=== PATIENT | female | born 1975 | race Caucasian/White ===

== ENCOUNTER 2024-07-20 15:04 | Inpatient (IN) | payer OTHER, SELFPAY ==
--- NOTE | ~2024-07-20 | XR_ITS ---
XR abdomen/kub 1V Ordering provider: ARI Jennings History: . Abdominal distention, nausea . Comparison: None. FINDINGS: BOWEL: Nonobstructive bowel gas pattern. ORGANOMEGALY: None. Status post cholecystectomy. SIGNIFICANT PATHOLOGIC CALCIFICATIONS: None. OTHER: No free air is seen under the diaphragm. Left sacroiliitis. Dextroscoliosis with mild degenerative changes. IMPRESSION: NO ACUTE ABDOMINAL FINDINGS. Reviewed, dictated and finalized at location A. SALESPERSON
--- NOTE | ~2024-07-20 | CT_ITS ---
EXAMINATION: CT abdomen pelvis w con DATE: 07/20/2024 20:15 INDICATION: LLQ pain, rectal bleeding TECHNIQUE: Computed tomography (CT) of the abdomen and pelvis was performed with 100 mL Omnipaque-350 intravenous contrast. Automated exposure control and iterative reconstruction technique were employe d. The dose-length product was 733.79 mGy-cm. COMPARISON: None. FINDINGS: Lower thorax: Mild dependent atelectasis. Liver: Simple left lobe cyst. Adjacent subcentimeter hypodensity that is too small to characterize bu t likely represents a small cyst or hemangioma. Biliary/Gallbladder: Gallbladder is absent. No bile duct dilation. Pancreas: No mass or duct dilation. Spleen: Normal. Adrenals:No mass. Kidneys: Nonobstructing left inferior pole calcifications. Simple left midpole cyst. Subcentimeter hy podensities bilaterally, too small to characterize but most likely represent cysts. No hydronephrosis . GI tract: Small hiatal hernia. Antral wall edema. No small or large bowel dilation. Short segment wal l thickening and pronounced pericolonic inflammatory change in the distal sigmoid. In this region is a 3.6 x 2.4 cm low-density collection in the colonic wall. Fluid-filled colon. Normal appendix. Mesentery/Peritoneum: No ascites, mass, or free air. Retroperitoneum: No mass. Pelvis: Pelvic organs are within normal limits. Surgical or ligation clips over the left adnexa. Soft Tissues: Soft tissues and body wall unremarkable. Bones: No acute osseous finding. IMPRESSION: Mild antral gastritis. Distal sigmoid diverticulitis complicated by a 3.6 cm intramural abscess. Fluid-filled colon as can be seen with diarrheal illness. Reviewed, dictated and finalized at location [facility]. OWS SERVER ADMINISTRATOR
--- NOTE | ~2024-07-20 | CT_ITS ---
CT of the Abdomen and Pelvis: Indication: Abdominal pain Technique: 2.5 mm axial scans were obtained through the abdomen and pelvis following intravenous adm inistration of 100 cc of Omnipaque 350. Dose reduction technique was used on this scan by utilizing a utomated exposure control and iterative reconstruction technique. The dose-length product (DLP) was 4 82.36 mGy-cm. COMPARISON: 07/20/2024 Findings: Scans through the lung bases are unremarkable. Mild intrahepatic and extra hepatic biliary dilatation is probably related to prior cholecystectomy. Stable left hepatic lobe cyst. The spleen, pancreas, adrenals and right kidney are within normal limi ts. 4 mm nonobstructing left renal stone present. No evidence of aortic aneurysm. No lymphadenopathy . There is wall thickening with pericolonic inflammatory change of the distal sigmoid colon, compatible with acute diverticulitis. No abscess or free air present. No bowel obstruction. Images through the pelvis were performed. Urinary bladder unremarkable. No adnexal mass seen. No asci joey. Impression: Acute sigmoid diverticulitis of the distal sigmoid colon. Previously noted intramural/pericolic absce ss is essentially completely resolved. No abscess or free air seen in the current exam. Reviewed, dictated and finalized at [facility]. ONAL COUNSELOR Impression: Acute sigmoid diverticulitis of the distal sigmoid colon. Previously noted intr amural/pericolic abscess is essentially completely resolved. No abscess or free air seen in the current exam.
[2024-07-20 15:11] VITALS: BP 114/74; PULSE 110; RESP 20; TEMP 37.1; O2SAT 98
--- NOTE | 2024-07-20 17:24 | ED_ITS ---
HPI - Abdominal Pain General Chief Complaint: Abdominal Pain <Yassine Church PA-C - Last Filed: 07/20/24 17:31> Stated Complaint: lower abdomen pain <Yassine Church PA-C - Last Filed: 07/20/24 17:31> Time Seen by Provider: 07/20/24 18:57 <Yassine Church PA-C - Last Filed: 07/20/24 17:31> Focused HPI: This is a 49-year-old female who presents to the ED for chief complaint of lower abdominal pain ongoing x2 days. Patient reports that she has had pain across the lower abdomen, worse on the left side. Reports history of diverticulitis but this does not feel quite the same. Endorses history of bladder and uterine prolapse which are to be managed by Dr. Jerry cam and Dr. Mckinney. States that she is starting to have loose stools with dark red blood. Denies melena. Endorses nausea but no vomiting. Endorses fever 100.8 at home today. GENERAL: Well-appearing, well-nourished, and in no acute distress. HEAD: Normocephalic, atraumatic. CHEST: Clear to auscultation. No respiratory distress. HEART: Regular rate and rhythm. NEURO: Alert and oriented x3. Patient screened in triage and initial orders placed. Additional care and disposition to be based upon diagnostic testing and treatment. <Yassine Church PA-C - Last Filed: 07/20/24 17:31> Source: patient <Yassine Church PA-C - Last Filed: 07/20/24 17:31> Mode of arrival: ambulatory <Yassine Church PA-C - Last Filed: 07/20/24 17:31> Limitations: no limitations <Yassine Church PA-C - Last Filed: 07/20/24 17:31> History of Present Illness HPI narrative: I agree with the above HPI <Mike Springer MD - Last Filed: 07/21/24 00:00> Related Data Home Medications: Home Medications ?Medication ?Instructions ?Recorded ?Confirmed ?Last Taken ?Type docusate sodium 100 mg capsule 200 mg PO HS 07/20/24 07/20/24 07/19/24 History <Yassine Church PA-C - Last Filed: 07/20/24 17:31> Allergies/Adverse Reactions: Allergies Allergy/AdvReac Type Severity Reaction Status Date / Time sulfamethoxazole (From Allergy Intermediate Swelling Verified 07/20/24 15:06 Bactrim) of Lip/Tongue/Throat thimerosal Allergy Intermediate Rash Verified 07/20/24 15:06 trimethoprim (From Bactrim) Allergy Intermediate Swelling Verified 07/20/24 15:06 of Lip/Tongue/Throat <Yassine Church PA-C - Last Filed: 07/20/24 17:31> Review of Systems 2 Review of Systems: All systems reviewed & are unremarkable except as noted in HPI and below <Mike Springer MD - Last Filed: 07/21/24 00:00> [facility] Family History Family History: Family History Grandparent Colon cancer Breast cancer Grandparent Esophageal cancer Grandparent Non Hodgkin's lymphoma Grandparent Cerebrovascular accident Father Malignant neoplasm of prostate <Yassine Church PA-C - Last Filed: 07/20/24 17:31> Social History Social History: Social History (System 10/25/21 @ 15:47 by Mandy Murray) Smoking packs per day: 1 Smoking cigarettes per day: 20.0 Years smoked: 29 Smoking pack-years: 29.00 Smoking status: Current every day smoker Tobacco type: cigarettes Additional smoking assessment comments: on and off smoking throughout years Alcohol intake: never Substance use: never Do You Feel Safe in your Home?: Yes Lack of Transportation: No Lack of Food: Never True Current Housing: I Have Housing Concerned About Future Housing: No Difficulty Paying Gas/Electric Bills: No Difficulty Paying for Meds: No Currently Unemployed: No Education: Associate Degree Difficulty w/ Childcare or Family Care: No Spiritual care concerns: No <Yassine Church PA-C - Last Filed: 07/20/24 17:31> Exam 2 Narrative: APPEARANCE: Uncomfortable appearing HEAD: normocephalic, atraumatic. EYES: PERRLA/EOMI, conjunctivae clear. NOSE: Normal no drainage EARS:TMS clear with good light reflex. THROAT: Pharynx clear, no exudate. NECK: Supple. No adenopathy, no masses. RESPIRATORY: Airway patent, respirations nonlabored. Clear to auscultation bilaterally, no rales, rhonchi, wheezing. CARDIOVASCULAR: Regular rate and rhythm without murmurs rubs or gallops. ABDOMINAL: Left lower quadrant tenderness to palpation MUSCULOSKELETAL: Moves all extremities. Strength/ROM intact, No edema, No calf tenderness. NEURO: Alert. Cranial nerves II through XII intact. Good gait. Good coordination SKIN: Warm, dry. Normal Color <Mike Springer MD - Last Filed: 07/21/24 00:00> Course Vital Signs Vital signs: Vital Signs Temperature 98.8 F 07/20/24 15:11 Pulse Rate 110 H 07/20/24 15:11 Respiratory Rate 20 07/20/24 15:11 Blood Pressure 114/74 07/20/24 15:11 Pulse Oximetry 98 07/20/24 15:11 Oxygen Delivery Room Air 07/20/24 15:11 Temperature 98.8 F 07/20/24 19:12 Pulse Rate 81 07/20/24 22:31 Respiratory Rate 17 07/20/24 22:31 Blood Pressure 113/71 07/20/24 22:31 Pulse Oximetry 99 07/20/24 22:31 Oxygen Delivery Room Air 07/20/24 15:11 <Yassine Church PA-C - Last Filed: 07/20/24 17:31> Vital Signs Temperature 98.8 F 07/20/24 15:11 Pulse Rate 110 H 07/20/24 15:11 Respiratory Rate 20 07/20/24 15:11 Blood Pressure 114/74 07/20/24 15:11 Pulse Oximetry 98 07/20/24 15:11 Oxygen Delivery Room Air 07/20/24 15:11 Temperature 98.8 F 07/20/24 19:12 Pulse Rate 81 07/20/24 22:31 Respiratory Rate 17 07/20/24 22:31 Blood Pressure 113/71 07/20/24 22:31 Pulse Oximetry 99 07/20/24 22:31 Oxygen Delivery Room Air 07/20/24 15:11 <Mike Springer MD - Last Filed: 07/21/24 00:00> MDM - Abdominal Pain MDM Narrative Medical decision making narrative: 49-year-old female presented emergency department for evaluation for left lower quadrant pain. Patient is currently afebrile but does have a leukocytosis of 13.2 and hemoglobin of 12.4. Patient has no significant abnormalities on her CMP. UA was negative for infection presents test was negative. On patient's CT scan there was Distal sigmoid diverticulitis complicated by a 3.6 cm intramural abscess. Patient has no cardiac history and patient denies any hypertension high cholesterol or diabetes. Patient does report history of irritable bowel syndrome and patient does have prior history of diverticulitis. I discussed the case with surgery and patient was accepted for admission to their service. Patient was started on Zosyn and made NPO. Patient was updated on the results of the workup and plan for admission. All questions concerns were addressed patient was well-appearing at time of admission. <Mike Springer MD - Last Filed: 07/21/24 00:00> Differential Diagnosis Differential diagnosis: Likely abdominal pain, acute appendicitis, calculus of kidney, diverticulitis, gastroenteritis, pancreatitis and small bowel obstruction <Mike Springer MD - Last Filed: 07/21/24 00:00> Lab Data Attestation: I reviewed the patient's lab results. <Mike Springer MD - Last Filed: 07/21/24 00:00> Result diagrams: 07/20/24 18:57 07/20/24 18:57 <Yassine Church PA-C - Last Filed: 07/20/24 17:31> Labs: Lab Results 07/20/24 07/20/24 07/20/24 Range/Units 18:57 19:40 19:42 WBC 13.2 H (4.5-10.0) K/mm3 RBC 4.12 L (4.2-5.4) M/mm3 Hgb 12.4 (12.0-15.0) g/dL Hct 36.3 L (37.0-47.0) % MCV 88.1 (80-100) fl MCH 30.1 (26-34) pg MCHC 34.2 (32-36) g/dl RDW 12.7 (11.5-14.5) % Plt Count 335 (150-375) k/mm3 MPV 9.9 (7.4-10.4) fl Immature Gran % (Auto) 0.3 (0-0.5) % Neut % (Auto) 78.2 H (45.5-73.1) % Lymph % (Auto) 16.6 L (18.3-44.2) % [place] % (Auto) 4.5 (2.6-8.5) % Eos % (Auto) 0.2 (0-4.4) % Baso % (Auto) 0.2 (0.2-1.2) % Lymph # (Auto) 2.19 (0.9-3.2) K/mm3 [place] # (Auto) 0.6 (0.1-0.6) K/mm3 Eos # (Auto) 0.0 (0-0.3) K/mm3 Baso # (Auto) 0.0 (0.0-0.1) K/mm3 Abs Immat Gran (auto) 0.04 H (0.00-0.031) K/mm3 Absolute Neuts (auto) 10.3 H (1.3-6.7) K/mm3 Absolute Nucleated RBC 0.000 (0.0-0.012) K/mm3 Nucleated RBC % 0.0 (0.0-0.2) % Sodium 138 (137-145) mmol/L Potassium 3.6 (3.4-5.0) mmol/L Chloride 100 (98-107) mmol/L Carbon Dioxide 26 (22-30) mmol/L Anion Gap 12 (4-12) mmol/L BUN 9 (7-17) mg/dL Creatinine 0.64 L (0.7-1.0) mg/dL Estim Creat Clear Calc 94 ml/min Estimated GFR > 60 (59 - ) Glucose 105 (65-110) mg/dL Calcium 9.4 (8.4-10.2) mg/dL Total Bilirubin 0.5 (0.2-1.3) mg/dL AST 31 (14-36) U/L ALT 21 (6-35) U/L Alkaline Phosphatase 110 (38-126) U/L Total Protein 8.0 (6.3-8.2) g/dL Albumin 4.1 (3.5-5.1) g/dL Lipase 75 (23-300) U/L Urine Color Dark yellow (Yellow) Urine Appearance Clear (Clear) Urine pH 6.0 (5.0-9.0) Ur Specific [place] 1.017 (1.001-1.035) Urine Protein Negative (Negative) mg/dL Urine Glucose (UA) Negative (Negative) mg/dL Urine Ketones 1+ H (Negative) mg/dL Ur Blood (Man) Negative (Negative) Urine Nitrate Negative (Negative) Urine Bilirubin Negative (Negative) Urine Urobilinogen 1.0 (<2.0) mg/dL Leukocyte Esterase Rfl Negative (Negative) MEJIA/UL POC Urine HCG, Qual Negative (Negative) <Yassine Church PA-C - Last Filed: 07/20/24 17:31> Lab Results 07/20/24 07/20/24 07/20/24 Range/Units 18:57 19:40 19:42 WBC 13.2 H (4.5-10.0) K/mm3 RBC 4.12 L (4.2-5.4) M/mm3 Hgb 12.4 (12.0-15.0) g/dL Hct 36.3 L (37.0-47.0) % MCV 88.1 (80-100) fl MCH 30.1 (26-34) pg MCHC 34.2 (32-36) g/dl RDW 12.7 (11.5-14.5) % Plt Count 335 (150-375) k/mm3 MPV 9.9 (7.4-10.4) fl Immature Gran % (Auto) 0.3 (0-0.5) % Neut % (Auto) 78.2 H (45.5-73.1) % Lymph % (Auto) 16.6 L (18.3-44.2) % [place] % (Auto) 4.5 (2.6-8.5) % Eos % (Auto) 0.2 (0-4.4) % Baso % (Auto) 0.2 (0.2-1.2) % Lymph # (Auto) 2.19 (0.9-3.2) K/mm3 [place] # (Auto) 0.6 (0.1-0.6) K/mm3 Eos # (Auto) 0.0 (0-0.3) K/mm3 Baso # (Auto) 0.0 (0.0-0.1) K/mm3 Abs Immat Gran (auto) 0.04 H (0.00-0.031) K/mm3 Absolute Neuts (auto) 10.3 H (1.3-6.7) K/mm3 Absolute Nucleated RBC 0.000 (0.0-0.012) K/mm3 Nucleated RBC % 0.0 (0.0-0.2) % Sodium 138 (137-145) mmol/L Potassium 3.6 (3.4-5.0) mmol/L Chloride 100 (98-107) mmol/L Carbon Dioxide 26 (22-30) mmol/L Anion Gap 12 (4-12) mmol/L BUN 9 (7-17) mg/dL Creatinine 0.64 L (0.7-1.0) mg/dL Estim Creat Clear Calc 94 ml/min Estimated GFR > 60 (59 - ) Glucose 105 (65-110) mg/dL Calcium 9.4 (8.4-10.2) mg/dL Total Bilirubin 0.5 (0.2-1.3) mg/dL AST 31 (14-36) U/L ALT 21 (6-35) U/L Alkaline Phosphatase 110 (38-126) U/L Total Protein 8.0 (6.3-8.2) g/dL Albumin 4.1 (3.5-5.1) g/dL Lipase 75 (23-300) U/L Urine Color Dark yellow (Yellow) Urine Appearance Clear (Clear) Urine pH 6.0 (5.0-9.0) Ur Specific [place] 1.017 (1.001-1.035) Urine Protein Negative (Negative) mg/dL Urine Glucose (UA) Negative (Negative) mg/dL Urine Ketones 1+ H (Negative) mg/dL Ur Blood (Man) Negative (Negative) Urine Nitrate Negative (Negative) Urine Bilirubin Negative (Negative) Urine Urobilinogen 1.0 (<2.0) mg/dL Leukocyte Esterase Rfl Negative (Negative) MEJIA/UL POC Urine HCG, Qual Negative (Negative) <Mike Springer MD - Last Filed: 07/21/24 00:00> Imaging Data Radiologist's impression: ITS Impressions Abdomen/Pelvis CT 07/20/24 20:38 IMPRESSION: Mild antral gastritis. Distal sigmoid diverticulitis complicated by a 3.6 cm intramural abscess. Fluid-filled colon as can be seen with diarrheal illness. <Yassine Church PA-C - Last Filed: 07/20/24 17:31> ITS Impressions Abdomen/Pelvis CT 07/20/24 20:38 IMPRESSION: Mild antral gastritis. Distal sigmoid diverticulitis complicated by a 3.6 cm intramural abscess. Fluid-filled colon as can be seen with diarrheal illness. <Mike Springer MD - Last Filed: 07/21/24 00:00> Discharge Plan Discharge Clinical Impression: Abscess of sigmoid colon due to diverticulitis <Yassine Church PA-C - Last Filed: 07/20/24 17:31> Patient Disposition: Still a Patient <Yassine Church PA-C - Last Filed: 07/20/24 17:31> Condition: Serious <Yassine Church PA-C - Last Filed: 07/20/24 17:31>
--- OUTSIDE RECORDS SUMMARY | 2024-07-20 17:37 | XMS_ITS | Encounter Summary ---
Author Organization [facility] Address [address] [place] [address] Phone Care Team Providers Care Costume Draper Name Role Phone Vinicio Greco MD Primary Care Provider [phone] Encounter Details Date Type Department Care Team (Late st Contact Info) Description 07/10/2017 Orders Only [facility] ProviderCrista MD [address] [place] [id number] Social History Tobacco Use Types Packs/Day Years Used Date Smoking Tobacco: Former Smokeless Tobacco: Never Comments:Smoking History Pac ks/day: 1 Packs Alcohol Use Standard Drinks/Week Comments Yes 0 (1 standard drink = 0.6 oz pur e alcohol) Comments Unknown Sex and Gender Information Value Date Recorded Sex Assigned at Not on file Legal Sex Female 12:18 PM PATENT ENGINEER Gender Identity Not on file Sexual Orientation Not on file documented as of this encounter Plan of Treatment Not on file documented as of this encounter Procedures Procedure Name Priority Date/Time Associated Diagnosis Comments DISCHARGE LABORATORY CUMULATIVE REPORT 07/10/2017 12:00 AM PATENT ENGINEER documented in this encounter Results * DISCHARGE LABORATORY CUMULATIVE REPORT (07/10/2017 12:00 AM PATENT ENGINEER) Narrative 07/10/2017 12:00 AM PATENT ENGINEER Ordered by an unspecified provider. Historical Provider LAB BLOOD ORDERABLES [place] [facility] Result documented in this encounter Visit Diagnoses Not on filedocumented in this encounter Additional Health Concerns Infection Onset Date Last Indicated Resolved Time COVID: Suspected 07/19/2024 07/19/202407/1907/19/2024 4:19 PM PATENT ENGINEER documented as of this encounter Care Teams Costume Draper Relationship Specialty Start Date End Date Vinicio Greco MD [address] [place] [address] PCP - General 09/16/11 documented as of this encounter
--- OUTSIDE RECORDS SUMMARY | 2024-07-20 17:37 | XMS_ITS | Clinical Summary ---
Author Organization [facility] Address [address] [place] [address] Phone Care Team Providers Care Supervisor Sign Shop Name Role Phone GERARDO SHEETS MD Primary Care Provider [phone] KETTY RIZO MD Unavailable [phone] Reason for Visit and Chief Complaint previous history of abnormal Pap smear - The Chief Complaint is: Return in 2 weeks to review results on [place] and EMB Problems Includes: Problems addressed during this encounter and other active Problems Current Visit Onset Date Resolved Date Provider Dillon n Status Previous Colposcopy 09/27/2022 LARA MILLER MANUAL WINDER-BC Active Last Documented On 10:22AM ; [facility] Alcohol Use 07/21/2014 Unknown SHASTA SHORT MD Resolve d Last Documented On 04/03/2015 10:52AM ; [facility] Note: was Closed. History of Abnormal Pap Smear 07/21/2014 Unknown SHASTA SHORT MD Resolved Last Documented On 04/03/2015 10:52AM ; [facility] Note: was Closed. History of Congenital Abnormality of Uterus 07/21/2014 Unknown SHASTA SHORT MD Resolved Last Documented On 04/03/2015 10:52AM ; [facility] Note: was Closed. History of Hematologic Disorders 07/21/2014 Unknown SHASTA SHORT MD Resolved Last Documented On 04/03/2015 10:52AM ; [facility] Note: was Closed. History of Recurrent Loss (Gravid) 07/21/2014 Unknown SHASTA SHORT MD Resolve d Last Documented On 04/03/2015 10:52AM ; [facility] Note: was Closed. History of Reported Physical Trauma 07/21/2014 Unknown SHASTA SHORT MD Resolved Last Documented On 04/03/2015 10:52AM ; [facility] Note: was Closed. Tobacco Use 07/21/2014 Unknown SHASTA SHORT MD Resolve d Last Documented On 04/03/2015 10:52AM ; [facility] Note: was Closed. History of Abnormal Pap Smear 07/16/2011 Unknown SHASTA SHORT MD Resolved Last Documented On 02/28/2012 10:55AM ; [facility] Note: was Closed. 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 Resolved Last Documented On 02/28/2012 10:55AM ; [facility] Note: was Closed. Tobacco Use 07/16/2011 Unknown SHASTA SHORT MD Resolve d Last Documented On 02/28/2012 10:55AM ; [facility] Note: was Closed. Past Visits Onset Date Resolved Date Provider Condition Status Risk: Tobacco Use 09/27/2022 LARA REYNA NP -BC Active Last Documented On 10:22AM ; [facility] Plan of Treatment No Plan of Treatment Recorded Assessments Includes: Assessments from this encounter Findings - Contraceptive management - Last Documented On 12/10/2022 4:44PM ; [facility] - Abnormal Pap smear: atypical glandular cells - Last Documented On 12/10/2022 4:44PM ; [facility] Medical Equipment - Implanted Devices Includes: Current Devices No Medical Equipment Recorded Medications Includes: Medications discussed during this encounter and other current Medications Current Medications (continue as prescribed) Advil 200 MG Oral Capsule 09/27/2022 Provider: Diagnosis: Last Documented On 12/10/2022 4:41PM By KETTY RIZO MD ; [facility] Stool Softener 100 MG Oral Capsule 07/16/2019 Pr ovider: Diagnosis: Last Documented On 12/10/2022 4:41PM By KETTY RIZO MD ; [facility] Dicyclomine HCl 10 MG Oral Capsule 07/16/2019 Provid er: Diagnosis: Last Documented On 12/10/2022 4:41PM By KETTY RIZO MD ; [facility] Past Medications on file Breast Pump Miscellaneous 01/26/2015 - 01/26/2016 Prov ider: SHASTA SHORT MD Diagnosis: as directed Last Documented On 01/26/2015 3:22PM By SHASTA SHORT MD ; [facility] Plus/Iron 27-1 MG OR TABS 03/09/2014 - 03/04/2015 Provider: SUREKHA MELENDEZ RN [facility] Diagnosis: OTHER FAMILY DAVID NNING ADVICE NEC Last Documented On 4 4:03PM By SUREKHA MELENDEZ [facility]- ; [facility] Bactrim DS 800-160 MG OR TABS 09/06/2013 - 09/09/2013 Provider: Diagnosis: Called into [facility] Last Documented On 09/06/2013 8:54AM By FLAVIO COLLAZO ; [facility] miSOPROStol 200 MCG OR TABS 08/02/2013 - 08/04/2013 Pr ovider: SHASTA SHORT MD Diagnosis: MISSED 4 tabs (800 mcg) po X 1, may repeat 24 hours later if needed Last Documented On 08/02/2013 4:41PM By SHASTA SHORT MD ; [facility] [employer]ETING [employer] 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 Last Documented On 4 2:53PM By LUCIO LIND LPN ; [facility] Peotone 5-325 MG OR TABS 01/26/2013 - 02/02/2013 Provide r: Diagnosis: [facility] [place]/ Last Documented On 01/26/2013 1:39PM By FLAVIO COLLAZO ; [facility] Estradiol 1 MG OR TABS 06/25/2012 - 07/16/2012 Provide r: SHASTA SHORT MD Diagnosis: Last Documented On 06/25/2012 4:19PM By SHASTA SHORT MD ; [facility] Ferrous Sulfate 325 (65 Fe) MG OR TABS 10/22/2011 - 02/19/2012 Provider: MARIA D ROSE ON Liliam Diagnosis: ANEMIA IN PREG-U NSPEC Last Documented On 2 4:46PM By DR. MARIA D DE AL ROSA ; [facility] Ferrous Sulfate 325 (65 Fe) MG OR TABS 08/19/2011 - 12/17/2011 Provider: SOLDREObi OQUENDO M.D. Diagnosis: ANEMIA IN PREG-U NSPEC Last Documented On 2 11:13PM By DR. MARIA D DE LA ROSA ; [facility] Zofran 4 MG OR TABS 06/20/2011 - 08/19/2011 Provider: LARA GARNETT Diagnosis: 1 sublingual (reditabs) q 8 hours prn - nausea and vomiting Last Documented On 2 11:41AM By LARA REYNA TEO ; [facility] Metoclopramide HCl 10 MG OR TABS 05/23/2011 - 06/12/2011 Provider: LARA MILLER NP- Diagnosis: prn - nausea Last Documented On 1 4:12PM By LARA REYNA TEO ; [facility] Triveen-Duo DHA 29-1-200 & 400 MG OR MISC 01/18/2011 - 05/18/2011 Provider: LARA MILLER NP-BC Diagnosis: Last Documented On 1 3:26PM By LARA SIMPSON ; [facility] Depo-Provera 150 MG/ML IM SUSP 04/03/2010 - 09/30/2010 Provider: VICKY JURADO Diagnosis: Inject IM Last Documented On 04/03/2010 9:07AM By VICKY JURADO ; [facility] MetroGel-Vaginal 0.75% VA GEL 11/08/2009 - 11/15/2009 Provider: VICKY JURADO Diagnosis: apply per vagina x 7 days Last Documented On 11/08/2009 3:55PM By DESTINY HOOVER ; [facility] Lexapro 10 MG OR TABS 10/17/2009 - 10/12/2010 Provider : VICKY JURADO Diagnosis: ANXIETY STATE NO S Last Documented On 10/17/2009 3:44PM By VICKY JURADO ; [facility] Medications Administered Includes: Administered Medications from this encounter No Administered Medications Recorded Vital Signs Includes: Vital Signs from this encounter Vital Name 12/10/2022 02:08P Blood Pressure Sitting R 120/84 BP Cuff Size Regular Temp-Temporal 98.3 Height (in) 64 Weight (lb) 173 Body Mass Index 29.7 Body Surface Area 1.8 Last Documented: On 12/10/2022 2:09PM ; [facility] Results Includes: Results discussed during this encounter No Results Recorded For Specified Dates History of Present Illness Includes: History of Present Illness from this encounter HPI MARI BARAHONA is a 47 year old female. - Allergy list reviewed - Medication list reviewed - Patient denies any problems from the procedure Pt had a CT scan looking at her ventral hernia and it happened to notice the right tubal ligation clip was displaced compared to where it was expected to be. Since discovery she has not been depending on her prior tubal ligation for control. She has been using condoms 100% of the time. Cautioned pt about unintended . Options for management are discussed - Previous colposcopy on 11/04/2022 for AGC pap with positive HR HPV testing on 09/27/2022 with Lara - Pathology report Reviewed and showed squamous ectocervix and reactive changes in the biopsy and benign endocervical mucosa in the ECC. She also had an endometrial biopsy done on 11/29/2022 that shows proliferative endometrium without hyperplasia or malignancy. Reassurrance is given: no cancer or pre cancer changes - Patient tolerated procedure well Social History Description Last Updated Alcohol use occ 10/03/2023 Last Documented On 3 1:55PM ; [facility] control is being practiced Condoms 12/10/2022 Last Documented On 3 4:44PM ; [facility] Marital history to Chaitanya Barahona 12/10/2022 Last Documented On 3 4:44PM ; [facility] Not exercising regularly 12/10/2022 Last Documented On 3 4:44PM ; [facility] Not using drugs 12/10/2022 Last Documented On 3 4:44PM ; [facility] Sexually active with 1 partners in the l ast year 12/10/2022 Last Documented On 3 4:44PM ; [facility] Amount of alcohol per day: 0-1 3 Last Documented On 3 1:55PM ; [facility] Current smoker 09/27/2022 Last Documented On 3 1:55PM ; [facility] Current smoker for 10 09/27/2022 Last Documented On 3 1:55PM ; [facility] Has sex with males only 09/27/2022 Last Documented On 3 1:55PM ; [facility] Sexual partner has had other partners wh ile in relationship with patient 09/27/2022 Last Documented On 3 1:55PM ; [facility] Smoking packs of cigarettes per day 1 Last Documented On 3 1:55PM ; [facility] Smoking status : Current everyday smoker 07/16/2019 Last Documented On 3 1:55PM ; [facility] Requested item <0> not found 12/23/2014 Last Documented On 3 1:55PM ; [facility] Procedures and Surgical History Includes: Procedures from this encounter Procedures Code Diagnosis Performing Provider Service L ocation Service Date use of tobacco assessment performed 1000F Last Documented On 3 1:57PM ; [facility] Clinical summary provided to patient Last Documented On 3 2:25PM ; [facility] Surgical History Last Updated Surgical / procedural histor y Surgery on R thigh ~pt has diverticulitis ~Cervical replacement of disks in neck 2021 ~EMB 11/29/22 Lara 12/10/2022 Last Documented On 3 4:44PM ; [facility] Previous colposcopy 04/17/2011 with Lizz foy; 11/04/22 TCK 12/10/2022 Last Documented On 3 4:44PM ; [facility] History of tubal ligation Dr Short (right clip in pelvis somewhere per pt) 11/04/2022 Last Documented On 3 1:55PM ; [facility] History of cholecystectomy 07/16/2019 Last Documented On 3 1:55PM ; [facility] Medical History Includes: Medical History addressed during this encounter Description Last Updated LMP: 11/21/2022 10/03/2023 Last Documented On 3 1:55PM ; [facility] Contraception: BTL 12/10/2022 Last Documented On 3 4:44PM ; [facility] Other method: Tubal ligation/ Condoms Last Documented On 3 4:44PM ; [facility] Result: normal Bilateral 11/05/22 Left br east lump [facility] 12/10/2022 Last Documented On 3 4:44PM ; [facility] History of screening mammogr am was performed 04/04/2021 Bilateral 11/05/22 Left breast lump [facility] 12/10/2022 Last Documented On 3 4:44PM ; [facility] Last pap smear date 09/27/2022 11/04/2022 Last Documented On 3 1:55PM ; [facility] Result: abnormal KIM HPV+ 11/04/2022 Last Documented On 3 1:55PM ; [facility] Last mammogram date: 04/04/2021 09/28/19 Last Documented On 3 1:55PM ; [facility] History of colonoscopy fiberoptic was pe rformed 201809/27/2022 Last Documented On 3 1:55PM ; [facility] # 1 Delivery date: 12/07/92 09/27/2022 Last Documented On 3 1:55PM ; [facility] # 2 Delivery date: 01/15/12 09/27/2022 Last Documented On 3 1:55PM ; [facility] # 3 Delivery date: 02/06/15 09/27/2022 Last Documented On 3 1:55PM ; [facility] Bowel problems 09/27/2022 Last Documented On 3 1:55PM ; [facility] Elective (s) 0 09/27/2022 Last Documented On 3 1:55PM ; [facility] Gallbladder disease 09/27/2022 Last Documented On 3 1:55PM ; [facility] No Exercise 09/27/2022 Last Documented On 3 1:55PM ; [facility] No. of miscarriages: 2 09/27/2022 Last Documented On 3 1:55PM ; [facility] No. of Pregnancies: 5 09/27/2022 Last Documented On 3 1:55PM ; [facility] Please list all surgeries: T ubal ligation, cholecystectomy, cervical disc's replaced, diverticulitis 09/27/2022 Last Documented On 3 1:55PM ; [facility] Previous live (s) 3 09/27/2022 Last Documented On 3 1:55PM ; [facility] Previous premature delivery(s) 0 023 Last Documented On 3 1:55PM ; [facility] Received all 3 doses of Hepatitis B vacc ine 09/27/2022 Last Documented On 3 1:55PM ; [facility] Sex of Child # 1: Female 09/27/2022 Last Documented On 3 1:55PM ; [facility] Sex of Child # 2: Male 09/27/2022 Last Documented On 3 1:55PM ; [facility] Sex of Child # 3: Male 09/27/2022 Last Documented On 3 1:55PM ; [facility] Sexually active 07/16/2019 Last Documented On 3 1:55PM ; [facility] History of complete colonoscopy 2019 Last Documented On 3 1:55PM ; [facility] Aborta 2 05/30/2015 Last Documented On 3 1:55PM ; [facility] 5 05/30/2015 Last Documented On 3 1:55PM ; [facility] Para 3 05/30/2015 Last Documented On 3 1:55PM ; [facility] Baby thriving Tae 03/21/2015 Last Documented On 3 1:55PM ; [facility] HX OF FE DEFICIENT ANEMIA 12/23/2014 Last Documented On 3 1:55PM ; [facility] History of Abnormal Pap Smear hx of abn pap smear, last few normal 12/23/2014 Last Documented On 3 1:55PM ; [facility] History of cervical dysplasia colpo 11-2 3-11 12/23/2014 Last Documented On 3 1:55PM ; [facility] History of congenital abnormality of shauna onofre retroverted ? 12/23/2014 Last Documented On 3 1:55PM ; [facility] History of dysfunctional shauna rine bleeding heavy and long periods but ocp helped 12/23/2014 Last Documented On 3 1:55PM ; [facility] History of hematologic disorder Hx of an emia, sharmaine with preg 12/23/2014 Last Documented On 3 1:55PM ; [facility] History of human papilloma virus infecti on 12/23/2014 Last Documented On 3 1:55PM ; [facility] History of recurrent loss (gra vid) sab X 2 12/23/2014 Last Documented On 3 1:55PM ; [facility] Physical trauma fx right leg at age 5 Last Documented On 3 1:55PM ; [facility] Requested item <0> not found 12/23/2014 Last Documented On 3 1:55PM ; [facility] Vaginal delivery 12/23/2014 Last Documented On 3 1:55PM ; [facility] Family History Includes: Family History addressed during this encounter Description Last Updated Daughter's history of stroke syndrome Last Documented On 3 1:55PM ; [facility] Maternal history of breast cancer Grandm a 09/27/2022 Last Documented On 3 1:55PM ; [facility] Maternal history of cancer Gradnfather- esophogeal 09/27/2022 Last Documented On 3 1:55PM ; [facility] Paternal history of cancer Grandma- non hodgkins lymphoma 09/27/2022 Last Documented On 3 1:55PM ; [facility] Paternal history of stroke syndrome 09/2022 Last Documented On 3 1:55PM ; [facility] Family history of bowel problems 023 Last Documented On 3 1:55PM ; [facility] Family history of Breast problems 2022 Last Documented On 3 1:55PM ; [facility] Family history of kidney disease 023 Last Documented On 3 1:55PM ; [facility] Maternal history of Anemia 09/27/2022 Last Documented On 3 1:55PM ; [facility] Maternal history of bowel problems 09/27 Last Documented On 3 1:55PM ; [facility] Maternal history of Breast problems 09/2022 Last Documented On 3 1:55PM ; [facility] Maternal grandmother's history of malign ant female breast neoplasm MG 07/16/2019 Last Documented On 3 1:55PM ; [facility] Family history of diabetes mellitus [facility] 03/09/2014 Last Documented On 3 1:55PM ; [facility] Family history of malignant female breas t neoplasm [facility] 03/09/2014 Last Documented On 3 1:55PM ; [facility] Review of Systems Includes: Review of Systems from this encounter No Review of Systems Recorded Mental Status Includes: Mental Status from this encounter No Mental Status Recorded Functional Status Includes: Functional Status from this encounter No Functional Status Recorded Physical Exam Includes: Physical Exam from this encounter Allergies Includes: Active Allergies Substance Type Reaction Onset Date Resolved Date Statu s Thimerosal Allergy 02/28/2012 Active Last Documented On 4 10:05AM ; [facility] Bactrim DS Allergy 07/16/2019 Active Last Documented On 4 10:05AM ; [facility] Encounters Encounter Provider Location Date Check-In Time Check- Out Time Diagnosis FOLLOW UP KETTY RIZO MD [facility] 3 1:54PM 2:54PM Cervical Pap Smear Positive Atypical Glandular Cells,Contrace ptive Management Insurance Includes: Active Insurance Policies Plan Name Member ID Group # Subscriber Relationship Effect cole Dates - [id number] MARI BARAHONA Self Clinical Notes Includes: Clinical Notes from this encounter * Progress note Date Encounter Last Documented by 12/10/2022 FOLLOW UP Last documented on 12/10/2022; 4:44 PM, KETTY RIZO MD; [facility] Active Problems & Conditions - Previous Colposcopy - Risk: Tobacco Use Chief Complaint The Chief Complaint is: Return in 2 weeks to review results on [place] and EMB. Reason For Visit Previous history of abnormal Pap smear. History of Present Illness MARI BARAHONA is a 47 year old female. - Allergy list reviewed - Medication list reviewed - Patient denies any problems from the procedure Pt had a CT scan looking at her ventral hernia and it happened to notice the right tubal ligation clip was displaced compared to where it was expected to be. Since discovery she has not been depending on her prior tubal ligation for control. She has been using condoms 100% of the time. Cautioned pt about unintended . Options for management are discussed - Previous colposcopy on 11/04/2022 for AGC pap with positive HR HPV testing on 09/27/2022 with Lara - Pathology report Reviewed and showed squamous ectocervix and reactive changes in the biopsy and benign endocervical mucosa in the ECC. She also had an endometrial biopsy done on 11/29/2022 that shows proliferative endometrium without hyperplasia or malignancy. Reassurrance is given: no cancer or pre cancer changes - Patient tolerated procedure well Current Medication - Advil 200 MG Oral Capsule 0 days, 0 refills - [facility] Stool Softener 100 MG Oral Capsule 0 days, 0 refills - Cyclobenzaprine HCl 10 MG Oral Tablet 30 days, 0 refills - Dicyclomine HCl 10 MG Oral Capsule 0 days, 0 refills - HYDROcodone-Acetaminophen 5-325 MG Oral Tablet 5 days, 0 refills - Pantoprazole Sodium 40 MG Oral Tablet Delayed Release 90 days, 0 refills Past Medical/Surgical History Reported: No Exercise. LMP: 11/21/2022, Last pap smear date 09/27/2022 result: abnormal KIM HPV+, Last mammogram date: 04/04/2021 result: normal Bilateral 11/05/22 Left breast lump [facility], Contraception: BTL, Other method: Tubal ligation/ Condoms, and Please list all surgeries: Tubal ligation, cholecystectomy, cervical disc's replaced, diverticulitis. Medical: Bowel problems and gallbladder disease. Surgical / Procedural: Surgical / procedural history Surgery on R thigh pt has diverticulitis Cervical replacement of disks in neck 2021 EMB 11/29/22 Lara. Previous colposcopy 04/17/2011 with Lara; 11/04/22 RADHA. Immunization History: Received all 3 doses of Hepatitis B vaccine. Physical Trauma: Physical trauma fx right leg at age 5. : Baby thriving Tae, 5, para 3 including premature delivery(s) 0, having live (s) 3, aborta 2 including elective (s) 0, history of the : vaginal delivery, No. of Pregnancies: 5, # 1 Delivery date: 12/07/92, # 2 Delivery date: 01/15/12, # 3 Delivery date: 02/06/15, No. of miscarriages: 2, Sex of Child # 1: Female, Sex of Child # 2: Male, and Sex of Child # 3: Male. Sexual: Sexually active. Other: Colonoscopy fiberoptic was performed 2018. Screening mammogram was performed 04/04/2021 Bilateral 11/05/22 Left breast lump [facility] Diagnoses: Congenital abnormality of uterus retroverted ? Cervical dysplasia colpo 04-17-11 Abnormal Pap Smear hx of abn pap smear, last few normal. Rh isoimmunization affecting care of mother MOB TYPE O NEG Recurrent loss (gravid) sab X 2. Dysfunctional uterine bleeding heavy and long periods but ocp helped. Human papilloma virus infection. Hematologic disorder Hx of anemia, sharmaine with preg HX OF FE DEFICIENT ANEMIA. Procedural: - Complete colonoscopy 2019 Surgical: - Cholecystectomy - Tubal ligation Dr Short (right clip in pelvis somewhere per pt) Social History Behavioral: Amount of alcohol per day: 0-1. Tobacco use: Tobacco use is using E-cig trying to quit, for 10, cigarette smoking smoking packs of cigarettes per day 1, and smoking status: Current everyday smoker. Alcohol: Alcohol use occ. Drug Use: Not using drugs. Habits: Not exercising regularly. Marital: Marital history to Chaitanya Barahona. Sexual: Sexually active with 1 partners in the last year, has sex with males only, partner's sexual history sexual partner has had other partners while in relationship with patient, and control is being practiced Condoms. Allergies - Bactrim DS - Thimerosal Family History Bowel problems Kidney disease Breast problems Diabetes mellitus MGM Malignant female breast neoplasm MGM Paternal: Stroke syndrome Cancer Grandma- non hodgkins lymphoma Maternal: Anemia Bowel problems Breast problems Cancer Gradnfather- esophogeal Breast cancer Grandma Maternal grandmother's: Malignant female breast neoplasm MGM Daughter's: Stroke syndrome Physical Findings - Vitals taken 12/10/2022 02:08 pm BP-Sitting R 120/84 mmHg BP Cuff Size Regular Temp-Temporal 98.3 F Height 64 in Weight 173 lbs Body Mass Index 29.7 kg/m2 Body Surface Area 1.8 m2 No further physical exam is performed Assessment - Contraceptive management - Abnormal Pap smear: atypical glandular cells Therapy - Clinical summary provided to patient. Discussed Options for management were discussed including doing nothing--- not recommended. Serial pap smears are discussed - doing pap smear every year till we have 3 negatives. LEEP conization is discussed. A 4th option of hysterectomy had been discussed. Questions were answered. Patient expresses understanding and elects to do serial paps yearly till 3 negatives. Pt also has a history of having a CT scan done to follow up on a know ventral hernia. In doing so it sees what may be a displaced right fallopian tube clip. She was notified when we got the study and now that hysterectomy is not needed for her pap abnormality the question is what to do about the clip. She has option to not do anything. She can continue to use condoms 100% of the time. She states that they are only having sex about once a week. The worry about will stop with menopause. She could start OCP's but not with her BP where it is at. DepoProvera shots could provide control. Mirena IUD could provide 7 years of control as well as some cycle control as well. Paragard IUD could provide 10 years of control without any hormonal worries. Surgery could be done to fish out the clip and cauterize tube or remove tubes, but that is surgery. Pt is not sure what to do. She states she also has a problem with her menses being very heavy. Reviewed that this is still another topic and it deserves its own time for discussion of the problem and options for its management. She will need to re schedule to discuss. She expresses understanding. She is allowed to ventilate feelings that the abnormal paps smear was going to promote her cause to just have a hysterectomy because she just wants to be done with it all. Mom had one. GM had one. She wants one. Wasn't the abnormal pap findings due to endometriosis or something that is causing all of theses other problems. She is allowed to ventilate feelings. To summarize: we are going to do yearly paps to follow. She will use condoms 100% of the time till the misplaced tubal clip issue is resolved. She will return to discuss her claim of menorrhagia. Plan StartCited - Other Follow-up Pt to schedule evaluation for heavy flows in the next month (30 min); return for WWE and pap with Lara after 09/28/2023. EndCited Practice Management Use of tobacco assessment performed; [02900] Established outpatient, medically appropriate H&P, moderate level decision making, 30-39 minutes.
--- OUTSIDE RECORDS SUMMARY | 2024-07-20 17:37 | XMS_ITS ---
Author Organization [facility] Address [address] [place] [address] Phone Care Team Providers Care Fire Alarm Installer Name Role Phone GERARDO GRECO MD Primary Care Provider [phone] KETTY ARTHUR MD Unavailable [phone] Problems Includes: Active, inactive, and resolved Problems All Visits Onset Date Resolved Date Provider Condition S tatus Previous Colposcopy 09/27/2022 LARA REYNA FURNITURE ASSOCIATE-BC Active Last Documented On 3 10:22AM ; [facility] Risk: Tobacco Use 09/27/2022 LARA REYNA NP -BC Active Last Documented On 3 10:22AM ; [facility] Age 35+ During 07/21/2014 Unknown SHASTA OQUENDO MD Resolved Last Documented On 04/03/2015 10:52AM ; [facility] Note: was Closed. Alcohol Use 07/21/2014 Unknown SHASTA SHORT MD Resolve d Last Documented On 04/03/2015 10:52AM ; [facility] Note: was Closed. Exposure To Contagious Viral Disease 07/21/2014 Unknown SHASTA SHORT MD Resolved Last Documented On 04/03/2015 10:52AM ; [facility] Note: was Closed. History of Abnormal Pap Smear 07/21/2014 Unknown SHASTA SHORT MD Resolved Last Documented On 04/03/2015 10:52AM ; [facility] Note: was Closed. History of Congenital Abnormality of Uterus 07/21/2014 Unknown SHASTA SHORT MD Resolved Last Documented On 04/03/2015 10:52AM ; [facility] Note: was Closed. History of Hematologic Disorders 07/21/2014 Unknown SHASTA SHORT MD Resolved Last Documented On 04/03/2015 10:52AM ; [facility] Note: was Closed. History of Recurrent Loss (Gravid) 07/21/2014 Unknown SHASTA SHORT MD Resolve d Last Documented On 04/03/2015 10:52AM ; [facility] Note: was Closed. History of Reported Physical Trauma 07/21/2014 Unknown SHASTA SHORT MD Resolved Last Documented On 04/03/2015 10:52AM ; [facility] Note: was Closed. Tobacco Use 07/21/2014 Unknown SHASTA SHORT MD Resolve d Last Documented On 04/03/2015 10:52AM ; [facility] Note: was Closed. Reported Previous Std 07/21/2014 Unknown SHASTA SHORT MD Resolved Last Documented On 04/03/2015 10:52AM ; [facility] Note: was Closed. Maternal Blood Type Rh- 05/11/2014 Unknown SHASTA Arreola MD Resolved Last Documented On 04/03/2015 10:52AM ; [facility] Note: was Closed. Preeclampsia - Antepartum Condition Or Prior Complicated Del 11/15/2011 Unknown MARIA D DE LA ROSA M.D. Resolved Last Documented On 02/28/2012 10:55AM ; [facility] Note: was Closed. ANEMIA IN PREG-UNSPEC 10/22/2011 Unknown NERY DE LA ROSA M.D. Resolved Last Documented On 02/28/2012 10:55AM ; [facility] Note: was Closed. ESOPHAGEAL REFLUX 09/20/2011 Morena DE LA ROSA M.D. Resolved Last Documented On 02/28/2012 10:55AM ; [facility] Note: was Closed. History of Abnormal Pap Smear 07/16/2011 Unknown SHASTA SHORT MD Resolved Last Documented On 02/28/2012 10:55AM ; [facility] Note: was Closed. History of Essential Hypertension 07/16/2011 Morena DE LA ROSA M.D. Resolved Last Documented On 02/28/2012 10:55AM ; [facility] Note: was Closed. 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 Resolved Last Documented On 02/28/2012 10:55AM ; [facility] Note: was Closed. Tobacco Use 07/16/2011 Unknown SHASTA SHORT MD Resolve d Last Documented On 02/28/2012 10:55AM ; [facility] Note: was Closed. Respiratory Disorders 07/16/2011 Unknown NERY DE LA ROSA M.D. Resolved Last Documented On 02/28/2012 10:55AM ; [facility] Note: was Closed. Smoking During 07/16/2011 Unknown YULI DE LA ROSA M.D. Resolved Last Documented On 02/28/2012 10:55AM ; [facility] Note: was Closed. TOBACCO USE DISORDER 07/16/2011 Unknown MARIA D DE LA ROSA M.D. Resolved Last Documented On 02/28/2012 10:55AM ; [facility] Note: was Closed. VACCIN FOR INFLUENZA 07/16/2011 Unknown MARIA D DE LA ROSA M.D. Resolved Last Documented On 02/28/2012 10:55AM ; [facility] Note: was Closed. Visit For: Exam For Nuchal Translucency Testing 07/16/2011 Unknown MARIA D DE LA ROSA M.D. Resolved Last Documented On 02/28/2012 10:55AM ; [facility] Note: was Closed. Maternal Blood Type Rh- 04/12/2011 Unknown SHASTA Arreola MD Resolved Last Documented On 02/28/2012 10:55AM ; [facility] Note: was Closed. Plan of Treatment Findings Encounter Date Ordered Clinical summary pro vided to patient WELL WOMAN - ESTABLISHED PT with LARA REYNA [facility] 10/03/2023 Last Documented On 4 10:18AM ; [facility] Ordered follow-up visit 1 ye ar or as needed WELL WOMAN - ESTABLISHED PT with LARA REYNA [facility] 10/03/2023 Last Documented On 4 10:18AM ; [facility] Reminded pt. that because Fi lshie clip not seen on recent CT scan done by PCP- she should use barrier method for contraception like condoms. Will f/u with Dr. Arthur in 2 weeks for EMB and colpo results. Post procedural instructions reviewed - see handout in chart PROCEDURE OFFICE with LARA REYNA [facility] 11/29/2022 Last Documented On 3 1:28PM ; [facility] Ordered Clinical summary pro vided to patient WELL WOMAN - NEW PATIENT with LARA REYNA WHNP-BC 09/27/2022 Last Documented On 3 10:53AM ; [facility] Ordered follow-up visit 1 ye ar or as needed WELL WOMAN - NEW PATIENT with LARA REYNA WHNP-BC 09/27/2022 Last Documented On 3 10:53AM ; [facility] Ordered Clinical summary pro vided to patient NEW DIRECTOR ATHLETIC EXAM with LARA REYNA WHNP-BC 07/16/2019 Last Documented On 0 10:42AM ; [facility] Ordered follow-up visit 1 ye ar or as needed NEW DIRECTOR ATHLETIC EXAM with LARA REYNA WHNP-BC 07/16/2019 Last Documented On 0 10:42AM ; [facility] Ordered Clinical summary pro vided to patient RETURN OB EXAM with LARA RENYA NP-BC 12/23/2014 Last Documented On 5 1:50PM ; [facility] Ordered Clinical summary pro vided to patient RETURN OB EXAM with LARA REYNA NP-BC 12/09/2014 Last Documented On 5 10:05AM ; [facility] Ordered Clinical summary pro vided to patient RETURN OB EXAM with LARA REYNA WHNP-BC 11/24/2014 Last Documented On 5 3:19PM ; [facility] Ordered Clinical summary pro vided to patient RETURN OB EXAM with LARA REYNA NP-BC 11/11/2014 Last Documented On 5 1:47PM ; [facility] Ordered blood typing Rh nega tive s/p Rhogam today INJECTION with SHASTA SHORT MD 02/21/2014 Last Documented On 4 3:16PM ; [facility] Ordered quantitative HCG level ordered INJECTION with SHASTA SHORT MD 02/21/2014 Last Documented On 4 3:16PM ; [facility] Ordered blood typing Rh nega tive already s/p Rhogam PROBLEM VISIT with SHASTA SHORT MD 08/19/2013 Last Documented On 4 2:35PM ; [facility] Ordered quantitative HCG lev el being ordered today since urine HCG still + PROBLEM VISIT with SHASTA SHORT MD 08/19/2013 Last Documented On 4 2:35PM ; [facility] Ordered blood typing Rh nega tive so Rhogam given today INJECTION with SHASTA SHORT MD 08/02/2013 Last Documented On 4 4:43PM ; [facility] Ordered quantitative HCG lev el >15,000 on 07/30 INJECTION with SHASTA SHORT MD 08/02/2013 Last Documented On 4 4:43PM ; [facility] Zofran rx given for ongoing nausea - not really vomiting much, but she is not getting any relief from reglan MISSED MENSES with LARA REYNA WHNP-BC 06/20/2011 Last Documented On 2 11:35AM ; [facility] Ordered follow-up visit 1 ye ar or as needed PAP SMEAR ONLY with LARA REYNA WHNP-BC 01/18/2011 Last Documented On 1 3:26PM ; [facility] Ordered follow-up visit 1 ye ar or as needed NEW DIRECTOR ATHLETIC EXAM with VICKY JURADO 10/17/2009 Last Documented On 0 3:57PM ; [facility] Pending Tests Order Diagnosis Results Due Ordering P rovider Lab TISSUE, SPECIMEN A 08/26/13 SHASTA SHORT MD Last Documented On 4 2:39PM ; [facility] In office procedures - *Clia Waived Labs Urine Test Irregular menstruation, unspecified 10/17/23 LARA REYNA WHNP-BC Last Documented On 4 10:07AM ; [facility] Radiology @ other - *MAMMOGRAPHY SCREENING MAMMOGRAM Encntr screen mammogram for malignant neoplasm of breast 10/17/23 LARA REYNA WHNP-BC Last Documented On 4 10:23AM ; [facility] In office procedures - *Clia Waived Labs *FOBT* Fecal Occult Blood Test Encounter for screening for malignant neoplasm of rectum 10/17/23 LARA REYNA WHNP-BC Last Documented On 4 10:07AM ; [facility] Instructions to patient Instructions for patient : B reast Self Exam discussed Last Documented On 4 9:54AM ; [facility] Intervention and counseling on cessation of tobacco use Last Documented On 4 10:04AM ; [facility] Lose weight Last Documented On 4 9:56AM ; [facility] Colonoscopy Handout given to patient Last Documented On 4 9:56AM ; [facility] Instructions for patient : B reast Self Exam discussed Last Documented On 3 10:21AM ; [facility] Safe sex counseling Last Documented On 3 10:51AM ; [facility] Instructions for patient : B reast Self Exam discussed Last Documented On 0 10:29AM ; [facility] Safe sex counseling Last Documented On 0 10:41AM ; [facility] Instructions for patient : B reast Self Exam discussed Last Documented On 4 1:45PM ; [facility] Instructions for patient : B reast Self Exam discussed Last Documented On 3 4:14PM ; [facility] May resume normal activities as tolerated Last Documented On 1 10:11AM ; [facility] Instructions for patient : B reast Self Exam discussed Last Documented On 1 3:03PM ; [facility] Instructions for patient : B reast Self Exam discussed and technique reviewed Last Documented On 0 3:28PM ; [facility] Recommend diet and exercise at least 30 min three times per week Last Documented On 0 3:28PM ; [facility] Recommend CBC, TSH, fasting glucose, fasting lipid panel if patient aged 25 or older Last Documented On 0 3:28PM ; [facility] Recommend preventative vacci nation including but not limited to influenza/flu vaccine, DTP, Rubella, Hepatitis B vaccination series ~ ~Gave handouts on Mirena ~Smoking Cessation Last Documented On 0 3:56PM ; [facility] Education and Decision Aids were provided during visit for: Patient Education: Daily daniel cium and vitamin D Last Documented On 4 9:54AM ; [facility] Patient Education: weight be aring exercise Last Documented On 4 9:54AM ; [facility] Smoking cessation advised Last Documented On 4 9:56AM ; [facility] INFORMED CONSENT DISCUSSION: Endometrial biopsy was discussed in detail including discomfort, insufficient specimen with need to repeat test, and rare incidence of uterine perforation. Patient expressed understanding of the above and consented to the procedure Last Documented On 3 1:08PM ; [facility] Smoking cessation advised Last Documented On 3 1:10PM ; [facility] INFORMED CONSENT DISCUSSION: Colposcopy was discussed in detail including risk of post procedure bleeding and infection. Patient is not to have anything in the vagina till all of the discharge quits following the procedure. Patient expressed understanding of the above and consented to the procedure Last Documented On 3 2:42PM ; [facility] Patient Education: Daily daniel cium and vitamin D Last Documented On 3 10:21AM ; [facility] Patient Education: weight be aring exercise Last Documented On 3 10:21AM ; [facility] Smoking cessation advised Last Documented On 3 10:23AM ; [facility] Patient Education: Daily daniel cium and vitamin D Last Documented On 0 10:29AM ; [facility] Patient Education: weight be aring exercise Last Documented On 0 10:29AM ; [facility] Smoking cessation advised Last Documented On 0 10:29AM ; [facility] STD screening desired and or dered (cultures only since trying to conceive) Last Documented On 4 1:57PM ; [facility] Smoking cessation advised Last Documented On 3 3:01PM ; [facility] STD screening offered and de clined Last Documented On 3 4:14PM ; [facility] New OB form given to patient SAB precautions reviewed and pnv samples given. Advised H1N1 and seasonal flu vaccine Last Documented On 2 11:25AM ; [facility] Patient counseling : discuss ed with patient importance of f/u re: increased risks of cervical cancer Last Documented On 1 10:11AM ; [facility] INFORMED CONSENT DISCUSSION: Colposcopy was discussed in detail including risk of post procedure bleeding. Patient is not to have intercourse for 2 weeks following the procedure. Patient expressed understanding of the above and consented to the procedure Last Documented On 1 4:04PM ; [facility] Patient Education: Daily daniel cium and vitamin D Last Documented On 1 3:04PM ; [facility] Patient Education: weight be aring exercise Last Documented On 1 3:04PM ; [facility] Smoking cessation advised Last Documented On 1 3:05PM ; [facility] New OB form given to patient seeking - also advised pnv - rx sent. We also briefly discussed the increased risk of > 35 yo and with her h/o pre-elcampsia with last (18 years ago) Last Documented On 1 3:25PM ; [facility] Assessments Includes: Assessments for all patient encounters Findings Encounter Date NORMAL FEMALE EXAM WELL WOMAN - ESTABLISHED PT w ith LARA REYNA [facility] 10/03/2023 Last Documented On 4 10:18AM ; [facility] Screening Malig. Neoplasm Rectum WELL WO MAN - ESTABLISHED PT with LARA REYNA [facility] 10/03/2023 Last Documented On 4 10:18AM ; [facility] [Unspecified abnormal cytolo gical findings in specimens from cervix uteri] abnormal Pap smear: atypical glandular cells FOLLOW UP with KETTY ARTHUR MD 12/10/2022 Last Documented On 3 4:44PM ; [facility] Contraceptive management FOLLOW UP with KETTY SALVADOR MD 12/10/2022 Last Documented On 3 4:44PM ; [facility] Assessment of abnormal Pap s mear of cervix [facility] 11/29/2022 Last Documented On 3 1:28PM ; [facility] Assessment of abnormal Pap s mear: atypical glandular cells [facility] 11/29/2022 Last Documented On 3 1:28PM ; [facility] [Unspecified abnormal cytolo gical findings in specimens from cervix uteri] abnormal Pap smear: atypical glandular cells COLPOSCOPY with KETTY ARTHUR MD 11/04/2022 Last Documented On 3 2:44PM ; [facility] NORMAL FEMALE EXAM WELL WOMAN - NEW PATIENT with LARA REYNA [facility]- 09/27/2022 Last Documented On 3 10:53AM ; [facility] Screening Malig. Neoplasm Rectum WELL WO MAN - NEW PATIENT with LARA REYNA [facility]- 09/27/2022 Last Documented On 3 10:53AM ; [facility] NORMAL FEMALE EXAM NEW DIRECTOR ATHLETIC EXAM with [facility] 07/16/2019 Last Documented On 0 10:42AM ; [facility] Screening Malig. Neoplasm Rectum NEW DIRECTOR ATHLETIC EXAM wi th LARA REYNA [facility] 07/16/2019 Last Documented On 0 10:42AM ; [facility] POST OP VISIT POST OP VISIT with SHASTA SHORT MD 05/30/2015 Last Documented On 6 11:38AM ; [facility] Normal checkup (6 - 42 wk) * PHONE CALL with SHASTA SHORT MD 02/03/2015 Last Documented On 5 3:31PM ; [facility] Normal checkup (6 - 42 wk) RETURN OB EX AM with SHASTA SHORT MD 02/02/2015 Last Documented On 5 2:34PM ; [facility] Normal checkup (6 - 42 wk) * PHONE CALL with SHASTA SHORT MD 01/31/2015 Last Documented On 5 11:02AM ; [facility] Normal checkup (6 - 42 wk) RETURN OB EX AM with SHASTA SHORT MD 01/26/2015 Last Documented On 5 3:23PM ; [facility] Normal checkup (6 - 42 wk) RETURN OB EX AM with SHASTA SHORT MD 01/20/2015 Last Documented On 5 2:37PM ; [facility] Normal checkup (6 - 42 wk) [Pat ient Encounter] with SHASTA SHORT MD 01/10/2015 Last Documented On 5 12:43PM ; [facility] Normal checkup (6 - 42 wk) RETURN OB EX AM with SHASTA SHORT MD 01/05/2015 Last Documented On 5 3:57PM ; [facility] Normal checkup (6 - 42 wk) RETU RN OB EXAM with LARA REYNA [facility] 12/23/2014 Last Documented On 5 1:50PM ; [facility] Normal checkup (6 - 42 wk) RETU RN OB EXAM with LARA REYNA [facility] 12/09/2014 Last Documented On 5 10:05AM ; [facility] Normal checkup (6 - 42 wk) RETU RN OB EXAM with LARA REYNA [facility] 11/24/2014 Last Documented On 5 3:19PM ; [facility] Normal checkup (6 - 42 wk) RETU RN OB EXAM [facility] 11/11/2014 Last Documented On 5 1:47PM ; [facility] Normal checkup (6 - 42 wk) RETURN OB EX AM with SHASTA SHORT MD 10/21/2014 Last Documented On 5 2:15PM ; [facility] Normal checkup (6 - 42 wk) * PHONE CALL with SHASTA SHORT MD 10/19/2014 Last Documented On 5 9:28AM ; [facility] Normal checkup (6 - 42 wk) RETURN OB EX AM with SHASTA SHORT MD 09/16/2014 Last Documented On 5 2:06PM ; [facility] Normal checkup (6 - 42 wk) RETU RN OB EXAM [facility] 08/18/2014 Last Documented On 5 11:09AM ; [facility] Normal checkup (6 - 42 wk) NEW OB EXAM with SHASTA SHORT MD 07/21/2014 Last Documented On 5 1:41PM ; [facility] Amenorrhea MISSED MENSES with SHASTA SHORT MD 06/16/2014 Last Documented On 5 11:16AM ; [facility] Complete spontaneous abortio n without complications PROBLEM VISIT with SUREKHA MELENDEZ RN AZAR 03/09/2014 Last Documented On 4 4:11PM ; [facility] Fatigue PROBLEM VISIT with SUREKHA MELENDEZ RN WHNP BC 03/09/2014 Last Documented On 4 4:11PM ; [facility] Routine pelvic exam DIRECTOR ATHLETIC EXAM with SHASTA SHORT MD 09/23/2013 Last Documented On 4 3:52PM ; [facility] Missed INJECTION with SHASTA SHORT MD 08/02/2013 Last Documented On 4 4:43PM ; [facility] Cystocele PROBLEM VISIT with SHASTA SHORT MD 04/02/2013 Last Documented On 3 10:13AM ; [facility] Dyspareunia PROBLEM VISIT with SHASTA SHORT MD 04/02/2013 Last Documented On 3 10:13AM ; [facility] Female pelvic pain PROBLEM VISIT with SHASTA PEOPLES MD 04/02/2013 Last Documented On 3 10:13AM ; [facility] Contraceptive surveillance PROCEDURE OFFICE with SHASTA SHORT MD 03/04/2013 Last Documented On 3 3:07PM ; [facility] Ovarian cyst PROCEDURE OFFICE with SHASTA PEOPLES MD 03/04/2013 Last Documented On 3 3:07PM ; [facility] Removal of IUD PROCEDURE OFFICE with SHASTA PEOPLES MD 03/04/2013 Last Documented On 3 3:07PM ; [facility] Contraceptive management PELVIC EXAM with SHASTA SHORT MD 01/29/2013 Last Documented On 3 11:11AM ; [facility] Female pelvic pain PELVIC EXAM with SHASTA Arreola MD 01/29/2013 Last Documented On 3 11:11AM ; [facility] Ovarian cyst PELVIC EXAM with SHASTA Menezes 01/29/2013 Last Documented On 3 11:11AM ; [facility] Contraceptive management 1 MONTH CHECK with SHASTA SHORT MD 10/15/2012 Last Documented On 3 11:46AM ; [facility] Contraceptive management: In sertion of IUD IUD INSERTION with SHASTA SHORT MD 08/21/2012 Last Documented On 3 2:55PM ; [facility] Routine pelvic exam NEW DIRECTOR ATHLETIC EXAM with SHASTA PEOPLES MD 06/25/2012 Last Documented On 3 4:21PM ; [facility] Normal routine history and p hysical - POST VISIT with MARIA D DE LA ROSA M.D. 02/28/2012 Last Documented On 2 10:55AM ; [facility] Normal checkup (6 - 42 wk) RETU RN OB EXAM with MARIA D DE LA ROSA M.D. 01/14/2012 Last Documented On 2 1:45PM ; [facility] Normal checkup (6 - 42 wk) RETU RN OB EXAM with MARIA D DE LA ROSA M.D. 01/10/2012 Last Documented On 2 10:23AM ; [facility] Normal checkup (6 - 42 wk) RETU RN OB EXAM with MARIA D DE LA ROSA M.D. 01/01/2012 Last Documented On 2 2:38PM ; [facility] Normal checkup (6 - 42 wk) RETU RN OB EXAM with MARIA D DE LA ROSA M.D. 12/27/2011 Last Documented On 2 3:54PM ; [facility] Normal checkup (6 - 42 wk) RETU RN OB EXAM with MARIA D DE LA ROSA M.D. 12/23/2011 Last Documented On 2 2:43PM ; [facility] Normal checkup (6 - 42 wk) RETU RN OB EXAM with LARA GARNETT 12/13/2011 Last Documented On 2 3:39PM ; [facility] Normal checkup (6 - 42 wk) * PH ONE CALL with LARA GARNETT 12/09/2011 Last Documented On 2 11:00AM ; [facility] Normal checkup (6 - 42 wk) * PH ONE CALL with MARIA D DE LA ROSA M.D. 11/29/2011 Last Documented On 2 9:38AM ; [facility] Normal checkup (6 - 42 wk) RETU RN OB EXAM with MARIA D DE LA ROSA M.D. 11/28/2011 Last Documented On 2 3:35PM ; [facility] Normal checkup (6 - 42 wk) RETU RN OB EXAM with LARAABIDA REYNA [facility] 11/15/2011 Last Documented On 2 2:59PM ; [facility] Normal checkup (6 - 42 wk) RETU RN OB EXAM with MARIA D DE LA ROSA M.D. 11/01/2011 Last Documented On 2 2:36PM ; [facility] Normal checkup (6 - 42 wk) RETU RN OB EXAM with MARIA D DE LA ROSA M.D. 10/18/2011 Last Documented On 2 3:50PM ; [facility] Normal checkup (6 - 42 wk) RETU RN OB EXAM with MARIA D DE LA ROSA M.D. 09/20/2011 Last Documented On 2 3:00PM ; [facility] Normal checkup (6 - 42 wk) * PH ONE CALL with MARIA D DE LA ROSA M.D. 08/27/2011 Last Documented On 2 5:07PM ; [facility] Normal checkup (6 - 42 wk) RETU RN OB EXAM with LARA Obi [facility] DANG-[facility] 08/16/2011 Last Documented On 2 3:29PM ; [facility] Normal checkup (6 - 42 wk) NEW OB EXAM with MARIA D DE LA ROSA M.D. 07/16/2011 Last Documented On 2 3:46PM ; [facility] Amenorrhea MISSED MENSES with LARA Obi AXEL [facility]- 06/20/2011 Last Documented On 2 11:35AM ; [facility] Assessment of abnormal Pap s mear of cervix COLPOSCOPY with LARA Obi AXEL [facility]- 04/17/2011 Last Documented On 1 4:23PM ; [facility] Assessment of cervical Pap s mear: low grade squamous intraepithelial lesion COLPOSCOPY with LARA Obi AXEL [facility] 04/17/2011 Last Documented On 1 4:23PM ; [facility] Normal routine history and physical PAP SMEAR ONLY with LARA A REYNA [facility]- 01/18/2011 Last Documented On 1 3:26PM ; [facility] Routine pelvic exam PAP SMEAR ONLY with LARA Obi REYNA [facility] 01/18/2011 Last Documented On 1 3:26PM ; [facility] Contraceptive management NEW DIRECTOR ATHLETIC EXAM with HARDYSABRINA LAMBERT M URAM 10/17/2009 Last Documented On 0 3:57PM ; [facility] NORMAL FEMALE EXAM NEW DIRECTOR ATHLETIC EXAM with VICKY M URAM 10/17/2009 Last Documented On 0 3:57PM ; [facility] SCREENING FOR STD NEW DIRECTOR ATHLETIC EXAM with VICKY M URAM 10/17/2009 Last Documented On 0 3:57PM ; [facility] Instructions Includes: Instructions for all patient encounters Instructions to patient Instructions for patient : B reast Self Exam discussed Last Documented On 4 9:54AM ; [facility] Intervention and counseling on cessation of tobacco use Last Documented On 4 10:04AM ; [facility] Lose weight Last Documented On 4 9:56AM ; [facility] Colonoscopy Handout given to patient Last Documented On 4 9:56AM ; [facility] Instructions for patient : B reast Self Exam discussed Last Documented On 3 10:21AM ; [facility] Safe sex counseling Last Documented On 3 10:51AM ; [facility] Instructions for patient : B reast Self Exam discussed Last Documented On 0 10:29AM ; [facility] Safe sex counseling Last Documented On 0 10:41AM ; [facility] Instructions for patient : B reast Self Exam discussed Last Documented On 4 1:45PM ; [facility] Instructions for patient : B reast Self Exam discussed Last Documented On 3 4:14PM ; [facility] May resume normal activities as tolerated Last Documented On 1 10:11AM ; [facility] Instructions for patient : B reast Self Exam discussed Last Documented On 1 3:03PM ; [facility] Instructions for patient : B reast Self Exam discussed and technique reviewed Last Documented On 0 3:28PM ; [facility] Recommend diet and exercise at least 30 min three times per week Last Documented On 0 3:28PM ; [facility] Recommend CBC, TSH, fasting glucose, fasting lipid panel if patient aged 25 or older Last Documented On 0 3:28PM ; [facility] Recommend preventative vacci nation including but not limited to influenza/flu vaccine, DTP, Rubella, Hepatitis B vaccination series ~ ~Gave handouts on Mirena ~Smoking Cessation Last Documented On 0 3:56PM ; [facility] Education and Decision Aids were provided during visit for: Patient Education: Daily daniel cium and vitamin D Last Documented On 4 9:54AM ; [facility] Patient Education: weight be aring exercise Last Documented On 4 9:54AM ; [facility] Smoking cessation advised Last Documented On 4 9:56AM ; [facility] INFORMED CONSENT DISCUSSION: Endometrial biopsy was discussed in detail including discomfort, insufficient specimen with need to repeat test, and rare incidence of uterine perforation. Patient expressed understanding of the above and consented to the procedure Last Documented On 3 1:08PM ; [facility] Smoking cessation advised Last Documented On 3 1:10PM ; [facility] INFORMED CONSENT DISCUSSION: Colposcopy was discussed in detail including risk of post procedure bleeding and infection. Patient is not to have anything in the vagina till all of the discharge quits following the procedure. Patient expressed understanding of the above and consented to the procedure Last Documented On 3 2:42PM ; [facility] Patient Education: Daily daniel cium and vitamin D Last Documented On 3 10:21AM ; [facility] Patient Education: weight be aring exercise Last Documented On 3 10:21AM ; [facility] Smoking cessation advised Last Documented On 3 10:23AM ; [facility] Patient Education: Daily daniel cium and vitamin D Last Documented On 0 10:29AM ; [facility] Patient Education: weight be aring exercise Last Documented On 0 10:29AM ; [facility] Smoking cessation advised Last Documented On 0 10:29AM ; [facility] STD screening desired and or dered (cultures only since trying to conceive) Last Documented On 4 1:57PM ; [facility] Smoking cessation advised Last Documented On 3 3:01PM ; [facility] STD screening offered and de clined Last Documented On 3 4:14PM ; [facility] New OB form given to patient SAB precautions reviewed and pnv samples given. Advised H1N1 and seasonal flu vaccine Last Documented On 2 11:25AM ; [facility] Patient counseling : discuss ed with patient importance of f/u re: increased risks of cervical cancer Last Documented On 1 10:11AM ; [facility] INFORMED CONSENT DISCUSSION: Colposcopy was discussed in detail including risk of post procedure bleeding. Patient is not to have intercourse for 2 weeks following the procedure. Patient expressed understanding of the above and consented to the procedure Last Documented On 1 4:04PM ; [facility] Patient Education: Daily daniel cium and vitamin D Last Documented On 1 3:04PM ; [facility] Patient Education: weight be aring exercise Last Documented On 1 3:04PM ; [facility] Smoking cessation advised Last Documented On 1 3:05PM ; [facility] New OB form given to patient seeking - also advised pnv - rx sent. We also briefly discussed the increased risk of > 35 yo and with her h/o pre-elcampsia with last (18 years ago) Last Documented On 1 3:25PM ; [facility] Medical Equipment - Implanted Devices Includes: Current and historical Devices No Medical Equipment Recorded Medications Includes: Current and historical Medications Current Medications (continue as prescribed) Advil 200 MG Oral Capsule 09/27/2022 Provider: Diagnosis: Last Documented On 12/10/2022 4:41PM By KETTY ARTHUR MD ; [facility] Stool Softener 100 MG Oral Capsule 07/16/2019 Pr ovider: Diagnosis: Last Documented On 12/10/2022 4:41PM By KETTY ARTHUR MD ; [facility] Dicyclomine HCl 10 MG Oral Capsule 07/16/2019 Provid er: Diagnosis: Last Documented On 12/10/2022 4:41PM By KETTY ARTHUR MD ; [facility] Past Medications on file Amoxicillin 250 MG Oral Capsule 10/25/2022 - 3 Provider: Diagnosis: Last Documented On 11/29/2022 1:11PM By Jolly WAITE ; [facility] HYDROcodone-Acetaminophen 5- 325 MG Oral Tablet 10/03/2022 - 10/03/2023 Provider: GERARDO GRECO MD Diagnosis: Last Documented On 4 10:05AM By Marlene WAITE ; [facility] Pantoprazole Sodium 40 MG Or al Tablet Delayed Release 10/03/2022 - 10/03/2023 Provider: GERARDO GRECO MD Diagnosis: Last Documented On 4 10:05AM By Marlene WAITE ; [facility] Cyclobenzaprine HCl 10 MG Or al Tablet 01/25/2022 - 10/03/2023 Provider: MARIPOSA POWELL MD Diagnosis: Last Documented On 4 10:05AM By Marlene WAITE ; [facility] Famotidine 20 MG Oral Tablet Chewable 07/16/2019 - 04/2023 Provider: Diagnosis: Last Documented On 3 1:40PM By MARGARITA WAITE ; [facility] Breast Pump Miscellaneous 01/26/2015 - 01/26/2016 Prov ider: SHASTA SHORT MD Diagnosis: as directed Last Documented On 01/26/2015 3:22PM By SHASTA SHORT MD ; [facility] Iron 325 (65 Fe) MG Tablet 11/29/2014 - 07/16/2019 Provider: Diagnosis: Last Documented On 0 10:20AM By KEY WAITE ; [facility] Ondansetron HCl 4 MG OR TABS 06/16/2014 - 07/21/2014 P rovider: SHASTA SHORT MD Diagnosis: Last Documented On 5 1:18PM By LUCIO LIND LPN ; [facility] Plus/Iron 27-1 MG OR TABS 03/09/2014 - 03/04/2015 Provider: SUREKHA MELENDEZ RN WHNP BC Diagnosis: OTHER FAMILY DAVID NNING ADVICE NEC Last Documented On 4 4:03PM By SUREKHA MELENDEZ AZAR-BC ; [facility] Bactrim DS 800-160 MG OR TABS 09/06/2013 - 09/09/2013 Provider: Diagnosis: Called into [facility] Last Documented On 09/06/2013 8:54AM By FLAVIO COLLAZO ; [facility] miSOPROStol 200 MCG OR TABS 08/02/2013 - 08/04/2013 Pr ovider: SHASTA SHORT MD Diagnosis: MISSED 4 tabs (800 mcg) po X 1, may repeat 24 hours later if needed Last Documented On 08/02/2013 4:41PM By SHASTA SHORT MD ; [facility] BELT BRANDER-PNV-DHA 28-1-215.8 MG OR CAPS 06/24/2013 - 05/20/2014 Provider: LARA MILLER FURNITURE ASSOCIATE-BC Diagnosis: phoned to [facility]. Last Documented On 4 2:53PM By LCUIO LIND LPN ; [facility] [place] 5-325 MG OR TABS 04/02/2013 - 08/02/2013 Provide r: Diagnosis: Last Documented On 08/02/2013 4:03PM By FLAVIO COLLAZO ; [facility] Xanax 0.25 MG OR TABS 01/29/2013 - 08/02/2013 Provider : Diagnosis: TID PRN Last Documented On 08/02/2013 4:03PM By FLAVIO COLLAZO ; [facility] [place] 5-325 MG OR TABS 01/26/2013 - 02/02/2013 Provide r: Diagnosis: [facility] [place] Last Documented On 01/26/2013 1:39PM By FLAVIO COLLAZO ; [facility] Mirena (52 MG) 20 MCG/24HR IU IUD 08/21/2012 - 013 Provider: Diagnosis: Inserted 08-21-12 Last Documented On 03/04/2013 3:18PM By FLAVIO COLLAZO ; [facility] Estradiol 1 MG OR TABS 06/25/2012 - 07/16/2012 Provide r: SHASTA SHORT MD Diagnosis: Last Documented On 06/25/2012 4:19PM By SHASTA SHORT MD ; [facility] Depo-Provera 150 MG/ML IM SUSP 05/28/2012 - 08/21/2012 Provider: SHASTA SHORT MD Diagnosis: i prefilled syringe for IM injection Last Documented On 3 2:29PM By LUCIO LIND LPN ; [facility] Depo-Provera 150 MG/ML IM SUSP 02/28/2012 - 08/21/2012 Provider: Diagnosis: LEFT GLUTPT TOLERATED WELL Last Documented On 3 2:30PM By LUCIO LIND LPN ; [facility] Depo-Provera 150 MG/ML IM SUSP 02/27/2012 - 02/28/2012 Provider: MARIA D DE LA ROSA M.D. Diagnosis: Contraceptive Ma ngmt NOS IM INJECTION IN OFFICE Last Documented On 2 10:54AM By DR. MARIA D DE LA ROSA ; [facility] Reclast 5 MG/100ML IV SOLN 01/10/2012 - 01/10/2012 Provider: MARIA D OQUENDO M.D. Diagnosis: OSTEOPOROSIS NOS 5 MG IV INFUSION OVER 15 MIN Last Documented On 2 3:41PM By DR. MARIA D DE LA ROSA ; [facility] Ferrous Sulfate 325 (65 Fe) MG OR TABS 10/22/2011 - 02/19/2012 Provider: MARIA D OQUENDO M.D. Diagnosis: ANEMIA IN PREG-U NSPEC Last Documented On 2 4:46PM By DR. MARIA D DE LA ROSA ; [facility] Pepcid 20 MG OR TABS 09/20/2011 - 02/28/2012 Provider: MARIA D DE LA ROSA M.D. Diagnosis: ESOPHAGEAL REFLU X Last Documented On 2 10:54AM By DR. MARIA D DE LA ROSA ; [facility] Ferrous Sulfate 325 (65 Fe) MG OR TABS 08/19/2011 - 12/17/2011 Provider: MARIA D OQUENDO M.D. Diagnosis: ANEMIA IN PREG-U NSPEC Last Documented On 2 11:13PM By DR. MARIA D DE LA ROSA ; [facility] Zofran 4 MG OR TABS 06/20/2011 - 08/19/2011 Provider: LARA REYNA [facility]- Diagnosis: 1 sublingual (reditabs) q 8 hours prn - nausea and vomiting Last Documented On 2 11:41AM By LARA REYNA TEO ; [facility] Metoclopramide HCl 10 MG OR TABS 05/23/2011 - 06/12/2011 Provider: LARA MILLER FURNITURE ASSOCIATE-BC Diagnosis: prn - nausea Last Documented On 1 4:12PM By LARA DANG- ; [facility] Triveen-Duo DHA 29-1-200 & 400 MG OR MISC 01/18/2011 - 05/18/2011 Provider: LARA REYNA FURNITURE ASSOCIATE-BC Diagnosis: Last Documented On 1 3:26PM By LARA REYNA TEO ; [facility] Depo-Provera 150 MG/ML IM SUSP 09/18/2010 - 05/28/2012 Provider: VICKY JURADO Diagnosis: Last Documented On 05/28/2012 5:01PM By SHASTA SHORT MD ; [facility] Depo-Provera 150 MG/ML IM SUSP 04/03/2010 - 09/30/2010 Provider: VICKY JURADO Diagnosis: Inject IM Last Documented On 04/03/2010 9:07AM By VICKY JURADO ; [facility] MetroGel-Vaginal 0.75% VA GEL 11/08/2009 - 11/15/2009 Provider: VICKY JURADO Diagnosis: apply per vagina x 7 days Last Documented On 11/08/2009 3:55PM By DESTINY HOOVER ; [facility] Lexapro 10 MG OR TABS 10/17/2009 - 10/12/2010 Provider : VICKY JURADO Diagnosis: ANXIETY STATE NO S Last Documented On 10/17/2009 3:44PM By VICKY JURADO ; [facility] Medications Administered Includes: Administered Medications in patient's chart Medications Administered Diagnosis Date Pro vider Depo-Provera 150 MG/ML IM SUSP 02/28/2012 MARIA D DE LA ROSA M.D. LEFT GLUT Last Documented On 2 10:53AM By AWILDA ARNOLD MA ; [facility] RhoGAM Ultra-Filtered Plus 3 00 MCG IM INJ THREATEN ABORT-ANTEPART 02/21/2014 SHASTA SHORT MD given IM left gluteal; tolerated well; n o adverse reaction. Last Documented On 4 3:11PM By LUCIO LIND LPN ; [facility] RhoGAM Ultra-Filtered Plus 300 MCG IM INJ SUPERVIS OTH NORMAL PREG 11/24/2014 [facility] Last Documented On 5 3:10PM By KEY WAITE ; [facility] RhoGAM Ultra-Filtered Plus 300 MCG IM INJ 10/18/2011 MARIA D DE LA ROSA M.D. Last Documented On 2 2:55PM By SUMAN HOPPER MA ; [facility] Depo-Provera 150 MG/ML IM SUSP 09/25/2010 Last Documented On 1 3:44PM By KEY WAITE ; [facility] RhoGAM Ultra-Filtered Plus 3 00 MCG IM INJ RH ISOIMMUNIZAT-ANTEPART 08/02/2013 SHASTA Menezes Inj administered IM to pts L dorsoglutea l region Last Documented On 4 4:03PM By FLAVIO COLLAZO ; [facility] Depo-Provera 150 MG/ML IM SUSP 07/03/2010 Last Documented On 1 2:18PM By VICKY JURADO ; [facility] medroxyPROGESTERone Acetate 150 MG/ML IM SUSP 05/29/2012 SHASTA SHORT MD Administered RUOQ Gluteal wi thout incident. RTO 12 weeks for next inj. Last Documented On 3 2:51PM By JUANI RUSSELL LPN ; [facility] Vital Signs Includes: Vital Signs from 07/20/2023 through 07/20/2024 Vital Name 10/03/2023 10:01A Blood Pressure Sitting (mmHg) 120/80 Temp-Temporal 98.8 Height (in) 64 Weight (lb) 177 Body Mass Index 30.4 Body Surface Area 1.9 Last Documented: On 10/03/2023 10:01A M ; [facility] Results Includes: Results from 07/20/2023 through 07/20/2024 HCG QUANTITATIVE-SERUM [facility] Laboratory Ordered by LARA GARNETT on 09/23 [address] [place], [address] Collected: 10/03/2023 Report ed: 10/03/2023 13:52 tel:[phone] Last Documented On 4 8:38AM ; [facility] Reviewed on 10/23/2023; All test results are final unless otherwise noted. bHCG QUANT <1.2 mIU/mL None Last Documented On 10/21/2023 10:19PM ; [facility] Note: Gestation Week Range mIU/mL 4 4700-911421 5 3660-304213 6 67057-146724 7 17116-768539 8 45777-346618 9 58655-992159 10 87783-853038 11 6480-299439 12 6740-541386 13- [phone] [id number] Observer: (MAGALIS) FSH (ADULT OVER 15 YEARS OF AGE) [facility] Laboratory Ordered by LARA Harvey-BC on 10/03/2023 [address] , [place], [address] Collected: 10/03/2023 Report ed: 10/04/2023 12:38 tel:[phone] Last Documented On 4 8:38AM ; [facility] Reviewed on 10/23/2023; All test results are final unless otherwise noted. FSH 102.3 mIU/mL N (Normal) Last Documented On 10/21/2023 10:19PM ; [facility] Note: Reference Range Follicular Phase 2.5-10.2 Mid-cycle Peak 3.1-17.7 Luteal Phase 1.5- 9.1 Postmenopausal 23.0-116.3THIS TEST WAS PERFORMED AT:[facility] [id number] [facility] [place] [address]UAZB-PCNS VO,LUCRETIAesponsible Observer: (rfl) PAP WITH HPV [facility] La boratory Ordered by LARA PRIDE P-BC on 10/03/2023 [address] , [place], [address] Collected: 10/03/2023 Report ed: 10/07/2023 12:27 tel:[phone] Last Documented On 4 8:38AM ; [facility] Reviewed on 10/23/2023; All test results are final unless otherwise noted. HPV mRNA E6/E7 Not Detected (Not Detected) N (Normal) Last Documented On 4 10:19PM ; [facility] Note: Methodology: Analysis Analyst-Mediate d AmplificationThis assay detects E6/E7 viral messenger RNA (mRNA) from 14high-risk HPV types (16,18,31,33,35,39,45,51,52,56,58,59,66,68).Cervical sources are required for HPV testing.If a vaginal source from a patient who has had atotal hysterectomy with removal of cervix wassubmitted, please contact the testing laboratoryfor alternative testing options.For additional information, please refer tohttp://education.[employer]/faq/ZYF675r1(This link if provided for information/educational purposes only.)THIS TEST WAS PERFORMED AT:[facility] [id number] [place] [id number] VO,MDEXPLANATORY NOTE:The Pap is a screening test for cervical cancer. It isnot a diagnostic test and is subject to false negativeand false positive results. It is most reliable when asatisfactory sample, regularly obtained, is submittedwith relevant clinical findings and history, and whenthe Pap result is evaluated along with historic andcurrent clinical information.THIS TEST WAS PERFORMED AT:[facility] [address] [place] [place] [address]RPGP-YTIL VO,MDResponsible Observer: (rfl) PAP SMEAR ABNORMAL? NO None Last Documented On 4 10:19PM ; [facility] Note: Responsible Observer: (TER) PAP WITH HPV See Note None Last Documented On 4 10:19PM ; [facility] Note: None [id number] isfactory for evaluation.Endocervical/transformation zone componentpresent.Cytology Results: Negative for intraepitheliallesion or malignancy.This Pap test has been evaluated with computerassisted technology.BKA, CT(ASCP)CT screening location: [place] [address] [address] [id number], CT(ASCP)CT screening location: [place] [address] [place], [id number] Observer: (TER) Reported Physicians [facility] Shaylee silver Ordered by LARA REYNA Elba - on 10/03/2023 [address] [facility], [place], [address] Collected: 10/03/2023 Report ed: 10/07/2023 12:27 tel:[phone] Last Documented On 4 8:38AM ; [facility] Reviewed on 10/23/2023; All test results are final unless otherwise noted. Reported Physicians See Note None Last Documented On 10/21/2023 10:19PM ; [facility] Note: Reported Physicians:Ordering: Lara ReynaAttending: LARA REYNAConsulting: GERARDO GRECO [facility] Ordered by [facility]ARA REYNA [facility]- on 09/23 Collected: Reported: 10/03/2023 10:26 Last Documented On 4 10:25AM ; [facility] All test results are final unless otherw ise noted. Urine UCG Negative N (Normal) Last Documented On 4 10:25AM ; [facility] INT. QC ACCEPTABLE? Yes N (Normal) Last Documented On 4 10:25AM ; [facility] LOT # & EXP. DATE [id number] 09/22/24 N (Normal) Last Documented On 4 10:25AM ; [facility] FOBT-FECAL OCCULT BLOOD TEST [facility] Ordered by [facility]NA [facility] on 09/23 Collected: Reported: 10/03/2023 10:26 Last Documented On 4 10:25AM ; [facility] All test results are final unless otherw ise noted. OCCULT BLOOD: Negative (NEG.) N (Normal) Last Documented On 4 10:25AM ; [facility] INT. QC ACCEPTABLE? Yes N (Normal) Last Documented On 4 10:25AM ; [facility] LOT # & EXP. DATE [id number] 01/23/26 N (Normal) Last Documented On 4 10:25AM ; [facility] History of Present Illness History of Present Illness not supported for this document type No History of Present Illness Recorded Social History Description Last Updated Alcohol use Rare 10/03/2023 Last Documented On 4 10:18AM ; [facility] Not using drugs 10/03/2023 Last Documented On 4 10:18AM ; [facility] Sexually active with 1 partners in the l ast year 10/03/2023 Last Documented On 4 10:18AM ; [facility] Current smoker 09/27/2022 Last Documented On 3 10:53AM ; [facility] Has sex with males only 09/27/2022 Last Documented On 3 10:53AM ; [facility] Smoking Status Unknown Procedures and Surgical History Includes: Procedures from 07/20/2023 through 07/20/2024 Procedures Code Diagnosis Performing Provider Service Location Service Date URINE TEST 95717 Irregular menstruation, unspecified [facility] RE[facility] 10/03/2023 Last Documented On 4 6:37PM ; [facility] FIT TEST-SCREENING FOR FECAL OCCULT BLOOD (CLIA WAIVED) 41070 Encounter for screening for malignant neoplasm of colon [facility] REYNA [facility] 10/03/2023 Last Documented On 4 6:37PM ; [facility] OBTAINING A PAP SMEAR (DISTINCT PROCEDURAL SERVICE DIFFERENT SITE) Q0091 Encounter for screening for malignant neoplasm of cervix LARA REYNA [facility] 10/03/2023 Last Documented On 4 6:37PM ; [facility] Surgical History Last Updated Surgical / procedural histor y Surgery on R thigh ~pt has diverticulitis ~Cervical replacement of disks in neck 2021 ~EMB 11/29/22 Lara 12/10/2022 Last Documented On 3 4:44PM ; [facility] Previous colposcopy 04/17/2011 with Lizz foy; 11/04/22 [facility] 12/10/2022 Last Documented On 3 4:44PM ; [facility] History of tubal ligation Dr Short (right clip in pelvis somewhere per pt) 11/04/2022 Last Documented On 3 2:44PM ; [facility] History of cholecystectomy 07/16/2019 Last Documented On 0 10:42AM ; [facility] Medical History Includes: Medical History in patient's chart Description Last Updated Contraception: Condoms 10/03/2023 Last Documented On 4 10:18AM ; [facility] History of screening mammogram was perfo rmed 11/05/2022 10/03/2023 Last Documented On 4 10:18AM ; [facility] LMP: 06/202310/03/2023 Last Documented On 4 10:18AM ; [facility] Other method: Tubal ligation/ Condoms Last Documented On 3 4:44PM ; [facility] Result: abnormal KIM HPV+ 11/04/2022 Last Documented On 3 2:44PM ; [facility] History of colonoscopy fiberoptic was pe rformed 201809/27/2022 Last Documented On 3 10:53AM ; [facility] # 1 Delivery date: 12/07/92 09/27/2022 Last Documented On 3 10:53AM ; [facility] # 2 Delivery date: 01/15/12 09/27/2022 Last Documented On 3 10:53AM ; [facility] # 3 Delivery date: 02/06/15 09/27/2022 Last Documented On 3 10:53AM ; [facility] Bowel problems 09/27/2022 Last Documented On 3 10:53AM ; [facility] Elective (s) 0 09/27/2022 Last Documented On 3 10:53AM ; [facility] Gallbladder disease 09/27/2022 Last Documented On 3 10:53AM ; [facility] No. of miscarriages: 2 09/27/2022 Last Documented On 3 10:53AM ; [facility] No. of Pregnancies: 5 09/27/2022 Last Documented On 3 10:53AM ; [facility] Please list all surgeries: T ubal ligation, cholecystectomy, cervical disc's replaced, diverticulitis 09/27/2022 Last Documented On 3 10:53AM ; [facility] Previous live (s) 3 09/27/2022 Last Documented On 3 10:53AM ; [facility] Previous premature delivery(s) 0 023 Last Documented On 3 10:53AM ; [facility] Received all 3 doses of Hepatitis B vacc ine 09/27/2022 Last Documented On 3 10:53AM ; [facility] Sex of Child # 1: Female 09/27/2022 Last Documented On 3 10:53AM ; [facility] Sex of Child # 2: Male 09/27/2022 Last Documented On 3 10:53AM ; [facility] Sex of Child # 3: Male 09/27/2022 Last Documented On 3 10:53AM ; [facility] Sexually active 07/16/2019 Last Documented On 0 10:42AM ; [facility] History of complete colonoscopy 2019 Last Documented On 0 10:42AM ; [facility] Aborta 2 05/30/2015 Last Documented On 6 11:38AM ; [facility] 5 05/30/2015 Last Documented On 6 11:38AM ; [facility] Para 3 05/30/2015 Last Documented On 6 11:38AM ; [facility] HX OF FE DEFICIENT ANEMIA 12/23/2014 Last Documented On 5 1:50PM ; [facility] History of Abnormal Pap Smear hx of abn pap smear, last few normal 12/23/2014 Last Documented On 5 1:50PM ; [facility] History of cervical dysplasia colpo 11-2 3-11 12/23/2014 Last Documented On 5 1:50PM ; [facility] History of congenital abnormality of [place] retroverted ? 12/23/2014 Last Documented On 5 1:50PM ; [facility] History of hematologic disorder Hx of an emia, sharmaine with preg 12/23/2014 Last Documented On 5 1:50PM ; [facility] History of human papilloma virus infecti on 12/23/2014 Last Documented On 5 1:50PM ; [facility] History of recurrent loss (gra vid) sab X 2 12/23/2014 Last Documented On 5 1:50PM ; [facility] Vaginal delivery 12/23/2014 Last Documented On 5 1:50PM ; [facility] Family History Includes: Family History in patient's chart Description Last Updated Daughter's history of stroke syndrome Last Documented On 3 10:53AM ; [facility] Maternal history of breast cancer Grandm a 09/27/2022 Last Documented On 3 10:53AM ; [facility] Maternal history of cancer Gradnfather- esophogeal 09/27/2022 Last Documented On 3 10:53AM ; [facility] Paternal history of cancer Grandma- non hodgkins lymphoma 09/27/2022 Last Documented On 3 10:53AM ; [facility] Paternal history of stroke syndrome 09/2022 Last Documented On 3 10:53AM ; [facility] Family history of bowel problems 023 Last Documented On 3 10:53AM ; [facility] Family history of Breast problems 2022 Last Documented On 3 10:53AM ; [facility] Family history of kidney disease 023 Last Documented On 3 10:53AM ; [facility] Maternal history of Anemia 09/27/2022 Last Documented On 3 10:53AM ; [facility] Maternal history of bowel problems 09/27 Last Documented On 3 10:53AM ; [facility] Maternal history of Breast problems 09/2022 Last Documented On 3 10:53AM ; [facility] Maternal grandmother's history of malign ant female breast neoplasm MGM 07/16/2019 Last Documented On 0 10:42AM ; [facility] Review of Systems Review of Systems not supported for this document type No Review of Systems Recorded Mental Status No Mental Status Recorded Functional Status No Functional Status Recorded Physical Exam Physical Exam not supported for this document type No Physical Exam Recorded Allergies Includes: Active, inactive, and resolved Allergies Substance Type Reaction Onset Date Resolved Date Statu s Thimerosal Allergy 02/28/2012 Active Last Documented On 4 10:05AM ; [facility] Bactrim DS Allergy 07/16/2019 Active Last Documented On 4 10:05AM ; [facility] Encounters Includes: Encounters from 07/20/2023 through 07/20/2024 Encounter Provider Location Date Check-In Time Check-Out Time Diagnosis [Patient Encounter] LARA SIMPSON 02/24/2010/03/2023 11:23AM 10/03/2023 11:59PM * PHONE CALL LARA GARNETT 10/06/19 24 10/03/2023 3:47PM 10/03/2023 11:59PM [facility] LARA REYNA [facility]AR-[facility] 10/03/19 9:53AM 10:19AM Screening Malig. Neoplasm Rectum,Normal Female Exam Insurance Includes: Active Insurance Policies Plan Name Member ID Group # Subscriber Relationship Effect cole Dates 1 - [id number] MARI BARAHONA Self Clinical Notes Includes: Signed Clinical Notes starting from 06/14/2022 * Progress note Date Encounter Last Documented by 10/06/2023 * PHONE CALL Last documented on 10/07/2023; 7:17 AM, LARA SIMPSON; [facility] Active Problems & Conditions - Previous Colposcopy - Risk: Tobacco Use Chief Complaint Phone Call - Chief Concern: Reason for call: Patient called and is asking if she is safe to stop using condoms since her labs show her in menopause. She wants to make sure because she also has a migrated tubal clip. Please advise. pt phone # for return call: [phone] Date/Initials: 5/13/24 LV. Current Medication - Advil 200 MG Oral Capsule 0 days, 0 refills - [facility] Stool Softener 100 MG Oral Capsule 0 days, 0 refills - Dicyclomine HCl 10 MG Oral Capsule 0 days, 0 refills Past Medical/Surgical History Reported: LMP: 06/2023, result: abnormal KIM HPV+, Contraception: Condoms, Other method: Tubal ligation/ Condoms, and Please [...] all 3 doses of Hepatitis B vaccine. : 5, para 3 including premature delivery(s) 0, [...] # 3: Male. Sexual: Sexually active. Other: Diagnostic fiberoptic colonoscopy 2019. 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 Recurrent loss (gravid) sab X 2. Human papilloma virus infection. Hematologic disorder Hx of anemia, sharmaine with preg HX OF FE DEFICIENT ANEMIA. Procedural: - Complete colonoscopy 2019 Surgical: - Cholecystectomy - Tubal ligation Dr Short (right clip in pelvis somewhere per pt) Social History Tobacco use: Current smoker. Alcohol: Alcohol use Rare. Drug Use: Not using drugs. Sexual: Sexually active with 1 partners in the last year and has sex with males only. Allergies - Bactrim DS - Thimerosal Family History Bowel problems Kidney disease Breast problems Paternal: Stroke syndrome Cancer Grandma- non hodgkins lymphoma Maternal: Anemia Bowel problems Breast problems Cancer Gradnfather- esophogeal Breast cancer Grandma Maternal grandmother's: Malignant female breast neoplasm MGM Daughter's: Stroke syndrome Plan StartCited - Other PHY ORDER/COMMENT Yes, she should no longer be ovulating, so no need for contraception. She does need to report any further menses. EndCited * Progress note Date Encounter Last Documented by 10/03/2023 [facility] Last documented on 10/03/2023; 10:18 AM, LARA REYNA AZAR-; [facility] Active Problems & Conditions - Previous Colposcopy - Risk: Tobacco Use Chief Complaint The Chief Complaint is: WWE. She states she hasn't had a cycle since June and has a knot in the left breast. The knot is not painful and she has not noticed any changes in the skin. Same partner. History of Present Illness MARI BARAHONA is a 48 year old female. - Allergy list reviewed - Medication list reviewed - Primary Care Provider: Dr. Greco Current Medication - Advil 200 MG Oral Capsule 0 days, 0 refills - [facility] Stool Softener 100 MG Oral Capsule 0 days, 0 refills - Dicyclomine HCl 10 MG Oral Capsule 0 days, 0 refills Past Medical/Surgical History Reported: LMP: 06/2023, result: abnormal KIM HPV+, Contraception: BTL, contraception: Condoms, Other method: Tubal ligation/ Condoms, and Please [...] all 3 doses of Hepatitis B vaccine. : 5, para 3 including premature delivery(s) 0, [...] # 3: Male. Sexual: Sexually active. Other: Diaignostic fiberoptic colonoscopy 2019. 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 Recurrent loss (gravid) sab X 2. Human papilloma virus infection. Hematologic disorder Hx of anemia, sharmaine with preg HX OF FE DEFICIENT ANEMIA. Procedural: - Complete colonoscopy 2019 Surgical: - Cholecystectomy - Tubal ligation Dr Short (right clip in pelvis somewhere per pt) Social History Tobacco use: Current smoker. Alcohol: Alcohol use Rare. Drug Use: Not using drugs. Sexual: Sexually active with 1 partners in the last year and has sex with males only. Allergies - Bactrim DS - Thimerosal Family History Bowel problems Kidney disease Breast problems Paternal: Stroke syndrome Cancer Grandma- non hodgkins lymphoma Maternal: Anemia Bowel problems Breast problems Cancer Gradnfather- esophogeal Breast cancer Grandma Maternal grandmother's: Malignant female breast neoplasm MGM Daughter's: Stroke syndrome Review Of Systems Gastrointestinal: No pelvic pain. Genitourinary: No menorrhagia. No dysmenorrhea and no bleeding between periods. No vaginal discharge. Physical Findings - Vitals taken 10/03/2023 10:01 am BP-Sitting 120/80 mmHg Temp-Temporal 98.8 F Height 64 in Weight 177 lbs Body Mass Index 30.4 kg/m2 Body Surface Area 1.9 m2 Standard Measurements: - Patient was not observed to be obese. General Appearance: - Well developed. - Well nourished. - In no acute distress. Neck: Thyroid: - Showed no abnormalities. Lymph Nodes: - Supraclavicular lymph nodes were not enlarged. - Axillary lymph nodes were not enlarged. Breasts: General/bilateral: - Diffuse fibrous tissue in the breast(s). Right Breast: - Nipple was normal. - No abnormal secretion. - No mass was found. - No tenderness. Left Breast: - Nipple was normal. - No abnormal secretion. - No mass was found. - No tenderness. Lungs: - Clear to auscultation. Cardiovascular: Heart Rate And Rhythm: - Normal. Murmurs: - No murmurs were heard. Back: - No right costovertebral angle tenderness. - No left costovertebral angle tenderness. Abdomen: Palpation: - Abdominal non-tender. - No mass was palpated in the abdomen. Liver: - Not enlarged. Spleen: - Not enlarged. Urinary System: Bladder: - Normal. - Not distended. - Not tender. - Did not have a mass. - Incontinence was not demonstrated. Genitalia: External: - Genitalia showed no abnormalities. Pelvic: - No ovarian mass. Vagina: - No vaginal discharge was observed. - No cystocele was observed. - No rectocele was observed. Cervix: - Showed no lesion. - Did not demonstrate pain elicited by motion. Uterus: - Not enlarged. - Not tender. Uterine Adnexae: - Uterine adnexa was not tender. Rectovaginal: - Tissue was normal. Rectal: - Exam: normal. Psychiatric: Appearance: - Grooming was normal. Tests Laboratory-based Chemistry: Fecal Analysis: Fecal occult blood test was negative. Laboratory Studies: Test: test negative. Pathology: Cytology: Cervical Pap Smear performed. Assessment - NORMAL FEMALE EXAM [Z01.419 - Encounter for gynecological examination (general) (routine) without abnormal findings] - Screening Malig. Neoplasm Rectum [Z12.12 - Encounter for screening for malignant neoplasm of rectum] Previous Tests Pathology: Cytology: Cervical Pap smear 09/27/2022. Therapy - Low fat diet. - Intervention and counseling on cessation of tobacco use. Counseling/Education - Instructions for patient: Breast Self Exam discussed - Lose weight - Colonoscopy Handout given to patient - Smoking cessation advised - Patient Education: Daily calcium and vitamin D - Patient Education: weight bearing exercise Strongly recommended using condoms or some type of bum for contraception as pt. is aware that her tubal ligation isn't reliable d/t confirmed displacement of [place] clip- see previous notes. Pt. cancelled appt. to discuss options for management of this with Dr. Arthur 01-14-23. Advised to r/s aura- pending outcome of labs today. 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) (routine) w/o abn findings Lab: Pap with HPV EndCited StartCited - Encntr screen mammogram for malignant neoplasm of breast Radiology @ other/*MAMMOGRAPHY: SCREENING MAMMOGRAM Instructions: Additional images/ultrasounds if indicated Please send to PCP EndCited StartCited - Encounter for screening for malignant neoplasm of rectum In office procedures/*[facility]ia Waived Labs: *FOBT* Fecal Occult Blood Test EndCited StartCited - Irregular menstruation, unspecified Lab: FSH Lab: HCG, Serum, Quant In office procedures/*[facility] Labs: Urine Test EndCited StartCited - Other Follow-up 1 year/prn - lab today! EndCited - Follow-up visit 1 year or as needed - Clinical summary provided to patient Call if no menses > or = 90 days for possible hormonal induction of menses. Call if pelvic pain , especially on one side or the other. Try to exercise for at least 30 minutes at least 4 times per week and follow a low-fat diet. Practice Management Preventive medicine established patient checkup adult 40-64 years; Use of tobacco assessment performed. Health Reminders - Assess BMI satisfied 10/03/2023. - Colorectal Cancer Screening satisfied 10/03/2023. - Mammogram satisfied 10/03/2023. - Smoking & Tobacco Cessation Intervention and Counseling satisfied 10/03/2023.
--- OUTSIDE RECORDS SUMMARY | 2024-07-20 17:37 | XMS_ITS | Clinical Summary ---
Author Organization [id number] [place] Address [address] [place] [id number] Care Team Providers Care Associate Theatre Professor Name Role Phone Vinicio Greco MD Primary Care Provider [phone] Allergies Active Allergy Reactions Criticality Noted Date Comments Sulfamethoxazole-Trimethop rim Swelling Medium 07/15/2018 Itching Linaclotide Diarrhea Low 02/11/2024 Severely problematic diarrhea even after a cleanout. Thimerosal Rash Medium 02/28/2012 Itching and swelling Medications docusate sodium (COLACE) 100 mg capsuleIndicatio ns:constipation Take 1-2 tablets daily for constipation management. 180 capsule 3 3 Active dicyclomine (BENTYL) 10 mg capsuleIndicatio ns:Irritable bowel syndrome with both constipation and diarrhea Take 1 capsule (10 mg total) by mouth 4 (four) times a day as needed (abdominal pain/cramps) 90 capsule 1 4 Active Additional Information Patient not taking.Reported on 07/19/[address] (NexIUM) 40 mg capsule Take 1 capsule (40 mg total) by mouth daily before breakfast 30 capsule 11 4 025 Active Additional Information Patient not taking.Reported on 07/19/2024 metoclopramide (REGLAN) 10 mg tablet Take 1 tablet (10 mg total) by mouth nightly Take with meals and at bedtime 30 tablet 4 Active Active Problems Problem Noted Date Diagnosed Date Epigastric pain 02/11/2024 Encounter for screening mamm ogram for malignant neoplasm of breast 02/05/2024 Assessment & Plan (02/05/2024 4:27 PM CDT): Mammogram order placed. Annual physical exam 02/05/2024 Assessment & Plan (02/05/2024 4:39 PM CDT): Colonoscopy- UTD sees GI Mammogram- will order WWE- UTD Influenza vaccine- not in office yet ASCVD risk: 4.6% Eat a healthy diet: focus on lean meats and proteins, more fruits, vegetables and whole grains and low in sugars and fats. Limit red meat and avoid processed meat. Maintain a healthy weight; avoid being overweight. Aim for a normal body mass index (BMI) of 18.5-24.9. Help learning to eat healthier, we can set up appointment with shared services representative/electrical subcontractor. Have an active lifestyle, strive for 30 minutes of moderate exercise 5 times a week and strength or resistance training at least twice a week. Use broad-spectrum (UVA+UVB) sunscreen with SPF 30 or greater, is water resistant, limit time spent in the sun (10 am-4pm), wear hat, wear UV protective clothing, wear sunglasses. Never use a tanning bed. Skin that was irradiated may be more sensitive over your lifetime. Do not smoke or chew tobacco; participate in a smoking cessation program. Limit alcohol intake, 1 drink per day for a woman and 2 drinks per day for a man. Class 1 obesity due to exces s calories without serious comorbidity with body mass index (BMI) of 31.0 to 31.9 in adult 02/05/2024 Assessment & Plan (02/05/2024 4:26 PM CDT): Encouraged heart healthy diet and lifestyle. Advised 150 min/week of aerobic exercise. Tobacco use disorder 07/31/2023 Epigastric hernia 03/26/2023 History of diverticulitis 03/18/2023 Acute non-recurrent frontal sinusitis 01/17/2023 Assessment & Plan (01/17/2023 11:40 AM CDT): Symptoms present for 1 week, noting significant right-sided facial pressure facial pressure. She denies any visual disturbances or fevers. Prescribed antibiotics sinusitis and prednisone to help with inflammation and pain. -discussed continued symptomatic treatment, rest and pushing fluids. -aware to take medication with food. -patient to follow-up if no improvement within the next 1 week or sooner if she is experiencing any new or worsening symptoms. -COVID testing not indicated today symptoms have been present for> 5 days. Ventral hernia without obstruction or gangrene 0 01/17/2023 Assessment & Plan (01/17/2023 11:35 AM CDT): Patient to follow-up with general surgery for discussion of surgical options. Patient reports she does not need a referral, we discussed contacting Dr. Bowden at [facility]. Atypical glandular cells on cervical Pap smear 0 01/17/2023 Assessment & Plan (01/17/2023 11:38 AM CDT): See discussion above. Reviewed imaging and office visit notes from manager of project management today with patient. Recommended patient have further discussion with manager of project management regarding her treatment options/next course of action. She continues to use condoms for contraception at this time. Encounter for preoperative e xamination for general surgical procedure 07/10/2021 Assessment & Plan (07/12/2021 12:12 PM PASTRY MIXER): Reviewed lab work, and EKG. Normal PE. Patient cleared for surgery. Cervicalgia 07/10/2021 Assessment & Plan (07/10/2021 9:48 AM PASTRY MIXER): Has been taking advil for pain. Will schedule procedure with Dr. Delcid. Lipid screening 07/10/2021 Assessment & Plan (02/05/2024 4:26 PM CDT): Will check lipid panel. Assessment & Plan (07/10/2021 9:55 AM PASTRY MIXER): Will check labs. Discussed diet and exercise recommendations. Routine health maintenance 04/05/2021 Assessment & Plan (04/05/2021 2:03 PM PASTRY MIXER): Discussed need to schedule WWE and pap. Health care maintenance 03/12/2021 Assessment & Plan (03/12/2021 2:55 PM CDT): Patient instructed to schedule wwe. Need for immunization against influenza 03/12/20 Assessment & Plan (03/12/2021 5:06 PM CDT): Vaccine given in office today. Reviewed possible side effects/injection site reactions. Chronic bilateral low back pain 02/05/2021 Assessment & Plan (03/12/2021 5:05 PM CDT): Continue current treatment with medication and chiropractic evaluation. Patient reports Dr. Delcid recommended surgical intervention, will request records today. Next OV with Dr. Delcid 04/02/21. No s/s of cauda equina or loss of bowel bladder function. Continues with PT. Reviewed red flags. Will continue to monitor. Assessment & Plan (02/12/2021 8:11 PM CDT): Has follow up with spinal surgery Dr. Delcid on 03/19. Continue muscle relaxer and tramadol as needed. No s/s of cauda equina or loss of bowel/bladder function. Continues with physical therapy and is still seeing chiropractor. Reviewed red flag s/s. Will continue to monitor. Assessment & Plan (02/05/2021 10:42 AM CDT): Has follow up with spinal surgery Dr. Delcid. Continue muscle relaxer and tramadol as needed. No s/s of cauda equina or loss of bowel/bladder function. Reviewed red flag s/s. Will continue to monitor. Encounter for screening mammogram for breast can cer 02/05/2021 Assessment & Plan (03/12/2021 2:56 PM CDT): Encouraged patient to scheduled annual mammogram. Continue monthly SBE. Assessment & Plan (02/05/2021 10:39 AM CDT): Patient has order for mammogram, aware to call and schedule. Acute cystitis with hematuria 10/08/2019 Assessment & Plan (10/08/2019 8:39 AM CDT): Complete antibiotic as prescribed (macrobid 100mg bid x 7 days) Do not hold your urine. Urinate as soon as you feel the need to go Drink plenty of water and fluids. Limit alcohol, caffeine, and citrus juices- They will irritate the bladder Wipe front to back & wear cotton underwear Try emptying your bladder before and after having sexual intercourse If you have severe back, flank, or groin pain with nausea/vomiting or are unable to get comfortable from the pain, please go to ER for further treatment Tylenol/Motrin for pain Can use over the counter Azo (pyridium) to help numb the bladder and make urination more comfortable until the antibiotic starts to work (this will turn the urine orange) Can add cranberry supplement to acidify the urine I will culture the urine to ensure bacteria is sensitive to antibiotic prescribed- this will take a few days to come back. Refused influenza vaccine 07/15/2019 Assessment & Plan (07/15/2019 11:43 AM PASTRY MIXER): Discussed and the patient refuses immunization today. Educated regarding the need to vaccinate for personal protection and to limit the viruses in the community to protect those most vulnerable. Encounter for screening for lipid disorder 07/15 Assessment & Plan (04/05/2021 2:03 PM PASTRY MIXER): Patient to get fasting labs. Reviewed heart healthy diet and importance of regular exercise. Assessment & Plan (07/15/2019 11:52 AM PASTRY MIXER): 07/17/18 ML=874 TG=62 HDL=44 LDL=72 TC/HDL=3 07/15/19 YI=383 CR=798 HDL=42 LDL=41.4 (CALC) TC/HDL=4.0 GLU=85 BMI 28.0-28.9,adult 07/15/2019 Assessment & Plan (07/10/2021 9:55 AM PASTRY MIXER): Discussed healthy diet and importance of regular physical activity. Assessment & Plan (04/05/2021 2:03 PM PASTRY MIXER): Discussed healthy diet and importance of regular physical activity. Assessment & Plan (03/12/2021 5:05 PM CDT): Discussed healthy diet and importance of regular physical activity. Assessment & Plan (02/12/2021 8:13 PM CDT): BMI is acceptable for this patient. Assessment & Plan (02/05/2021 10:42 AM CDT): Reviewed diet and exercise recommendations. Assessment & Plan (10/08/2019 8:36 AM CDT): Discussed healthy diet and importance of regular physical activity. BMI is acceptable for this patient. Assessment & Plan (07/15/2019 11:43 AM PASTRY MIXER): Discussed healthy diet and importance of regular physical activity. BMI is acceptable for this patient. 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 She usually has a very heavy period that last several days. This one was very small amount and short. She does have her tubes tied. Will get urine test to rule this out before colonoscopy on Friday. Dyspepsia 08/02/2018 Assessment & Plan (08/02/2018 12:39 PM CDT): She has gas and bloating. Will try Gas-X with meals. Follow up in 2 months. Diverticulitis of large inte porfirio with perforation without bleeding 07/16/2018 Assessment & Plan (09/24/2018 2:09 PM CDT): Still having occasional abdominal pain in LLQ that is relieved by BM. Likely this is more IBS-CD related than it is with episode of diverticulitis. Overall, she says she feels much better. From GI perspective, if patient has > 3 episodes of diverticulitis in 1 year, then we would consider surgery. This is patient's first episode of diverticulosis. Will go through with colonoscopy on Friday to examine extend of diverticulosis and for complete resolution of diverticulitis. Assessment & Plan (08/02/2018 12:40 PM CDT): Clinically resolving. Will continue the course of Cipro and Flagyl. Discussed with patient low fiber diet, and advised to eat yogurt for probiotic effect. Follow up 2 months. Will plan colonoscopy in 8-10 weeks. Assessment & Plan (07/29/2018 2:13 PM PASTRY MIXER): Educated patient to start clear liquid diet and resume oral antibiotics. Discussed case with , preferably patient sees GI aura, optimize therapy and patient symptoms, and patient then to see in the office to discuss surgery risks and benefits. Patient agrees to this treatment plan. Assessment & Plan (07/16/2018 6:19 AM PASTRY MIXER): Of the sigmoid colon. Perforation is localized. Patient is currently on Zosyn. Her abdominal pain is controlled with pain medications. General surgery and Infectious Disease have been consulted will await their evaluation. NPO for surgery evaluation. Chronic midline low back pain without sciatica 1 06/28/2017 Assessment & Plan (04/05/2021 2:27 PM PASTRY MIXER): Continue current treatment with medication and therapy. Continue follow up with Dr. Delcid. No s/s of cauda equina or loss of bowel bladder function. Continues with PT. Reviewed red flags. Tobacco dependence due to cigarettes 03/19/2018 Assessment & Plan (02/05/2024 4:27 PM CDT): Precontemplative. Encouraged complete smoking cessation. Discussed different types of medications & stbe-dny-jxydafl aides to help with cessation. Assessment & Plan (07/12/2021 12:13 PM PASTRY MIXER): Encouraged smoking cessation. Discussed decreased healing and negative health consequences associated with smoking. Assessment & Plan (03/12/2021 5:06 PM CDT): Again, encouraged smoking cessation. Assessment & Plan (02/12/2021 7:58 PM CDT): Precontemplative. Encouraged complete smoking cessation. Discussed different types of medications & kmzd-tya-vpkkqwc aides to help with cessation. Assessment & Plan (02/05/2021 10:43 AM CDT): Encouraged complete smoking cessation. Reviewed NRT options with patient. Assessment & Plan (10/08/2019 8:35 AM CDT): Precontemplative. Encouraged complete smoking cessation. Discussed different types of medications & eqwh-lws-ssokbwu aides to help with cessation. Will p/u otc patches to try before chantix or wellbutrin. Assessment & Plan (07/15/2019 11:44 AM PASTRY MIXER): Precontemplative. Encouraged complete smoking cessation. Discussed different types of medications & hkxy-wdh-goyrczu aides to help with cessation. Assessment & Plan (07/16/2018 6:18 AM PASTRY MIXER): Patient smokes about a pack a day on and off for 20 years. She is not interested in a nicotine patch at this time. Irritable bowel syndrome wit h both constipation and diarrhea 03/19/2018 Assessment & Plan (02/05/2024 4:27 PM CDT): Follows with GI will continue Bentyl PRN and Colace Assessment & Plan (09/24/2018 2:10 PM CDT): Current IBS-CD. She uses a number of OTC medications to control her symptoms. Assessment & Plan (07/16/2018 6:18 AM PASTRY MIXER): Continue SSRI and Bentyl Breast neoplasm screening status 05/21/2016 Overview (08/30/2016): Encounter for other screening for malignant neoplasm of breast Intestinal metaplasia of gastric mucosa 05/21/20 16 Overview (08/30/2016): Intestinal metaplasia of gastric mucosa Calculus of gallbladder 03/05/2016 Overview (08/30/2016): Cholelithiasis Normocytic anemia Allergic drug reaction Resolved Problems Problem Noted Date Diagnosed Date Resolved Date Abnormal Pap smear of anus 01/17/2023 0 01/17/2023 Caffeine withdrawal 10/08/2019 06/19/19 Assessment & Plan (10/08/2019 8:38 AM CDT): HOOPER r/t caffeine withdrawal. congratuled on caffeine decrease. Encouraged complete cessation. Discussed water increase & excedrin migraine for HOOPER temporarily. Viral URI with cough 07/15/2019 020 Assessment & Plan (07/15/2019 2:12 PM PASTRY MIXER): Rapid flu swab: NEGATIVE This looks viral in nature and should run its course without antibiotics in 7-10 days. You will need to take over the counter medications: Advise to use Mucinex and nasal saline to help with congestions and mucus. Add flonase & Claritin, Julianna or Zyrtec daily for nasal drip Benzonatate sent for cough. Drink plenty of fluids. May take Tylenol for pain. Contact the office if not better in a few days or if getting worse. If symptoms worsen or you experience shortness of breath, return to clinic or go to Er. Swelling 07/16/2018 10/08/2019 Assessment & Plan (07/16/2018 6:20 AM PASTRY MIXER): Of the upper lip and left eyelid. Appeared to have resolved with Benadryl. Suspected to be related to Bactrim which has been added as an allergy. Patient also developed a rash which has now resolved as well. Will continue to monitor. P.r.n. Benadryl. Epigastric pain 07/16/2018 10/08/2019 Assessment & Plan (07/16/2018 6:21 AM PASTRY MIXER): With left arm numbness. Started on Friday evening after eating and improved with relaxation. Suspect may be related to anxiety. Currently resolved. Will continue to monitor. Low suspicion for cardiac etiology at this time. Difficult or painful urination 07/10/2017 02/12/2021 Encounters Date Type Department Care Team Description 07/19/2024 4:40 PM PASTRY MIXER - 07/19/2024 11:59 PM PASTRY MIX[place] [address] Dysuria Discharge Disposition: Discharge to home or self care 07/19/2024 4:00 PM PASTRY MIXER Office Visit [facility] [address] [facility] [place] [address] Morena Arias, ENAMEL SPRAYER Viral URI with cough (Primary Dx); Dysuria 07/19/2024 Nurse Triage [facility] [address] [address] Vinicio Greco MD from Last 3 Months Immunizations Immunization Administration Dates Next Due Influenza, Quadrivalent, Spl it, Preservative Free, Intramuscular 03/12/2021,03/13/2016 Influenza, Unspecified 02/05/2024(Deferr ed: Patient Refused),01/24/2023(Deferred: Patient Refused),10/03/2022(Deferred: Patient Refused),02/23/2022(Deferred: Patient Refused),01/24/2022(Deferred: Patient Refused),03/10/2020,10/08/2019(Deferre d: Patient Refused),08/06/2019(Deferred: Patient Refused),07/15/2019(Deferred: Patient Refused),05/26/2018(Deferred: Patient Refused),04/06/2018,04/06/2018, 018,06/02/2017(Deferred: Patient Refused),05/27/2016(Deferred: Patient Refused) Pfizer SARS-CoV-2 Monovalent Vaccination (12+ Yrs) PURPLE 02/12/2021,01/21/2021 Rho (D) Immune Globulin 02/06/2015 Tdap 10/18/2017,02/08/2015 Surgical History Surgery Date Site/Laterality Comments OTHER SURGICAL HISTORY 05/26/1989 - 05/25/1990 Scar (right lower extremity): Plastic surgery TUBAL LIGATION tubal ligation CHOLECYSTECTOMY Cholecystectomy CERVICAL SPINE SURGERY 05/26/2021 - 05/25/2022 replaced a couple of disc's Medical History Medical History Date Comments Anemia Anemia Acquired scoliosis 2004 Scoliosis Hx Other Medical Scar (right low er extremity) Hx Other Medical H/o abnormal pa p smears (HPV) Smoking Female bladder prolapse Diverticulitis 2019 Irritable bowel syndrome Family History Medical History Relation Name Comments Other Brother 2 Alive and well; Diverticulitis Father Other Father Alive and well; Esophageal cancer Maternal Grandfather Ca ncer -esophageal; Cause of : Cancer -esophageal Breast cancer Maternal Grandmother Cancer , breast; Cancer Maternal Grandmother Colon cancer Maternal Grandmother Breast cancer Maternal cousin bulmaro Other Mother Alive and well; Cancer Other 1 Family history of Cancer; Osteoarthritis Other 2 Family histor y of Osteoarthritis; Stroke Other 3 Family history of Stroke; Breast cancer Other 4 maternal great aunt Stroke Paternal Grandfather Stroke; Cause of : Stroke Cancer Paternal Grandmother Hodgkin's lymphoma Paternal Grandmother Other Sister 2 Alive and well; Relation Name Status Comments Brother 1 Alive Brother 2 Father Alive Maternal Grandfather (Age 70) Maternal Grandmother Alive Maternal cousin bulmaro Alive Mother Alive Other 1 Other 2 Other 3 Other 4 maternal great aunt Paternal Grandfather (Age 84) Paternal Grandmother Alive Sister 1 Alive Sister 2 Social History Tobacco Use Types Packs/Day Years Used Date Smoking Tobacco: Every Day Cigarettes Smokeless Tobacco: Never Tobacco Cessation:Ready to Q uit: Not Asked; Counseling Given: Not Answered Comments:Vapes Alcohol Use Standard Drinks/Week Comments Yes 0 (1 standard drink = 0.6 oz pur e alcohol) rarely AUDIT-C Answer Date Recorded Q1: How often do you have a drink containing alc ohol? Monthly or less 11/10/2023 Average Number of Drinks Not on file 024 Frequency of Binge Drinking Not on file 10/24 PHQ-2 Answer Date Recorded PHQ-2 Total Score (If total score is 3 or more points, staff should administer the PHQ-9) 0 02/05/2024 Personal Safety Answer Date Recorded Have you ever been in or are you currently in a harmful physical or emotional relationship or is someone making you feel afraid or unsafe? Denies 04/13/2024 Comments No Sex and Gender Information Value Date Recorded Sex Assigned at Not on file Legal Sex Female 12:18 PM PASTRY MIXER Gender Identity Not on file Sexual Orientation Not on file Obstetrics History Para Term AB IAB SAB Ectopic Multiple Livin g Live Births 5 3 3 Date Outcome GA Total Labor Labor/2nd/3rd Weight Sex Type Anes PTL Susana A1 A5 Name Clin Term Term Term Last Filed Vital Signs Vital Sign Reading Time Taken Comments Blood Pressure 116/72 07/19/2024 3:53 PM PASTRY MIXER Pulse 98 07/19/2024 3:53 PM PASTRY MIXER Temperature 36.6 C (97.9 F) 07/19/2024 3:53 PM PASTRY MIXER Respiratory Rate 18 07/19/2024 3:53 PM PASTRY MIXER Oxygen Saturation 98% 07/19/2024 3:53 PM PASTRY MIXER Inhaled Oxygen Concentration - - Weight 80.3 kg (177 lb) 07/19/2024 3:53 PM PASTRY MIXER Height 162.6 cm (5' 4 ) 07/19/2024 3:53 PM PASTRY MIXER Body Mass Index 30.38 07/19/2024 3:53 PM PASTRY MIXER Plan of Treatment Health Maintenance Due Date Last Done Comments Cervical Cancer Screening 1975 Hepatitis C Screening 1975 Hepatitis B Screening 1993 Pneumococcal vaccine <65 (1 of 2 - PCV) 1994 Covid-19 Vaccine (2023-2 5 season) 2024 02/12/2021, 01/21/2021 Influenza Vaccine (#1) 2024 , 03/10/2020, 04/06/2018, Additional history exists Depression Screening 02/04/2025 02/05/2024, 01/17/2023, 10/03/2022, Additional history exists Regular Well Visit/Exam 18-64 02/04/2025 02/05/2024 Breast Cancer Screening-Mammogram 03/05/2025 03/05/2024, 11/05/2022, 04/04/2021, Additional history exists DTaP/Tdap/Td Vaccine (3 - Td or Tdap) 10/19/2027 10/18/2017, 02/08/2015 Colon Cancer Screening-Colonoscopy 09/28/20282018 Medical Devices Implanted Type Area Concrete Sculptor Device Identifier Shelf Expiration Date Model / Serial / Lot [employer] Bard Ventralight St Sepra 4.5in Uncoated Monofilament Lightweight [id number] - [id number] Implanted:Qty: 1 on 04/07/2023 by Kirby Shea MD at [facility] N/A: Abdomen [employer] 10/20/2024 [id number] / / [id number] Procedures Procedure Name Priority Date/Time Associated Diagnosis Comments POCT URINALYSIS DIPSTICK Routine 07/19/2024 4:19 PM PASTRY MIXER Dysuria POC INFLUENZA A/B, COVID-19 ANTIGEN Routine 07/19/2024 4:18 PM PASTRY MIXER Viral URI with cough DIAGNOSTIC MAMMOGRAM BILATERAL W [place] Schedule Routine, Read Routine (OP Routine) 03/05/2024 1:44 PM CDT COLONOSCOPY 09/28/2018 10:54 AM CDT from Last 3 Months or Most Recently Relevant to Health Maintenance Results * (ABNORMAL) POCT urinalysis dipstick (07/19/2024 4:19 PM PASTRY MIXER) Pathologist [facility] Color, Urine, POC Yellow Clarity, ur, POC Clear Clear Glucose, ur, POC Negative Negative MG/DL Bilirubin, ur, POC Negative Negative, Small, Moderate, Large Ketones, ur, POC Negative Negative Specific Jolon, POC 1.010 1.003 - 1.030 Blood, ur, POC Negative Negative pH, ur, POC 6.0 5.0 - 8.0 Protein, ur, POC Negative Negative Urobilinogen, urine, POC 0.2 0.2 - 1.0 mg/dL Nitrite, ur, POC Negative Negative Leukocytes, ur, POC Negative Negative Lot Number [id number] Urine 07/19/2024 4:19 PM PASTRY MIXER Morena Arias NP POINT OF CARE TEST ORDERABLES Final Result * POC Influenza A/B, COVID-19 antigen (07/19/2024 4:18 PM PASTRY MIXER) Pathologist [facility] Influenza A Ag, POC Negative Negative [facility] Influenza B Ag, POC Negative Negative [facility] COVID-19 Ag POC Presumptive Negative Presumptive Negative, Invalid [facility] Nasal 07/19/2024 4:18 PM PASTRY MIXER us Morena Arias ENAMEL SPRAYER POINT OF CARE TEST ORDERABLES Final Result [id number] [address] [place] [address], [facility] * Diagnostic Mammogram Bilateral [place] (03/05/2024 1:44 PM CDT) Anatomical Region Laterality Modality Breast Bilateral Mammography 03/05/2024 1:44 PM CDT Historical Provider MD [facility] MAMMO PROCEDURES [place] [facility] Result * COLONOSCOPY (09/28/2018 10:54 AM CDT) Anatomical Region Laterality Modality Other Narrative Procedure Note Jose E Busch MD - 09/28/2018 10:54 AM CDT [facility] Patient Name: Mari Chavez Procedure Date: 09/28/2018 10:54 AM Date of : 1975 Admit Type: Outpatient Age: 43 Gender: Female Attending MD: Jose E Busch M.D. Room: [facility] ENDOSCOPY ROOM 1 Note Status: Finalized Patient Profile: 43 WF with recent episode of acute diverticulitiswith microperforation. Grandparent had colon cancer. Procedure: Colonoscopy Indications: This is the patient's first colonoscopy, Follow-upof diverticulitis Referring MD: Vinicio Greco M.D., Kirby Shea M.D. Providers: Jose E Busch M.D. Impression: - Diverticulosis in the mid sigmoid colon and in the distal sigmoid colon. - Otherwise normal colonoscopy. - No specimens collected. Recommendation: - Discharge patient to home. - Repeat colonoscopy in 10 years for screeningpurposes. Medicines: Monitored Anesthesia Care Complications: No immediate complications. Estimated Blood Loss: Estimated blood loss: none. Procedure: Pre-Anesthesia Assessment: - Prior to the procedure, a History and Physical was performed, and patient medications and allergieswere reviewed. The patient's tolerance of previous anesthesia was also reviewed. The risks and benefitsof the procedure and the sedation options and riskswere discussed with the patient. All questions were answered, and informed consent was obtained. Prior Anticoagulants: The patient has taken no previous anticoagulant or antiplatelet agents. ASA Grade Assessment: II - A patient with mild systemicdisease. After reviewing the risks and benefits, the patientwas deemed in satisfactory condition to undergo the procedure. The benefits, risks and alternatives of theprocedure and sedation were discussed and informed consent was obtained. All questions were answered. Please referto the signed informed consent document in the medical record. The scope was passed under direct vision.The Pediatric Colonoscope PCF-H190L [id number] was introduced through the anus and advanced to the the cecum, identified by appendiceal orifice andileocecal valve. The colonoscopy was performed without difficulty. The patient tolerated the procedurewell. The quality of the bowel preparation wasexcellent. Findings: The perianal and digital rectal examinations were normal. The cecum appeared normal. Overall the colon (entire examined portion) appeared normal. Nopolyps and no mass lesions. Multiple small-mouthed diverticula were found in the mid sigmoidcolon and distal sigmoid colon. No inflammatory changes noted at thistime. The rectum appeared normal. Electronically signed by Jose E Busch M.D. Jose E Busch M.D. 09/28/2018 12:03:43 PM Number of Addenda: 0 Note Initiated On: 09/28/2018 10:54 AM Procedure Code(s): --- Professional --- 15935, Colonoscopy, flexible; diagnostic, including collection of specimen(s) by brushing or washing, when performed (separateprocedure) Diagnosis Code(s): --- Professional --- K57.32, Diverticulitis of large intestine without perforation orabscess without bleeding K57.30, Diverticulosis of large intestine without perforation orabscess without bleeding CPT copyright 2017 [employer]. All rights reserved. The codes documented in this report are preliminary and upon remote coders reviewmay be revised to meet current compliance requirements. Recognized by the [employer] for promoting quality in endoscopy Jose E Busch MD ENDOSCOPY PROCEDURES Final Result from Last 3 Months or Most Recently Relevant to Health Maintenance Insurance [employer]MyGear [facility] Order[employer] [facility] PPO [employer] Advance Directives For more information, please contact: [phone] * Full Code (Latest Code Status on File) Date Activated Date Inactivated Comments 04/13/2024 9:27 AM 04/13/2024 4:12 PM * Full Code Date Activated Date Inactivated Comments 04/13/2024 9:27 AM 04/13/2024 9:27 AM * Full Code Date Activated Date Inactivated Comments 09/28/2018 10:23 AM 09/28/2018 4:49 PM * Full Code Date Activated Date Inactivated Comments 09/28/2018 10:23 AM 09/28/2018 10:23 AM * Full Code Date Activated Date Inactivated Comments 07/15/2018 9:32 PM 07/21/2018 4:19 PM Care Teams Associate Theatre Professor Relationship Specialty Start Date End Date Vinicio Greco MD [address] [place] [address] PCP - General 09/16/11
--- OUTSIDE RECORDS SUMMARY | 2024-07-20 17:37 | XMS_ITS | Clinical Summary ---
Author Organization [facility] Address [address] [place] [address] Phone Care Team Providers Care Dishcloth Folder Name Role Phone GERARDO GRECO MD Primary Care Provider [phone] KETTY ARTHUR MD Unavailable [phone] Reason for Visit and Chief Complaint The Chief Complaint is: WWE. She states she hasn't had a cycle since June and has a knot in theleft breast. The knot is not painful and she has not noticed any changes in the skin. Same partner Problems Includes: Problems addressed during this encounter and other active Problems Current Visit Onset Date Resolved Date Provider Conditio n Status Previous Colposcopy 09/27/2022 LARA MILELR VIDEOTAPE EDITOR-BC Active Last Documented On 10:22AM ; [facility] Alcohol Use 07/21/2014 Unknown SHASTA SHORT MD Resolve d Last Documented On 04/03/2015 10:52AM ; [facility] Note: was Closed. History of Abnormal Pap Smear 07/21/2014 Unknown SHASTA SHORT MD Resolved Last Documented On 04/03/2015 10:52AM ; [facility] Note: was Closed. History of Congenital Abnormality of Uterus 07/21/2014 Unknown SHASTA SHORT MD Resolved Last Documented On 04/03/2015 10:52AM ; [facility] Note: was Closed. History of Hematologic Disorders 07/21/2014 Unknown SHASTA SHORT MD Resolved Last Documented On 04/03/2015 10:52AM ; [facility] Note: was Closed. History of Recurrent Loss (Gravid) 07/21/2014 Unknown SHASTA SHORT MD Resolve d Last Documented On 04/03/2015 10:52AM ; [facility] Note: was Closed. History of Abnormal Pap Smear 07/16/2011 Unknown SHASTA SHORT MD Resolved Last Documented On 02/28/2012 10:55AM ; [facility] Note: was Closed. Past Visits Onset Date Resolved Date Provider Condition Status Risk: Tobacco Use 09/27/2022 LARA REYNA WHNP -BC Active Last Documented On 3 10:22AM ; [facility] Plan of Treatment - Follow-up visit 1 year or as needed - Last Documented On 10/03/2023 10:18AM ; [facility] - Clinical summary provided to patient - Last Documented On 10/03/2023 10:18AM ; [facility] Call if no menses > or = 90 days for possible hormonal induction of menses. Call if pelvic pain , especially on one side or the other. Try to exercise for at least 30 minutes at least 4 times per week and follow a low-fat diet. - Last Documented On 10/03/2023 10:18AM ; [facility] Pending Tests Order Diagnosis Results Due Ordering Provider In office procedures - *Clia Waived Labs Urine Test Irregular menstruation, unspecified 10/17/23 LARA REYNA WHNP-BC Last Documented On 4 10:07AM ; [facility] Radiology @ other - *MAMMOGRAPHY SCREENING MAMMOGRAM Encntr screen mammogram for malignant neoplasm of breast 10/17/23 LARA REYNA WHNP-BC Last Documented On 4 10:23AM ; [facility] In office procedures - *Clia Waived Labs *FOBT* Fecal Occult Blood Test Encounter for screening for malignant neoplasm of rectum 10/17/23 LARA REYNA WHNP-BC Last Documented On 4 10:07AM ; [facility] Instructions to patient Instructions for patient : B reast Self Exam discussed Last Documented On 4 9:54AM ; [facility] Intervention and counseling on cessation of tobacco use Last Documented On 4 10:04AM ; [facility] Lose weight Last Documented On 4 9:56AM ; [facility] Colonoscopy Handout given to patient Last Documented On 4 9:56AM ; [facility] Education and Decision Aids were provided during visit for: Patient Education: Daily daniel cium and vitamin D Last Documented On 4 9:54AM ; [facility] Patient Education: weight be aring exercise Last Documented On 4 9:54AM ; [facility] Smoking cessation advised Last Documented On 4 9:56AM ; [facility] Assessments Includes: Assessments from this encounter Findings - NORMAL FEMALE EXAM [Z01.419 - Encounter for gynecological examination (general) (routine) without abnormal findings] - Last Documented On 10/03/2023 10:18AM ; [facility] - Screening Malig. Neoplasm Rectum [Z12.12 - Encounter for screening for malignant neoplasm of rectum] - Last Documented On 10/03/2023 10:18AM ; [facility] Instructions Includes: Instructions from this encounter Instructions to patient Instructions for patient : B reast Self Exam discussed Last Documented On 4 9:54AM ; [facility] Intervention and counseling on cessation of tobacco use Last Documented On 4 10:04AM ; [facility] Lose weight Last Documented On 4 9:56AM ; [facility] Colonoscopy Handout given to patient Last Documented On 4 9:56AM ; [facility] Education and Decision Aids were provided during visit for: Patient Education: Daily daniel cium and vitamin D Last Documented On 4 9:54AM ; [facility] Patient Education: weight be aring exercise Last Documented On 4 9:54AM ; [facility] Smoking cessation advised Last Documented On 4 9:56AM ; [facility] Medical Equipment - Implanted Devices Includes: Current Devices No Medical Equipment Recorded Medications Includes: Medications discussed during this encounter and other current Medications Discontinued / Stopped on this date GERARDO GRECO MD on 10/03/2022 HYDROcodone-Acetaminophen 5-325 MG Oral Tablet Provider: GERARDO GRECO MD Diagnosis: Last Documented On 4 10:05AM By Marlene WAITE ; [facility] Pantoprazole Sodium 40 MG Or al Tablet Delayed Release Provider: GERARDO GRECO MD Diagnosis: Last Documented On 4 10:05AM By Marlene WAITE ; [facility] Cyclobenzaprine HCl 10 MG Oral Tablet Pro vider: MARIPOSA POWELL MD Diagnosis: Last Documented On 4 10:05AM By Marlene WAITE ; [facility] Current Medications (continue as prescribed) Advil 200 MG Oral Capsule 09/27/2022 Provider: Diagnosis: Last Documented On 12/10/2022 4:41PM By KETTY ARTHUR MD ; [facility] Stool Softener 100 MG Oral Capsule 07/16/2019 Pr ovider: Diagnosis: Last Documented On 12/10/2022 4:41PM By KETTY ARTHUR MD ; [facility] Dicyclomine HCl 10 MG Oral Capsule 07/16/2019 Provid er: Diagnosis: Last Documented On 12/10/2022 4:41PM By KETTY ARTHUR MD ; [facility] Past Medications on file Breast Pump Miscellaneous 01/26/2015 - 01/26/2016 Prov ider: SHASTA SHORT MD Diagnosis: as directed Last Documented On 01/26/2015 3:22PM By SHASTA SHORT MD ; [facility] Plus/Iron 27-1 MG OR TABS 03/09/2014 - 03/04/2015 Provider: SUREKHA DANG Diagnosis: OTHER FAMILY DAVID NNING ADVICE NEC Last Documented On 4 4:03PM By SUREKHA DANG-BC ; [facility] Bactrim DS 800-160 MG OR TABS 09/06/2013 - 09/09/2013 Provider: Diagnosis: Called into [facility] Last Documented On 09/06/2013 8:54AM By FLAVIO COLLAZO ; [facility] miSOPROStol 200 MCG OR TABS 08/02/2013 - 08/04/2013 Pr ovider: SHASTA SHORT MD Diagnosis: MISSED 4 tabs (800 mcg) po X 1, may repeat 24 hours later if needed Last Documented On 08/02/2013 4:41PM By SHASTA SHORT MD ; [facility] VIRTUAL REALITY SPECIALIST-PNV-DHA 28-1-215.8 MG OR CAPS 06/24/2013 - 05/20/2014 Provider: LARA MILLER NP-BC [facility]: [facility] Last Documented On 4 2:53PM By LUCIO LIND LPN ; [facility] [place] 5-325 MG OR TABS 01/26/2013 - 02/02/2013 Provide r: Diagnosis: [facility] [place] Last Documented On 01/26/2013 1:39PM By FLAVIO COLLAZO ; [facility] Estradiol 1 MG OR TABS 06/25/2012 - 07/16/2012 Provide r: SHASTA SHORT MD Diagnosis: Last Documented On 06/25/2012 4:19PM By SHASTA SHORT MD ; [facility] Ferrous Sulfate 325 (65 Fe) MG OR TABS 10/22/2011 - 02/19/2012 Provider: MARIA D ROSE ON M.Juan Jose Diagnosis: ANEMIA IN PREG-U NSPEC Last Documented On 2 4:46PM By DR. MARIA D DE LA ROSA ; [facility] Ferrous Sulfate 325 (65 Fe) MG OR TABS 08/19/2011 - 12/17/2011 Provider: MARIA D ROSE ON Kevin.Juan Jose Diagnosis: ANEMIA IN PREG-U NSPEC Last Documented On 2 11:13PM By DR. MARIA D DE LA ROSA ; [facility] Zofran 4 MG OR TABS 06/20/2011 - 08/19/2011 Provider: LARA GARNETT Diagnosis: 1 sublingual (reditabs) q 8 hours prn - nausea and vomiting Last Documented On 2 11:41AM By LARA GARNETT ; [facility] Metoclopramide HCl 10 MG OR TABS 05/23/2011 - 06/12/2011 Provider: LARA YBARRA Diagnosis: prn - nausea Last Documented On 1 4:12PM By LARA GARNETT ; [facility] Triveen-Duo DHA 29-1-200 & 400 MG OR MISC 01/18/2011 - 05/18/2011 Provider: LARA YBARRA Diagnosis: Last Documented On 1 3:26PM By LARA GARNETT ; [facility] Depo-Provera 150 MG/ML IM SUSP 04/03/2010 - 09/30/2010 Provider: VICKY JURADO Diagnosis: Inject IM Last Documented On 04/03/2010 9:07AM By VICKY JURADO ; [facility] MetroGel-Vaginal 0.75% VA GEL 11/08/2009 - 11/15/2009 Provider: VICKY JURADO Diagnosis: apply per vagina x 7 days Last Documented On 11/08/2009 3:55PM By DESTINY HOOVER ; [facility] Lexapro 10 MG OR TABS 10/17/2009 - 10/12/2010 Provider : VICKY JURADO Diagnosis: ANXIETY STATE NO S Last Documented On 10/17/2009 3:44PM By VICKY JURADO ; [facility] Medications Administered Includes: Administered Medications from this encounter No Administered Medications Recorded Vital Signs Includes: Vital Signs from this encounter Vital Name 10/03/2023 10:01A Blood Pressure Sitting (mmHg) 120/80 Temp-Temporal 98.8 Height (in) 64 Weight (lb) 177 Body Mass Index 30.4 Body Surface Area 1.9 Last Documented: On 10/03/2023 10:01A M ; [facility] Results Includes: Results discussed during this encounter No Results Recorded For Specified Dates History of Present Illness Includes: History of Present Illness from this encounter ZAY BARAHONA is a 48 year old female. - Allergy list reviewed - Medication list reviewed - Primary Care Provider: Dr. Greco Social History Description Last Updated Alcohol use Rare 10/03/2023 Last Documented On 4 10:18AM ; [facility] Not using drugs 10/03/2023 Last Documented On 4 10:18AM ; [facility] Sexually active with 1 partners in the l ast year 10/03/2023 Last Documented On 4 10:18AM ; [facility] Current smoker 09/27/2022 Last Documented On 4 9:53AM ; [facility] Has sex with males only 09/27/2022 Last Documented On 4 9:53AM ; [facility] Smoking Status Unknown Procedures and Surgical History Includes: Procedures from this encounter Procedures Code Diagnosis Performing Provider Service Location Service Date OBTAINING A PAP SMEAR (DISTINCT PROCEDURAL SERVICE DIFFERENT SITE) Q0091 Encounter for screening for malignant neoplasm of cervix LARA DANG[facility] 10/03/2023 Last Documented On 4 6:37PM ; [facility] FIT TEST-SCREENING FOR FECAL OCCULT BLOOD (CLIA WAIVED) 30410 Encounter for screening for malignant neoplasm of colon LARA REYNA [facility] 10/03/2023 Last Documented On 4 6:37PM ; [facility] URINE TEST 27705 Irregular menstruation, unspecified LARA REYNA [facility] 10/03/2023 Last Documented On 4 6:37PM ; [facility] low fat diet Last Documented On 4 9:56AM ; [facility] intervention and counseling on 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 4000F Last Documented On 4 10:04AM ; [facility] use of tobacco assessment performed 1000F Last Documented On 4 10:04AM ; [facility] history of cervical Pap smear 09/27/2022 66225 Last Documented On 4 10:04AM ; [facility] fecal occult blood test was negative 14951 Last Documented On 4 9:54AM ; [facility] test negative Last Documented On 4 10:06AM ; [facility] Cervical Pap Smear performed Q0091 Last Documented On 4 9:56AM ; [facility] Surgical History Last Updated Surgical / procedural histor y Surgery on R thigh ~pt has diverticulitis ~Cervical replacement of disks in neck 2021 ~EMB 11/29/22 Lara 12/10/2022 Last Documented On 4 9:53AM ; [facility] Previous colposcopy 04/17/2011 with Lizz foy; 11/04/22 TCK 12/10/2022 Last Documented On 4 9:53AM ; [facility] History of tubal ligation Dr Short (right clip in pelvis somewhere per pt) 11/04/2022 Last Documented On 4 9:53AM ; [facility] History of cholecystectomy 07/16/2019 Last Documented On 4 9:53AM ; [facility] Medical History Includes: Medical History addressed during this encounter Description Last Updated Contraception: BTL 10/03/2023 Last Documented On 4 9:53AM ; [facility] Contraception: Condoms 10/03/2023 Last Documented On 4 10:18AM ; [facility] History of screening mammogram was perfo rmed 11/05/2022 10/03/2023 Last Documented On 4 10:18AM ; [facility] LMP: 06/202310/03/2023 Last Documented On 4 10:18AM ; [facility] Other method: Tubal ligation/ Condoms Last Documented On 4 9:53AM ; [facility] Result: abnormal KIM HPV+ 11/04/2022 Last Documented On 4 9:53AM ; [facility] History of colonoscopy fiberoptic was pe rformed 201809/27/2022 Last Documented On 4 9:53AM ; [facility] # 1 Delivery date: 12/07/92 09/27/2022 Last Documented On 4 9:53AM ; [facility] # 2 Delivery date: 01/15/12 09/27/2022 Last Documented On 4 9:53AM ; [facility] # 3 Delivery date: 02/06/15 09/27/2022 Last Documented On 4 9:53AM ; [facility] Bowel problems 09/27/2022 Last Documented On 4 9:53AM ; [facility] Elective (s) 0 09/27/2022 Last Documented On 4 9:53AM ; [facility] Gallbladder disease 09/27/2022 Last Documented On 4 9:53AM ; [facility] No. of miscarriages: 2 09/27/2022 Last Documented On 4 9:53AM ; [facility] No. of Pregnancies: 5 09/27/2022 Last Documented On 4 9:53AM ; [facility] Please list all surgeries: T ubal ligation, cholecystectomy, cervical disc's replaced, diverticulitis 09/27/2022 Last Documented On 4 9:53AM ; [facility] Previous live (s) 3 09/27/2022 Last Documented On 4 9:53AM ; [facility] Previous premature delivery(s) 0 023 Last Documented On 4 9:53AM ; [facility] Received all 3 doses of Hepatitis B vacc ine 09/27/2022 Last Documented On 4 9:53AM ; [facility] Sex of Child # 1: Female 09/27/2022 Last Documented On 4 9:53AM ; [facility] Sex of Child # 2: Male 09/27/2022 Last Documented On 4 9:53AM ; [facility] Sex of Child # 3: Male 09/27/2022 Last Documented On 4 9:53AM ; [facility] Sexually active 07/16/2019 Last Documented On 4 9:53AM ; [facility] History of complete colonoscopy 2019 Last Documented On 4 9:53AM ; [facility] Aborta 2 05/30/2015 Last Documented On 4 9:53AM ; [facility] 5 05/30/2015 Last Documented On 4 9:53AM ; [facility] Para 3 05/30/2015 Last Documented On 4 9:53AM ; [facility] HX OF FE DEFICIENT ANEMIA 12/23/2014 Last Documented On 4 9:53AM ; [facility] History of Abnormal Pap Smear hx of abn pap smear, last few normal 12/23/2014 Last Documented On 4 9:53AM ; [facility] History of cervical dysplasia colpo 11-2 3-11 12/23/2014 Last Documented On 4 9:53AM ; [facility] 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 12/23/2014 Last Documented On 4 9:53AM ; [facility] History of hematologic disorder Hx of an emia, sharmaine with preg 12/23/2014 Last Documented On 4 9:53AM ; [facility] History of human papilloma virus infecti on 12/23/2014 Last Documented On 4 9:53AM ; [facility] History of recurrent loss (gra vid) sab X 2 12/23/2014 Last Documented On 4 9:53AM ; [facility] Vaginal delivery 12/23/2014 Last Documented On 4 9:53AM ; [facility] Family History Includes: Family History addressed during this encounter Description Last Updated Daughter's history of stroke syndrome Last Documented On 4 9:53AM ; [facility] Maternal history of breast cancer Grandm a 09/27/2022 Last Documented On 4 9:53AM ; [facility] Maternal history of cancer Gradnfather- esophogeal 09/27/2022 Last Documented On 4 9:53AM ; [facility] Paternal history of cancer Grandma- non hodgkins lymphoma 09/27/2022 Last Documented On 4 9:53AM ; [facility] Paternal history of stroke syndrome 09/2022 Last Documented On 4 9:53AM ; [facility] Family history of bowel problems 023 Last Documented On 4 9:53AM ; [facility] Family history of Breast problems 2022 Last Documented On 4 9:53AM ; [facility] Family history of kidney disease 023 Last Documented On 4 9:53AM ; [facility] Maternal history of Anemia 09/27/2022 Last Documented On 4 9:53AM ; [facility] Maternal history of bowel problems 09/27 Last Documented On 4 9:53AM ; [facility] Maternal history of Breast problems 09/2022 Last Documented On 4 9:53AM ; [facility] Maternal grandmother's history of malign ant female breast neoplasm MGM 07/16/2019 Last Documented On 4 9:53AM ; [facility] Review of Systems Includes: Review of Systems from this encounter Gastrointestinal: No pelvic pain. Genitourinary: No menorrhagia. No dysmenorrhea and no bleeding between periods. No vaginal discharge. Mental Status Includes: Mental Status from this encounter No Mental Status Recorded Functional Status Includes: Functional Status from this encounter No Functional Status Recorded Physical Exam Includes: Physical Exam from this encounter Allergies Includes: Active Allergies Substance Type Reaction Onset Date Resolved Date Statu s Thimerosal Allergy 02/28/2012 Active Last Documented On 4 10:05AM ; [facility] Bactrim DS Allergy 07/16/2019 Active Last Documented On 4 10:05AM ; [facility] Encounters Encounter Provider Location Date Check-In Time Check-Out Time Diagnosis [facility] LARA REYNA [facility] 10/03/19 24 9:53AM 10:19AM Screening Malig. Neoplasm Rectum,Normal Female Exam Insurance Includes: Active Insurance Policies Plan Name Member ID Group # Subscriber Relationship Effect cole Dates 1 - [employer] [id number] MARI BARAHONA Self Clinical Notes Includes: Clinical Notes from this encounter * Progress note Date Encounter Last Documented by 10/03/2023 [facility] - ESTABLISHED PT Last documented on 10/03/2023; 10:18 AM, LARA REYNA [facility]; [facility] Active Problems & Conditions - Previous Colposcopy [...] labs today. 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
--- OUTSIDE RECORDS SUMMARY | 2024-07-20 17:37 | XMS_ITS | Clinical Summary ---
Author Organization [facility] Address [address] [place] [address] Phone Care Team Providers Care Lobbyist Name Role Phone KORTNEY LEZAMA, GERARDO Butterfield Primary Care Provider [phone] SALLIE LEZAMA, KETTY Renteria Unavailable [phone] Reason for Visit and Chief Complaint gynecologic procedure : endometrial biopsy - The Chief Complaint is: EMB due to KIM Problems Includes: Problems addressed during this encounter and other active Problems Current Visit Onset Date Resolved Date Provider Conditio n Status Previous Colposcopy 09/27/2022 GIANNA REYNA PHYSICIST ASTROPHYSICS-BC Active Last Documented On 3 10:22AM ; [facility] Alcohol Use 07/21/2014 Unknown SHASTA SHORT MD Resolve d Last Documented On 04/03/2015 10:52AM ; [facility] Note: was Closed. Past Visits Onset Date Resolved Date Provider Condition Status Risk: Tobacco Use 09/27/2022 GIANNA REYNA WHNP -BC Active Last Documented On 3 10:22AM ; [facility] Plan of Treatment Reminded pt. that because Anil clip not seen on recent CT scan done by PCP- she should use barrier method for contraception like condoms. Will f/u with Dr. Arthur in 2 weeks for EMB and colpo results. Post procedural instructions reviewed - see handout in chart. - Last Documented On 11/29/2022 1:28PM ; [facility] Pending Tests Order Diagnosis Results Due Ordering P khadijah In office procedures - OB Endometrial Biopsy Unsp abnormal cytolog findings in specmn from cervix uteri 12/13/22 GIANNA MILLERNP-BC Last Documented On 3 1:15PM ; [facility] In office procedures - *Clia Waived Labs Urine Test Irregular menstruation, unspecified 10/17/23 GIANNA REYNA WHNP-BC Last Documented On 4 10:07AM ; [facility] Radiology @ other - *MAMMOGRAPHY SCREENING MAMMOGRAM Encntr screen mammogram for malignant neoplasm of breast 10/17/23 GIANNA REYNA WHNP-BC Last Documented On 4 10:23AM ; [facility] In office procedures - *Clia Waived Labs *FOBT* Fecal Occult Blood Test Encounter for screening for malignant neoplasm of rectum 10/17/23 GIANNA REYNA WHNP-BC Last Documented On 4 10:07AM ; [facility] Education and Decision Aids were provided during visit for: INFORMED CONSENT DISCUSSION: Endometrial biopsy was discussed in detail including discomfort, insufficient specimen with need to repeat test, and rare incidence of uterine perforation. Patient expressed understanding of the above and consented to the procedure Last Documented On 3 1:08PM ; [facility] Smoking cessation advised Last Documented On 3 1:10PM ; [facility] Assessments Includes: Assessments from this encounter Findings - Abnormal Pap smear of cervix - Last Documented On 11/29/2022 1:28PM ; [facility] - Abnormal Pap smear: atypical glandular cells [R87.619 - Unspecified abnormal cytological findings in specimens from cervix uteri] - Last Documented On 11/29/2022 1:28PM ; [facility] Instructions Includes: Instructions from this encounter Education and Decision Aids were provided during visit for: INFORMED CONSENT DISCUSSION: Endometrial biopsy was discussed in detail including discomfort, insufficient specimen with need to repeat test, and rare incidence of uterine perforation. Patient expressed understanding of the above and consented to the procedure Last Documented On 3 1:08PM ; [facility] Smoking cessation advised Last Documented On 3 1:10PM ; [facility] Medical Equipment - Implanted Devices Includes: Current Devices No Medical Equipment Recorded Medications Includes: Medications discussed during this encounter and other current Medications Discontinued / Stopped on this date on 10/25/2022 Amoxicillin 250 MG Oral Capsule Provider: Diagnosis: Last Documented On 11/29/2022 1:11PM By Jolly WAITE ; [facility] Current Medications (continue as prescribed) Advil 200 MG Oral Capsule 09/27/2022 Provider: Diagnosis: Last Documented On 12/10/2022 4:41PM By KETTY ARTHUR MD ; [facility] Stool Softener 100 MG Oral Capsule 07/16/2019 Pr ovider: Diagnosis: Last Documented On 12/10/2022 4:41PM By KETTY ARTHUR MD ; [facility] Dicyclomine HCl 10 MG Oral Capsule 07/16/2019 Provid er: Diagnosis: Last Documented On 12/10/2022 4:41PM By KETTY ARTHUR MD ; [facility] Past Medications on file Breast Pump Miscellaneous 01/26/2015 - 01/26/2016 Prov ider: SHASTA SHORT MD Diagnosis: as directed Last Documented On 01/26/2015 3:22PM By SHASTA SHORT MD ; [facility] Plus/Iron 27-1 MG OR TABS 03/09/2014 - 03/04/2015 Provider: SUREKHA MELENDEZ RN NP BC Diagnosis: OTHER FAMILY DAVID NNING ADVICE NEC Last Documented On 4 4:03PM By SUREKHA DANG-BC ; [facility] Bactrim DS 800-160 MG OR TABS 09/06/2013 - 09/09/2013 Provider: Diagnosis: Called into [facility] Last Documented On 09/06/2013 8:54AM By FLAVIO COLLAZO ; [facility] miSOPROStol 200 MCG OR TABS 08/02/2013 - 08/04/2013 Pr ovider: SHASTA SHORT MD Diagnosis: MISSED 4 tabs (800 mcg) po X 1, may repeat 24 hours later if needed Last Documented On 08/02/2013 4:41PM By SHASTA SHORT MD ; [facility] BAND MACHINE OPERATOR-PNV-DHA 28-1-215.8 MG OR CAPS 06/24/2013 - 05/20/2014 Provider: GIANNA MILLER NP-BC Diagnosis: phoned to melva/irene. Last Documented On 4 2:53PM By LUCIO LIND LPN ; [facility] Aurora 5-325 MG OR TABS 01/26/2013 - 02/02/2013 Provide r: Diagnosis: Called into [facility] [place] Last Documented On 01/26/2013 1:39PM By FLAVIO COLLAZO ; [facility] Estradiol 1 MG OR TABS 06/25/2012 - 07/16/2012 Provide r: SHASTA SHORT MD Diagnosis: Last Documented On 06/25/2012 4:19PM By SHASTA SHORT MD ; [facility] Ferrous Sulfate 325 (65 Fe) MG OR TABS 10/22/2011 - 02/19/2012 Provider: MARIA D ROSE ON M.Juan Jose Diagnosis: ANEMIA IN PREG-U NSPEC Last Documented On 2 4:46PM By DR. MARIA D DE LA ROSA ; [facility] Ferrous Sulfate 325 (65 Fe) MG OR TABS 08/19/2011 - 12/17/2011 Provider: MARIA D ROSE ON Liliam Diagnosis: ANEMIA IN PREG-U NSPEC Last Documented On 2 11:13PM By DR. MARIA D DE LA ROSA ; [facility] Zofran 4 MG OR TABS 06/20/2011 - 08/19/2011 Provider: GIANNA GARNETT Diagnosis: 1 sublingual (reditabs) q 8 hours prn - nausea and vomiting Last Documented On 2 11:41AM By GIANNA GARNETT ; [facility] Metoclopramide HCl 10 MG OR TABS 05/23/2011 - 06/12/2011 Provider: GIANNA YBARRA Diagnosis: prn - nausea Last Documented On 1 4:12PM By GIANNA GARNETT ; [facility] Triveen-Duo DHA 29-1-200 & 400 MG OR MISC 01/18/2011 - 05/18/2011 Provider: GIANNA MILLER NP-BC Diagnosis: Last Documented On 1 3:26PM By GIANNA GARNETT ; [facility] Depo-Provera 150 MG/ML IM SUSP 04/03/2010 - 09/30/2010 Provider: VICKY JURADO Diagnosis: Inject IM Last Documented On 04/03/2010 9:07AM By VICKY JURADO ; [facility] MetroGel-Vaginal 0.75% VA GEL 11/08/2009 - 11/15/2009 Provider: VICKY JURADO Diagnosis: apply per vagina x 7 days Last Documented On 11/08/2009 3:55PM By DESTINY HOOVER ; [facility] Lexapro 10 MG OR TABS 10/17/2009 - 10/12/2010 Provider : VICKY JURADO Diagnosis: ANXIETY STATE NO S Last Documented On 10/17/2009 3:44PM By VICKY JURADO ; [facility] Medications Administered Includes: Administered Medications from this encounter No Administered Medications Recorded Vital Signs Includes: Vital Signs from this encounter Vital Name 11/29/2022 01:11P Blood Pressure Sitting L 132/88 BP Cuff Size Regular Temp-Temporal 98.2 Height (in) 64 Weight (lb) 173 Body Mass Index 29.7 Body Surface Area 1.8 Last Documented: On 11/29/2022 1:13PM ; [facility] Results Includes: Results discussed during this encounter No Results Recorded For Specified Dates History of Present Illness Includes: History of Present Illness from this encounter ZAY BARAHONA is a 47 year old female. - Allergy list reviewed - Medication list reviewed - Primary Care Provider: Dr. Greco Social History Description Last Updated Alcohol use occ 10/03/2023 Last Documented On 3 1:07PM ; [facility] Alcohol 09/27/2022 Last Documented On 3 1:07PM ; [facility] Amount of alcohol per day: 0-1 3 Last Documented On 3 1:07PM ; [facility] Current smoker 09/27/2022 Last Documented On 3 1:07PM ; [facility] Current smoker for 10 09/27/2022 Last Documented On 3 1:07PM ; [facility] Has sex with males only 09/27/2022 Last Documented On 3 1:07PM ; [facility] Smoking packs of cigarettes per day 1 Last Documented On 3 1:07PM ; [facility] Smoking Status Unknown Procedures and Surgical History Includes: Procedures from this encounter Procedures Code Diagnosis Performing Provider Service L ocation Service Date use of tobacco assessment performed 1000F Last Documented On 3 1:09PM ; [facility] review of medications documented 1160F Last Documented On 3 1:09PM ; [facility] history of cervical Pap smear 09/27/2022 68286 Last Documented On 3 1:10PM ; [facility] endometrial biopsy ~Procedur e Note: Done without complications.~Amt of Tissue: Adequate~Uterine Sound Measurement: Approximately 8 cm after single tooth tenaculum applied to anterior cervix. Excellent hemostasis with silver nitrate x 1. Tolerated well Last Documented On 3 1:27PM ; [facility] test negative Last Documented On 3 1:28PM ; [facility] Surgical History Last Updated Surgical / procedural histor y Surgery on R thigh ~pt has diverticulitis ~Cervical replacement of disks in neck 202112/10/2022 Last Documented On 3 1:07PM ; [facility] Previous colposcopy 11/04/2022 11/29/2022 Last Documented On 3 1:28PM ; [facility] History of tubal ligation Dr Short (right clip in pelvis somewhere per pt) 11/04/2022 Last Documented On 3 1:07PM ; [facility] History of cholecystectomy 07/16/2019 Last Documented On 3 1:07PM ; [facility] Medical History Includes: Medical History addressed during this encounter Description Last Updated LMP: 11/21/2022 11/29/2022 Last Documented On 3 1:28PM ; [facility] History of colonoscopy fiberoptic was pe rformed 201809/27/2022 Last Documented On 3 1:07PM ; [facility] # 1 Delivery date: 12/07/92 09/27/2022 Last Documented On 3 1:07PM ; [facility] # 2 Delivery date: 01/15/12 09/27/2022 Last Documented On 3 1:07PM ; [facility] # 3 Delivery date: 02/06/15 09/27/2022 Last Documented On 3 1:07PM ; [facility] Bowel problems 09/27/2022 Last Documented On 3 1:07PM ; [facility] Elective (s) 0 09/27/2022 Last Documented On 3 1:07PM ; [facility] Gallbladder disease 09/27/2022 Last Documented On 3 1:07PM ; [facility] No. of miscarriages: 2 09/27/2022 Last Documented On 3 1:07PM ; [facility] No. of Pregnancies: 5 09/27/2022 Last Documented On 3 1:07PM ; [facility] Please list all surgeries: T ubal ligation, cholecystectomy, cervical disc's replaced, diverticulitis 09/27/2022 Last Documented On 3 1:07PM ; [facility] Previous live (s) 3 09/27/2022 Last Documented On 3 1:07PM ; [facility] Previous premature delivery(s) 0 023 Last Documented On 3 1:07PM ; [facility] Received all 3 doses of Hepatitis B vacc ine 09/27/2022 Last Documented On 3 1:07PM ; [facility] Sex of Child # 1: Female 09/27/2022 Last Documented On 3 1:07PM ; [facility] Sex of Child # 2: Male 09/27/2022 Last Documented On 3 1:07PM ; [facility] Sex of Child # 3: Male 09/27/2022 Last Documented On 3 1:07PM ; [facility] History of complete colonoscopy 2019 Last Documented On 3 1:07PM ; [facility] Aborta 2 05/30/2015 Last Documented On 3 1:07PM ; [facility] 5 05/30/2015 Last Documented On 3 1:07PM ; [facility] Para 3 05/30/2015 Last Documented On 3 1:07PM ; [facility] HX OF FE DEFICIENT ANEMIA 12/23/2014 Last Documented On 3 1:07PM ; [facility] History of cervical dysplasia colpo 11-2 3-11 12/23/2014 Last Documented On 3 1:07PM ; [facility] History of human papilloma virus infecti on 12/23/2014 Last Documented On 3 1:07PM ; [facility] Family History Includes: Family History addressed during this encounter Description Last Updated Daughter's history of stroke syndrome Last Documented On 3 1:07PM ; [facility] Maternal history of breast cancer Grandm a 09/27/2022 Last Documented On 3 1:07PM ; [facility] Maternal history of cancer Gradnfather- esophogeal 09/27/2022 Last Documented On 3 1:07PM ; [facility] Paternal history of cancer Grandma- non hodgkins lymphoma 09/27/2022 Last Documented On 3 1:07PM ; [facility] Paternal history of stroke syndrome 09/2022 Last Documented On 3 1:07PM ; [facility] Family history of bowel problems 023 Last Documented On 3 1:07PM ; [facility] Family history of Breast problems 2022 Last Documented On 3 1:07PM ; [facility] Family history of kidney disease 023 Last Documented On 3 1:07PM ; [facility] Maternal history of Anemia 09/27/2022 Last Documented On 3 1:07PM ; [facility] Maternal history of bowel problems 09/27 Last Documented On 3 1:07PM ; [facility] Maternal history of Breast problems 0 09/2022 Last Documented On 3 1:07PM ; [facility] Family history of diabetes mellitus [facility] 03/09/2014 Last Documented On 3 1:07PM ; [facility] Family history of malignant female breas t neoplasm [facility] 03/09/2014 Last Documented On 3 1:07PM ; [facility] Review of Systems Includes: Review of Systems [...] Active Last Documented On 4 10:05AM ; [facility] Bactrim DS Allergy 07/16/2019 Active Last Documented On 4 10:05AM ; [facility] Encounters Encounter Provider Location Date Check-In Time Check-Out Time Diagnosis PROCEDURE OFFICE [facility]IAN[facility] 11/30/19 23 1:05PM 1:28PM Assessment of Abnormal Pap Smear of Cervix,Assessm ent of Cervical Pap Smear Positive Atypical Glandular Cells Insurance Includes: Active Insurance Policies Plan Name Member ID Group # Subscriber Relationship Effect cole Dates - [id number] MARI BARAHONA Self Clinical Notes Includes: Clinical Notes from this encounter * Progress note Date Encounter Last Documented by 11/29/2022 PROCEDURE OFFICE Last documented on 11/29/2022; 1:28 PM, GIANNA REYNA TEO; [facility] Active Problems & Conditions - Previous Colposcopy - Risk: Tobacco Use Chief Complaint The Chief Complaint is: EMB due to KIM. Reason For Visit Gynecologic procedure: endometrial biopsy. History of Present Illness MARI BARAHONA is [...] 0 refills Past Medical/Surgical History Reported: LMP: 11/21/2022 and Please list all surgeries: Tubal ligation, cholecystectomy, cervical disc's replaced, diverticulitis. Medical: Bowel problems and gallbladder disease. Surgical / Procedural: Surgical / procedural history Surgery on R thigh pt has diverticulitis Cervical replacement of disks in neck 2021. Previous colposcopy 11/04/2022. Immunization History: Received all 3 doses of Hepatitis B vaccine. : 5, para 3 including premature delivery(s) 0, having live (s) 3, aborta 2 including elective (s) 0, No. of Pregnancies: 5, # 1 Delivery date: 12/07/92, # 2 Delivery date: 01/15/12, # 3 Delivery date: 02/06/15, No. of miscarriages: 2, Sex of Child # 1: Female, Sex of Child # 2: Male, and Sex of Child # 3: Male. Other: Colonoscopy fiberoptic was performed 2018 Diagnoses: Cervical dysplasia colpo 04-17-11. Human papilloma virus infection HX OF FE DEFICIENT ANEMIA. Procedural: - Complete colonoscopy 2019 Surgical: - Cholecystectomy - Tubal ligation Dr Short (right clip in pelvis somewhere per pt) Social History Behavioral: Amount of alcohol per day: 0-1. Tobacco use: Current smoker for 10 and cigarette smoking smoking packs of cigarettes per day 1. Alcohol: Alcohol alcohol use occ. Sexual: Has sex with males only. Allergies - Bactrim DS - Thimerosal Family History Bowel problems Kidney disease Breast problems Diabetes mellitus MGM Malignant female breast neoplasm MGM Paternal: Stroke syndrome Cancer Grandma- non hodgkins lymphoma Maternal: Anemia Bowel problems Breast problems Cancer Gradnfather- esophogeal Breast cancer Grandma Daughter's: Stroke syndrome Physical Findings - Vitals taken 11/29/2022 01:11 pm BP-Sitting L 132/88 mmHg BP Cuff Size Regular Temp-Temporal 98.2 F Height 64 in Weight 173 lbs Body Mass Index 29.7 kg/m2 Body Surface Area 1.8 m2 General Appearance: - Well developed. - Well nourished. - In no acute distress. Genitalia: External: - Genitalia showed no abnormalities. Pelvic: Vagina: - No vaginal discharge was observed. - No cystocele was observed. - No rectocele was observed. Cervix: - Showed no lesion. - Did not demonstrate pain elicited by motion. Uterus: - Not enlarged. - Not tender. Tests Laboratory Studies: Test: test negative. Pathology: Biopsy: Endometrial biopsy Procedure Note: Done without complications. Amt of Tissue: Adequate Uterine Sound Measurement: Approximately 8 cm after single tooth tenaculum applied to anterior cervix. Excellent hemostasis with silver nitrate x 1. Tolerated well. Assessment - Abnormal Pap smear of cervix - Abnormal Pap smear: atypical glandular cells [R87.619 - Unspecified abnormal cytological findings in specimens from cervix uteri] Previous Tests Pathology: Cytology: Cervical Pap smear 09/27/2022. Counseling/Education - Smoking cessation advised INFORMED CONSENT DISCUSSION: Endometrial biopsy was discussed in detail including discomfort, insufficient specimen with need to repeat test, and rare incidence of uterine perforation. Patient expressed understanding of the above and consented to the procedure. Plan StartCited - Other Follow-up 2 weeks - follow up with Dr. Arthur - test results - 30 minutes please/prn EndCited StartCited - Unsp abnormal cytolog findings in specmn from cervix uteri In office procedures/OB: Endometrial Biopsy In office procedures/*Clia Waived Labs: Urine Test EndCited Reminded pt. that because Filshie clip not seen on recent CT scan done by PCP- she should use barrier method for contraception like condoms. Will f/u with Dr. Arthur in 2 weeks for EMB and colpo results. Post procedural instructions reviewed - see handout in chart. Practice Management Use of tobacco assessment performed Review of medications documented.
--- OUTSIDE RECORDS SUMMARY | 2024-07-20 17:37 | XMS_ITS | Encounter Summary ---
Author Organization [facility] Healthcare Address [address] [place] [address] Care Team Providers Care Oil And Gas Principal Name Role Phone Vinicio Greco MD Primary Care Provider [phone] Encounter Details Date Type Department Care Team (Late st Contact Info) Description 10/12/2022 Telephone [facility] [address] [place] [address] Zaira Guerrero, RT Social History Tobacco Use Types Packs/Day Years Used Date Smoking Tobacco: Every Day Cigarettes Smokeless Tobacco: Never Comments:Vapes Alcohol Use Standard Drinks/Week Comments Yes 0 (1 standard drink = 0.6 oz pur e alcohol) rarely AUDIT-C Answer Date Recorded Frequency of Alcohol Consumption Monthly or less 07/30/2018 Average Number of Drinks Not on file 019 Frequency of Binge Drinking Less than monthly PHQ-2 Answer Date Recorded PHQ-2 Total Score (If total score is 3 or more points, staff should administer the PHQ-9) 0 10/03/2022 Comments No Sex and Gender Information Value Date Recorded Sex Assigned at Not on file Legal Sex Female 12:18 PM RECEPTION MANAGER Gender Identity Not on file Sexual Orientation Not on file documented as of this encounter Plan of Treatment Not on file documented as of this encounter Visit Diagnoses Not on filedocumented in this encounter Additional Health Concerns Infection Onset Date Last Indicated Resolved Time COVID: Suspected 07/19/2024 07/19/2024 07/19/2024 4:19 PM RECEPTION MANAGER documented as of this encounter Care Teams Oil And [employer] Principal Relationship Specialty Start Date End Date [place] [id number] PCP - General 09/16/11 documented as of this encounter
--- OUTSIDE RECORDS SUMMARY | 2024-07-20 17:37 | XMS_ITS | Clinical Summary ---
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 Active Last Documented On 3 10:22AM ; [facility] Risk: Tobacco Use 09/27/2022 GIANNAABIDA REYNA WHNP -BC Active Last Documented On 3 10:22AM ; [facility] Plan of Treatment Pending Tests Order Diagnosis Results Due Ordering Provider In office procedures - *Clia Waived Labs Urine Test Irregular menstruation, unspecified 10/17/23 GIANNAABIDA REYNA WHNP-BC Last Documented On 4 10:07AM ; [facility] Radiology @ other - *MAMMOGRAPHY SCREENING MAMMOGRAM Encntr screen mammogram for malignant neoplasm of breast 10/17/23 GIANNA REYNA WHNP-BC Last Documented On 4 10:23AM ; [facility] In office procedures - *Clia Waived Labs *FOBT* Fecal Occult Blood Test Encounter for screening for malignant neoplasm of rectum 10/17/23 GIANNA REYNA WHNP-BC Last Documented On 4 10:07AM ; [facility] Assessments Includes: Assessments from this encounter No Assessments Recorded Medical Equipment - Implanted Devices Includes: Current Devices No Medical Equipment Recorded Medications Includes: Medications discussed during this encounter and other current Medications Current Medications (continue as prescribed) Advil 200 MG Oral Capsule 09/27/2022 Provider: Diagnosis: Last Documented On 12/10/2022 4:41PM By KETTY RIZO MD ; [facility] Stool Softener 100 MG Oral Capsule 07/16/2019 Pr ovider: Diagnosis: Last Documented On 12/10/2022 4:41PM By KETTY RIZO MD ; [facility] Dicyclomine HCl 10 MG Oral Capsule 07/16/2019 Provid er: Diagnosis: Last Documented On 12/10/2022 4:41PM By KETTY RIZO MD ; [facility] Medications Administered Includes: Administered Medications from this encounter No Administered Medications Recorded Results Includes: Results discussed during this encounter No Results Recorded For Specified Dates History of Present Illness Includes: History of Present Illness from this encounter No History of Present Illness Recorded Social History No Social History Recorded - Smoking Status Unknown Medical History Includes: Medical History addressed during this encounter No Medical History Recorded Family History Includes: Family History addressed during this encounter No Family History Recorded Review of Systems Includes: Review of Systems from this encounter No Review of Systems Recorded Mental Status Includes: Mental Status from this encounter No Mental Status Recorded Functional Status Includes: Functional Status from this encounter No Functional Status Recorded Physical Exam Includes: Physical Exam from this encounter No Physical Exam Recorded Allergies Includes: Active Allergies Substance Type Reaction Onset Date Resolved Date Statu s Thimerosal Allergy 02/28/2012 Active Last Documented On 4 10:05AM ; [facility] Bactrim DS Allergy 07/16/2019 Active Last Documented On 4 10:05AM ; [facility] Encounters Encounter Provider Location Date Check-In Time Check-Out Time Diagnosis [Patient Encounter] GIANNA REYNA AZAR- 02/24/2024 11:23AM 11:59PM Insurance Includes: Active Insurance Policies Plan Name Member ID Group # Subscriber Relationship Effect cole Dates - [id number] MARI BARAHONA Self Clinical Notes Includes: Clinical Notes from this encounter No Clinical Notes Recorded
--- OUTSIDE RECORDS SUMMARY | 2024-07-20 17:37 | XMS_ITS | Clinical Summary ---
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 History of Abnormal Pap Smear 07/21/2014 Unknown SHASTA SHORT MD Resolved Last Documented On 04/03/2015 10:52AM ; [facility] Note: was Closed. History of Congenital Abnormality of Uterus 07/21/2014 Unknown SHASTA SHORT MD Resolved Last Documented On 04/03/2015 10:52AM ; [facility] Note: was Closed. History of Hematologic Disorders 07/21/2014 Unknown SHASTA SHORT MD Resolved Last Documented On 04/03/2015 10:52AM ; [facility] Note: was Closed. History of Recurrent Loss (Gravid) 07/21/2014 Unknown SHASTA SHORT MD Resolve d Last Documented On 04/03/2015 10:52AM ; [facility] Note: was Closed. History of Abnormal Pap Smear 07/16/2011 Unknown SHASTA SHORT MD Resolved Last Documented On 02/28/2012 10:55AM ; [facility] Note: was Closed. Past Visits Onset Date Resolved Date Provider Condition Status Risk: Tobacco Use 09/27/2022 LARA REYNA WHNP -BC Active Last Documented On 3 10:22AM ; [facility] Plan of Treatment Pending Tests Order Diagnosis Results Due Ordering Provider In office procedures - *Clia Waived Labs Urine Test Irregular menstruation, unspecified 10/17/23 LARA REYNA WHNP-BC Last Documented On 4 10:07AM ; [facility] Radiology @ other - *MAMMOGRAPHY SCREENING MAMMOGRAM Encntr screen mammogram for malignant neoplasm of breast 10/17/23 LARA REYNA WHNP-BC Last Documented On 4 10:23AM ; [facility] In office procedures - *Clia Waived Labs *FOBT* Fecal Occult Blood Test Encounter for screening for malignant neoplasm of rectum 10/17/23 LARA REYNA WHNP-BC Last Documented On 4 10:07AM ; [facility] Assessments Includes: Assessments from this encounter No Assessments Recorded Medical Equipment - Implanted Devices Includes: Current Devices No Medical Equipment Recorded Medications Includes: Medications discussed during this encounter and other current Medications Current Medications (continue as prescribed) Advil 200 MG Oral Capsule 09/27/2022 Provider: Diagnosis: Last Documented On 12/10/2022 4:41PM By KETTY RIZO MD ; [facility] Stool Softener 100 MG Oral Capsule 07/16/2019 Pr ovider: Diagnosis: Last Documented On 12/10/2022 4:41PM By KETTY RIZO MD ; [facility] Dicyclomine HCl 10 MG Oral Capsule 07/16/2019 Provid er: Diagnosis: Last Documented On 12/10/2022 4:41PM By KETTY RIZO MD ; [facility] Past Medications on file Breast Pump Miscellaneous 01/26/2015 - 01/26/2016 Prov ider: SHASTA SHORT MD Diagnosis: as directed Last Documented On 01/26/2015 3:22PM By SHASTA SHORT MD ; [facility] Plus/Iron 27-1 MG OR TABS 03/09/2014 - 03/04/2015 Provider: SUREKHA MELENDEZ RN WHAZAR BC Diagnosis: OTHER FAMILY DAVID NNING ADVICE NEC Last Documented On 4 4:03PM By SUREKHA MILLERAZAR-BC ; [facility] Bactrim DS 800-160 MG OR TABS 09/06/2013 - 09/09/2013 Provider: Diagnosis: Called into [facility] Last Documented On 09/06/2013 8:54AM By FLAVIO COLLAZO ; [facility] miSOPROStol 200 MCG OR TABS 08/02/2013 - 08/04/2013 Pr ovider: SHASTA SHORT MD Diagnosis: MISSED 4 tabs (800 mcg) po X 1, may repeat 24 hours later if needed Last Documented On 08/02/2013 4:41PM By SHASTA SHORT MD ; [facility] TELEVISION MECHANIC-PNV-DHA 28-1-215.8 MG OR CAPS 06/24/2013 - 05/20/2014 Provider: LARA MILLER NP- [facility]: [facility] Last Documented On 4 2:53PM By LUCIO LIND LPN ; [facility] Ramona 5-325 MG OR TABS 01/26/2013 - 02/02/2013 Provide r: Diagnosis: [facility]/ Last Documented On 01/26/2013 1:39PM By FLAVIO COLLAZO ; [facility] Estradiol 1 MG OR TABS 06/25/2012 - 07/16/2012 Provide r: SHASTA SHORT MD Diagnosis: Last Documented On 06/25/2012 4:19PM By SHASTA SHORT MD ; [facility] Ferrous Sulfate 325 (65 Fe) MG OR TABS 10/22/2011 - 02/19/2012 Provider: MARIA D OQUENDO M.D. Diagnosis: ANEMIA IN PREG-U NSPEC Last Documented On 2 4:46PM By DR. MARIA D DE LA ROSA ; [facility] Ferrous Sulfate 325 (65 Fe) MG OR TABS 08/19/2011 - 12/17/2011 Provider: MARIA D ROSE ON Liliam Diagnosis: ANEMIA IN PREG-U NSPEC Last Documented On 2 11:13PM By DR. MARIA D DE LA ROSA ; [facility] Zofran 4 MG OR TABS 06/20/2011 - 08/19/2011 Provider: LARA DANG- Diagnosis: 1 sublingual (reditabs) q 8 hours prn - nausea and vomiting Last Documented On 2 11:41AM By LARA GARNETT ; [facility] Metoclopramide HCl 10 MG OR TABS 05/23/2011 - 06/12/2011 Provider: LARA YBARRA Diagnosis: prn - nausea Last Documented On 1 4:12PM By LARA GARNETT ; [facility] Triveen-Duo DHA 29-1-200 & 400 MG OR MISC 01/18/2011 - 05/18/2011 Provider: LARA BRUCEBC Diagnosis: Last Documented On 1 3:26PM By LARA GARNETT ; [facility] Depo-Provera 150 MG/ML IM SUSP 04/03/2010 - 09/30/2010 Provider: VICKY JURADO Diagnosis: Inject IM Last Documented On 04/03/2010 9:07AM By VICKY JURADO ; [facility] MetroGel-Vaginal 0.75% VA GEL 11/08/2009 - 11/15/2009 Provider: VICKY JURADO Diagnosis: apply per vagina x 7 days Last Documented On 11/08/2009 3:55PM By DESTINY HOOVER ; [facility] Lexapro 10 MG OR TABS 10/17/2009 - 10/12/2010 Provider : VICKY JURADO Diagnosis: ANXIETY STATE NO S Last Documented On 10/17/2009 3:44PM By VICKY JURADO ; [facility] Medications Administered Includes: Administered Medications from this encounter No Administered Medications Recorded Results Includes: Results discussed during this encounter No Results Recorded For Specified Dates History of Present Illness Includes: History of Present Illness from this encounter No History of Present Illness Recorded Social History Description Last Updated Alcohol use Rare 10/03/2023 Last Documented On 4 3:46PM ; [facility] Not using drugs 10/03/2023 Last Documented On 4 3:46PM ; [facility] Sexually active with 1 partners in the l ast year 10/03/2023 Last Documented On 4 3:46PM ; [facility] Current smoker 09/27/2022 Last Documented On 4 3:46PM ; [facility] Has sex with males only 09/27/2022 Last Documented On 4 3:46PM ; [facility] Smoking Status Unknown Procedures and Surgical History Surgical History Last Updated Surgical / procedural histor y Surgery on R thigh ~pt has diverticulitis ~Cervical replacement of disks in neck 2021 ~EMB 11/29/22 Lara 12/10/2022 Last Documented On 4 3:46PM ; [facility] Previous colposcopy 04/17/2011 with Lizz foy; 11/04/22 TCK 12/10/2022 Last Documented On 4 3:46PM ; [facility] History of tubal ligation Dr Short (right clip in pelvis somewhere per pt) 11/04/2022 Last Documented On 4 3:46PM ; [facility] History of cholecystectomy 07/16/2019 Last Documented On 4 3:46PM ; [facility] Medical History Includes: Medical History addressed during this encounter Description Last Updated Contraception: Condoms 10/03/2023 Last Documented On 4 3:46PM ; [facility] History of screening mammogram was perfo rmed 11/05/2022 10/03/2023 Last Documented On 4 3:46PM ; [facility] LMP: 06/202310/03/2023 Last Documented On 4 3:46PM ; [facility] Other method: Tubal ligation/ Condoms Last Documented On 4 3:46PM ; [facility] Result: abnormal KIM HPV+ 11/04/2022 Last Documented On 4 3:46PM ; [facility] History of colonoscopy fiberoptic was pe rformed 201809/27/2022 Last Documented On 4 3:46PM ; [facility] # 1 Delivery date: 12/07/92 09/27/2022 Last Documented On 4 3:46PM ; [facility] # 2 Delivery date: 01/15/12 09/27/2022 Last Documented On 4 3:46PM ; [facility] # 3 Delivery date: 02/06/15 09/27/2022 Last Documented On 4 3:46PM ; [facility] Bowel problems 09/27/2022 Last Documented On 4 3:46PM ; [facility] Elective (s) 0 09/27/2022 Last Documented On 4 3:46PM ; [facility] Gallbladder disease 09/27/2022 Last Documented On 4 3:46PM ; [facility] No. of miscarriages: 2 09/27/2022 Last Documented On 4 3:46PM ; [facility] No. of Pregnancies: 5 09/27/2022 Last Documented On 4 3:46PM ; [facility] Please list all surgeries: T ubal ligation, cholecystectomy, cervical disc's replaced, diverticulitis 09/27/2022 Last Documented On 4 3:46PM ; [facility] Previous live (s) 3 09/27/2022 Last Documented On 4 3:46PM ; [facility] Previous premature delivery(s) 0 023 Last Documented On 4 3:46PM ; [facility] Received all 3 doses of Hepatitis B vacc ine 09/27/2022 Last Documented On 4 3:46PM ; [facility] Sex of Child # 1: Female 09/27/2022 Last Documented On 4 3:46PM ; [facility] Sex of Child # 2: Male 09/27/2022 Last Documented On 4 3:46PM ; [facility] Sex of Child # 3: Male 09/27/2022 Last Documented On 4 3:46PM ; [facility] Sexually active 07/16/2019 Last Documented On 4 3:46PM ; [facility] History of complete colonoscopy 2019 Last Documented On 4 3:46PM ; [facility] Aborta 2 05/30/2015 Last Documented On 4 3:46PM ; [facility] 5 05/30/2015 Last Documented On 4 3:46PM ; [facility] Para 3 05/30/2015 Last Documented On 4 3:46PM ; [facility] HX OF FE DEFICIENT ANEMIA 12/23/2014 Last Documented On 4 3:46PM ; [facility] History of Abnormal Pap Smear hx of abn pap smear, last few normal 12/23/2014 Last Documented On 4 3:46PM ; [facility] History of cervical dysplasia colpo 11-2 3-11 12/23/2014 Last Documented On 4 3:46PM ; [facility] 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 12/23/2014 Last Documented On 4 3:46PM ; [facility] History of hematologic disorder Hx of an emia, sharmaine with preg 12/23/2014 Last Documented On 4 3:46PM ; [facility] History of human papilloma virus infecti on 12/23/2014 Last Documented On 4 3:46PM ; [facility] History of recurrent loss (gra vid) sab X 2 12/23/2014 Last Documented On 4 3:46PM ; [facility] Vaginal delivery 12/23/2014 Last Documented On 4 3:46PM ; [facility] Family History Includes: Family History addressed during this encounter Description Last Updated Daughter's history of stroke syndrome Last Documented On 4 3:46PM ; [facility] Maternal history of breast cancer Grandm a 09/27/2022 Last Documented On 4 3:46PM ; [facility] Maternal history of cancer Gradnfather- esophogeal 09/27/2022 Last Documented On 4 3:46PM ; [facility] Paternal history of cancer Grandma- non hodgkins lymphoma 09/27/2022 Last Documented On 4 3:46PM ; [facility] Paternal history of stroke syndrome 09/2022 Last Documented On 4 3:46PM ; [facility] Family history of bowel problems 023 Last Documented On 4 3:46PM ; [facility] Family history of Breast problems 2022 Last Documented On 4 3:46PM ; [facility] Family history of kidney disease 023 Last Documented On 4 3:46PM ; [facility] Maternal history of Anemia 09/27/2022 Last Documented On 4 3:46PM ; [facility] Maternal history of bowel problems 09/27 Last Documented On 4 3:46PM ; [facility] Maternal history of Breast problems 09/2022 Last Documented On 4 3:46PM ; [facility] Maternal grandmother's history of malign ant female breast neoplasm MGM 07/16/2019 Last Documented On 4 3:46PM ; [facility] Review of Systems Includes: Review of Systems [...] Active Last Documented On 4 10:05AM ; [facility] Bactrim DS Allergy 07/16/2019 Active Last Documented On 4 10:05AM ; [facility] Encounters Encounter Provider Location Date Check-In Time Check-Out Time Diagnosis * PHONE CALL LARA GARNETT 10/06/2023 3:47PM 11:59PM Insurance Includes: Active Insurance Policies Plan Name Member ID Group # Subscriber Relationship Effect cole Dates - [id number] MARI BARAHONA Self Clinical Notes Includes: Clinical Notes from this encounter * Progress note Date Encounter Last Documented by 10/06/2023 * PHONE CALL Last documented on 10/07/2023; 7:17 AM, LARA GARNETT; [facility] Active Problems & Conditions - Previous Colposcopy - Risk: Tobacco Use Chief Complaint Phone Call - Chief Concern: Reason for call: Patient called and is asking if she is safe to stop using condoms since her labs show her in menopause. She wants to make sure because she also has a migrated tubal clip. Please advise. pt phone # for return call: [phone] Date/Initials: 10/06/23 LV. Current Medication - Advil 200 MG [...]
--- OUTSIDE RECORDS SUMMARY | 2024-07-20 17:37 | XMS_ITS | Referral Summary ---
Author Organization [facility] [address] [place] [address] [place] [id number] Care Team Providers Care Nub Card Tender Name Role Phone Vinicio Greco MD Primary Care Provider [phone] Encounters Date Type Department Care Team Description 07/19/2024 4:40 PM APPRENTICE COOK - 07/19/2024 11:59 PM APPRENTICE COOK [place] [address] Dysuria Discharge Disposition: Discharge to home or self care 07/19/2024 4:00 PM APPRENTICE COOK Office Visit [facility] at [address] [place] [address] Morena Arias, AZAR Viral URI with cough (Primary Dx); Dysuria 07/19/2024 Nurse Triage [facility] [address] [address] Vinicio Greco MD from Last 3 Months Allergies Active Allergy Reactions Criticality Noted Date [...] healthier, we can set up appointment with material handling warehouse supervisor/visual coordinator. Have an active lifestyle, strive for 30 [...] referral, we discussed contacting Dr. Bowden at [facility]. Atypical glandular cells on cervical Pap smear 0 01/17/2023 Assessment & Plan (01/17/2023 11:38 AM CDT): See discussion above. Reviewed imaging and office visit notes from headrig sawyer today with patient. Recommended patient have further discussion with headrig sawyer regarding her treatment options/next course of action. She continues to use condoms for contraception at this time. Encounter for preoperative e xamination for general surgical procedure 07/10/2021 Assessment & Plan (07/12/2021 12:12 PM APPRENTICE COOK): Reviewed lab work, and EKG. Normal PE. Patient cleared for surgery. Cervicalgia 07/10/2021 Assessment & Plan (07/10/2021 9:48 AM APPRENTICE COOK): Has been taking advil for pain. Will schedule procedure with Dr. Delcid. Lipid screening 07/10/2021 Assessment & Plan (02/05/2024 4:26 PM CDT): Will check lipid panel. Assessment & Plan (07/10/2021 9:55 AM APPRENTICE COOK): Will check labs. Discussed diet and exercise recommendations. Routine health maintenance 04/05/2021 Assessment & Plan (04/05/2021 2:03 PM APPRENTICE COOK): Discussed need to schedule WWE and pap. [...] 07/15/2019 Assessment & Plan (07/15/2019 11:43 AM APPRENTICE COOK): Discussed and the patient refuses immunization today. Educated regarding the need to vaccinate for personal protection and to limit the viruses in the community to protect those most vulnerable. Encounter for screening for lipid disorder 07/15 Assessment & Plan (04/05/2021 2:03 PM APPRENTICE COOK): Patient to get fasting labs. Reviewed heart healthy diet and importance of regular exercise. Assessment & Plan (07/15/2019 11:52 AM APPRENTICE COOK): 07/17/18 FT=460 TG=62 HDL=44 LDL=72 TC/HDL=3 07/15/19 RH=456 SH=019 HDL=42 LDL=41.4 (CALC) TC/HDL=4.0 GLU=85 BMI 28.0-28.9,adult 07/15/2019 Assessment & Plan (07/10/2021 9:55 AM APPRENTICE COOK): Discussed healthy diet and importance of regular physical activity. Assessment & Plan (04/05/2021 2:03 PM APPRENTICE COOK): Discussed healthy diet and importance of regular [...] patient. Assessment & Plan (07/15/2019 11:43 AM APPRENTICE COOK): Discussed healthy diet and importance of regular physical activity. BMI is acceptable for this patient. Menstrual abnormality 09/24/2018 Assessment & Plan (09/24/2018 2:12 PM CDT): Pt says her LMP was Friday and much acquisition marketing coordinator than normal. She usually has a very [...] weeks. Assessment & Plan (07/29/2018 2:13 PM APPRENTICE COOK): Educated patient to start clear liquid diet and resume oral antibiotics. Discussed case with , preferably patient sees GI aura, optimize therapy and patient symptoms, and patient then to see in the office to discuss surgery risks and benefits. Patient agrees to this treatment plan. Assessment & Plan (07/16/2018 6:19 AM APPRENTICE COOK): Of the sigmoid colon. Perforation is localized. Patient is currently on Zosyn. Her abdominal pain is controlled with pain medications. General surgery and Infectious Disease have been consulted will await their evaluation. NPO for surgery evaluation. Chronic midline low back pain without sciatica 1 06/28/2017 Assessment & Plan (04/05/2021 2:27 PM APPRENTICE COOK): Continue current treatment with medication and therapy. Continue follow up with Dr. Delcid. No s/s of cauda equina or loss of bowel bladder function. Continues with PT. Reviewed red flags. Tobacco dependence due to cigarettes 03/19/2018 Assessment & Plan (02/05/2024 4:27 PM CDT): Precontemplative. Encouraged complete smoking cessation. Discussed different types of medications & cxyl-jrb-rjqnnrn aides to help with cessation. Assessment & Plan (07/12/2021 12:13 PM APPRENTICE COOK): Encouraged smoking cessation. Discussed decreased healing and negative health consequences associated with smoking. Assessment & Plan (03/12/2021 5:06 PM CDT): Again, encouraged smoking cessation. Assessment & Plan (02/12/2021 7:58 PM CDT): Precontemplative. Encouraged complete smoking cessation. Discussed different types of medications & wtsx-ytt-nkmdsmw aides to help with cessation. Assessment & Plan (02/05/2021 10:43 AM CDT): Encouraged complete smoking cessation. Reviewed NRT options with patient. Assessment & Plan (10/08/2019 8:35 AM CDT): Precontemplative. Encouraged complete smoking cessation. Discussed different types of medications & xumc-cnv-xtyuhuf aides to help with cessation. Will p/u otc patches to try before chantix or wellbutrin. Assessment & Plan (07/15/2019 11:44 AM APPRENTICE COOK): Precontemplative. Encouraged complete smoking cessation. Discussed different types of medications & vxei-lpk-yuftsxl aides to help with cessation. Assessment & Plan (07/16/2018 6:18 AM APPRENTICE COOK): Patient smokes about a pack a day [...] symptoms. Assessment & Plan (07/16/2018 6:18 AM APPRENTICE COOK): Continue SSRI and Bentyl Breast neoplasm screening [...] 01/17/2023 0 01/17/2023 Caffeine withdrawal 10/08/2019 06/19/19 21 Assessment & Plan (10/08/2019 8:38 AM CDT): HOOPER r/t caffeine withdrawal. congratuled on caffeine decrease. Encouraged complete cessation. Discussed water increase & excedrin migraine for HOOPER temporarily. Viral URI with cough 07/15/2019 020 Assessment & Plan (07/15/2019 2:12 PM APPRENTICE COOK): Rapid flu swab: NEGATIVE This looks viral [...] 10/08/2019 Assessment & Plan (07/16/2018 6:20 AM APPRENTICE COOK): Of the upper lip and left eyelid. Appeared to have resolved with Benadryl. Suspected to be related to Bactrim which has been added as an allergy. Patient also developed a rash which has now resolved as well. Will continue to monitor. P.r.n. Benadryl. Epigastric pain 07/16/2018 10/08/2019 Assessment & Plan (07/16/2018 6:21 AM APPRENTICE COOK): With left arm numbness. Started on Friday evening after eating and improved with relaxation. Suspect may be related to anxiety. Currently resolved. Will continue to monitor. Low suspicion for cardiac etiology at this time. Difficult or painful urination 07/10/2017 02/12/2021 Immunizations Immunization Administration Dates Next Due Influenza, Quadrivalent, Spl it, Preservative Free, Intramuscular 03/12/2021,03/13/2016 Influenza, Unspecified 02/05/2024(Deferr ed: Patient Refused),01/24/2023(Deferred: Patient Refused),10/03/2022(Deferred: Patient Refused),02/23/2022(Deferred: Patient Refused),01/24/2022(Deferred: Patient Refused),03/10/2020,10/08/2019(Deferre d: Patient Refused),08/06/2019(Deferred: Patient Refused),07/15/2019(Deferred: Patient Refused),05/26/2018(Deferred: Patient Refused),04/06/2018,04/06/2018, 018,06/02/2017(Deferred: Patient Refused),05/27/2016(Deferred: Patient Refused) Pfizer SARS-CoV-2 Monovalent Vaccination (12+ Yrs) PURPLE 02/12/2021,01/21/2021 Rho (D) Immune Globulin 02/06/2015 Tdap 10/18/2017,02/08/2015 Social History Tobacco Use Types Packs/Day Years [...] on file Legal Sex Female 12:18 PM APPRENTICE COOK Gender Identity Not on file Sexual Orientation Not on file Last Filed Vital Signs Vital Sign Reading Time Taken Comments Blood Pressure 116/72 07/19/2024 3:53 PM APPRENTICE COOK Pulse 98 07/19/2024 3:53 PM APPRENTICE COOK Temperature 36.6 C (97.9 F) 07/19/2024 3:53 PM APPRENTICE COOK Respiratory Rate 18 07/19/2024 3:53 PM APPRENTICE COOK Oxygen Saturation 98% 07/19/2024 3:53 PM APPRENTICE COOK Inhaled Oxygen Concentration - - Weight 80.3 kg (177 lb) 07/19/2024 3:53 PM APPRENTICE COOK Height 162.6 cm (5' 4 ) 07/19/2024 3:53 PM APPRENTICE COOK Body Mass Index 30.38 07/19/2024 3:53 PM APPRENTICE COOK Plan of Treatment Not on file Medical Devices Implanted Type Area Photo Mask Pattern Generator Device Identifier Shelf Expiration Date Model / Serial / Lot [employer] Ventralight St Sepra 4.5in Uncoated Monofilament Lightweight [id number] - [id number] Implanted:Qty: 1 on 04/07/2023 by Kirby Shea MD at [facility] N/A: Abdomen [employer] 10/20/2024 [id number] / / [id number] Procedures Procedure Name Priority Date/Time Associated Diagnosis Comments POCT URINALYSIS DIPSTICK Routine 07/19/2024 4:19 PM APPRENTICE COOK Dysuria POC INFLUENZA A/B, COVID-19 ANTIGEN Routine 07/19/2024 4:18 PM APPRENTICE COOK Viral URI with cough DIAGNOSTIC MAMMOGRAM BILATERAL W NEDA Schedule Routine, Read Routine (OP Routine) 03/05/2024 1:44 PM CDT COLONOSCOPY 09/28/2018 10:54 AM CDT from Last 3 Months or Most Recently Relevant to Health Maintenance Results * (ABNORMAL) POCT urinalysis dipstick (07/19/2024 4:19 PM APPRENTICE COOK) Color, Urine, POC Yellow Clarity, ur, POC Clear Clear Glucose, ur, POC Negative Negative MG/DL Bilirubin, ur, POC Negative Negative, Small, Moderate, Large Ketones, ur, POC Negative Negative Specific [place], POC 1.010 1.003 - 1.030 Blood, ur, POC Negative Negative pH, ur, POC 6.0 5.0 - 8.0 Protein, ur, POC Negative Negative Urobilinogen, urine, POC 0.2 0.2 - 1.0 mg/dL Nitrite, ur, POC Negative Negative Leukocytes, ur, POC Negative Negative Lot Number [id number] Urine 07/19/2024 4:19 PM APPRENTICE COOK Morena Arias NP POINT OF CARE TEST ORDERABLES Final Result * POC Influenza A/B, COVID-19 antigen (07/19/2024 4:18 PM APPRENTICE COOK) Influenza A Ag, POC Negative Negative [place] Influenza B Ag, POC Negative Negative [place] COVID-19 Ag POC Presumptive Negative Presumptive Negative, Invalid [place] Nasal 07/19/2024 4:18 PM APPRENTICE COOK us Morena Arias NP POINT OF CARE TEST ORDERABLES Final Result [facility] [address] [place] [address], [facility] * Diagnostic Mammogram Bilateral W Neda (03/05/2024 1:44 PM CDT) Anatomical Region Laterality Modality Breast Bilateral Mammography 03/05/2024 1:44 PM CDT us Historical Provider MD [facility] MAMMO PROCEDURES [place] [facility] Result * COLONOSCOPY (09/28/2018 10:54 AM CDT) Anatomical Region Laterality Modality Other Narrative Procedure Note Jose E Busch MD - 09/28/2018 10:54 AM CDT [facility] Patient Name: Yeni Chavez Procedure Date: 09/28/2018 10:54 AM Date of : 1975 Admit Type: Outpatient Age: 43 Gender: Female Attending MD: Jose E Busch M.D. Room: [facility] ENDOSCOPY ROOM 1 Note Status: Finalized Patient [...] passed under direct vision.The Pediatric Colonoscope [id number] was introduced through the anus and advanced [...] 10:54 AM Procedure Code(s): --- Professional --- 63167, Colonoscopy, flexible; diagnostic, including collection of specimen(s) by brushing or washing, when performed (separateprocedure) Diagnosis Code(s): --- Professional --- K57.32, Diverticulitis of large intestine without perforation orabscess without bleeding K57.30, Diverticulosis of large intestine without perforation orabscess without bleeding CPT copyright 2017 [employer]. All rights reserved. The codes documented in this report are preliminary and upon heavy equipment rental associate reviewmay be revised to meet current compliance requirements. Recognized by the [place] [employer] for promoting quality in endoscopy Jose E Busch MD ENDOSCOPY PROCEDURES Final Result from Last 3 Months or Most Recently Relevant to Health Maintenance Insurance [employer] [facility] [employer] [facility] [id number] [facility] PPO [employer] Advance Directives For more information, please contact: [phone] * Full Code (Latest Code Status on [...] 9:32 PM 07/21/2018 4:19 PM Care Teams Nub Card Tender Relationship Specialty Start Date End Date Vinicio Greco MD [address] [place] [address] PCP - General 09/16/11
--- OUTSIDE RECORDS SUMMARY | 2024-07-20 17:37 | XMS_ITS ---
Care Plan - [facility] Created on: July 20, 2024 EARL BARAHONAALYCE Pardo : 1975 Sex: Female Author Organization [facility] Address [address] [place] [address] Phone Care Team Providers Care Regional Liaison Name Role Phone KORTNEY LEZAMA, GERARDO Butterfield Primary Care Provider [phone] SALLIE LEZAMA, KETTY Renteria Unavailable [phone]
--- OUTSIDE RECORDS SUMMARY | 2024-07-20 17:38 | XMS_ITS | Encounter Summary ---
Author Organization [facility] Healthcare Address [address] [place] [address] Care Team Providers Care Civil Design Technician Name Role Phone Vinicio Greco MD Primary Care Provider [phone] Reason for Visit * Reason Comments Flu Symptoms Cough, congestion, H A, BA, fever Started yesterday, also states that she is constipated, last BM was before she came here, does have IBS, prolapsed bladder and uterus. UTI Pt would like to rul e out a uti also Encounter Details Date Type Department Care Team (Late st Contact Info) Description 07/19/2024 4:00 PM PERSONALIZED LIVING MANAGER Office Visit [facility] [place] [address] [place] [id number] Morena Arias, ASSOCIATE SOFTWARE DEVELOPMENT ENGINEER [address] [place] [address] Viral URI with cough (Primary Dx); Dysuria Social History Tobacco Use Types Packs/Day Years [...] on file Legal Sex Female 12:18 PM PERSONALIZED LIVING MANAGER Gender Identity Not on file Sexual Orientation Not on file documented as of this encounter Last Filed Vital Signs Vital Sign Reading Time Taken Comments Blood Pressure 116/72 07/19/2024 3:53 PM PERSONALIZED LIVING MANAGER Pulse 98 07/19/2024 3:53 PM PERSONALIZED LIVING MANAGER Temperature 36.6 C (97.9 F) 07/19/2024 3:53 PM PERSONALIZED LIVING MANAGER Respiratory Rate 18 07/19/2024 3:53 PM PERSONALIZED LIVING MANAGER Oxygen Saturation 98% 07/19/2024 3:53 PM PERSONALIZED LIVING MANAGER Inhaled Oxygen Concentration - - Weight 80.3 kg (177 lb) 07/19/2024 3:53 PM PERSONALIZED LIVING MANAGER Height 162.6 cm (5' 4 ) 07/19/2024 3:53 PM PERSONALIZED LIVING MANAGER Body Mass Index 30.38 07/19/2024 3:53 PM PERSONALIZED LIVING MANAGER documented in this encounter Patient Instructions * Patient Instructions* Morena Arias, ASSOCIATE SOFTWARE DEVELOPMENT ENGINEER - 07/19/2024 4:00 PM PERSONALIZED LIVING MANAGER Research has proven that unless you are running a fever or symptoms start to improve then get worseagain, sinus infections are typically viral until days 9- 10. This means they will not respond to antibiotics. You have been diagnosed with a VIRAL INFECTION. -Viral infections do not improve with antibiotics. -Viral symptoms can linger from 7-14 days -The color of drainage or phlegm does not always reflect the need for an antibiotic, even during a viral illness it is normal for drainage to change from yellow to green at times. -Please refer to the CDC Get Smart (cdc.gov/getsmart) campaign for more details. There are many OTC medications and supportive care measures you can try to treat your symptoms until your symptoms resolve. Use all OTC medications as directed per package instructions Symptomatic treatments include: Increase Vitamins C,D , Zinc -For nasal congestion or sinus pressure - phenylephrine or pseudoephedrine can be used, if you havehigh blood pressure problems do not take these medications. CORICIDIN products are good for people with high blood pressure. -Over the counter loratadine (Claritin) or cetirizine (Zyrtec) to reduce secretions. -Dextromethorphan (Robitussin) for cough-do not use if you have high blood pressure or heart disease -You may try flonase nasal spray for your nasal congestion. -Acetaminophen (Tylenol), ibuprofen (Motrin, Advil), or Aleve (naproxen) for pain or fever. -The use of hypertonic saline to irrigate nasal passageways can be helpful. Over the counter systems include Neti Pot and Nasopure. Use with distilled water -Salt water gargles and throat lozenges can be helpful for sore throat. -Antihistamines (Xyzal, Zyrtec, Claritin or Julianna) as needed for drainage. -Mucinex/guaifenesin (make sure it does not contain a decongestant if you have high blood pressure)as directed to promote cough -Cough drops and throat lozenges -Increase decaffeinated fluids -Sleep with head of bed raised (to promote drainage) -Warm packs to face to facilitate sinus drainage -Avoid spreading the virus by remaining at home and away from others until you are fever-free (temperature below 100) for 24 hours, without the aid of fever reducers. Good handwashing and covering your mouth whencoughing are also important. -To prevent spreading the illness to others cover your sneeze and cough into your arm and not your hand, don't allow others to eat or drink with the same utensils or glass, and use hand congregational care pastor before touching people or common surfaces. If you are not improving or worsening in the next 5-7 days you must RETURN to the clinic, go to your PCP, or Urgent Care/ER to be SEEN and reevaluated. No prescriptions or refills will be given by phone without another evaluation. SERIOUS COMPLICATIONS AFTER AN UPPER RESPIRATORY ILLNESS CAN OCCUR. CALL 911 OR GO TO ER WITH ANY DIFFICULTY BREATHING, SHORTNESS OF BREATH, INCREASED WORK OF BREATHING, DIFFICULTY TAKING A DEEP BREATH, ANY CHANGES IN THE COLOR OF YOUR SKIN (BLUISH OR PALE COLOR), WORSENING OF COUGH, OR CONSISTENT FEVERS, INABILITY TO KEEP FLUIDS DOWN, DECREASED ABILITIY TO URINATE,INCREASED HEADACHE, OR NEW NECKSTIFFNESS. VIRAL ILLNESSES LEAVE YOU MORE VULNERABLE TO DEVELOP A BACTERIAL INFECTION AND ANY OF THESE SIGNS AND SYMPTOMS SHOULD BE TAKEN SERIOUSLY. -Increase your fluid intake. Avoid juices and sodas. Oral rehydration solutions, like Gatorade or Pedialyte, may be taken. -If vomiting or having watery diarrhea, start with clear liquids (Any fluids you can see through such as apple juice, Jell-O, broth, etc) for 24- 48 hours. -Progress to BRAT diet (bananas, rice, applesauce and toast) as tolerated. -If moderate diarrhea without vomiting, may start with BRAT diet -Good handwashing for the entire family -Limit contact with others until symptoms improve. -May take OTC probiotics or eat yogurt daily, as tolerated. -You may try Pepto-Bismol, per package directions, as needed for symptomatic relief. FOLLOW-UP ? Follow up with your primary care provider if symptoms worsen or do not resolve in one week. ? If unable to keep fluids down for more than 12 hours, call your primary care provider or go to urgent care/ER for evaluation. ? If you start running fevers greater than 101.3, have dark yellow urine or no urine output for 12 hours, develop severe abdominal pain or have bloody diarrhea, call your primary care provider or go to urgent care/ER for evaluation. ? If abdominal pain develops, continues or increases within the next 24-48 hours, see your primary care provider or go to urgent care/ER for further evaluation and management ONALIZED LIVING MANAGER documented in this encounter Progress Notes * Morena Arias NP - 07/19/2024 4:00 PM CST Images from the original note were not included. This patient has verbally consented to recording this visit in order to utilize AI technology in generating this note. Subjective/Objective Patient ID: Yeni Chavez is a 49 y.o. female. Chief Complaint Flu Symptoms (Cough, congestion, HOOPER, BA, fever Started yesterday, also states that she is constipated, last BM was before she came here, does have IBS, prolapsed bladder and uterus.) and UTI (Pt would like to rule out a uti also) HPI History of Present Illness The patient, with a history of IBS, prolapsed bladder and uterus, and chronic back pain, presents with flu-like symptoms that started yesterday. She reports a fever of 100.8, cough, congestion, headache, body aches, and a general feeling of malaise. She has been drinking fluids but has had poor appetite. She denies vomiting but reports nausea and a feeling of fullness and bloating in the lower abdomen. She has had difficulty with bowel movements, describing them as infrequent and small in quantity, with a consistency that is neither liquid nor solid. She also reports increased lower abdominalpain and cramping with bowel movements since the onset of the flu-like symptoms. The patient also mentions a recent bladder infection following a bladder test for upcoming surgery for her prolapsed bladder and uterus. She has been experiencing chronic back pain, which has been exacerbated by her current illness. She has been taking [id number] medication for her flu-like sy mptoms and a stool softener for her constipation. Review of Systems All systems reviewed and are negative or non contributory for this patient's presentation today other than as stated in the HPI. Physical Exam Vitals and nursing note reviewed. Constitutional: General: She is not in acute distress. Appearance: She is not ill-appearing or toxic-appearing. HENT: Head: Normocephalic. Right Ear: Tympanic membrane, ear canal and external ear normal. Left Ear: Tympanic membrane, ear canal and external ear normal. Nose: Mucosal edema present. Mouth/Throat: Pharynx: Oropharynx is clear. Eyes: Conjunctiva/sclera: Conjunctivae normal. Cardiovascular: Rate and Rhythm: Normal rate and regular rhythm. Heart sounds: Normal heart sounds. Pulmonary: Effort: Pulmonary effort is normal. No respiratory distress. Breath sounds: Normal breath sounds. No wheezing or rales. Abdominal: Palpations: Abdomen is soft. Tenderness: There is no abdominal tenderness. Comments: Mild bloating of the lower abdomen Musculoskeletal: Cervical back: No rigidity. Skin: General: Skin is warm and dry. Neurological: General: No focal deficit present. Mental Status: She is alert and oriented to person, place, and time. Psychiatric: Mood and Affect: Mood normal. Behavior: Behavior normal. Thought Content: Thought content normal. Vitals: 07/19/24 1553 BP: 116/72 BP Location: Left arm Patient Position: Sitting Pulse: 98 Resp: 18 Temp: 36.6 ??C (97.9 ??F) TempSrc: Oral SpO2: 98% Weight: 80.3 kg (177 lb) Height: 162.6 cm (5' 4 ) No LMP recorded. (Menstrual status: Tubal Ligation). Assessment/Plan Assessment & Plan Influenza-like illness Fever, cough, congestion, headache, body aches, and malaise. Negative for COVID and influenza, but symptoms started yesterday and may be too early for a positive test. -Continue supportive care with DayQuil/NyQuil, hydration, and rest. -Return to work when fever-free for 24 hours and symptoms improve. Irritable Bowel Syndrome (IBS) History of IBS with recent changes in bowel habits, including constipation and abdominal pain. Recent history of gastroenteritis. -Continue stool softeners. -Consider adding yogurt to diet for probiotic effect. -Consider Pepto Bismol for symptomatic relief. Prolapsed Bladder and Uterus History of prolapsed bladder and uterus with upcoming surgery for bladder tie-up and hysterectomy. Recent urinary tract infection (UTI) after bladder testing. Current urinary symptoms may be related to prolapse rather than recurrent UTI. -Continue current management plan with urologist and assistant housekeeping manager. -Send urine sample for culture to rule out UTI. Diagnoses and all orders for this visit: Viral URI with cough (Primary) - POC Influenza A/B, COVID-19 antigen Dysuria - POCT urinalysis dipstick - Urine culture Urine, clean voided; Future Recent Results (from the past 24 hours) POC Influenza A/B, COVID-19 antigen Collection Time: 07/19/24 4:18 PM Result Value Ref Range Influenza A Ag, POC Negative Negative Influenza B Ag, POC Negative Negative COVID-19 Ag POC Presumptive Negative Presumptive Negative, Invalid POCT urinalysis dipstick Collection Time: 07/19/24 4:19 PM Result Value Ref Range Color, Urine, POC Yellow Clarity, ur, POC Clear Clear Glucose, ur, POC Negative Negative MG/DL Bilirubin, ur, POC Negative Negative, Small, Moderate, Large Ketones, ur, POC Negative Negative Specific [place], POC 1.010 1.003 - 1.030 Blood, ur, POC Negative Negative pH, ur, POC 6.0 5.0 - 8.0 Protein, ur, POC Negative Negative Urobilinogen, urine, POC 0.2 0.2 - 1.0 mg/dL Nitrite, ur, POC Negative Negative Leukocytes, ur, POC Negative Negative Lot Number [id number] Patient Education: Disposition Treatment plan including expectations, follow up, and return precautions discussed with patient/parent, verbalizes understanding. Medication dosage, use, and potential adverse reactions discussed with patient/parent. Advised to follow up with PCP if symptoms do not resolve as expected or sooner if condition worsens. Signs/symptoms warranting ER evaluation reviewed. Patient and/or guardian was given an opportunity to ask questions, questions answered. This office note has been partially dictated using [employer] software, and as a result portions of the record may have been created with this software. Occasional wrong-word or '[id number]-[id number]' substitutions may have occurred due to the inherent limitations of voice recognition software. Read the chartcarefully and recognize, using context, where substitutions have occurred Morena Arias NP ONALIZED LIVING MANAGER documented in this encounter Plan of Treatment Pending Results Name Type Priority Associated Diagnoses Date /Time Urine culture Urine, clean voided Microbiology Routine Dysuria 07/19/2024 4:40 PM PERSONALIZED LIVING MANAGER Scheduled Orders Name Type Priority Associated Diagnoses Orde r Schedule Urine culture Urine, clean voided Microbiology Routine Dysuria Expected: 07/19/2024, Expires: 07/19/2025 documented as of this encounter Procedures Procedure Name Priority Date/Time Associated Diagnosis Comments POCT URINALYSIS DIPSTICK Routine 07/19/2024 4:19 PM PERSONALIZED LIVING MANAGER Dysuria POC INFLUENZA A/B, COVID-19 ANTIGEN Routine 07/19/2024 4:18 PM PERSONALIZED LIVING MANAGER Viral URI with cough documented in this encounter Results * (ABNORMAL) POCT urinalysis dipstick (07/19/2024 4:19 PM PERSONALIZED LIVING MANAGER) Color, Urine, POC Yellow Clarity, ur, POC Clear Clear Glucose, ur, POC Negative Negative MG/DL Bilirubin, ur, POC Negative Negative, Small, Moderate, Large Ketones, ur, POC Negative Negative Specific [place], POC 1.010 1.003 - 1.030 Blood, ur, POC Negative Negative pH, ur, POC 6.0 5.0 - 8.0 Protein, ur, POC Negative Negative Urobilinogen, urine, POC 0.2 0.2 - 1.0 mg/dL Nitrite, ur, POC Negative Negative Leukocytes, ur, POC Negative Negative Lot Number [id number] Urine 07/19/2024 4:19 PM PERSONALIZED LIVING MANAGER Morena Arias ASSOCIATE SOFTWARE DEVELOPMENT ENGINEER POINT OF CARE TEST ORDERABLES Final Result * POC Influenza A/B, COVID-19 antigen (07/19/2024 4:18 PM PERSONALIZED LIVING MANAGER) Influenza A Ag, POC Negative Negative [facility] Influenza B Ag, POC Negative Negative [facility] COVID-19 Ag POC Presumptive Negative Presumptive Negative, Invalid [facility] Nasal 07/19/2024 4:18 PM PERSONALIZED LIVING MANAGER Morena Arias ASSOCIATE SOFTWARE DEVELOPMENT ENGINEER POINT OF CARE TEST ORDERABLES Final Result [facility] [address] [place] [address] documented in this encounter Visit Diagnoses Diagnosis Viral URI with cough- Primary Dysuria documented in this encounter Additional Health Concerns Infection Onset Date Last Indicated Resolved Time COVID: Suspected 07/19/2024 07/19/2024 07/19/2024 4:19 PM PERSONALIZED LIVING MANAGER documented as of this encounter Care Teams Civil Design Technician Relationship Specialty Start Date End Date Vinicio Greco MD [address] [place] [address] PCP - General 09/16/11 documented as of this encounter
--- OUTSIDE RECORDS SUMMARY | 2024-07-20 17:38 | XMS_ITS | Encounter Summary ---
Author Organization [facility] Healthcare Address [address] [place] [address] Care Team Providers Care Button Sawyer Name Role Phone Vinicio Greco MD Primary Care Provider [phone] Reason for Visit * Reason Onset Date Comments Abdominal Pain 07/19/2024 Generalized Body Aches 07/19/2024 Flu Exposure 07/19/2024 Encounter Details Date Type Department Care Team (Late st Contact Info) Description 07/19/2024 Nurse Triage [facility] [address] [address] Vinicio Greco MD [address] [place] [id number] Social History Tobacco Use Types Packs/Day Years [...] on file Legal Sex 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 Pain is a constant 6/10 since this morning. Reports she has difficulty having a BM. Has been going very small amounts. Reports history of IBS. C/O nausea. Denies vomiting, blood in stools. Patient also reports body aches, fever 100.8, mild cough and congestion since yesterday. 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 Provider contacted via secure chat for ED disposition consult. Recommendation from provider:Send [facility]. [place] with Vinicio Greco MD: REviewed IBS w/u with GI. would have her seen at for possible influenzxa and fever evaluation. Thanks. Returned call to patient to inform of recommendation. Patient agreeable to disposition. Scheduled at [facility] today at 1600. Nursing care advice also provided. Encouraged to call back if there are further questions or concerns. Encouraged to call back if symptoms persist or worsen. Reason for Disposition MILD TO MODERATE constant pain lasting > 2 hours Protocols used: Abdominal Pain - [id number] PRESIDENT OF COMMUNICATIONS * Telephone Encounter - Delphine Galicia - 07/19/2024 11:13 AM CST Regarding: severe body ache, abdominal pain, back pain, trouble with bowel ----- Message from Kinga Pinedo sent at 07/19/2024 11:10 AM VICE PRESIDENT OF COMMUNICATIONS ----- Symptom Based Call Chief Complaint(s): severe body ache, abdominal pain, back pain, trouble with bowel Duration: over week What type of symptom(s) is the patient experiencing? Red Flag. Is the patient concerned they are experiencing a medical emergency requiring an ambulance? No Additional Comments: patient expose to influenza A, she also has chronic back pain as well. Does message need to be routed? Yes-Action Needed PRESIDENT OF COMMUNICATIONS documented in this encounter Plan of Treatment Not on file documented as of this encounter Visit Diagnoses Not on filedocumented in this encounter Care Teams Button Sawyer Relationship Specialty Start Date End Date Vinicio Greco MD [address] [place] [address] PCP - General 09/16/11 documented as of this encounter
--- OUTSIDE RECORDS SUMMARY | 2024-07-20 17:38 | XMS_ITS | Encounter Summary ---
Author Organization [facility] Healthcare Address [address] [place] [address] Care Team Providers Care Oil Truck Driver Name Role Phone Vinicio Greco MD Primary Care Provider [phone] Encounter Details Date Type Department Care Team (Latest Contact Info) Description 07/19/2024 4:40 PM AUCTIONEER ART - 07/19/2024 11:59 PM AUCTIONEER ART Hospital Encounter [address] [address] Dysuria Discharge Disposition: Discharge to home or self care Social History Tobacco Use Types Packs/Day Years [...] on file Legal Sex Female 12:18 PM AUCTIONEER ART Gender Identity Not on file Sexual Orientation Not on file documented as of this encounter Medications at Time of Discharge dicyclomine (BENTYL) 10 mg capsuleIndication s:Irritable bowel syndrome with both constipation and diarrhea Take 1 capsule (10 mg total) by mouth 4 (four) times a day as needed (abdominal pain/cramps) 90 capsule 1 02/05/2024 docusate sodium (COLACE) 100 mg capsuleIndication s:constipation Take 1-2 tablets daily for constipation management. 180 capsule 3 03/18/[address] (NexIUM) 40 mg capsule Take 1 capsule (40 mg total) by mouth daily before breakfast 30 capsule 11 04/13/2024 documented as of this encounter Discharge Disposition Disposition Code Departure Means Destination Discharge to home or self care documented in this encounter Plan of Treatment Pending Results Name Type Priority Associated Diagnoses Date /Time Urine culture Urine, clean voided Microbiology Routine Dysuria 07/19/2024 4:40 PM AUCTIONEER ART Scheduled Orders Name Type Priority Associated Diagnoses Orde r Schedule Urine culture Urine, clean voided Microbiology Routine Dysuria Once for 1 Occurrences starting 07/19/2024 until 07/19/2024 documented as of this encounter Visit Diagnoses Diagnosis Dysuria documented in this encounter Care Teams Oil Truck Driver Relationship Specialty Start Date End Date Vinicio Greco MD [address] [place] [address] PCP - General 09/16/11 documented as of this encounter
[2024-07-20 18:30] VITALS: BP 121/74; PULSE 114; RESP 16; O2SAT 97
[2024-07-20 19:00] VITALS: PULSE 107; RESP 16; O2SAT 93
[2024-07-20 19:03] LABS: Basophils Percent Auto 0.2 % (0.2-1.2); Eosinophils Percent Auto 0.2 % (0-4.4); Hematocrit 36.3 % (37.0-47.0); Hemoglobin 12.4 g/dL (12.0-15.0); Immature Granulocyte Absolute 0.04 K/mm3 (0.00-0.031); Immature Granulocyte Percent A 0.3 % (0-0.5); Lymphocytes Absolute Auto 2.19 K/mm3 (0.9-3.2); Lymphocytes Percent Auto 16.6 % (18.3-44.2); Mean Corpuscular HGB Conc 34.2 g/dl (32-36); Mean Corpuscular Hemoglobin 30.1 pg (26-34); Mean Corpuscular Volume 88.1 fl (80-100); Mean Platelet Volume 9.9 fl (7.4-10.4); Monocytes Absolute Auto 0.6 K/mm3 (0.1-0.6); Monocytes Percent Auto 4.5 % (2.6-8.5); Neutrophils Absolute Auto 10.3 K/mm3 (1.3-6.7); Neutrophils Percent Auto 78.2 % (45.5-73.1); Platelet Count Result 335 k/mm3 (150-375); Red Blood Count 4.12 M/mm3 (4.2-5.4); Red Cell Distribution Width 12.7 % (11.5-14.5); White Blood Count 13.2 K/mm3 (4.5-10.0)
--- NOTE | 2024-07-20 19:05 | PC.NURSE ---
pt reports no urge to urinate at this time and is continent. they also state concerns for getting clean sample do to hx of prolapsed bladder and current diarrhea. educated pt to use call light with any urge to urinate.
[2024-07-20] MEDS: ACETAMINOPHEN 500 MG TABLET 1000 MG PO (19:10)
[2024-07-20] MEDS: LACTATED RINGERS 1,000 ML 999 ML IV CONT ×2 (19:10→22:25)
[2024-07-20 19:12] VITALS: TEMP 37.1
[2024-07-20 19:13] LABS: Alanine Aminotransferase 21 U/L (6-35); Albumin Level 4.1 g/dL (3.5-5.1); Alkaline Phosphatase 110 U/L (38-126); Anion Gap 12 mmol/L (4-12); Aspartate Amino Transferase 31 U/L (14-36); Bilirubin,Total 0.5 mg/dL (0.2-1.3); Blood Urea Nitrogen 9 mg/dL (7-17); Calcium 9.4 mg/dL (8.4-10.2); Carbon Dioxide 26 mmol/L (22-30); Chloride 100 mmol/L (98-107); Estimated CRCL calculation 94 ml/min; Estimated Glomerular Filt Rate > 60; Glucose 105 mg/dL (65-110); Lipase 75 U/L (23-300); Potassium 3.6 mmol/L (3.4-5.0); Sodium 138 mmol/L (137-145)
[2024-07-20 19:43] LABS: BEDSIDEPREGUCG Negative (Negative)
[2024-07-20 19:53] LABS: Add Urine Microscopic? YES; Appearance Urine Clear (Clear); Bilirubin Urine Negative (Negative); Blood Urine Negative (Negative); Color Urine Dark Yellow (Yellow); Glucose Urine UA Negative (Negative); Ketones Urine 1+ mg/dL (Negative); Leukocyte Esterase Ur Negative LEU/UL (Negative); Nitrate Urine Negative (Negative); Protein Urine Negative (Negative); Specific Grav Ur 1.017 (1.001-1.035)
[2024-07-20 20:00] VITALS: PULSE 101; RESP 21; O2SAT 95
--- OUTSIDE RECORDS SUMMARY | 2024-07-20 20:03 | XMS_ITS ---
Care Plan - [facility] Created on: July 20, 2024 EARL BARAHONAALYCE Pardo : 1975 Sex: Female Author Organization [facility] Address [address] [place] [address] Phone Care Team Providers Care Grinder Set Up Operator Internal Name Role Phone KORTNEY LEZAMA, GERARDO Butterfield Primary Care Provider [phone] SALLIE LEZAMA, KETTY Renteria Unavailable [phone]
--- OUTSIDE RECORDS SUMMARY | 2024-07-20 20:04 | XMS_ITS | Encounter Summary ---
Author Organization [facility] Healthcare Address [address] [place] [address] Care Team Providers Care Geotechnical Department Manager Name Role Phone Vinicio Greco MD Primary Care Provider [phone] Reason for Visit * Reason Onset Date Comments Abdominal Pain 07/19/2024 Generalized Body Aches 07/19/2024 Flu Exposure 07/19/2024 Encounter Details Date Type Department Care Team (Late st Contact Info) Description 07/19/2024 Nurse Triage [facility] [address] [address] Vinicio Greco MD [address] [place] [id number] Social History Tobacco Use Types Packs/Day Years [...] on file Legal 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 Recommendation from provider:Send [facility]. [place] with Vinicio Greco MD: REviewed IBS w/u with GI. would have her seen at for possible influenzxa and fever evaluation. Thanks. Returned call to patient to inform of recommendation. Patient agreeable to disposition. Scheduled at [facility] today at 1600. Nursing care advice also provided. Encouraged to call back if there are further questions or concerns. Encouraged to call back if symptoms persist or worsen. Reason for Disposition MILD TO MODERATE constant pain lasting > 2 hours Protocols used: Abdominal Pain - [id number] HOUSE PRODUCTION WORKER * Telephone Encounter - Delphine Galicia - 07/19/2024 11:13 AM CST Regarding: severe body ache, abdominal pain, back pain, trouble with bowel ----- Message from Kinga Pinedo sent at 07/19/2024 11:10 AM WAREHOUSE PRODUCTION WORKER ----- Symptom Based Call Chief Complaint(s): severe [...] message need to be routed? Yes-Action Needed HOUSE PRODUCTION WORKER documented in this encounter Plan of Treatment Not on file documented as of this encounter Visit Diagnoses Not on filedocumented in this encounter Care Teams Geotechnical Department Manager Relationship Specialty Start Date End Date Vinicio Greco MD [address] [place] [address] PCP - General 09/16/11 documented as of this encounter
--- OUTSIDE RECORDS SUMMARY | 2024-07-20 20:04 | XMS_ITS | Encounter Summary ---
Author Organization [facility] Healthcare Address [address] [place] [address] Care Team Providers Care Cp Bleacher Operator Name Role Phone Vinicio Greco MD Primary Care Provider [phone] Reason for Visit * Reason Comments Flu Symptoms Cough, congestion, H A, BA, fever Started yesterday, also states that she is constipated, last BM was before she came here, does have IBS, prolapsed bladder and uterus. UTI Pt would like to rul e out a uti also Encounter Details Date Type Department Care Team (Late st Contact Info) Description 07/19/2024 4:00 PM FILLETER Office Visit [facility] Medical Group [facility] [place] [address] [place] [id number] Morena Arias, SASH MAKER [address] [place] [place] [address] Viral URI with cough (Primary Dx); Dysuria [...] on file Legal Sex Female 12:18 PM FILLETER Gender Identity Not on file Sexual Orientation Not on file documented as of this encounter Last Filed Vital Signs Vital Sign Reading Time Taken Comments Blood Pressure 116/72 07/19/2024 3:53 PM FILLETER Pulse 98 07/19/2024 3:53 PM FILLETER Temperature 36.6 C (97.9 F) 07/19/2024 3:53 PM FILLETER Respiratory Rate 18 07/19/2024 3:53 PM FILLETER Oxygen Saturation 98% 07/19/2024 3:53 PM FILLETER Inhaled Oxygen Concentration - - Weight 80.3 kg (177 lb) 07/19/2024 3:53 PM FILLETER Height 162.6 cm (5' 4 ) 07/19/2024 3:53 PM FILLETER Body Mass Index 30.38 07/19/2024 3:53 PM FILLETER documented in this encounter Patient Instructions * Patient Instructions* Morena Arias, SASH MAKER - 07/19/2024 4:00 PM FILLETER Research has proven that unless you are [...] same utensils or glass, and use hand gis administrator before touching people or common surfaces. If [...] urgent care/ER for further evaluation and management ETER documented in this encounter Progress Notes * [...] her current illness. She has been taking zogd-dhb-kuhdlqq medication for her flu-like sy mptoms and [...] -Continue current management plan with urologist and sales review clerk. -Send urine sample for culture to rule [...] Large Ketones, ur, POC Negative Negative Specific [place], POC 1.010 1.003 - 1.030 Blood, ur, POC Negative Negative pH, ur, POC 6.0 5.0 - 8.0 Protein, ur, POC Negative Negative Urobilinogen, urine, POC 0.2 0.2 - 1.0 mg/dL Nitrite, ur, POC Negative Negative Leukocytes, ur, POC Negative Negative Lot Number [id number] Patient Education: Disposition Treatment plan including expectations, [...] office note has been partially dictated using [employer] software, and as a result portions of the record may have been created with this software. Occasional wrong-word or 'kjcai-c-msch' substitutions may have occurred due to the inherent limitations of voice recognition software. Read the chartcarefully and recognize, using context, where substitutions have occurred Morena Arias NP ETER documented in this encounter Plan of Treatment Pending Results Name Type Priority Associated Diagnoses Date /Time Urine culture Urine, clean voided Microbiology Routine Dysuria 07/19/2024 4:40 PM FILLETER documented as of this encounter Procedures Procedure Name Priority Date/Time Associated Diagnosis Comments POCT URINALYSIS DIPSTICK Routine 07/19/2024 4:19 PM FILLETER Dysuria POC INFLUENZA A/B, COVID-19 ANTIGEN Routine 07/19/2024 4:18 PM FILLETER Viral URI with cough documented in this encounter Results * (ABNORMAL) POCT urinalysis dipstick (07/19/2024 4:19 PM FILLETER) Color, Urine, POC Yellow Clarity, ur, POC Clear Clear Glucose, ur, POC Negative Negative MG/DL Bilirubin, ur, POC Negative Negative, Small, Moderate, Large Ketones, ur, POC Negative Negative Specific [place], POC 1.010 1.003 - 1.030 Blood, ur, POC Negative Negative pH, ur, POC 6.0 5.0 - 8.0 Protein, ur, POC Negative Negative Urobilinogen, urine, POC 0.2 0.2 - 1.0 mg/dL Nitrite, ur, POC Negative Negative Leukocytes, ur, POC Negative Negative Lot Number [id number] Urine 07/19/2024 4:19 PM FILLETER Morena Arias SASH MAKER POINT OF CARE TEST ORDERABLES Final Result * POC Influenza A/B, COVID-19 antigen (07/19/2024 4:18 PM FILLETER) Influenza A Ag, POC Negative Negative [facility] Influenza B Ag, POC Negative Negative [facility] COVID-19 Ag POC Presumptive Negative Presumptive Negative, Invalid [facility] Nasal 07/19/2024 4:18 PM FILLETER Morena Arias SASH MAKER POINT OF CARE TEST ORDERABLES Final Result [facility] [address] [place] [address], [place] documented in this encounter Visit Diagnoses Diagnosis Viral URI with cough- Primary Dysuria documented in this encounter Additional Health Concerns Infection Onset Date Last Indicated Resolved Time COVID: Suspected 07/19/2024 07/19/2024 07/19/2024 4:19 PM FILLETER documented as of this encounter Care Teams Cp Bleacher Operator Relationship Specialty Start Date End Date Vinicio Greco MD [address] [place] [address] PCP - General 09/16/11 documented as of this encounter
--- OUTSIDE RECORDS SUMMARY | 2024-07-20 20:04 | XMS_ITS | Referral Summary ---
Author Organization [facility] [address] [place] [address] [place] [id number] Care Team Providers Care Mail Distribution Clerk Name Role Phone Vinicio Greco MD Primary Care Provider [phone] Encounters Date Type Department Care Team Description 07/20/2024 Results Follow-Up [facility] Medical [facility] at [address] [place] [address] Kenisha Wilhelm NP 07/19/2024 4:40 PM REAL ESTATE DEVELOPER - 07/19/2024 11:59 PM REAL ESTATE DEVELOPER [place] [address] Dysuria Discharge Disposition: Discharge to home or self care 07/19/2024 4:00 PM REAL ESTATE DEVELOPER Office Visit [facility] Care at [address] [place] [address] Morena Arias NP Viral URI with cough (Primary Dx); Dysuria 07/19/2024 Nurse Triage [facility] [address] [address] Vinicio Greco MD from Last [...] healthier, we can set up appointment with program development specialist/industrial safety and health specialist. Have an active lifestyle, strive for 30 [...] referral, we discussed contacting Dr. Bowden at [facility]. Atypical glandular cells on cervical Pap smear 0 01/17/2023 Assessment & Plan (01/17/2023 11:38 AM CDT): See discussion above. Reviewed imaging and office visit notes from assistant general manager today with patient. Recommended patient have further discussion with assistant general manager regarding her treatment options/next course of action. She continues to use condoms for contraception at this time. Encounter for preoperative e xamination for general surgical procedure 07/10/2021 Assessment & Plan (07/12/2021 12:12 PM REAL ESTATE DEVELOPER): Reviewed lab work, and EKG. Normal PE. Patient cleared for surgery. Cervicalgia 07/10/2021 Assessment & Plan (07/10/2021 9:48 AM REAL ESTATE DEVELOPER): Has been taking advil for pain. Will schedule procedure with Dr. Delcid. Lipid screening 07/10/2021 Assessment & Plan (02/05/2024 4:26 PM CDT): Will check lipid panel. Assessment & Plan (07/10/2021 9:55 AM REAL ESTATE DEVELOPER): Will check labs. Discussed diet and exercise recommendations. Routine health maintenance 04/05/2021 Assessment & Plan (04/05/2021 2:03 PM REAL ESTATE DEVELOPER): Discussed need to schedule WWE and pap. [...] 07/15/2019 Assessment & Plan (07/15/2019 11:43 AM REAL ESTATE DEVELOPER): Discussed and the patient refuses immunization today. Educated regarding the need to vaccinate for personal protection and to limit the viruses in the community to protect those most vulnerable. Encounter for screening for lipid disorder 07/15 Assessment & Plan (04/05/2021 2:03 PM REAL ESTATE DEVELOPER): Patient to get fasting labs. Reviewed heart healthy diet and importance of regular exercise. Assessment & Plan (07/15/2019 11:52 AM REAL ESTATE DEVELOPER): 07/17/18 KB=950 TG=62 HDL=44 LDL=72 TC/HDL=3 07/15/19 DI=689 ZM=626 HDL=42 LDL=41.4 (CALC) TC/HDL=4.0 GLU=85 BMI 28.0-28.9,adult 07/15/2019 Assessment & Plan (07/10/2021 9:55 AM REAL ESTATE DEVELOPER): Discussed healthy diet and importance of regular physical activity. Assessment & Plan (04/05/2021 2:03 PM REAL ESTATE DEVELOPER): Discussed healthy diet and importance of regular [...] patient. Assessment & Plan (07/15/2019 11:43 AM REAL ESTATE DEVELOPER): Discussed healthy diet and importance of regular physical activity. BMI is acceptable for this patient. Menstrual abnormality 09/24/2018 Assessment & Plan (09/24/2018 2:12 PM CDT): Pt says her LMP was Friday and much ob/gyn than normal. She usually has a very [...] weeks. Assessment & Plan (07/29/2018 2:13 PM REAL ESTATE DEVELOPER): Educated patient to start clear liquid diet and resume oral antibiotics. Discussed case with , preferably patient sees GI aura, optimize therapy and patient symptoms, and patient then to see in the office to discuss surgery risks and benefits. Patient agrees to this treatment plan. Assessment & Plan (07/16/2018 6:19 AM REAL ESTATE DEVELOPER): Of the sigmoid colon. Perforation is localized. Patient is currently on Zosyn. Her abdominal pain is controlled with pain medications. General surgery and Infectious Disease have been consulted will await their evaluation. NPO for surgery evaluation. Chronic midline low back pain without sciatica 1 06/28/2017 Assessment & Plan (04/05/2021 2:27 PM REAL ESTATE DEVELOPER): Continue current treatment with medication and therapy. Continue follow up with Dr. Delcid. No s/s of cauda equina or loss of bowel bladder function. Continues with PT. Reviewed red flags. Tobacco dependence due to cigarettes 03/19/2018 Assessment & Plan (02/05/2024 4:27 PM CDT): Precontemplative. Encouraged complete smoking cessation. Discussed different types of medications & zqzb-tgq-inbrfon aides to help with cessation. Assessment & Plan (07/12/2021 12:13 PM REAL ESTATE DEVELOPER): Encouraged smoking cessation. Discussed decreased healing and negative health consequences associated with smoking. Assessment & Plan (03/12/2021 5:06 PM CDT): Again, encouraged smoking cessation. Assessment & Plan (02/12/2021 7:58 PM CDT): Precontemplative. Encouraged complete smoking cessation. Discussed different types of medications & orou-sxe-dxvuspg aides to help with cessation. Assessment & Plan (02/05/2021 10:43 AM CDT): Encouraged complete smoking cessation. Reviewed NRT options with patient. Assessment & Plan (10/08/2019 8:35 AM CDT): Precontemplative. Encouraged complete smoking cessation. Discussed different types of medications & mfpo-wro-kzhypbk aides to help with cessation. Will p/u otc patches to try before chantix or wellbutrin. Assessment & Plan (07/15/2019 11:44 AM REAL ESTATE DEVELOPER): Precontemplative. Encouraged complete smoking cessation. Discussed different types of medications & jxna-suh-cwuumlt aides to help with cessation. Assessment & Plan (07/16/2018 6:18 AM REAL ESTATE DEVELOPER): Patient smokes about a pack a day [...] symptoms. Assessment & Plan (07/16/2018 6:18 AM REAL ESTATE DEVELOPER): Continue SSRI and Bentyl Breast neoplasm screening [...] 020 Assessment & Plan (07/15/2019 2:12 PM REAL ESTATE DEVELOPER): Rapid flu swab: NEGATIVE This looks viral [...] 10/08/2019 Assessment & Plan (07/16/2018 6:20 AM REAL ESTATE DEVELOPER): Of the upper lip and left eyelid. Appeared to have resolved with Benadryl. Suspected to be related to Bactrim which has been added as an allergy. Patient also developed a rash which has now resolved as well. Will continue to monitor. P.r.n. Benadryl. Epigastric pain 07/16/2018 10/08/2019 Assessment & Plan (07/16/2018 6:21 AM REAL ESTATE DEVELOPER): With left arm numbness. Started on Friday [...] on file Legal Sex Female 12:18 PM REAL ESTATE DEVELOPER Gender Identity Not on file Sexual Orientation Not on file Last Filed Vital Signs Vital Sign Reading Time Taken Comments Blood Pressure 116/72 07/19/2024 3:53 PM REAL ESTATE DEVELOPER Pulse 98 07/19/2024 3:53 PM REAL ESTATE DEVELOPER Temperature 36.6 C (97.9 F) 07/19/2024 3:53 PM REAL ESTATE DEVELOPER Respiratory Rate 18 07/19/2024 3:53 PM REAL ESTATE DEVELOPER Oxygen Saturation 98% 07/19/2024 3:53 PM REAL ESTATE DEVELOPER Inhaled Oxygen Concentration - - Weight 80.3 kg (177 lb) 07/19/2024 3:53 PM REAL ESTATE DEVELOPER Height 162.6 cm (5' 4 ) 07/19/2024 3:53 PM REAL ESTATE DEVELOPER Body Mass Index 30.38 07/19/2024 3:53 PM REAL ESTATE DEVELOPER Plan of Treatment Not on file Medical Devices Implanted Type Area Antisqueak Worker Device Identifier Shelf Expiration Date Model / Serial / Lot [employer] Ventralight St Sepra 4.5in Uncoated Monofilament Lightweight [id number] - [id number] Implanted:Qty: 1 on 04/07/2023 by Kirby Shea MD at [facility] N/A: Abdomen [employer] 10/20/2024 [id number] / / [id number] Procedures Procedure Name Priority Date/Time Associated Diagnosis Comments URINE CULTURE Routine 07/19/2024 4:40 PM REAL ESTATE DEVELOPER Dysuria POCT URINALYSIS DIPSTICK Routine 07/19/2024 4:19 PM REAL ESTATE DEVELOPER Dysuria POC INFLUENZA A/B, COVID-19 ANTIGEN Routine 07/19/2024 4:18 PM REAL ESTATE DEVELOPER Viral URI with cough DIAGNOSTIC MAMMOGRAM BILATERAL W NEDA Schedule Routine, Read Routine (OP Routine) 03/05/2024 1:44 PM CDT COLONOSCOPY 09/28/2018 10:54 AM CDT from Last 3 Months or Most Recently Relevant to Health Maintenance Results * (ABNORMAL) POCT urinalysis dipstick (07/19/2024 4:19 PM REAL ESTATE DEVELOPER) Color, Urine, POC Yellow Clarity, ur, POC Clear Clear Glucose, ur, POC Negative Negative MG/DL Bilirubin, ur, POC Negative Negative, Small, Moderate, Large Ketones, ur, POC Negative Negative Specific [place], POC 1.010 1.003 - 1.030 Blood, ur, POC Negative Negative pH, ur, POC 6.0 5.0 - 8.0 Protein, ur, POC Negative Negative Urobilinogen, urine, POC 0.2 0.2 - 1.0 mg/dL Nitrite, ur, POC Negative Negative Leukocytes, ur, POC Negative Negative Lot Number [id number] Urine 07/19/2024 4:19 PM REAL ESTATE DEVELOPER us Morena Arias NP POINT OF CARE TEST ORDERABLES Final Result * POC Influenza A/B, COVID-19 antigen (07/19/2024 4:18 PM REAL ESTATE DEVELOPER) Influenza A Ag, POC Negative Negative [facility] Influenza B Ag, POC Negative Negative [facility] COVID-19 Ag POC Presumptive Negative Presumptive Negative, Invalid [facility] Nasal 07/19/2024 4:18 PM REAL ESTATE DEVELOPER us Morena Arias [facility] POINT OF CARE TEST ORDERABLES Final Result [facility] [address] [place] [address], [facility] * Diagnostic Mammogram Bilateral W Neda (03/05/2024 1:44 PM CDT) Anatomical Region Laterality Modality Breast Bilateral Mammography 03/05/2024 1:44 PM CDT us Historical Provider MD ROSARIO MAMMO PROCEDURES [place] [facility] Result * COLONOSCOPY (09/28/2018 10:54 AM CDT) Anatomical Region Laterality Modality Other Narrative Procedure Note Jose E Busch MD - 09/28/2018 10:54 AM CDT [facility] Patient Name: Yeni Chavez Procedure Date: 09/28/2018 10:54 AM Date of : 1975 Admit Type: Outpatient Age: 43 Gender: Female Attending MD: Jose E Busch M.D. Room: [facility] ENDOSCOPY ROOM 1 Note Status: Finalized [...] passed under direct vision.The Pediatric Colonoscope [id number]-[id number] was introduced through the anus and advanced [...] 10:54 AM Procedure Code(s): --- Professional --- 19860, Colonoscopy, flexible; diagnostic, including collection of specimen(s) by brushing or washing, when performed (separateprocedure) Diagnosis Code(s): --- Professional --- K57.32, Diverticulitis of large intestine without perforation orabscess without bleeding K57.30, Diverticulosis of large intestine without perforation orabscess without bleeding CPT copyright 2017 [employer]. All rights reserved. The codes documented in this report are preliminary and upon tool shaper setup operator reviewmay be revised to meet current compliance requirements. Recognized by the [place] for promoting quality in endoscopy Jose E Busch MD ENDOSCOPY PROCEDURES Final Result from Last 3 Months or Most Recently Relevant to Health Maintenance Insurance [employer] [facility] [id number] FOR[facility]LY [facility] PPO [employer] Advance Directives For more information, please contact: [phone] * Full Code (Latest Code Status on [...] 9:32 PM 07/21/2018 4:19 PM Care Teams Mail Distribution Clerk Relationship Specialty Start Date End Date Vinicio Greco MD [address] [place] [address] PCP - General 09/16/11
--- OUTSIDE RECORDS SUMMARY | 2024-07-20 20:04 | XMS_ITS | Encounter Summary ---
Author Organization [facility] Healthcare Address [address] [place] [address] Care Team Providers Care Shingle Inspector Name Role Phone Vinicio Greco MD Primary Care Provider [phone] Encounter Details Date Type Department Care Team (Late st Contact Info) Description 07/20/2024 Results Follow-Up [facility] Medical Group [facility] [place] [address] [place] [id number] Kenisha Wilhelm, AZAR [address] [place] [address] Social History Tobacco Use Types Packs/Day Years [...] on file Legal Sex Female 12:18 PM OFFBEARER SEWER PIPE Gender Identity Not on file Sexual Orientation Not on file documented as of this encounter Plan of Treatment Not on file documented as of this encounter Visit Diagnoses Not on filedocumented in this encounter Care Teams Shingle Inspector Relationship Specialty Start Date End Date Vinicio Greco MD [address] [place] [address] PCP - General 09/16/11 documented as of this encounter
--- OUTSIDE RECORDS SUMMARY | 2024-07-20 20:04 | XMS_ITS | Clinical Summary ---
Author Organization [facility] [id number] Address [address] [place] [id number] Care Team Providers Care Cold Header Name Role Phone Vinicio Greco MD Primary Care Provider [phone] Allergies Active Allergy Reactions Criticality Noted Date [...] healthier, we can set up appointment with device repair technician/otc clerk. Have an active lifestyle, strive for 30 [...] referral, we discussed contacting Dr. Bowden at [facility]. Atypical glandular cells on cervical Pap smear 0 01/17/2023 Assessment & Plan (01/17/2023 11:38 AM CDT): See discussion above. Reviewed imaging and office visit notes from internal sales engineer today with patient. Recommended patient have further discussion with internal sales engineer regarding her treatment options/next course of action. She continues to use condoms for contraception at this time. Encounter for preoperative e xamination for general surgical procedure 07/10/2021 Assessment & Plan (07/12/2021 12:12 PM ALTERATIONS SEWER): Reviewed lab work, and EKG. Normal PE. Patient cleared for surgery. Cervicalgia 07/10/2021 Assessment & Plan (07/10/2021 9:48 AM ALTERATIONS SEWER): Has been taking advil for pain. Will schedule procedure with Dr. Delcid. Lipid screening 07/10/2021 Assessment & Plan (02/05/2024 4:26 PM CDT): Will check lipid panel. Assessment & Plan (07/10/2021 9:55 AM ALTERATIONS SEWER): Will check labs. Discussed diet and exercise recommendations. Routine health maintenance 04/05/2021 Assessment & Plan (04/05/2021 2:03 PM ALTERATIONS SEWER): Discussed need to schedule WWE and pap. [...] 07/15/2019 Assessment & Plan (07/15/2019 11:43 AM ALTERATIONS SEWER): Discussed and the patient refuses immunization today. Educated regarding the need to vaccinate for personal protection and to limit the viruses in the community to protect those most vulnerable. Encounter for screening for lipid disorder 07/15 Assessment & Plan (04/05/2021 2:03 PM ALTERATIONS SEWER): Patient to get fasting labs. Reviewed heart healthy diet and importance of regular exercise. Assessment & Plan (07/15/2019 11:52 AM ALTERATIONS SEWER): 07/17/18 RM=776 TG=62 HDL=44 LDL=72 TC/HDL=3 07/15/19 UC=968 DS=146 HDL=42 LDL=41.4 (CALC) TC/HDL=4.0 GLU=85 BMI 28.0-28.9,adult 07/15/2019 Assessment & Plan (07/10/2021 9:55 AM ALTERATIONS SEWER): Discussed healthy diet and importance of regular physical activity. Assessment & Plan (04/05/2021 2:03 PM ALTERATIONS SEWER): Discussed healthy diet and importance of regular [...] patient. Assessment & Plan (07/15/2019 11:43 AM ALTERATIONS SEWER): Discussed healthy diet and importance of regular physical activity. BMI is acceptable for this patient. Menstrual abnormality 09/24/2018 Assessment & Plan (09/24/2018 2:12 PM CDT): Pt says her LMP was Friday and much saw repairer than normal. She usually has a very [...] weeks. Assessment & Plan (07/29/2018 2:13 PM ALTERATIONS SEWER): Educated patient to start clear liquid diet and resume oral antibiotics. Discussed case with , preferably patient sees GI aura, optimize therapy and patient symptoms, and patient then to see in the office to discuss surgery risks and benefits. Patient agrees to this treatment plan. Assessment & Plan (07/16/2018 6:19 AM ALTERATIONS SEWER): Of the sigmoid colon. Perforation is localized. Patient is currently on Zosyn. Her abdominal pain is controlled with pain medications. General surgery and Infectious Disease have been consulted will await their evaluation. NPO for surgery evaluation. Chronic midline low back pain without sciatica 1 06/28/2017 Assessment & Plan (04/05/2021 2:27 PM ALTERATIONS SEWER): Continue current treatment with medication and therapy. Continue follow up with Dr. Delcid. No s/s of cauda equina or loss of bowel bladder function. Continues with PT. Reviewed red flags. Tobacco dependence due to cigarettes 03/19/2018 Assessment & Plan (02/05/2024 4:27 PM CDT): Precontemplative. Encouraged complete smoking cessation. Discussed different types of medications & ptuf-neg-mbqlsdm aides to help with cessation. Assessment & Plan (07/12/2021 12:13 PM ALTERATIONS SEWER): Encouraged smoking cessation. Discussed decreased healing and negative health consequences associated with smoking. Assessment & Plan (03/12/2021 5:06 PM CDT): Again, encouraged smoking cessation. Assessment & Plan (02/12/2021 7:58 PM CDT): Precontemplative. Encouraged complete smoking cessation. Discussed different types of medications & lykf-fmb-wvwdjla aides to help with cessation. Assessment & Plan (02/05/2021 10:43 AM CDT): Encouraged complete smoking cessation. Reviewed NRT options with patient. Assessment & Plan (10/08/2019 8:35 AM CDT): Precontemplative. Encouraged complete smoking cessation. Discussed different types of medications & brcm-qjb-tifhpuh aides to help with cessation. Will p/u otc patches to try before chantix or wellbutrin. Assessment & Plan (07/15/2019 11:44 AM ALTERATIONS SEWER): Precontemplative. Encouraged complete smoking cessation. Discussed different types of medications & rjxs-czh-jvhyenw aides to help with cessation. Assessment & Plan (07/16/2018 6:18 AM ALTERATIONS SEWER): Patient smokes about a pack a day [...] symptoms. Assessment & Plan (07/16/2018 6:18 AM ALTERATIONS SEWER): Continue SSRI and Bentyl Breast neoplasm screening [...] 020 Assessment & Plan (07/15/2019 2:12 PM ALTERATIONS SEWER): Rapid flu swab: NEGATIVE This looks viral [...] 10/08/2019 Assessment & Plan (07/16/2018 6:20 AM ALTERATIONS SEWER): Of the upper lip and left eyelid. Appeared to have resolved with Benadryl. Suspected to be related to Bactrim which has been added as an allergy. Patient also developed a rash which has now resolved as well. Will continue to monitor. P.r.n. Benadryl. Epigastric pain 07/16/2018 10/08/2019 Assessment & Plan (07/16/2018 6:21 AM ALTERATIONS SEWER): With left arm numbness. Started on Friday evening after eating and improved with relaxation. Suspect may be related to anxiety. Currently resolved. Will continue to monitor. Low suspicion for cardiac etiology at this time. Difficult or painful urination 07/10/2017 02/12/2021 Encounters Date Type Department Care Team Description 07/20/2024 Results Follow-Up [facility] [address] [place] [address] Kenisha Wilhelm NP 07/19/2024 4:40 PM ALTERATIONS SEWER - 07/19/2024 11:59 PM ALTERATIONS SEWER Hospital Encounter [address] [address] Dysuria Discharge Disposition: Discharge to home or self care 07/19/2024 4:00 PM ALTERATIONS SEWER Office Visit [facility] [address] [place] [phone] Morena Arias NP Viral URI with cough (Primary Dx); Dysuria 07/19/2024 Nurse Triage [facility] [address] [address] Vinicio Greco MD from Last [...] History Date Comments Anemia Anemia Acquired scoliosis 2003 Scoliosis Hx Other Medical Scar (right low er extremity) Hx Other Medical H/o abnormal pa p smears (HPV) Smoking Female bladder prolapse Diverticulitis 2018 Irritable bowel syndrome Family History Medical History [...] (Age 70) Maternal Grandmother Alive Maternal cousin ublmaro Alive Mother Alive Other 1 Other 2 [...] on file Legal Sex Female 12:18 PM ALTERATIONS SEWER Gender Identity Not on file Sexual Orientation Not on file Obstetrics History Para Term AB IAB SAB Ectopic Multiple Livin g Live Births 5 3 3 Date Outcome GA Total Labor Labor/2nd/3rd Weight Sex Type Anes PTL Susana A1 A5 Name Clin Term Term Term Last Filed Vital Signs Vital Sign Reading Time Taken Comments Blood Pressure 116/72 07/19/2024 3:53 PM ALTERATIONS SEWER Pulse 98 07/19/2024 3:53 PM ALTERATIONS SEWER Temperature 36.6 C (97.9 F) 07/19/2024 3:53 PM ALTERATIONS SEWER Respiratory Rate 18 07/19/2024 3:53 PM ALTERATIONS SEWER Oxygen Saturation 98% 07/19/2024 3:53 PM ALTERATIONS SEWER Inhaled Oxygen Concentration - - Weight 80.3 kg (177 lb) 07/19/2024 3:53 PM ALTERATIONS SEWER Height 162.6 cm (5' 4 ) 07/19/2024 3:53 PM ALTERATIONS SEWER Body Mass Index 30.38 07/19/2024 3:53 PM ALTERATIONS SEWER Plan of Treatment Health Maintenance Due Date Last Done Comments Cervical Cancer Screening 1975 Hepatitis C Screening 1975 Hepatitis B Screening 1993 Pneumococcal vaccine <65 (1 of 2 - PCV) 1994 Covid-19 Vaccine ( - 2023-2 5 season) 2024 02/12/2021, 01/21/2021 Influenza Vaccine (#1) 2024 , 03/10/2020, 04/06/2018, Additional history exists Depression Screening 02/04/2025 02/05/2024, 01/17/2023, 10/03/2022, Additional history exists Regular Well Visit/Exam 18-64 02/04/2025 02/05/2024 Breast Cancer Screening-Mammogram 03/05/2025 03/05/2024, 11/05/2022, 04/04/2021, Additional history exists DTaP/Tdap/Td Vaccine (3 - Td or Tdap) 10/19/2027 10/18/2017, 02/08/2015 Colon Cancer Screening-Colonoscopy 09/28/20282018 Medical Devices Implanted Type Area Embedder Device Identifier Shelf Expiration Date Model / Serial / Lot [employer] Ventralight St Sepra 4.5in Uncoated Monofilament Lightweight [id number] - [id number] Implanted:Qty: 1 on 04/07/2023 by Kirby Shea MD at [facility] N/A: Abdomen [employer] 10/20/2024 [id number] / / [id number] Procedures Procedure Name Priority Date/Time Associated Diagnosis Comments URINE CULTURE Routine 07/19/2024 4:40 PM ALTERATIONS SEWER Dysuria POCT URINALYSIS DIPSTICK Routine 07/19/2024 4:19 PM ALTERATIONS SEWER Dysuria POC INFLUENZA A/B, COVID-19 ANTIGEN Routine 07/19/2024 4:18 PM ALTERATIONS SEWER Viral URI with cough DIAGNOSTIC MAMMOGRAM BILATERAL W [place] Schedule Routine, Read Routine (OP Routine) 03/05/2024 1:44 PM CDT COLONOSCOPY 09/28/2018 10:54 AM CDT from Last 3 Months or Most Recently Relevant to Health Maintenance Results * (ABNORMAL) POCT urinalysis dipstick (07/19/2024 4:19 PM ALTERATIONS SEWER) Color, Urine, POC Yellow Clarity, ur, POC Clear Clear Glucose, ur, POC Negative Negative MG/DL Bilirubin, ur, POC Negative Negative, Small, Moderate, Large Ketones, ur, POC Negative Negative Specific [place], POC 1.010 1.003 - 1.030 Blood, ur, POC Negative Negative pH, ur, POC 6.0 5.0 - 8.0 Protein, ur, POC Negative Negative Urobilinogen, urine, POC 0.2 0.2 - 1.0 mg/dL Nitrite, ur, POC Negative Negative Leukocytes, ur, POC Negative Negative Lot Number [id number] Urine 07/19/2024 4:19 PM ALTERATIONS SEWER Morena Arias RESTRIKE HAMMER OPERATOR POINT OF CARE TEST ORDERABLES Final Result * POC Influenza A/B, COVID-19 antigen (07/19/2024 4:18 PM ALTERATIONS SEWER) Influenza A Ag, POC Negative Negative [facility] Influenza B Ag, POC Negative Negative [facility] COVID-19 Ag POC Presumptive Negative Presumptive Negative, Invalid [facility] Nasal 07/19/2024 4:18 PM ALTERATIONS SEWER Morena Arias NP POINT OF CARE TEST ORDERABLES Final Result [facility] [address] [place] [address], [facility] * Diagnostic Mammogram Bilateral W [place] (03/05/2024 1:44 PM CDT) Anatomical Region Laterality Modality Breast Bilateral Mammography 03/05/2024 1:44 PM CDT Historical Provider MD [facility] MAMMO PROCEDURES [place] [facility] Result * COLONOSCOPY (09/28/2018 10:54 AM CDT) Anatomical Region Laterality Modality Other Narrative Procedure Note Jose E Busch MD - 09/28/2018 10:54 AM CDT [facility] Patient Name: Mari Chavez Procedure Date: 09/28/2018 10:54 AM Date of : 1975 Admit Type: Outpatient Age: 43 Gender: Female Attending MD: Jose E Busch M.D. Room: [facility] ENDOSCOPY ROOM 1 Note Status: Finalized Patient [...] passed under direct vision.The Pediatric Colonoscope [id number] was introduced through the anus and advanced [...] 10:54 AM Procedure Code(s): --- Professional --- 03644, Colonoscopy, flexible; diagnostic, including collection of specimen(s) by brushing or washing, when performed (separateprocedure) Diagnosis Code(s): --- Professional --- K57.32, Diverticulitis of large intestine without perforation orabscess without bleeding K57.30, Diverticulosis of large intestine without perforation orabscess without bleeding CPT copyright 2017 [employer]. All rights reserved. The codes documented in this report are preliminary and upon loading rack supervisor reviewmay be revised to meet current compliance requirements. Recognized by the [employer] for promoting quality in endoscopy Jose E Busch MD ENDOSCOPY PROCEDURES Final Result from Last 3 Months or Most Recently Relevant to Health Maintenance Insurance [employer] [facility] OPEN [facility] [id number] [facility] PPO [employer] Advance Directives For more information, please contact: [phone] * Full Code (Latest Code Status on [...] 9:32 PM 07/21/2018 4:19 PM Care Teams Cold Header Relationship Specialty Start Date End Date [place] [address] PCP - General 09/16/11
--- OUTSIDE RECORDS SUMMARY | 2024-07-20 20:04 | XMS_ITS ---
Author Organization [facility] Address [address] [place] [address] Phone Care Team Providers Care Sales Specialist Name Role Phone GERARDO GRECO MD Primary Care Provider [phone] KETTY ARTHUR MD Unavailable [phone] Problems Includes: Active, inactive, and resolved Problems All Visits Onset Date Resolved Date Provider Condition S tatus Previous Colposcopy 09/27/2022 LARA REYNA FRONT DESK AGENT-BC Active Last Documented On 3 10:22AM ; [facility] Risk: Tobacco Use 09/27/2022 LARA REYNA NP -BC Active Last Documented On 3 10:22AM ; [facility] Age 35+ During 07/21/2014 Unknown SHASTA OQUENDO MD Resolved Last Documented On 04/03/2015 10:52AM ; [facility] Note: was Closed. Alcohol Use 07/21/2014 Unknown SHASTA SHORT MD Resolve d Last Documented On 04/03/2015 10:52AM ; [facility] Note: was Closed. Exposure To Contagious Viral Disease 07/21/2014 Unknown SHASTA SHORT MD Resolved Last Documented On 04/03/2015 10:52AM ; [facility] Note: was Closed. History of Abnormal Pap Smear 07/21/2014 Unknown SHASTA SHORT MD Resolved Last Documented On 04/03/2015 10:52AM ; [facility] Note: was Closed. History of Congenital Abnormality of Uterus 07/21/2014 Unknown SHASTA SHORT MD Resolved Last Documented On 04/03/2015 10:52AM ; [facility] Note: was Closed. History of Hematologic Disorders 07/21/2014 Unknown SHASTA SHORT MD Resolved Last Documented On 04/03/2015 10:52AM ; [facility] Note: was Closed. History of Recurrent Loss (Gravid) 07/21/2014 Unknown SHASTA SHORT MD Resolve d Last Documented On 04/03/2015 10:52AM ; [facility] Note: was Closed. History of Reported Physical Trauma 07/21/2014 Unknown SHASTA SHORT MD Resolved Last Documented On 04/03/2015 10:52AM ; [facility] Note: was Closed. Tobacco Use 07/21/2014 Unknown SHASTA SHORT MD Resolve d Last Documented On 04/03/2015 10:52AM ; [facility] Note: was Closed. Reported Previous Std 07/21/2014 Unknown SHASTA SHORT MD Resolved Last Documented On 04/03/2015 10:52AM ; [facility] Note: was Closed. Maternal Blood Type Rh- 05/11/2014 Unknown SHASTA Arreola MD Resolved Last Documented On 04/03/2015 10:52AM ; [facility] Note: was Closed. Preeclampsia - Antepartum Condition Or Prior Complicated Del 11/15/2011 Unknown MARIA D DE LA ROSA M.D. Resolved Last Documented On 02/28/2012 10:55AM ; [facility] Note: was Closed. ANEMIA IN PREG-UNSPEC 10/22/2011 Unknown NERY DE LA ROSA M.D. Resolved Last Documented On 02/28/2012 10:55AM ; [facility] Note: was Closed. ESOPHAGEAL REFLUX 09/20/2011 Morena DE LA ROSA M.D. Resolved Last Documented On 02/28/2012 10:55AM ; [facility] Note: was Closed. History of Abnormal Pap Smear 07/16/2011 Unknown SHASTA SHORT MD Resolved Last Documented On 02/28/2012 10:55AM ; [facility] Note: was Closed. History of Essential Hypertension 07/16/2011 Morena DE LA ROSA M.D. Resolved Last Documented On 02/28/2012 10:55AM ; [facility] Note: was Closed. 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 Resolved Last Documented On 02/28/2012 10:55AM ; [facility] Note: was Closed. Tobacco Use 07/16/2011 Unknown SHASTA SHORT MD Resolve d Last Documented On 02/28/2012 10:55AM ; [facility] Note: was Closed. Respiratory Disorders 07/16/2011 Unknown NERY DE LA ROSA M.D. Resolved Last Documented On 02/28/2012 10:55AM ; [facility] Note: was Closed. Smoking During 07/16/2011 Unknown YULI DE LA ROSA M.D. Resolved Last Documented On 02/28/2012 10:55AM ; [facility] Note: was Closed. TOBACCO USE DISORDER 07/16/2011 Unknown MARIA D DE LA ROSA M.D. Resolved Last Documented On 02/28/2012 10:55AM ; [facility] Note: was Closed. VACCIN FOR INFLUENZA 07/16/2011 Unknown MARIA D DE LA ROSA M.D. Resolved Last Documented On 02/28/2012 10:55AM ; [facility] Note: was Closed. Visit For: Exam For Nuchal Translucency Testing 07/16/2011 Unknown MARIA D DE LA ROSA M.D. Resolved Last Documented On 02/28/2012 10:55AM ; [facility] Note: was Closed. Maternal Blood Type Rh- 04/12/2011 Unknown SHASTA Arreola MD Resolved Last Documented On 02/28/2012 10:55AM ; [facility] Note: was Closed. Plan of Treatment Findings Encounter Date Ordered Clinical summary pro vided to patient WELL WOMAN - ESTABLISHED PT with LARA REYNA [facility] 10/03/2023 Last Documented On 4 10:18AM ; [facility] Ordered follow-up visit 1 ye ar or as needed WELL WOMAN - ESTABLISHED PT with LARA REYNA [facility] 10/03/2023 Last Documented On 4 10:18AM ; [facility] Reminded pt. that because Fi lshie clip not seen on recent CT scan done by PCP- she should use barrier method for contraception like condoms. Will f/u with Dr. Arthur in 2 weeks for EMB and colpo results. Post procedural instructions reviewed - see handout in chart PROCEDURE OFFICE with LARA REYNA [facility] 11/29/2022 Last Documented On 3 1:28PM ; [facility] Ordered Clinical summary pro vided to patient WELL WOMAN - NEW PATIENT with LARA REYNA WHNP-BC 09/27/2022 Last Documented On 3 10:53AM ; [facility] Ordered follow-up visit 1 ye ar or as needed WELL WOMAN - NEW PATIENT with LARA REYNA WHNP-BC 09/27/2022 Last Documented On 3 10:53AM ; [facility] Ordered Clinical summary pro vided to patient NEW TRAVELING PHLEBOTOMIST EXAM with LARA REYNA WHNP-BC 07/16/2019 Last Documented On 0 10:42AM ; [facility] Ordered follow-up visit 1 ye ar or as needed NEW TRAVELING PHLEBOTOMIST EXAM with LARA REYNA WHNP-BC 07/16/2019 Last Documented On 0 10:42AM ; [facility] Ordered Clinical summary pro vided to patient RETURN OB EXAM with LARA REYNA NP-BC 12/23/2014 Last Documented On 5 1:50PM ; [facility] Ordered Clinical summary pro vided to patient RETURN OB EXAM with LARA REYNA NP-BC 12/09/2014 Last Documented On 5 10:05AM ; [facility] Ordered Clinical summary pro vided to patient RETURN OB EXAM with LARA REYNA WHNP-BC 11/24/2014 Last Documented On 5 3:19PM ; [facility] Ordered Clinical summary pro vided to patient RETURN OB EXAM with LARA REYNA NP-BC 11/11/2014 Last Documented On 5 1:47PM ; [facility] Ordered blood typing Rh nega tive s/p Rhogam today INJECTION with SHASTA SHORT MD 02/21/2014 Last Documented On 4 3:16PM ; [facility] Ordered quantitative HCG level ordered INJECTION with SHASTA SHORT MD 02/21/2014 Last Documented On 4 3:16PM ; [facility] Ordered blood typing Rh nega tive already s/p Rhogam PROBLEM VISIT with SHASTA SHORT MD 08/19/2013 Last Documented On 4 2:35PM ; [facility] Ordered quantitative HCG lev el being ordered today since urine HCG still + PROBLEM VISIT with SHASTA SHORT MD 08/19/2013 Last Documented On 4 2:35PM ; [facility] Ordered blood typing Rh nega tive so Rhogam given today INJECTION with SHASTA SHORT MD 08/02/2013 Last Documented On 4 4:43PM ; [facility] Ordered quantitative HCG lev el >15,000 on 07/30 INJECTION with SHASTA SHORT MD 08/02/2013 Last Documented On 4 4:43PM ; [facility] Zofran rx given for ongoing nausea - not really vomiting much, but she is not getting any relief from reglan MISSED MENSES with LARA REYNA WHNP-BC 06/20/2011 Last Documented On 2 11:35AM ; [facility] Ordered follow-up visit 1 ye ar or as needed PAP SMEAR ONLY with LARA REYNA WHNP-BC 01/18/2011 Last Documented On 1 3:26PM ; [facility] Ordered follow-up visit 1 ye ar or as needed NEW TRAVELING PHLEBOTOMIST EXAM with VICKY JURADO 10/17/2009 Last Documented On 0 3:57PM ; [facility] Pending Tests Order Diagnosis Results Due Ordering P rovider Lab TISSUE, SPECIMEN A 08/26/13 SHASTA SHORT MD Last Documented On 4 2:39PM ; [facility] In office procedures - *Clia Waived Labs Urine Test Irregular menstruation, unspecified 10/17/23 LARA REYNA WHNP-BC Last Documented On 4 10:07AM ; [facility] Radiology @ other - *MAMMOGRAPHY SCREENING MAMMOGRAM Encntr screen mammogram for malignant neoplasm of breast 10/17/23 LARA REYNA WHNP-BC Last Documented On 4 10:23AM ; [facility] In office procedures - *Clia Waived Labs *FOBT* Fecal Occult Blood Test Encounter for screening for malignant neoplasm of rectum 10/17/23 LARA REYNA WHNP-BC Last Documented On 4 10:07AM ; [facility] Instructions to patient Instructions for patient : B reast Self Exam discussed Last Documented On 4 9:54AM ; [facility] Intervention and counseling on cessation of tobacco use Last Documented On 4 10:04AM ; [facility] Lose weight Last Documented On 4 9:56AM ; [facility] Colonoscopy Handout given to patient Last Documented On 4 9:56AM ; [facility] Instructions for patient : B reast Self Exam discussed Last Documented On 3 10:21AM ; [facility] Safe sex counseling Last Documented On 3 10:51AM ; [facility] Instructions for patient : B reast Self Exam discussed Last Documented On 0 10:29AM ; [facility] Safe sex counseling Last Documented On 0 10:41AM ; [facility] Instructions for patient : B reast Self Exam discussed Last Documented On 4 1:45PM ; [facility] Instructions for patient : B reast Self Exam discussed Last Documented On 3 4:14PM ; [facility] May resume normal activities as tolerated Last Documented On 1 10:11AM ; [facility] Instructions for patient : B reast Self Exam discussed Last Documented On 1 3:03PM ; [facility] Instructions for patient : B reast Self Exam discussed and technique reviewed Last Documented On 0 3:28PM ; [facility] Recommend diet and exercise at least 30 min three times per week Last Documented On 0 3:28PM ; [facility] Recommend CBC, TSH, fasting glucose, fasting lipid panel if patient aged 25 or older Last Documented On 0 3:28PM ; [facility] Recommend preventative vacci nation including but not limited to influenza/flu vaccine, DTP, Rubella, Hepatitis B vaccination series ~ ~Gave handouts on Mirena ~Smoking Cessation Last Documented On 0 3:56PM ; [facility] Education and Decision Aids were provided during visit for: Patient Education: Daily daniel cium and vitamin D Last Documented On 4 9:54AM ; [facility] Patient Education: weight be aring exercise Last Documented On 4 9:54AM ; [facility] Smoking cessation advised Last Documented On 4 9:56AM ; [facility] INFORMED CONSENT DISCUSSION: Endometrial biopsy was discussed in detail including discomfort, insufficient specimen with need to repeat test, and rare incidence of uterine perforation. Patient expressed understanding of the above and consented to the procedure Last Documented On 3 1:08PM ; [facility] Smoking cessation advised Last Documented On 3 1:10PM ; [facility] INFORMED CONSENT DISCUSSION: Colposcopy was discussed in detail including risk of post procedure bleeding and infection. Patient is not to have anything in the vagina till all of the discharge quits following the procedure. Patient expressed understanding of the above and consented to the procedure Last Documented On 3 2:42PM ; [facility] Patient Education: Daily daniel cium and vitamin D Last Documented On 3 10:21AM ; [facility] Patient Education: weight be aring exercise Last Documented On 3 10:21AM ; [facility] Smoking cessation advised Last Documented On 3 10:23AM ; [facility] Patient Education: Daily daniel cium and vitamin D Last Documented On 0 10:29AM ; [facility] Patient Education: weight be aring exercise Last Documented On 0 10:29AM ; [facility] Smoking cessation advised Last Documented On 0 10:29AM ; [facility] STD screening desired and or dered (cultures only since trying to conceive) Last Documented On 4 1:57PM ; [facility] Smoking cessation advised Last Documented On 3 3:01PM ; [facility] STD screening offered and de clined Last Documented On 3 4:14PM ; [facility] New OB form given to patient SAB precautions reviewed and pnv samples given. Advised H1N1 and seasonal flu vaccine Last Documented On 2 11:25AM ; [facility] Patient counseling : discuss ed with patient importance of f/u re: increased risks of cervical cancer Last Documented On 1 10:11AM ; [facility] INFORMED CONSENT DISCUSSION: Colposcopy was discussed in detail including risk of post procedure bleeding. Patient is not to have intercourse for 2 weeks following the procedure. Patient expressed understanding of the above and consented to the procedure Last Documented On 1 4:04PM ; [facility] Patient Education: Daily daniel cium and vitamin D Last Documented On 1 3:04PM ; [facility] Patient Education: weight be aring exercise Last Documented On 1 3:04PM ; [facility] Smoking cessation advised Last Documented On 1 3:05PM ; [facility] New OB form given to patient seeking - also advised pnv - rx sent. We also briefly discussed the increased risk of > 35 yo and with her h/o pre-elcampsia with last (18 years ago) Last Documented On 1 3:25PM ; [facility] Assessments Includes: Assessments for all patient encounters Findings Encounter Date NORMAL FEMALE EXAM WELL WOMAN - ESTABLISHED PT w ith LARA REYNA [facility] 10/03/2023 Last Documented On 4 10:18AM ; [facility] Screening Malig. Neoplasm Rectum WELL WO MAN - ESTABLISHED PT with LARA REYNA [facility] 10/03/2023 Last Documented On 4 10:18AM ; [facility] [Unspecified abnormal cytolo gical findings in specimens from cervix uteri] abnormal Pap smear: atypical glandular cells FOLLOW UP with KETTY ARTHUR MD 12/10/2022 Last Documented On 3 4:44PM ; [facility] Contraceptive management FOLLOW UP with KETTY SALVADOR MD 12/10/2022 Last Documented On 3 4:44PM ; [facility] Assessment of abnormal Pap s mear of cervix PROCEDURE OFFICE with LARA REYNA [facility] 11/29/2022 Last Documented On 3 1:28PM ; [facility] Assessment of abnormal Pap s mear: atypical glandular cells PROCEDURE OFFICE with LARA REYNA [facility] 11/29/2022 Last Documented On 3 1:28PM ; [facility] [Unspecified abnormal cytolo gical findings in specimens from cervix uteri] abnormal Pap smear: atypical glandular cells COLPOSCOPY with KETTY ARTHUR MD 11/04/2022 Last Documented On 3 2:44PM ; [facility] NORMAL FEMALE EXAM WELL WOMAN - NEW PATIENT with LARA REYNA [facility]- 09/27/2022 Last Documented On 3 10:53AM ; [facility] Screening Malig. Neoplasm Rectum WELL WO MAN - NEW PATIENT with LARA REYNA [facility]- 09/27/2022 Last Documented On 3 10:53AM ; [facility] NORMAL FEMALE EXAM NEW TRAVELING PHLEBOTOMIST EXAM with LARA HIGHTOWER [facility] 07/16/2019 Last Documented On 0 10:42AM ; [facility] Screening Malig. Neoplasm Rectum NEW TRAVELING PHLEBOTOMIST EXAM wi th LARA REYNA [facility] 07/16/2019 Last Documented On 0 10:42AM ; [facility] POST OP VISIT POST OP VISIT with SHASTA SHORT MD 05/30/2015 Last Documented On 6 11:38AM ; [facility] Normal checkup (6 - 42 wk) * PHONE CALL with SHASTA SHORT MD 02/03/2015 Last Documented On 5 3:31PM ; [facility] Normal checkup (6 - 42 wk) RETURN OB EX AM with SHASTA SHORT MD 02/02/2015 Last Documented On 5 2:34PM ; [facility] Normal checkup (6 - 42 wk) * PHONE CALL with SHASTA SHORT MD 01/31/2015 Last Documented On 5 11:02AM ; [facility] Normal checkup (6 - 42 wk) RETURN OB EX AM with SHASTA SHORT MD 01/26/2015 Last Documented On 5 3:23PM ; [facility] Normal checkup (6 - 42 wk) RETURN OB EX AM with SHASTA SHORT MD 01/20/2015 Last Documented On 5 2:37PM ; [facility] Normal checkup (6 - 42 wk) [Pat ient Encounter] with SHASTA SHORT MD 01/10/2015 Last Documented On 5 12:43PM ; [facility] Normal checkup (6 - 42 wk) RETURN OB EX AM with SHASTA SHORT MD 01/05/2015 Last Documented On 5 3:57PM ; [facility] Normal checkup (6 - 42 wk) RETU RN OB EXAM with LARA REYNA [facility] 12/23/2014 Last Documented On 5 1:50PM ; [facility] Normal checkup (6 - 42 wk) RETU RN OB EXAM with LARA REYNA [facility] 12/09/2014 Last Documented On 5 10:05AM ; [facility] Normal checkup (6 - 42 wk) RETU RN OB EXAM with LARA REYNA [facility] 11/24/2014 Last Documented On 5 3:19PM ; [facility] Normal checkup (6 - 42 wk) RETU RN OB EXAM with LARA REYNA [facility] 11/11/2014 Last Documented On 5 1:47PM ; [facility] Normal checkup (6 - 42 wk) RETURN OB EX AM with SHASTA SHORT MD 10/21/2014 Last Documented On 5 2:15PM ; [facility] Normal checkup (6 - 42 wk) * PHONE CALL with SHASTA SHORT MD 10/19/2014 Last Documented On 5 9:28AM ; [facility] Normal checkup (6 - 42 wk) RETURN OB EX AM with SHASTA SHORT MD 09/16/2014 Last Documented On 5 2:06PM ; [facility] Normal checkup (6 - 42 wk) RETU RN OB EXAM with LARA A AXEL [facility] 08/18/2014 Last Documented On 5 11:09AM ; [facility] Normal checkup (6 - 42 wk) NEW OB EXAM with SHASTA SHORT MD 07/21/2014 Last Documented On 5 1:41PM ; [facility] Amenorrhea MISSED MENSES with SHASTA SHORT MD 06/16/2014 Last Documented On 5 11:16AM ; [facility] Complete spontaneous abortio n without complications PROBLEM VISIT with SUREKHA MELENDEZ RN AZAR 03/09/2014 Last Documented On 4 4:11PM ; [facility] Fatigue PROBLEM VISIT with SUREKHA MELENDEZ RN WHNP BC 03/09/2014 Last Documented On 4 4:11PM ; [facility] Routine pelvic exam TRAVELING PHLEBOTOMIST EXAM with SHASTA SHORT MD 09/23/2013 Last Documented On 4 3:52PM ; [facility] Missed INJECTION with SHASTA SHORT MD 08/02/2013 Last Documented On 4 4:43PM ; [facility] Cystocele PROBLEM VISIT with SHASTA SHORT MD 04/02/2013 Last Documented On 3 10:13AM ; [facility] Dyspareunia PROBLEM VISIT with SHASTA SHORT MD 04/02/2013 Last Documented On 3 10:13AM ; [facility] Female pelvic pain PROBLEM VISIT with SHASTA PEOPLES MD 04/02/2013 Last Documented On 3 10:13AM ; [facility] Contraceptive surveillance PROCEDURE OFFICE with SHATSA SHORT MD 03/04/2013 Last Documented On 3 3:07PM ; [facility] Ovarian cyst PROCEDURE OFFICE with SHASTA PEOPLES MD 03/04/2013 Last Documented On 3 3:07PM ; [facility] Removal of IUD PROCEDURE OFFICE with SHASTA PEOPLES MD 03/04/2013 Last Documented On 3 3:07PM ; [facility] Contraceptive management PELVIC EXAM with SHASTA SHORT MD 01/29/2013 Last Documented On 3 11:11AM ; [facility] Female pelvic pain PELVIC EXAM with SHASTA Arreola MD 01/29/2013 Last Documented On 3 11:11AM ; [facility] Ovarian cyst PELVIC EXAM with SHASTA Menezes 01/29/2013 Last Documented On 3 11:11AM ; [facility] Contraceptive management 1 MONTH CHECK with SHASTA SHORT MD 10/15/2012 Last Documented On 3 11:46AM ; [facility] Contraceptive management: In sertion of IUD IUD INSERTION with SHASTA SHORT MD 08/21/2012 Last Documented On 3 2:55PM ; [facility] Routine pelvic exam NEW TRAVELING PHLEBOTOMIST EXAM with SHASTA PEOPLES MD 06/25/2012 Last Documented On 3 4:21PM ; [facility] Normal routine history and p hysical - POST VISIT with MARIA D DE LA ROSA M.D. 02/28/2012 Last Documented On 2 10:55AM ; [facility] Normal checkup (6 - 42 wk) RETU RN OB EXAM with MARIA D DE LA ROSA M.D. 01/14/2012 Last Documented On 2 1:45PM ; [facility] Normal checkup (6 - 42 wk) RETU RN OB EXAM with MARIA D DE LA ROSA M.D. 01/10/2012 Last Documented On 2 10:23AM ; [facility] Normal checkup (6 - 42 wk) RETU RN OB EXAM with MARIA D DE LA ROSA M.D. 01/01/2012 Last Documented On 2 2:38PM ; [facility] Normal checkup (6 - 42 wk) RETU RN OB EXAM with MARIA D DE LA ROSA M.D. 12/27/2011 Last Documented On 2 3:54PM ; [facility] Normal checkup (6 - 42 wk) RETU RN OB EXAM with MARIA D DE LA ROSA M.D. 12/23/2011 Last Documented On 2 2:43PM ; [facility] Normal checkup (6 - 42 wk) RETU RN OB EXAM with LARA GARNETT 12/13/2011 Last Documented On 2 3:39PM ; [facility] Normal checkup (6 - 42 wk) * PH ONE CALL with LARA GARNETT 12/09/2011 Last Documented On 2 11:00AM ; [facility] Normal checkup (6 - 42 wk) * PH ONE CALL with MARIA D DE LA ROSA M.D. 11/29/2011 Last Documented On 2 9:38AM ; [facility] Normal checkup (6 - 42 wk) RETU RN OB EXAM with MARIA D DE LA ROSA M.D. 11/28/2011 Last Documented On 2 3:35PM ; [facility] Normal checkup (6 - 42 wk) RETU RN OB EXAM with LARAABIDA REYNA [facility] 11/15/2011 Last Documented On 2 2:59PM ; [facility] Normal checkup (6 - 42 wk) RETU RN OB EXAM with MARIA D DE LA ROSA M.D. 11/01/2011 Last Documented On 2 2:36PM ; [facility] Normal checkup (6 - 42 wk) RETU RN OB EXAM with MARIA D DE LA ROSA M.D. 10/18/2011 Last Documented On 2 3:50PM ; [facility] Normal checkup (6 - 42 wk) RETU RN OB EXAM with MARIA D DE LA ROSA M.D. 09/20/2011 Last Documented On 2 3:00PM ; [facility] Normal checkup (6 - 42 wk) * PH ONE CALL with MARIA D DE LA ROSA M.D. 08/27/2011 Last Documented On 2 5:07PM ; [facility] Normal checkup (6 - 42 wk) RETU RN OB EXAM with LARA Obi AXEL DANG-JH 08/16/2011 Last Documented On 2 3:29PM ; [facility] Normal checkup (6 - 42 wk) NEW OB EXAM with MARIA D DE LA ROSA M.D. 07/16/2011 Last Documented On 2 3:46PM ; [facility] Amenorrhea MISSED MENSES with LARA Obi AXEL AZAR- 06/20/2011 Last Documented On 2 11:35AM ; [facility] Assessment of abnormal Pap s mear of cervix COLPOSCOPY with LARA Obi AXEL [facility]- 04/17/2011 Last Documented On 1 4:23PM ; [facility] Assessment of cervical Pap s mear: low grade squamous intraepithelial lesion COLPOSCOPY with LARA Obi AXEL [facility] 04/17/2011 Last Documented On 1 4:23PM ; [facility] Normal routine history and physical PAP SMEAR ONLY with LARA A REYNA AZAR- 01/18/2011 Last Documented On 1 3:26PM ; [facility] Routine pelvic exam PAP SMEAR ONLY with LARA Obi REYNA [facility] 01/18/2011 Last Documented On 1 3:26PM ; [facility] Contraceptive management NEW TRAVELING PHLEBOTOMIST EXAM with HARDYSABRINA LAMBERT M URAM 10/17/2009 Last Documented On 0 3:57PM ; [facility] NORMAL FEMALE EXAM NEW TRAVELING PHLEBOTOMIST EXAM with VICKY M URAM 10/17/2009 Last Documented On 0 3:57PM ; [facility] SCREENING FOR STD NEW TRAVELING PHLEBOTOMIST EXAM with VICKY M URAM 10/17/2009 Last Documented On 0 3:57PM ; [facility] Instructions Includes: Instructions for all patient encounters Instructions to patient Instructions for patient : B reast Self Exam discussed Last Documented On 4 9:54AM ; [facility] Intervention and counseling on cessation of tobacco use Last Documented On 4 10:04AM ; [facility] Lose weight Last Documented On 4 9:56AM ; [facility] Colonoscopy Handout given to patient Last Documented On 4 9:56AM ; [facility] Instructions for patient : B reast Self Exam discussed Last Documented On 3 10:21AM ; [facility] Safe sex counseling Last Documented On 3 10:51AM ; [facility] Instructions for patient : B reast Self Exam discussed Last Documented On 0 10:29AM ; [facility] Safe sex counseling Last Documented On 0 10:41AM ; [facility] Instructions for patient : B reast Self Exam discussed Last Documented On 4 1:45PM ; [facility] Instructions for patient : B reast Self Exam discussed Last Documented On 3 4:14PM ; [facility] May resume normal activities as tolerated Last Documented On 1 10:11AM ; [facility] Instructions for patient : B reast Self Exam discussed Last Documented On 1 3:03PM ; [facility] Instructions for patient : B reast Self Exam discussed and technique reviewed Last Documented On 0 3:28PM ; [facility] Recommend diet and exercise at least 30 min three times per week Last Documented On 0 3:28PM ; [facility] Recommend CBC, TSH, fasting glucose, fasting lipid panel if patient aged 25 or older Last Documented On 0 3:28PM ; [facility] Recommend preventative vacci nation including but not limited to influenza/flu vaccine, DTP, Rubella, Hepatitis B vaccination series ~ ~Gave handouts on Mirena ~Smoking Cessation Last Documented On 0 3:56PM ; [facility] Education and Decision Aids were provided during visit for: Patient Education: Daily daniel cium and vitamin D Last Documented On 4 9:54AM ; [facility] Patient Education: weight be aring exercise Last Documented On 4 9:54AM ; [facility] Smoking cessation advised Last Documented On 4 9:56AM ; [facility] INFORMED CONSENT DISCUSSION: Endometrial biopsy was discussed in detail including discomfort, insufficient specimen with need to repeat test, and rare incidence of uterine perforation. Patient expressed understanding of the above and consented to the procedure Last Documented On 3 1:08PM ; [facility] Smoking cessation advised Last Documented On 3 1:10PM ; [facility] INFORMED CONSENT DISCUSSION: Colposcopy was discussed in detail including risk of post procedure bleeding and infection. Patient is not to have anything in the vagina till all of the discharge quits following the procedure. Patient expressed understanding of the above and consented to the procedure Last Documented On 3 2:42PM ; [facility] Patient Education: Daily daniel cium and vitamin D Last Documented On 3 10:21AM ; [facility] Patient Education: weight be aring exercise Last Documented On 3 10:21AM ; [facility] Smoking cessation advised Last Documented On 3 10:23AM ; [facility] Patient Education: Daily daniel cium and vitamin D Last Documented On 0 10:29AM ; [facility] Patient Education: weight be aring exercise Last Documented On 0 10:29AM ; [facility] Smoking cessation advised Last Documented On 0 10:29AM ; [facility] STD screening desired and or dered (cultures only since trying to conceive) Last Documented On 4 1:57PM ; [facility] Smoking cessation advised Last Documented On 3 3:01PM ; [facility] STD screening offered and de clined Last Documented On 3 4:14PM ; [facility] New OB form given to patient SAB precautions reviewed and pnv samples given. Advised H1N1 and seasonal flu vaccine Last Documented On 2 11:25AM ; [facility] Patient counseling : discuss ed with patient importance of f/u re: increased risks of cervical cancer Last Documented On 1 10:11AM ; [facility] INFORMED CONSENT DISCUSSION: Colposcopy was discussed in detail including risk of post procedure bleeding. Patient is not to have intercourse for 2 weeks following the procedure. Patient expressed understanding of the above and consented to the procedure Last Documented On 1 4:04PM ; [facility] Patient Education: Daily daniel cium and vitamin D Last Documented On 1 3:04PM ; [facility] Patient Education: weight be aring exercise Last Documented On 1 3:04PM ; [facility] Smoking cessation advised Last Documented On 1 3:05PM ; [facility] New OB form given to patient seeking - also advised pnv - rx sent. We also briefly discussed the increased risk of > 35 yo and with her h/o pre-elcampsia with last (18 years ago) Last Documented On 1 3:25PM ; [facility] Medical Equipment - Implanted Devices Includes: Current and historical Devices No Medical Equipment Recorded Medications Includes: Current and historical Medications Current Medications (continue as prescribed) Advil 200 MG Oral Capsule 09/27/2022 Provider: Diagnosis: Last Documented On 12/10/2022 4:41PM By KETTY ARTHUR MD ; [facility] Stool Softener 100 MG Oral Capsule 07/16/2019 Pr ovider: Diagnosis: Last Documented On 12/10/2022 4:41PM By KETTY ARTHUR MD ; [facility] Dicyclomine HCl 10 MG Oral Capsule 07/16/2019 Provid er: Diagnosis: Last Documented On 12/10/2022 4:41PM By KETTY ARTHUR MD ; [facility] Past Medications on file Amoxicillin 250 MG Oral Capsule 10/25/2022 - 3 Provider: Diagnosis: Last Documented On 11/29/2022 1:11PM By Jolly WAITE ; [facility] HYDROcodone-Acetaminophen 5- 325 MG Oral Tablet 10/03/2022 - 10/03/2023 Provider: GERARDO GRECO MD Diagnosis: Last Documented On 4 10:05AM By Marlene WAITE ; [facility] Pantoprazole Sodium 40 MG Or al Tablet Delayed Release 10/03/2022 - 10/03/2023 Provider: GERARDO GRECO MD Diagnosis: Last Documented On 4 10:05AM By Marlene WAITE ; [facility] Cyclobenzaprine HCl 10 MG Or al Tablet 01/25/2022 - 10/03/2023 Provider: MARIPOSA POWELL MD Diagnosis: Last Documented On 4 10:05AM By Marlene WAITE ; [facility] Famotidine 20 MG Oral Tablet Chewable 07/16/2019 - 04/2023 Provider: Diagnosis: Last Documented On 3 1:40PM By MARGARITA WAITE ; [facility] Breast Pump Miscellaneous 01/26/2015 - 01/26/2016 Prov ider: SHASTA SHORT MD Diagnosis: as directed Last Documented On 01/26/2015 3:22PM By SHASTA SHORT MD ; [facility] Iron 325 (65 Fe) MG Tablet 11/29/2014 - 07/16/2019 Provider: Diagnosis: Last Documented On 0 10:20AM By KEY WAITE ; [facility] Ondansetron HCl 4 MG OR TABS 06/16/2014 - 07/21/2014 P rovider: SHASTA SHORT MD Diagnosis: Last Documented On 5 1:18PM By LUCIO LIND LPN ; [facility] Plus/Iron 27-1 MG OR TABS 03/09/2014 - 03/04/2015 Provider: SUREKHA MELENDEZ RN WHNP BC Diagnosis: OTHER FAMILY DAVID NNING ADVICE NEC Last Documented On 4 4:03PM By SUREKHA MELENDEZ AZAR-BC ; [facility] Bactrim DS 800-160 MG OR TABS 09/06/2013 - 09/09/2013 Provider: Diagnosis: Called into [facility] Last Documented On 09/06/2013 8:54AM By FLAVIO COLLAZO ; [facility] miSOPROStol 200 MCG OR TABS 08/02/2013 - 08/04/2013 Pr ovider: SHASTA SHORT MD Diagnosis: MISSED 4 tabs (800 mcg) po X 1, may repeat 24 hours later if needed Last Documented On 08/02/2013 4:41PM By SHASTA SHORT MD ; [facility] PERSONAL LINES INSURANCE AGENT-PNV-DHA 28-1-215.8 MG OR CAPS 06/24/2013 - 05/20/2014 Provider: LARA MILLER FRONT DESK AGENT-BC Diagnosis: phoned to [facility]. Last Documented On 4 2:53PM By LUCIO LIND LPN ; [facility] Stanton 5-325 MG OR TABS 04/02/2013 - 08/02/2013 Provide r: Diagnosis: Last Documented On 08/02/2013 4:03PM By FLAVIO COLLAZO ; [facility] Xanax 0.25 MG OR TABS 01/29/2013 - 08/02/2013 Provider : Diagnosis: TID PRN Last Documented On 08/02/2013 4:03PM By FLAVIO COLLAZO ; [facility] Stanton 5-325 MG OR TABS 01/26/2013 - 02/02/2013 Provide r: Diagnosis: [facility] [place] Last Documented On 01/26/2013 1:39PM By FLAVIO COLLAZO ; [facility] Mirena (52 MG) 20 MCG/24HR IU IUD 08/21/2012 - 013 Provider: Diagnosis: Inserted 08-21-12 Last Documented On 03/04/2013 3:18PM By FLAVIO COLLAZO ; [facility] Estradiol 1 MG OR TABS 06/25/2012 - 07/16/2012 Provide r: SHASTA SHORT MD Diagnosis: Last Documented On 06/25/2012 4:19PM By SHASTA SHORT MD ; [facility] Depo-Provera 150 MG/ML IM SUSP 05/28/2012 - 08/21/2012 Provider: SHASTA SHORT MD Diagnosis: i prefilled syringe for IM injection Last Documented On 3 2:29PM By LUCIO LIND LPN ; [facility] Depo-Provera 150 MG/ML IM SUSP 02/28/2012 - 08/21/2012 Provider: Diagnosis: LEFT GLUTPT TOLERATED WELL Last Documented On 3 2:30PM By LUCIO LIND LPN ; [facility] Depo-Provera 150 MG/ML IM SUSP 02/27/2012 - 02/28/2012 Provider: MARIA D DE LA ROSA M.D. Diagnosis: Contraceptive Ma ngmt NOS IM INJECTION IN OFFICE Last Documented On 2 10:54AM By DR. MARIA D DE LA ROSA ; [facility] Reclast 5 MG/100ML IV SOLN 01/10/2012 - 01/10/2012 Provider: MARIA D OQUENDO M.D. Diagnosis: OSTEOPOROSIS NOS 5 MG IV INFUSION OVER 15 MIN Last Documented On 2 3:41PM By DR. MARIA D DE LA ROSA ; [facility] Ferrous Sulfate 325 (65 Fe) MG OR TABS 10/22/2011 - 02/19/2012 Provider: MARIA D OQUENDO M.D. Diagnosis: ANEMIA IN PREG-U NSPEC Last Documented On 2 4:46PM By DR. MARIA D DE LA ROSA ; [facility] Pepcid 20 MG OR TABS 09/20/2011 - 02/28/2012 Provider: MARIA D DE LA ROSA M.D. Diagnosis: ESOPHAGEAL REFLU X Last Documented On 2 10:54AM By DR. MARIA D DE LA ROSA ; [facility] Ferrous Sulfate 325 (65 Fe) MG OR TABS 08/19/2011 - 12/17/2011 Provider: MARIA D OQUENDO M.D. Diagnosis: ANEMIA IN PREG-U NSPEC Last Documented On 2 11:13PM By DR. MARIA D DE LA ROSA ; [facility] Zofran 4 MG OR TABS 06/20/2011 - 08/19/2011 Provider: ALRA REYNA [facility]- Diagnosis: 1 sublingual (reditabs) q 8 hours prn - nausea and vomiting Last Documented On 2 11:41AM By LARA REYNA TEO ; [facility] Metoclopramide HCl 10 MG OR TABS 05/23/2011 - 06/12/2011 Provider: LARA MILLER FRONT DESK AGENT-BC Diagnosis: prn - nausea Last Documented On 1 4:12PM By LARA DANG- ; [facility] Triveen-Duo DHA 29-1-200 & 400 MG OR MISC 01/18/2011 - 05/18/2011 Provider: LARA REYNA [employer]ENT-BC Diagnosis: Last Documented On 1 3:26PM By LARA REYNA TEO ; [facility] Depo-Provera 150 MG/ML IM SUSP 09/18/2010 - 05/28/2012 Provider: VICKY JURADO Diagnosis: Last Documented On 05/28/2012 5:01PM By SHASTA SHORT MD ; [facility] Depo-Provera 150 MG/ML IM SUSP 04/03/2010 - 09/30/2010 Provider: VICKY JURADO Diagnosis: Inject IM Last Documented On 04/03/2010 9:07AM By VICKY JURADO ; [facility] MetroGel-Vaginal 0.75% VA GEL 11/08/2009 - 11/15/2009 Provider: VICKY JURADO Diagnosis: apply per vagina x 7 days Last Documented On 11/08/2009 3:55PM By DESTINY HOOVER ; [facility] Lexapro 10 MG OR TABS 10/17/2009 - 10/12/2010 Provider : VICKY JURADO Diagnosis: ANXIETY STATE NO S Last Documented On 10/17/2009 3:44PM By VICKY JURADO ; [facility] Medications Administered Includes: Administered Medications in patient's chart Medications Administered Diagnosis Date Pro vider Depo-Provera 150 MG/ML IM SUSP 02/28/2012 MARIA D DE LA ROSA M.D. LEFT GLUT Last Documented On 2 10:53AM By AWILDA ARNOLD MA ; [facility] RhoGAM Ultra-Filtered Plus 3 00 MCG IM INJ THREATEN ABORT-ANTEPART 02/21/2014 SHASTA SHORT MD given IM left gluteal; tolerated well; n o adverse reaction. Last Documented On 4 3:11PM By LUCIO LIND LPN ; [facility] RhoGAM Ultra-Filtered Plus 300 MCG IM INJ SUPERVIS OTH NORMAL PREG [facility]/2014 [facility] Last Documented On 5 3:10PM By KEY WAITE ; [facility] RhoGAM Ultra-Filtered Plus 300 MCG IM INJ 10/18/2011 MARIA D DE LA ROSA M.D. Last Documented On 2 2:55PM By SUMAN HOPPER MA ; [facility] Depo-Provera 150 MG/ML IM SUSP 09/25/2010 Last Documented On 1 3:44PM By KEY WAITE ; [facility] RhoGAM Ultra-Filtered Plus 3 00 MCG IM INJ RH ISOIMMUNIZAT-ANTEPART 08/02/2013 SHASTA Menezes Inj administered IM to pts L dorsoglutea l region Last Documented On 4 4:03PM By FLAVIO COLLAZO ; [facility] Depo-Provera 150 MG/ML IM SUSP 07/03/2010 Last Documented On 1 2:18PM By VICYK JURADO ; [facility] medroxyPROGESTERone Acetate 150 MG/ML IM SUSP 05/29/2012 SHASTA SHORT MD Administered RUOQ Gluteal wi thout incident. RTO 12 weeks for next inj. Last Documented On 3 2:51PM By JUANI RUSSELL LPN ; [facility] Vital Signs Includes: Vital Signs from 07/20/2023 through 07/20/2024 Vital Name 10/03/2023 10:01A Blood Pressure Sitting (mmHg) 120/80 Temp-Temporal 98.8 Height (in) 64 Weight (lb) 177 Body Mass Index 30.4 Body Surface Area 1.9 Last Documented: On 10/03/2023 10:01A M ; [facility] Results Includes: Results from 07/20/2023 through 07/20/2024 HCG QUANTITATIVE-SERUM [facility] Laboratory Ordered by LARA GARNETT on 09/23 [address] [place], [address] Collected: 10/03/2023 Report ed: 10/03/2023 13:52 tel:[phone] Last Documented On 4 8:38AM ; [facility] Reviewed on 10/23/2023; All test results are final unless otherwise noted. bHCG QUANT <1.2 mIU/mL None Last Documented On 10/21/2023 10:19PM ; [facility] Note: Gestation Week Range mIU/mL 4 4700-199144 5 3660-810647 6 03110-070783 7 [id number] 8 55966-503411 9 [id number] 10 47771-002769 11 6480-426482 12 6740-346139 13- [phone] [id number] Observer: (MAGALIS) FSH (ADULT OVER 15 YEARS OF AGE) [facility] Laboratory Ordered by LARA Harvey-BC on 10/03/2023 [address] , [place], [address] Collected: 10/03/2023 Report ed: 10/04/2023 12:38 tel:[phone] Last Documented On 4 8:38AM ; [facility] Reviewed on 10/23/2023; All test results are final unless otherwise noted. FSH 102.3 mIU/mL N (Normal) Last Documented On 10/21/2023 10:19PM ; [facility] Note: Reference Range Follicular Phase 2.5-10.2 Mid-cycle Peak 3.1-17.7 Luteal Phase 1.5- 9.1 Postmenopausal 23.0-116.3THIS TEST WAS PERFORMED AT:[employer] [id number] [facility] [place] [id number] VO,LUCRETIAesponsible Observer: (rfl) PAP WITH HPV [facility] La boratory Ordered by LARA PRIDE P-BC on 10/03/2023 [address] , [place], [address] Collected: 10/03/2023 Report ed: 10/07/2023 12:27 tel:[phone] Last Documented On 4 8:38AM ; [facility] Reviewed on 10/23/2023; All test results are final unless otherwise noted. HPV mRNA E6/E7 Not Detected (Not Detected) N (Normal) Last Documented On 4 10:19PM ; [facility] Note: Methodology: Business Intelligence Developer-Mediate d AmplificationThis assay detects E6/E7 viral messenger RNA (mRNA) from 14high-risk HPV types (16,18,31,33,35,39,45,51,52,56,58,59,66,68).Cervical sources are required for HPV testing.If a vaginal source from a patient who has had atotal hysterectomy with removal of cervix wassubmitted, please contact the testing laboratoryfor alternative testing options.For additional information, please refer tohttp://education.Synfora/faq/VGP557e6(This link if provided for information/educational purposes only.)THIS TEST WAS PERFORMED AT:[employer] [id number] [place] [id number] VO,MDEXPLANATORY NOTE:The Pap is a screening test for cervical cancer. It isnot a diagnostic test and is subject to false negativeand false positive results. It is most reliable when asatisfactory sample, regularly obtained, is submittedwith relevant clinical findings and history, and whenthe Pap result is evaluated along with historic andcurrent clinical information.THIS TEST WAS PERFORMED AT:[employer] [place] [address] [place] [address]TBBN-[id number] VO,MDResponsible Observer: (rfl) PAP SMEAR ABNORMAL? NO None Last Documented On 4 10:19PM ; [facility] Note: Responsible Observer: (TER) PAP WITH HPV See Note None Last Documented On 4 10:19PM ; [facility] Note: None [id number] isfactory for evaluation.Endocervical/transformation zone componentpresent.Cytology Results: Negative for intraepitheliallesion or malignancy.This Pap test has been evaluated with computerassisted technology.BKA, CT(ASCP)CT screening location: [place] [address] [address] [id number], CT(ASCP)CT screening location: [place] [address] [place], [id number] Observer: (TER) Reported Physicians [facility] Shaylee silver Ordered by LARA REYNA Elba - on 10/03/2023 [address] [facility], [place], [address] Collected: 10/03/2023 Report ed: 10/07/2023 12:27 tel:[phone] Last Documented On 4 8:38AM ; [facility] Reviewed on 10/23/2023; All test results are final unless otherwise noted. Reported Physicians See Note None Last Documented On 10/21/2023 10:19PM ; [facility] Note: Reported Physicians:Ordering: Lara ReynaAttending: LARA REYNAConsulting: GERARDO GRECO [facility] Ordered by LARA REYNA [facility]- on 09/23 Collected: Reported: 10/03/2023 10:26 Last Documented On 4 10:25AM ; [facility] All test results are final unless otherw ise noted. Urine UCG Negative N (Normal) Last Documented On 4 10:25AM ; [facility] INT. QC ACCEPTABLE? Yes N (Normal) Last Documented On 4 10:25AM ; [facility] LOT # & EXP. DATE [id number] 09/22/24 N (Normal) Last Documented On 4 10:25AM ; [facility] FOBT-FECAL OCCULT BLOOD TEST [facility] daniel Lab Ordered by LARA REYNA [facility] on 09/23 Collected: Reported: 10/03/2023 10:26 Last Documented On 4 10:25AM ; [facility] All test results are final unless otherw ise noted. OCCULT BLOOD: Negative (NEG.) N (Normal) Last Documented On 4 10:25AM ; [facility] INT. QC ACCEPTABLE? Yes N (Normal) Last Documented On 4 10:25AM ; [facility] [employer] [facility] LOT # & EXP. DATE [id number] 01/23/26 N (Normal) Last Documented On 4 10:25AM ; [facility] History of Present Illness History of Present Illness not supported for this document type No History of Present Illness Recorded Social History Description Last Updated Alcohol use Rare 10/03/2023 Last Documented On 4 10:18AM ; [facility] Not using drugs 10/03/2023 Last Documented On 4 10:18AM ; [facility] Sexually active with 1 partners in the l ast year 10/03/2023 Last Documented On 4 10:18AM ; [facility] Current smoker 09/27/2022 Last Documented On 3 10:53AM ; [facility] Has sex with males only 09/27/2022 Last Documented On 3 10:53AM ; [facility] Smoking Status Unknown Procedures and Surgical History Includes: Procedures from 07/20/2023 through 07/20/2024 Procedures Code Diagnosis Performing Provider Service Location Service Date URINE TEST 29320 Irregular menstruation, unspecified LARA REYNA [facility] 10/03/2023 Last Documented On 4 6:37PM ; [facility] FIT TEST-SCREENING FOR FECAL OCCULT BLOOD (CLIA WAIVED) 09083 Encounter for screening for malignant neoplasm of colon LARA REYNA [facility] 10/03/2023 Last Documented On 4 6:37PM ; [facility] OBTAINING A PAP SMEAR (DISTINCT PROCEDURAL SERVICE DIFFERENT SITE) Q0091 Encounter for screening for malignant neoplasm of cervix LARA REYNA [facility] 10/03/2023 Last Documented On 4 6:37PM ; [facility] Surgical History Last Updated Surgical / procedural histor y Surgery on R thigh ~pt has diverticulitis ~Cervical replacement of disks in neck 2021 ~EMB 11/29/22 Lara 12/10/2022 Last Documented On 3 4:44PM ; [facility] Previous colposcopy 04/17/2011 with Lizz foy; 11/04/22 [facility] 12/10/2022 Last Documented On 3 4:44PM ; [facility] History of tubal ligation Dr Short (right clip in pelvis somewhere per pt) 11/04/2022 Last Documented On 3 2:44PM ; [facility] History of cholecystectomy 07/16/2019 Last Documented On 0 10:42AM ; [facility] [facility] Medical History Includes: Medical History in patient's chart Description Last Updated Contraception: Condoms 10/03/2023 Last Documented On 4 10:18AM ; [facility] History of screening mammogram was perfo rmed 11/05/2022 10/03/2023 Last Documented On 4 10:18AM ; [facility] LMP: 06/202310/03/2023 Last Documented On 4 10:18AM ; [facility] Other method: Tubal ligation/ Condoms Last Documented On 3 4:44PM ; [facility] Result: abnormal KIM HPV+ 11/04/2022 Last Documented On 3 2:44PM ; [facility] History of colonoscopy fiberoptic was pe rformed 201809/27/2022 Last Documented On 3 10:53AM ; [facility] # 1 Delivery date: 12/07/92 09/27/2022 Last Documented On 3 10:53AM ; [facility] # 2 Delivery date: 01/15/12 09/27/2022 Last Documented On 3 10:53AM ; [facility] # 3 Delivery date: 02/06/15 09/27/2022 Last Documented On 3 10:53AM ; [facility] Bowel problems 09/27/2022 Last Documented On 3 10:53AM ; [facility] Elective (s) 0 09/27/2022 Last Documented On 3 10:53AM ; [facility] Gallbladder disease 09/27/2022 Last Documented On 3 10:53AM ; [facility] No. of miscarriages: 2 09/27/2022 Last Documented On 3 10:53AM ; [facility] No. of Pregnancies: 5 09/27/2022 Last Documented On 3 10:53AM ; [facility] Please list all surgeries: T ubal ligation, cholecystectomy, cervical disc's replaced, diverticulitis 09/27/2022 Last Documented On 3 10:53AM ; [facility] Previous live (s) 3 09/27/2022 Last Documented On 3 10:53AM ; [facility] Previous premature delivery(s) 0 023 Last Documented On 3 10:53AM ; [facility] Received all 3 doses of Hepatitis B vacc ine 09/27/2022 Last Documented On 3 10:53AM ; [facility] Sex of Child # 1: Female 09/27/2022 Last Documented On 3 10:53AM ; [facility] Sex of Child # 2: Male 09/27/2022 Last Documented On 3 10:53AM ; [facility] Sex of Child # 3: Male 09/27/2022 Last Documented On 3 10:53AM ; [facility] Sexually active 07/16/2019 Last Documented On 0 10:42AM ; [facility] History of complete colonoscopy 2019 Last Documented On 0 10:42AM ; [facility] Aborta 2 05/30/2015 Last Documented On 6 11:38AM ; [facility] 5 05/30/2015 Last Documented On 6 11:38AM ; [facility] Para 3 05/30/2015 Last Documented On 6 11:38AM ; [facility] HX OF FE DEFICIENT ANEMIA 12/23/2014 Last Documented On 5 1:50PM ; [facility] History of Abnormal Pap Smear hx of abn pap smear, last few normal 12/23/2014 Last Documented On 5 1:50PM ; [facility] History of cervical dysplasia colpo 11-2 3-11 12/23/2014 Last Documented On 5 1:50PM ; [facility] History of congenital abnormality of sun'aq onofre retroverted ? 12/23/2014 Last Documented On 5 1:50PM ; [facility] History of hematologic disorder Hx of an emia, sharmaine with preg 12/23/2014 Last Documented On 5 1:50PM ; [facility] History of human papilloma virus infecti on 12/23/2014 Last Documented On 5 1:50PM ; [facility] History of recurrent loss (gra vid) sab X 2 12/23/2014 Last Documented On 5 1:50PM ; [facility] Vaginal delivery 12/23/2014 Last Documented On 5 1:50PM ; [facility] Family History Includes: Family History in patient's chart Description Last Updated Daughter's history of stroke syndrome Last Documented On 3 10:53AM ; [facility] Maternal history of breast cancer Grandm a 09/27/2022 Last Documented On 3 10:53AM ; [facility] Maternal history of cancer Gradnfather- esophogeal 09/27/2022 Last Documented On 3 10:53AM ; [facility] Paternal history of cancer Grandma- non hodgkins lymphoma 09/27/2022 Last Documented On 3 10:53AM ; [facility] Paternal history of stroke syndrome 09/2022 Last Documented On 3 10:53AM ; [facility] Family history of bowel problems 023 Last Documented On 3 10:53AM ; [facility] Family history of Breast problems 2022 Last Documented On 3 10:53AM ; [facility] Family history of kidney disease 023 Last Documented On 3 10:53AM ; [facility] Maternal history of Anemia 09/27/2022 Last Documented On 3 10:53AM ; [facility] Maternal history of bowel problems 09/27 Last Documented On 3 10:53AM ; [facility] Maternal history of Breast problems 09/2022 Last Documented On 3 10:53AM ; [facility] Maternal grandmother's history of malign ant female breast neoplasm MGM 07/16/2019 Last Documented On 0 10:42AM ; [facility] Review of Systems Review of Systems not [...] Active Last Documented On 4 10:05AM ; [facility] Bactrim DS Allergy 07/16/2019 Active Last Documented On 4 10:05AM ; [facility] Encounters Includes: Encounters from 07/20/2023 through 07/20/2024 Encounter Provider Location Date Check-In Time Check-Out Time Diagnosis [Patient Encounter] LARA SIMPSON 02/24/2010/03/2023 11:23AM 10/03/2023 11:59PM * PHONE CALL LARA GARNETT 10/06/19 24 10/03/2023 3:47PM 10/03/2023 11:59PM WELL WOMAN - ESTABLISHED PT LARA REYNA [facility] 10/03/19 9:53AM 10:19AM Screening Malig. Neoplasm Rectum,Normal Female Exam Insurance Includes: Active Insurance Policies Plan Name Member ID Group # Subscriber Relationship Effect cole Dates 1 - [id number] MARI BARAHONA Self Clinical Notes Includes: Signed Clinical Notes starting from 06/14/2022 * Progress note Date Encounter Last Documented by 10/06/2023 * PHONE CALL Last documented on 10/07/2023; 7:17 AM, LARA SIMPSON; [facility] Active Problems & Conditions - Previous Colposcopy - Risk: Tobacco Use Chief Complaint Phone Call - Chief Concern: Reason for call: Patient called and is asking if she is safe to stop using condoms since her labs show her in menopause. She wants to make sure because she also has a migrated tubal clip. Please advise. pt phone # for return call: [phone] Date/Initials: 5/13/24 LV. Current Medication - Advil [...] on 10/03/2023; 10:18 AM, LARA REYNA AZAR-; [facility] Active Problems & Conditions [...] labs today. 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
--- OUTSIDE RECORDS SUMMARY | 2024-07-20 20:04 | XMS_ITS | Clinical Summary ---
Author Organization [facility] Address [address] [place] [address] Phone Care Team Providers Care Representative Personal Service Name Role Phone GERARDO SHEETS MD Primary Care Provider [phone] KETTY RIZO MD Unavailable [phone] Reason for Visit and Chief Complaint * PHONE CALL Problems Includes: Problems addressed during this encounter and other active Problems Current Visit Onset Date Resolved Date Provider Conditio n Status Previous Colposcopy 09/27/2022 LARA MILLER FUR FARMER-BC Active Last Documented On 3 10:22AM ; [facility] Alcohol Use 07/21/2014 Unknown SHASTA SHORT MD Resolve d Last Documented On 04/03/2015 10:52AM ; [facility] Note: was Closed. History of Abnormal Pap Smear 07/21/2014 Unknown SHASTA SHORT MD Resolved Last Documented On 04/03/2015 10:52AM ; [facility] Note: was Closed. History of Congenital Abnormality of Uterus 07/21/2014 Unknown SHASTA SHORT MD Resolved Last Documented On 04/03/2015 10:52AM ; [facility] Note: was Closed. History of Hematologic Disorders 07/21/2014 Unknown SHASTA SHORT MD Resolved Last Documented On 04/03/2015 10:52AM ; [facility] Note: was Closed. History of Recurrent Loss (Gravid) 07/21/2014 Unknown SHASTA SHORT MD Resolve d Last Documented On 04/03/2015 10:52AM ; [facility] Note: was Closed. History of Abnormal Pap Smear 07/16/2011 Unknown SHASTA SHORT MD Resolved Last Documented On 02/28/2012 10:55AM ; [facility] Note: was Closed. Past Visits Onset Date Resolved Date Provider Condition Status Risk: Tobacco Use 09/27/2022 LARA REYNA WHNP -BC Active Last Documented On 3 10:22AM ; [facility] Plan of Treatment Pending Tests Order Diagnosis Results Due Ordering Provider In office procedures - *Clia Waived Labs Urine Test Irregular menstruation, unspecified 10/17/23 LARA REYNA WHNP-BC Last Documented On 4 10:07AM ; [facility] Radiology @ other - *MAMMOGRAPHY SCREENING MAMMOGRAM Encntr screen mammogram for malignant neoplasm of breast 10/17/23 LARA REYNA WHNP-BC Last Documented On 4 10:23AM ; [facility] In office procedures - *Clia Waived Labs *FOBT* Fecal Occult Blood Test Encounter for screening for malignant neoplasm of rectum 10/17/23 LARA REYNA WHNP-BC Last Documented On 4 10:07AM ; [facility] Assessments Includes: Assessments from this encounter No Assessments Recorded Medical Equipment - Implanted Devices Includes: Current Devices No Medical Equipment Recorded Medications Includes: Medications discussed during this encounter and other current Medications Current Medications (continue as prescribed) Advil 200 MG Oral Capsule 09/27/2022 Provider: Diagnosis: Last Documented On 12/10/2022 4:41PM By KETTY RIZO MD ; [facility] Stool Softener 100 MG Oral Capsule 07/16/2019 Pr ovider: Diagnosis: Last Documented On 12/10/2022 4:41PM By KETTY RIZO MD ; [facility] Dicyclomine HCl 10 MG Oral Capsule 07/16/2019 Provid er: Diagnosis: Last Documented On 12/10/2022 4:41PM By KETTY RIZO MD ; [facility] Past Medications on file Breast Pump Miscellaneous 01/26/2015 - 01/26/2016 Prov ider: SHASTA SHORT MD Diagnosis: as directed Last Documented On 01/26/2015 3:22PM By SHASTA SHORT MD ; [facility] Plus/Iron 27-1 MG OR TABS 03/09/2014 - 03/04/2015 Provider: SUREKHA MELENDEZ RN WHAZAR BC Diagnosis: OTHER FAMILY DAVID NNING ADVICE NEC Last Documented On 4 4:03PM By SUREKHA MILLERAZAR-BC ; [facility] Bactrim DS 800-160 MG OR TABS 09/06/2013 - 09/09/2013 Provider: Diagnosis: Called into [facility] Last Documented On 09/06/2013 8:54AM By FLAVIO COLLAZO ; [facility] miSOPROStol 200 MCG OR TABS 08/02/2013 - 08/04/2013 Pr ovider: SHASTA SHORT MD Diagnosis: MISSED 4 tabs (800 mcg) po X 1, may repeat 24 hours later if needed Last Documented On 08/02/2013 4:41PM By SHASTA SHORT MD ; [facility] MILLINERY BLOCKER-PNV-DHA 28-1-215.8 MG OR CAPS 06/24/2013 - 05/20/2014 Provider: LARA MILLER [facility]- [facility]: [facility] Last Documented On 4 2:53PM By LUCIO LIND LPN ; [facility] [place] 5-325 MG OR TABS 01/26/2013 - 02/02/2013 Provide r: Diagnosis: [facility]/ Last Documented On 01/26/2013 1:39PM By FLAVIO COLLAZO ; [facility] Estradiol 1 MG OR TABS 06/25/2012 - 07/16/2012 Provide r: SHASTA SHORT MD Diagnosis: Last Documented On 06/25/2012 4:19PM By SHASTA SHORT MD ; [facility] Ferrous Sulfate 325 (65 Fe) MG OR TABS 10/22/2011 - 02/19/2012 Provider: MARIA D OQUENDO M.D. Diagnosis: ANEMIA IN PREG-U NSPEC Last Documented On 2 4:46PM By DR. MARIA D DE LA ROSA ; [facility] Ferrous Sulfate 325 (65 Fe) MG OR TABS 08/19/2011 - 12/17/2011 Provider: MARIA D ROSE ON Liliam Diagnosis: ANEMIA IN PREG-U NSPEC Last Documented On 2 11:13PM By DR. MARIA D DE LA ROSA ; [facility] Zofran 4 MG OR TABS 06/20/2011 - 08/19/2011 Provider: LARA DANG- Diagnosis: 1 sublingual (reditabs) q 8 hours prn - nausea and vomiting Last Documented On 2 11:41AM By LARA GARNETT ; [facility] Metoclopramide HCl 10 MG OR TABS 05/23/2011 - 06/12/2011 Provider: LARA YBARRA Diagnosis: prn - nausea Last Documented On 1 4:12PM By LARA GARNETT ; [facility] Triveen-Duo DHA 29-1-200 & 400 MG OR MISC 01/18/2011 - 05/18/2011 Provider: LARA BRUCEBC Diagnosis: Last Documented On 1 3:26PM By LARA GARNETT ; [facility] Depo-Provera 150 MG/ML IM SUSP 04/03/2010 - 09/30/2010 Provider: VICKY JURADO Diagnosis: Inject IM Last Documented On 04/03/2010 9:07AM By VICKY JURADO ; [facility] MetroGel-Vaginal 0.75% VA GEL 11/08/2009 - 11/15/2009 Provider: VICKY JURADO Diagnosis: apply per vagina x 7 days Last Documented On 11/08/2009 3:55PM By DESTINY HOOVER ; [facility] Lexapro 10 MG OR TABS 10/17/2009 - 10/12/2010 Provider : VICKY JURADO Diagnosis: ANXIETY STATE NO S Last Documented On 10/17/2009 3:44PM By VICKY JURADO ; [facility] Medications Administered Includes: Administered Medications from this encounter No Administered Medications Recorded Results Includes: Results discussed during this encounter No Results Recorded For Specified Dates History of Present Illness Includes: History of Present Illness from this encounter No History of Present Illness Recorded Social History Description Last Updated Alcohol use Rare 10/03/2023 Last Documented On 4 3:46PM ; [facility] Not using drugs 10/03/2023 Last Documented On 4 3:46PM ; [facility] Sexually active with 1 partners in the l ast year 10/03/2023 Last Documented On 4 3:46PM ; [facility] Current smoker 09/27/2022 Last Documented On 4 3:46PM ; [facility] Has sex with males only 09/27/2022 Last Documented On 4 3:46PM ; [facility] Smoking Status Unknown Procedures and Surgical History Surgical History Last Updated Surgical / procedural histor y Surgery on R thigh ~pt has diverticulitis ~Cervical replacement of disks in neck 2021 ~EMB 11/29/22 Lara 12/10/2022 Last Documented On 4 3:46PM ; [facility] Previous colposcopy 04/17/2011 with Lizz foy; 11/04/22 TCK 12/10/2022 Last Documented On 4 3:46PM ; [facility] History of tubal ligation Dr Short (right clip in pelvis somewhere per pt) 11/04/2022 Last Documented On 4 3:46PM ; [facility] History of cholecystectomy 07/16/2019 Last Documented On 4 3:46PM ; [facility] Medical History Includes: Medical History addressed during this encounter Description Last Updated Contraception: Condoms 10/03/2023 Last Documented On 4 3:46PM ; [facility] History of screening mammogram was perfo rmed 11/05/2022 10/03/2023 Last Documented On 4 3:46PM ; [facility] LMP: 06/202310/03/2023 Last Documented On 4 3:46PM ; [facility] Other method: Tubal ligation/ Condoms Last Documented On 4 3:46PM ; [facility] Result: abnormal KIM HPV+ 11/04/2022 Last Documented On 4 3:46PM ; [facility] History of colonoscopy fiberoptic was pe rformed 201809/27/2022 Last Documented On 4 3:46PM ; [facility] # 1 Delivery date: 12/07/92 09/27/2022 Last Documented On 4 3:46PM ; [facility] # 2 Delivery date: 01/15/12 09/27/2022 Last Documented On 4 3:46PM ; [facility] # 3 Delivery date: 02/06/15 09/27/2022 Last Documented On 4 3:46PM ; [facility] Bowel problems 09/27/2022 Last Documented On 4 3:46PM ; [facility] Elective (s) 0 09/27/2022 Last Documented On 4 3:46PM ; [facility] Gallbladder disease 09/27/2022 Last Documented On 4 3:46PM ; [facility] No. of miscarriages: 2 09/27/2022 Last Documented On 4 3:46PM ; [facility] No. of Pregnancies: 5 09/27/2022 Last Documented On 4 3:46PM ; [facility] Please list all surgeries: T ubal ligation, cholecystectomy, cervical disc's replaced, diverticulitis 09/27/2022 Last Documented On 4 3:46PM ; [facility] Previous live (s) 3 09/27/2022 Last Documented On 4 3:46PM ; [facility] Previous premature delivery(s) 0 023 Last Documented On 4 3:46PM ; [facility] Received all 3 doses of Hepatitis B vacc ine 09/27/2022 Last Documented On 4 3:46PM ; [facility] Sex of Child # 1: Female 09/27/2022 Last Documented On 4 3:46PM ; [facility] Sex of Child # 2: Male 09/27/2022 Last Documented On 4 3:46PM ; [facility] Sex of Child # 3: Male 09/27/2022 Last Documented On 4 3:46PM ; [facility] Sexually active 07/16/2019 Last Documented On 4 3:46PM ; [facility] History of complete colonoscopy 2019 Last Documented On 4 3:46PM ; [facility] Aborta 2 05/30/2015 Last Documented On 4 3:46PM ; [facility] 5 05/30/2015 Last Documented On 4 3:46PM ; [facility] Para 3 05/30/2015 Last Documented On 4 3:46PM ; [facility] HX OF FE DEFICIENT ANEMIA 12/23/2014 Last Documented On 4 3:46PM ; [facility] History of Abnormal Pap Smear hx of abn pap smear, last few normal 12/23/2014 Last Documented On 4 3:46PM ; [facility] History of cervical dysplasia colpo 11-2 3-11 12/23/2014 Last Documented On 4 3:46PM ; [facility] History of congenital abnormality of mi'kmaq onofre retroverted ? 12/23/2014 Last Documented On 4 3:46PM ; [facility] History of hematologic disorder Hx of an emia, sharmaine with preg 12/23/2014 Last Documented On 4 3:46PM ; [facility] History of human papilloma virus infecti on 12/23/2014 Last Documented On 4 3:46PM ; [facility] History of recurrent loss (gra vid) sab X 2 12/23/2014 Last Documented On 4 3:46PM ; [facility] Vaginal delivery 12/23/2014 Last Documented On 4 3:46PM ; [facility] Family History Includes: Family History addressed during this encounter Description Last Updated Daughter's history of stroke syndrome Last Documented On 4 3:46PM ; [facility] Maternal history of breast cancer Grandm a 09/27/2022 Last Documented On 4 3:46PM ; [facility] Maternal history of cancer Gradnfather- esophogeal 09/27/2022 Last Documented On 4 3:46PM ; [facility] Paternal history of cancer Grandma- non hodgkins lymphoma 09/27/2022 Last Documented On 4 3:46PM ; [facility] Paternal history of stroke syndrome 09/2022 Last Documented On 4 3:46PM ; [facility] Family history of bowel problems 023 Last Documented On 4 3:46PM ; [facility] Family history of Breast problems 2022 Last Documented On 4 3:46PM ; [facility] Family history of kidney disease 023 Last Documented On 4 3:46PM ; [facility] Maternal history of Anemia 09/27/2022 Last Documented On 4 3:46PM ; [facility] Maternal history of bowel problems 09/27 Last Documented On 4 3:46PM ; [facility] Maternal history of Breast problems 09/2022 Last Documented On 4 3:46PM ; [facility] Maternal grandmother's history of malign ant female breast neoplasm MGM 07/16/2019 Last Documented On 4 3:46PM ; [facility] Review of Systems Includes: Review of Systems [...] Active Last Documented On 4 10:05AM ; [facility] Bactrim DS Allergy 07/16/2019 Active Last Documented On 4 10:05AM ; [facility] Encounters Encounter Provider Location Date Check-In Time Check-Out Time Diagnosis * PHONE CALL LARA GARNETT 10/06/2023 3:47PM 11:59PM Insurance Includes: Active Insurance Policies Plan Name Member ID Group # Subscriber Relationship Effect cole Dates - [id number] MARI BARAHONA Self Clinical Notes Includes: Clinical Notes from this encounter * Progress note Date Encounter Last Documented by 10/06/2023 * PHONE CALL Last documented on 10/07/2023; 7:17 AM, LARA GARNETT; [facility] Active Problems & Conditions - Previous Colposcopy - Risk: Tobacco Use Chief Complaint Phone Call - Chief Concern: Reason for call: Patient called and is asking if she is safe to stop using condoms since her labs show her in menopause. She wants to make sure because she also has a migrated tubal clip. Please advise. pt phone # for return call: [phone] Date/Initials: 10/06/23 LV. Current Medication - Advil [...] virus infection. Hematologic disorder Hx of anemia, sahrmaine with preg HX OF FE DEFICIENT ANEMIA. [...]
--- OUTSIDE RECORDS SUMMARY | 2024-07-20 20:04 | XMS_ITS | Clinical Summary ---
Author Organization [facility] Address [address] [place] [address] Phone Care Team Providers Care Steam Cleaning Machine Operator Name Role Phone GERARDO SHEETS MD Primary Care Provider [phone] KETTY RIZO MD Unavailable [phone] Reason for Visit and Chief Complaint previous history of abnormal Pap smear - The Chief Complaint is: Return in 2 weeks to review results on Sodus and EMB Problems Includes: Problems addressed during this encounter and other active Problems Current Visit Onset Date Resolved Date Provider Dillon n Status Previous Colposcopy 09/27/2022 LARA MILLER FOSTER PARENT-BC Active Last Documented On 10:22AM ; [facility] Alcohol Use 07/21/2014 Unknown SHASTA SHORT MD Resolve d Last Documented On 04/03/2015 10:52AM ; [facility] Note: was Closed. History of Abnormal Pap Smear 07/21/2014 Unknown SHASTA SHORT MD Resolved Last Documented On 04/03/2015 10:52AM ; [facility] Note: was Closed. History of Congenital Abnormality of Uterus 07/21/2014 Unknown SHASTA SHORT MD Resolved Last Documented On 04/03/2015 10:52AM ; [facility] Note: was Closed. History of Hematologic Disorders 07/21/2014 Unknown SHASTA SHORT MD Resolved Last Documented On 04/03/2015 10:52AM ; [facility] Note: was Closed. History of Recurrent Loss (Gravid) 07/21/2014 Unknown SHASTA SHORT MD Resolve d Last Documented On 04/03/2015 10:52AM ; [facility] Note: was Closed. History of Reported Physical Trauma 07/21/2014 Unknown SHASTA SHORT MD Resolved Last Documented On 04/03/2015 10:52AM ; [facility] Note: was Closed. Tobacco Use 07/21/2014 Unknown SHASTA SHORT MD Resolve d Last Documented On 04/03/2015 10:52AM ; [facility] Note: was Closed. History of Abnormal Pap Smear 07/16/2011 Unknown SHASTA SHORT MD Resolved Last Documented On 02/28/2012 10:55AM ; [facility] Note: was Closed. 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 Resolved Last Documented On 02/28/2012 10:55AM ; [facility] Note: was Closed. Tobacco Use 07/16/2011 Unknown SHASTA SHORT MD Resolve d Last Documented On 02/28/2012 10:55AM ; [facility] Note: was Closed. Past Visits Onset Date Resolved Date Provider Condition Status Risk: Tobacco Use 09/27/2022 LARA REYNA NP -BC Active Last Documented On 10:22AM ; [facility] Plan of Treatment No Plan of Treatment Recorded Assessments Includes: Assessments from this encounter Findings - Contraceptive management - Last Documented On 12/10/2022 4:44PM ; [facility] - Abnormal Pap smear: atypical glandular cells - Last Documented On 12/10/2022 4:44PM ; [facility] Medical Equipment - Implanted Devices Includes: Current Devices No Medical Equipment Recorded Medications Includes: Medications discussed during this encounter and other current Medications Current Medications (continue as prescribed) Advil 200 MG Oral Capsule 09/27/2022 Provider: Diagnosis: Last Documented On 12/10/2022 4:41PM By KETTY RIZO MD ; [facility] Stool Softener 100 MG Oral Capsule 07/16/2019 Pr ovider: Diagnosis: Last Documented On 12/10/2022 4:41PM By KETTY RIZO MD ; [facility] Dicyclomine HCl 10 MG Oral Capsule 07/16/2019 Provid er: Diagnosis: Last Documented On 12/10/2022 4:41PM By KETTY RIZO MD ; [facility] Past Medications on file Breast Pump Miscellaneous 01/26/2015 - 01/26/2016 Prov ider: SHASTA SHORT MD Diagnosis: as directed Last Documented On 01/26/2015 3:22PM By SHASTA SHORT MD ; [facility] Plus/Iron 27-1 MG OR TABS 03/09/2014 - 03/04/2015 Provider: SUREKHA MELENDEZ RN [facility] Diagnosis: OTHER FAMILY DAVID NNING ADVICE NEC Last Documented On 4 4:03PM By SUREKHA MELENDEZ [facility]- ; [facility] Bactrim DS 800-160 MG OR TABS 09/06/2013 - 09/09/2013 Provider: Diagnosis: Called into [facility] Last Documented On 09/06/2013 8:54AM By FLAVIO COLLAZO ; [facility] miSOPROStol 200 MCG OR TABS 08/02/2013 - 08/04/2013 Pr ovider: SHASTA SHORT MD Diagnosis: MISSED 4 tabs (800 mcg) po X 1, may repeat 24 hours later if needed Last Documented On 08/02/2013 4:41PM By SHASTA SHORT MD ; [facility] COSMETICIAN-PNV-DHA 28-1-215.8 MG OR CAPS 06/24/2013 - 05/20/2014 Provider: LARA REYNA [facility]- [facility] Last Documented On 4 2:53PM By LUCIO LIND LPN ; [facility] [place] 5-325 MG OR TABS 01/26/2013 - 02/02/2013 Provide r: Diagnosis: [facility] [place]/ Last Documented On 01/26/2013 1:39PM By FLAVIO COLLAZO ; [facility] Estradiol 1 MG OR TABS 06/25/2012 - 07/16/2012 Provide r: SHASTA SHORT MD Diagnosis: Last Documented On 06/25/2012 4:19PM By SHASTA SHORT MD ; [facility] Ferrous Sulfate 325 (65 Fe) MG OR TABS 10/22/2011 - 02/19/2012 Provider: MARIA D ROSE ON [facility] Diagnosis: ANEMIA IN PREG-U NSPEC Last Documented On 2 4:46PM By DR. MARIA D DE LA ROSA ; [facility] Ferrous Sulfate 325 (65 Fe) MG OR TABS 08/19/2011 - 12/17/2011 Provider: SOLDREObi OQUENDO M.D. Diagnosis: ANEMIA IN PREG-U NSPEC Last Documented On 2 11:13PM By DR. MARIA D DE LA ROSA ; [facility] Zofran 4 MG OR TABS 06/20/2011 - 08/19/2011 Provider: LARA GARNETT Diagnosis: 1 sublingual (reditabs) q 8 hours prn - nausea and vomiting Last Documented On 2 11:41AM By LARA REYNA TEO ; [facility] Metoclopramide HCl 10 MG OR TABS 05/23/2011 - 06/12/2011 Provider: LARA MILLER NP- Diagnosis: prn - nausea Last Documented On 1 4:12PM By LARA REYNA TEO ; [facility] Triveen-Duo DHA 29-1-200 & 400 MG OR MISC 01/18/2011 - 05/18/2011 Provider: LARA MILLER NP-BC Diagnosis: Last Documented On 1 3:26PM By LARA SIMPSON ; [facility] Depo-Provera 150 MG/ML IM SUSP 04/03/2010 - 09/30/2010 Provider: VICKY JURADO Diagnosis: Inject IM Last Documented On 04/03/2010 9:07AM By VICKY JURADO ; [facility] MetroGel-Vaginal 0.75% VA GEL 11/08/2009 - 11/15/2009 Provider: VICKY JURADO Diagnosis: apply per vagina x 7 days Last Documented On 11/08/2009 3:55PM By DESTINY HOOVER ; [facility] Lexapro 10 MG OR TABS 10/17/2009 - 10/12/2010 Provider : VICKY JURADO Diagnosis: ANXIETY STATE NO S Last Documented On 10/17/2009 3:44PM By VICKY JURADO ; [facility] Medications Administered Includes: Administered Medications from this encounter No Administered Medications Recorded Vital Signs Includes: Vital Signs from this encounter Vital Name 12/10/2022 02:08P Blood Pressure Sitting R 120/84 BP Cuff Size Regular Temp-Temporal 98.3 Height (in) 64 Weight (lb) 173 Body Mass Index 29.7 Body Surface Area 1.8 Last Documented: On 12/10/2022 2:09PM ; [facility] Results Includes: Results discussed [...] 10/03/2023 Last Documented On 3 1:55PM ; [facility] control is being practiced Condoms 12/10/2022 Last Documented On 3 4:44PM ; [facility] Marital history to Chaitanya Barahona 12/10/2022 Last Documented On 3 4:44PM ; [facility] Not exercising regularly 12/10/2022 Last Documented On 3 4:44PM ; [facility] Not using drugs 12/10/2022 Last Documented On 3 4:44PM ; [facility] Sexually active with 1 partners in the l ast year 12/10/2022 Last Documented On 3 4:44PM ; [facility] Amount of alcohol per day: 0-1 3 Last Documented On 3 1:55PM ; [facility] Current smoker 09/27/2022 Last Documented On 3 1:55PM ; [facility] Current smoker for 10 09/27/2022 Last Documented On 3 1:55PM ; [facility] Has sex with males only 09/27/2022 Last Documented On 3 1:55PM ; [facility] Sexual partner has had other partners wh ile in relationship with patient 09/27/2022 Last Documented On 3 1:55PM ; [facility] Smoking packs of cigarettes per day 1 Last Documented On 3 1:55PM ; [facility] Smoking status : Current everyday smoker 07/16/2019 Last Documented On 3 1:55PM ; [facility] Requested item <0> not found 12/23/2014 Last Documented On 3 1:55PM ; [facility] Procedures and Surgical History Includes: Procedures from this encounter Procedures Code Diagnosis Performing Provider Service L ocation Service Date use of tobacco assessment performed 1000F Last Documented On 3 1:57PM ; [facility] Clinical summary provided to patient Last Documented On 3 2:25PM ; [facility] Surgical History Last Updated Surgical / procedural histor y Surgery on R thigh ~pt has diverticulitis ~Cervical replacement of disks in neck 2021 ~EMB 11/29/22 Lara 12/10/2022 Last Documented On 3 4:44PM ; [facility] Previous colposcopy 04/17/2011 with Lizz foy; 11/04/22 TCK 12/10/2022 Last Documented On 3 4:44PM ; [facility] History of tubal ligation Dr Short (right clip in pelvis somewhere per pt) 11/04/2022 Last Documented On 3 1:55PM ; [facility] History of cholecystectomy 07/16/2019 Last Documented On 3 1:55PM ; [facility] Medical History Includes: Medical History addressed during this encounter Description Last Updated LMP: 11/21/2022 10/03/2023 Last Documented On 3 1:55PM ; [facility] Contraception: BTL 12/10/2022 Last Documented On 3 4:44PM ; [facility] Other method: Tubal ligation/ Condoms Last Documented On 3 4:44PM ; [facility] Result: normal Bilateral 11/05/22 Left br east lump [facility] 12/10/2022 Last Documented On 3 4:44PM ; [facility] History of screening mammogr am was performed 04/04/2021 Bilateral 11/05/22 Left breast lump [facility] 12/10/2022 Last Documented On 3 4:44PM ; [facility] Last pap smear date 09/27/2022 11/04/2022 Last Documented On 3 1:55PM ; [facility] Result: abnormal KIM HPV+ 11/04/2022 Last Documented On 3 1:55PM ; [facility] Last mammogram date: 04/04/2021 09/28/19 Last Documented On 3 1:55PM ; [facility] History of colonoscopy fiberoptic was pe rformed 201809/27/2022 Last Documented On 3 1:55PM ; [facility] # 1 Delivery date: 12/07/92 09/27/2022 Last Documented On 3 1:55PM ; [facility] # 2 Delivery date: 01/15/12 09/27/2022 Last Documented On 3 1:55PM ; [facility] # 3 Delivery date: 02/06/15 09/27/2022 Last Documented On 3 1:55PM ; [facility] Bowel problems 09/27/2022 Last Documented On 3 1:55PM ; [facility] Elective (s) 0 09/27/2022 Last Documented On 3 1:55PM ; [facility] Gallbladder disease 09/27/2022 Last Documented On 3 1:55PM ; [facility] No Exercise 09/27/2022 Last Documented On 3 1:55PM ; [facility] No. of miscarriages: 2 09/27/2022 Last Documented On 3 1:55PM ; [facility] No. of Pregnancies: 5 09/27/2022 Last Documented On 3 1:55PM ; [facility] Please list all surgeries: T ubal ligation, cholecystectomy, cervical disc's replaced, diverticulitis 09/27/2022 Last Documented On 3 1:55PM ; [facility] Previous live (s) 3 09/27/2022 Last Documented On 3 1:55PM ; [facility] Previous premature delivery(s) 0 023 Last Documented On 3 1:55PM ; [facility] Received all 3 doses of Hepatitis B vacc ine 09/27/2022 Last Documented On 3 1:55PM ; [facility] Sex of Child # 1: Female 09/27/2022 Last Documented On 3 1:55PM ; [facility] Sex of Child # 2: Male 09/27/2022 Last Documented On 3 1:55PM ; [facility] Sex of Child # 3: Male 09/27/2022 Last Documented On 3 1:55PM ; [facility] Sexually active 07/16/2019 Last Documented On 3 1:55PM ; [facility] History of complete colonoscopy 2019 Last Documented On 3 1:55PM ; [facility] Aborta 2 05/30/2015 Last Documented On 3 1:55PM ; [facility] 5 05/30/2015 Last Documented On 3 1:55PM ; [facility] Para 3 05/30/2015 Last Documented On 3 1:55PM ; [facility] Baby thriving Tae 03/21/2015 Last Documented On 3 1:55PM ; [facility] HX OF FE DEFICIENT ANEMIA 12/23/2014 Last Documented On 3 1:55PM ; [facility] History of Abnormal Pap Smear hx of abn pap smear, last few normal 12/23/2014 Last Documented On 3 1:55PM ; [facility] History of cervical dysplasia colpo 11-2 3-11 12/23/2014 Last Documented On 3 1:55PM ; [facility] History of congenital abnormality of shauna onofre retroverted ? 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 but ocp helped 12/23/2014 Last Documented On 3 1:55PM ; [facility] History of hematologic disorder Hx of an emia, sharmaine with preg 12/23/2014 Last Documented On 3 1:55PM ; [facility] History of human papilloma virus infecti on 12/23/2014 Last Documented On 3 1:55PM ; [facility] History of recurrent loss (gra vid) sab X 2 12/23/2014 Last Documented On 3 1:55PM ; [facility] Physical trauma fx right leg at age 5 Last Documented On 3 1:55PM ; [facility] Requested item <0> not found 12/23/2014 Last Documented On 3 1:55PM ; [facility] Vaginal delivery 12/23/2014 Last Documented On 3 1:55PM ; [facility] Family History Includes: Family History addressed during this encounter Description Last Updated Daughter's history of stroke syndrome Last Documented On 3 1:55PM ; [facility] Maternal history of breast cancer Grandm a 09/27/2022 Last Documented On 3 1:55PM ; [facility] Maternal history of cancer Gradnfather- esophogeal 09/27/2022 Last Documented On 3 1:55PM ; [facility] Paternal history of cancer Grandma- non hodgkins lymphoma 09/27/2022 Last Documented On 3 1:55PM ; [facility] Paternal history of stroke syndrome 09/2022 Last Documented On 3 1:55PM ; [facility] Family history of bowel problems 023 Last Documented On 3 1:55PM ; [facility] Family history of Breast problems 2022 Last Documented On 3 1:55PM ; [facility] Family history of kidney disease 023 Last Documented On 3 1:55PM ; [facility] Maternal history of Anemia 09/27/2022 Last Documented On 3 1:55PM ; [facility] Maternal history of bowel problems 09/27 Last Documented On 3 1:55PM ; [facility] Maternal history of Breast problems 09/2022 Last Documented On 3 1:55PM ; [facility] Maternal grandmother's history of malign ant female breast neoplasm MG 07/16/2019 Last Documented On 3 1:55PM ; [facility] Family history of diabetes mellitus [facility] 03/09/2014 Last Documented On 3 1:55PM ; [facility] Family history of malignant female breas t neoplasm [facility] 03/09/2014 Last Documented On 3 1:55PM ; [facility] Review of Systems Includes: Review of [...] Active Last Documented On 4 10:05AM ; [facility] Bactrim DS Allergy 07/16/2019 Active Last Documented On 4 10:05AM ; [facility] Encounters Encounter Provider Location Date Check-In Time Check- Out Time Diagnosis FOLLOW UP KETTY RIZO MD [facility] 3 1:54PM 2:54PM Cervical Pap Smear Positive Atypical Glandular Cells,Contrace ptive Management Insurance Includes: Active Insurance Policies Plan Name Member ID Group # Subscriber Relationship Effect cole Dates - [id number] MARI BARAHONA Self Clinical Notes Includes: Clinical Notes from this encounter * Progress note Date Encounter Last Documented by 12/10/2022 FOLLOW UP Last documented on 12/10/2022; 4:44 PM, KETTY RIZO MD; [facility] Active Problems & Conditions - Previous Colposcopy - Risk: Tobacco Use Chief Complaint The Chief Complaint is: Return in 2 weeks to review results on Sodus and EMB. Reason For Visit Previous history [...] result: normal Bilateral 11/05/22 Left breast lump [facility], Contraception: BTL, Other method: Tubal ligation/ [...] performed 04/04/2021 Bilateral 11/05/22 Left breast lump [facility] Diagnoses: Congenital abnormality of uterus retroverted [...] Practice Management Use of tobacco assessment performed; [81165] Established outpatient, medically appropriate H&P, moderate level decision making, 30-39 minutes.
--- OUTSIDE RECORDS SUMMARY | 2024-07-20 20:04 | XMS_ITS | Encounter Summary ---
Author Organization [facility] Healthcare Address [address] [place] [address] Care Team Providers Care Smokehouse Worker Name Role Phone Vinicio Greco MD Primary Care Provider [phone] Encounter Details Date Type Department Care Team (Latest Contact Info) Description 07/19/2024 4:40 PM CANVASSING MANAGER - 07/19/2024 11:59 PM CANVASSING MANAGER Hospital Encounter [address] [address] Dysuria Discharge Disposition: Discharge to home or [...] on file Legal Sex Female 12:18 PM CANVASSING MANAGER Gender Identity Not on file Sexual Orientation Not on file documented as of this encounter Medications at Time of Discharge docusate sodium (COLACE) 100 mg capsuleIndication s:constipation Take 1-2 tablets daily for constipation management. 180 capsule 3 03/18/2023 dicyclomine (BENTYL) 10 mg capsuleIndication s:Irritable bowel syndrome with both constipation and diarrhea Take 1 capsule (10 mg total) by mouth 4 (four) times a day as needed (abdominal pain/cramps) 90 capsule 1 02/05/[address] (NexIUM) 40 mg capsule Take 1 capsule (40 mg total) by mouth daily before breakfast 30 capsule 11 04/13/2024 5 documented as of this encounter Discharge Disposition Disposition Code Departure Means Destination Discharge to home or self care documented in this encounter Plan of Treatment Pending Results Name Type Priority Associated Diagnoses Date /Time Urine culture Urine, clean voided Microbiology Routine Dysuria 07/19/2024 4:40 PM CANVASSING MANAGER documented as of this encounter Procedures Procedure Name Priority Date/Time Associated Diagnosis Comments URINE CULTURE Routine 07/19/2024 4:40 PM CANVASSING MANAGER Dysuria documented in this encounter Visit Diagnoses Diagnosis Dysuria documented in this encounter Care Teams Smokehouse Worker Relationship Specialty Start Date End Date Vinicio Greco MD [address] [place] [address] PCP - General 09/16/11 documented as of this encounter
--- OUTSIDE RECORDS SUMMARY | 2024-07-20 20:04 | XMS_ITS | Encounter Summary ---
Author Organization [facility] Address [address] [place] [address] Phone Care Team Providers Care Distribution Systems Serviceperson Name Role Phone Vinicio Greco MD Primary Care Provider [phone] Encounter Details Date Type Department Care Team (Late st Contact Info) Description 07/10/2017 Orders Only [facility] ProviderCrista MD [address] [place] [id number] Social History Tobacco Use Types Packs/Day Years Used Date Smoking Tobacco: Former Smokeless Tobacco: Never Comments:Smoking History Pac ks/day: 1 Packs Alcohol Use Standard Drinks/Week Comments Yes 0 (1 standard drink = 0.6 oz pur e alcohol) Comments Unknown Sex and Gender Information Value Date Recorded Sex Assigned at Not on file Legal Sex Female 12:18 PM WHALE FISHERMAN Gender Identity Not on file Sexual Orientation Not on file documented as of this encounter Plan of Treatment Not on file documented as of this encounter Procedures Procedure Name Priority Date/Time Associated Diagnosis Comments DISCHARGE LABORATORY CUMULATIVE REPORT 07/10/2017 12:00 AM WHALE FISHERMAN documented in this encounter Results * DISCHARGE LABORATORY CUMULATIVE REPORT (07/10/2017 12:00 AM WHALE FISHERMAN) Narrative 07/10/2017 12:00 AM WHALE FISHERMAN Ordered by an unspecified provider. Historical Provider LAB BLOOD ORDERABLES [facility] [facility] Result documented in this encounter Visit Diagnoses Not on filedocumented in this encounter Additional Health Concerns Infection Onset Date Last Indicated Resolved Time COVID: Suspected 07/19/2024 07/19/202407/1907/19/2024 4:19 PM WHALE FISHERMAN documented as of this encounter Care Teams Distribution Systems Serviceperson Relationship Specialty Start Date End Date Vinicio Greco MD [address] [place] [address] PCP - General 09/16/11 documented as of this encounter
--- OUTSIDE RECORDS SUMMARY | 2024-07-20 20:04 | XMS_ITS | Clinical Summary ---
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 History of [...] 10:22AM ; [facility] Plan of Treatment - Follow-up visit 1 year or as needed - Last Documented On 10/03/2023 10:18AM ; [facility] - Clinical summary provided to patient - Last Documented On 10/03/2023 10:18AM ; [facility] Call if no menses > or = 90 days for possible hormonal induction of menses. Call if pelvic pain , especially on one side or the other. Try to exercise for at least 30 minutes at least 4 times per week and follow a low-fat diet. - Last Documented On 10/03/2023 10:18AM ; [facility] Pending Tests Order Diagnosis Results Due Ordering Provider In office procedures - *Clia Waived Labs Urine Test Irregular menstruation, unspecified 10/17/23 LARA REYNA WHNP-BC Last Documented On 4 10:07AM ; [facility] Radiology @ other - *MAMMOGRAPHY SCREENING MAMMOGRAM Encntr screen mammogram for malignant neoplasm of breast 10/17/23 LARA REYNA WHNP-BC Last Documented On 4 10:23AM ; [facility] In office procedures - *Clia Waived Labs *FOBT* Fecal Occult Blood Test Encounter for screening for malignant neoplasm of rectum 10/17/23 LARA REYNA WHNP-BC Last Documented On 4 10:07AM ; [facility] Instructions to patient Instructions for patient : B reast Self Exam discussed Last Documented On 4 9:54AM ; [facility] Intervention and counseling on cessation of tobacco use Last Documented On 4 10:04AM ; [facility] Lose weight Last Documented On 4 9:56AM ; [facility] Colonoscopy Handout given to patient Last Documented On 4 9:56AM ; [facility] Education and Decision Aids were provided during visit for: Patient Education: Daily daniel cium and vitamin D Last Documented On 4 9:54AM ; [facility] Patient Education: weight be aring exercise Last Documented On 4 9:54AM ; [facility] Smoking cessation advised Last Documented On 4 9:56AM ; [facility] Assessments Includes: Assessments from this encounter Findings - NORMAL FEMALE EXAM [Z01.419 - Encounter for gynecological examination (general) (routine) without abnormal findings] - Last Documented On 10/03/2023 10:18AM ; [facility] - Screening Malig. Neoplasm Rectum [Z12.12 - Encounter for screening for malignant neoplasm of rectum] - Last Documented On 10/03/2023 10:18AM ; [facility] Instructions Includes: Instructions from this encounter Instructions to patient Instructions for patient : B reast Self Exam discussed Last Documented On 4 9:54AM ; [facility] Intervention and counseling on cessation of tobacco use Last Documented On 4 10:04AM ; [facility] Lose weight Last Documented On 4 9:56AM ; [facility] Colonoscopy Handout given to patient Last Documented On 4 9:56AM ; [facility] Education and Decision Aids were provided during visit for: Patient Education: Daily daniel cium and vitamin D Last Documented On 4 9:54AM ; [facility] Patient Education: weight be aring exercise Last Documented On 4 9:54AM ; [facility] Smoking cessation advised Last Documented On 4 9:56AM ; [facility] Medical Equipment - Implanted Devices Includes: Current Devices No Medical Equipment Recorded Medications Includes: Medications discussed during this encounter and other current Medications Discontinued / Stopped on this date GERARDO GRECO MD on 10/03/2022 HYDROcodone-Acetaminophen 5-325 MG Oral Tablet Provider: GERARDO GRECO MD Diagnosis: Last Documented On 4 10:05AM By Marlene WAITE ; [facility] Pantoprazole Sodium 40 MG Or al Tablet Delayed Release Provider: GERARDO GRECO MD Diagnosis: Last Documented On 4 10:05AM By Marlene WAITE ; [facility] Cyclobenzaprine HCl 10 MG Oral Tablet Pro vider: MARIPOSA POWELL MD Diagnosis: Last Documented On 4 10:05AM By Marlene WAITE ; [facility] Current Medications (continue as prescribed) Advil 200 MG Oral Capsule 09/27/2022 Provider: Diagnosis: Last Documented On 12/10/2022 4:41PM By KETTY ARTHUR MD ; [facility] Stool Softener 100 MG Oral Capsule 07/16/2019 Pr ovider: Diagnosis: Last Documented On 12/10/2022 4:41PM By KETTY ARTHUR MD ; [facility] Dicyclomine HCl 10 MG Oral Capsule 07/16/2019 Provid er: Diagnosis: Last Documented On 12/10/2022 4:41PM By KETTY ARTHUR MD ; [facility] [...] On 4 4:03PM By SUREKHA DANG-BC ; [facility] Bactrim DS 800-160 MG OR TABS 09/06/2013 - 09/09/2013 Provider: Diagnosis: Called into [facility] Last Documented On 09/06/2013 8:54AM By FLAVIO COLLAZO ; [facility] miSOPROStol 200 MCG OR TABS 08/02/2013 - 08/04/2013 Pr ovider: SHASTA SHORT MD Diagnosis: MISSED 4 tabs (800 mcg) po X 1, may repeat 24 hours later if needed Last Documented On 08/02/2013 4:41PM By SHASTA SHORT MD ; [facility] ENTRANCE GUARD-PNV-DHA 28-1-215.8 MG OR CAPS 06/24/2013 - 05/20/2014 Provider: LARA MILLER NP-BC [facility]: [facility] Last Documented On 4 2:53PM By LUCIO LIND LPN ; [facility] [place] 5-325 MG OR TABS 01/26/2013 - 02/02/2013 Provide r: Diagnosis: [facility] [place] Last Documented On 01/26/2013 1:39PM By FLAVIO COLLAZO ; [facility] Estradiol 1 MG OR TABS 06/25/2012 - 07/16/2012 Provide r: SHASTA SHORT MD Diagnosis: Last Documented On 06/25/2012 4:19PM By SHASTA SHORT MD ; [facility] Ferrous Sulfate 325 (65 Fe) MG OR TABS 10/22/2011 - 02/19/2012 Provider: MARIA D ROSE ON M.Juan Jose Diagnosis: ANEMIA IN PREG-U NSPEC Last Documented On 2 4:46PM By DR. MARIA D DE LA ROSA ; [facility] Ferrous Sulfate 325 (65 Fe) [...] Last Documented On 1 4:12PM By LARA AGRNETT ; [facility] Triveen-Duo [...] Last Documented: On 10/03/2023 10:01A M ; [facility] Results Includes: Results discussed during this encounter No Results Recorded For Specified Dates History of Present Illness Includes: History of Present Illness from this encounter ZAY BARAHONA is a 48 year old female. - Allergy list reviewed - Medication list reviewed - Primary Care Provider: Dr. Greco Social History Description Last Updated Alcohol use Rare 10/03/2023 Last Documented On 4 10:18AM ; [facility] Not using drugs 10/03/2023 Last Documented On 4 10:18AM ; [facility] Sexually active with 1 partners in the l ast year 10/03/2023 Last Documented On 4 10:18AM ; [facility] Current smoker 09/27/2022 Last Documented On 4 9:53AM ; [facility] Has sex with males only 09/27/2022 Last Documented On 4 9:53AM ; [facility] Smoking Status Unknown Procedures and Surgical History Includes: Procedures from this encounter Procedures Code Diagnosis Performing Provider Service Location Service Date OBTAINING A PAP SMEAR (DISTINCT PROCEDURAL SERVICE DIFFERENT SITE) Q0091 Encounter for screening for malignant neoplasm of cervix [facility]ARA DANG[facility] 10/03/2023 Last Documented On 4 6:37PM ; [facility] FIT TEST-SCREENING FOR FECAL OCCULT BLOOD (CLIA WAIVED) 49719 Encounter for screening for malignant neoplasm of colon LARA REYNA [facility] 10/03/2023 Last Documented On 4 6:37PM ; [facility] URINE TEST 14180 Irregular menstruation, unspecified LARA REYNA [facility] 10/03/2023 Last Documented On 4 6:37PM ; [facility] low fat diet Last Documented On 4 9:56AM ; [facility] 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 Last Documented On 4 10:04AM ; [facility] use of tobacco assessment performed 1000F Last Documented On 4 10:04AM ; [facility] history of cervical Pap smear 09/27/2022 05679 Last Documented On 4 10:04AM ; [facility] fecal occult blood test was negative 52497 Last Documented On 4 9:54AM ; [facility] test negative Last Documented On 4 10:06AM ; [facility] Cervical Pap Smear performed Q0091 Last Documented On 4 9:56AM ; [facility] Surgical History Last Updated Surgical / procedural histor y Surgery on R thigh ~pt has diverticulitis ~Cervical replacement of disks in neck 2021 ~EMB 11/29/22 Lara 12/10/2022 Last Documented On 4 9:53AM ; [facility] Previous colposcopy 04/17/2011 with Lizz foy; 11/04/22 TCK 12/10/2022 Last Documented On 4 9:53AM ; [facility] History of tubal ligation Dr Short (right clip in pelvis somewhere per pt) 11/04/2022 Last Documented On 4 9:53AM ; [facility] History of cholecystectomy 07/16/2019 Last Documented On 4 9:53AM ; [facility] Medical History Includes: Medical History addressed during this encounter Description Last Updated Contraception: BTL 10/03/2023 Last Documented On 4 9:53AM ; [facility] Contraception: Condoms 10/03/2023 Last Documented On 4 10:18AM ; [facility] History of screening mammogram was perfo rmed 11/05/2022 10/03/2023 Last Documented On 4 10:18AM ; [facility] LMP: 06/202310/03/2023 Last Documented On 4 10:18AM ; [facility] Other method: Tubal ligation/ Condoms Last Documented On 4 9:53AM ; [facility] Result: abnormal KIM HPV+ 11/04/2022 Last Documented On 4 9:53AM ; [facility] History of colonoscopy fiberoptic was pe rformed 201809/27/2022 Last Documented On 4 9:53AM ; [facility] # 1 Delivery date: 12/07/92 09/27/2022 Last Documented On 4 9:53AM ; [facility] # 2 Delivery date: 01/15/12 09/27/2022 Last Documented On 4 9:53AM ; [facility] # 3 Delivery date: 02/06/15 09/27/2022 Last Documented On 4 9:53AM ; [facility] Bowel problems 09/27/2022 Last Documented On 4 9:53AM ; [facility] Elective (s) 0 09/27/2022 Last Documented On 4 9:53AM ; [facility] Gallbladder disease 09/27/2022 Last Documented On 4 9:53AM ; [facility] No. of miscarriages: 2 09/27/2022 Last Documented On 4 9:53AM ; [facility] No. of Pregnancies: 5 09/27/2022 Last Documented On 4 9:53AM ; [facility] Please list all surgeries: T ubal ligation, cholecystectomy, cervical disc's replaced, diverticulitis 09/27/2022 Last Documented On 4 9:53AM ; [facility] Previous live (s) 3 09/27/2022 Last Documented On 4 9:53AM ; [facility] Previous premature delivery(s) 0 023 Last Documented On 4 9:53AM ; [facility] Received all 3 doses of Hepatitis B vacc ine 09/27/2022 Last Documented On 4 9:53AM ; [facility] Sex of Child # 1: Female 09/27/2022 Last Documented On 4 9:53AM ; [facility] Sex of Child # 2: Male 09/27/2022 Last Documented On 4 9:53AM ; [facility] Sex of Child # 3: Male 09/27/2022 Last Documented On 4 9:53AM ; [facility] Sexually active 07/16/2019 Last Documented On 4 9:53AM ; [facility] History of complete colonoscopy 2019 Last Documented On 4 9:53AM ; [facility] Aborta 2 05/30/2015 Last Documented On 4 9:53AM ; [facility] 5 05/30/2015 Last Documented On 4 9:53AM ; [facility] Para 3 05/30/2015 Last Documented On 4 9:53AM ; [facility] HX OF FE DEFICIENT ANEMIA 12/23/2014 Last Documented On 4 9:53AM ; [facility] History of Abnormal Pap Smear hx of abn pap smear, last few normal 12/23/2014 Last Documented On 4 9:53AM ; [facility] History of cervical dysplasia colpo 11-2 3-11 12/23/2014 Last Documented On 4 9:53AM ; [facility] 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 12/23/2014 Last Documented On 4 9:53AM ; [facility] History of hematologic disorder Hx of an emia, sharmaine with preg 12/23/2014 Last Documented On 4 9:53AM ; [facility] History of human papilloma virus infecti on 12/23/2014 Last Documented On 4 9:53AM ; [facility] History of recurrent loss (gra vid) sab X 2 12/23/2014 Last Documented On 4 9:53AM ; [facility] Vaginal delivery 12/23/2014 Last Documented On 4 9:53AM ; [facility] Family History Includes: Family History addressed during this encounter Description Last Updated Daughter's history of stroke syndrome Last Documented On 4 9:53AM ; [facility] Maternal history of breast cancer Grandm a 09/27/2022 Last Documented On 4 9:53AM ; [facility] Maternal history of cancer Gradnfather- esophogeal 09/27/2022 Last Documented On 4 9:53AM ; [facility] Paternal history of cancer Grandma- non hodgkins lymphoma 09/27/2022 Last Documented On 4 9:53AM ; [facility] Paternal history of stroke syndrome 09/2022 Last Documented On 4 9:53AM ; [facility] Family history of bowel problems 023 Last Documented On 4 9:53AM ; [facility] Family history of Breast problems 2022 Last Documented On 4 9:53AM ; [facility] Family history of kidney disease 023 Last Documented On 4 9:53AM ; [facility] Maternal history of Anemia 09/27/2022 Last Documented On 4 9:53AM ; [facility] Maternal history of bowel problems 09/27 Last Documented On 4 9:53AM ; [facility] Maternal history of Breast problems 09/2022 Last Documented On 4 9:53AM ; [facility] Maternal grandmother's history of malign ant female breast neoplasm MGM 07/16/2019 Last Documented On 4 9:53AM ; [facility] Review of Systems Includes: Review [...] Active Last Documented On 4 10:05AM ; [facility] Bactrim DS Allergy 07/16/2019 Active Last Documented On 4 10:05AM ; [facility] Encounters Encounter Provider Location Date Check-In Time Check-Out Time Diagnosis [facility] - ESTABLISHED [facility] LARA REYNA [facility] 10/03/19 24 9:53AM 10:19AM Screening Malig. Neoplasm Rectum,Normal Female Exam Insurance Includes: Active Insurance Policies Plan Name Member ID Group # Subscriber Relationship Effect cole Dates 1 - [employer] [id number] MARI BARAHONA Self Clinical Notes Includes: Clinical Notes from this encounter * Progress note Date Encounter Last Documented by 10/03/2023 WE[facility] WOMAN - ESTABLISHED PT Last documented on 10/03/2023; 10:18 AM, LARA REYNA [facility]; [facility] Active Problems & Conditions - [...] labs today. 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
--- OUTSIDE RECORDS SUMMARY | 2024-07-20 20:04 | XMS_ITS | Clinical Summary ---
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 Last Documented On 3 10:22AM ; [facility] Risk: Tobacco Use 09/27/2022 GIANNAABIDA REYNA WHNP -BC Active Last Documented On 3 10:22AM ; [facility] Plan of Treatment Pending Tests Order Diagnosis Results Due Ordering Provider In office procedures - *Clia Waived Labs Urine Test Irregular menstruation, unspecified 10/17/23 GIANNAABIDA REYNA WHNP-BC Last Documented On 4 10:07AM ; [facility] Radiology @ other - *MAMMOGRAPHY SCREENING MAMMOGRAM Encntr screen mammogram for malignant neoplasm of breast 10/17/23 GIANNA REYNA WHNP-BC Last Documented On 4 10:23AM ; [facility] In office procedures - *Clia Waived Labs *FOBT* Fecal Occult Blood Test Encounter for screening for malignant neoplasm of rectum 10/17/23 GIANNA REYNA WHNP-BC Last Documented On 4 10:07AM ; [facility] Assessments Includes: Assessments from this encounter No Assessments Recorded Medical Equipment - Implanted Devices Includes: Current Devices No Medical Equipment Recorded Medications Includes: Medications discussed during this encounter and other current Medications Current Medications (continue as prescribed) Advil 200 MG Oral Capsule 09/27/2022 Provider: Diagnosis: Last Documented On 12/10/2022 4:41PM By KETTY RIZO MD ; [facility] Stool Softener 100 MG Oral Capsule 07/16/2019 Pr ovider: Diagnosis: Last Documented On 12/10/2022 4:41PM By KETTY RIZO MD ; [facility] Dicyclomine HCl 10 MG Oral Capsule 07/16/2019 Provid er: Diagnosis: Last Documented On 12/10/2022 4:41PM By KETTY RIZO MD ; [facility] Medications Administered Includes: Administered Medications from this [...] Active Last Documented On 4 10:05AM ; [facility] Bactrim DS Allergy 07/16/2019 Active Last Documented On 4 10:05AM ; [facility] Encounters Encounter Provider Location Date Check-In Time Check-Out Time Diagnosis [Patient Encounter] GIANNA REYNA AZAR- 02/24/2024 11:23AM 11:59PM Insurance Includes: Active Insurance Policies Plan Name Member ID Group # Subscriber Relationship Effect cole Dates - [id number] MARI BARAHONA Self Clinical Notes Includes: Clinical Notes from this encounter No Clinical Notes Recorded
--- OUTSIDE RECORDS SUMMARY | 2024-07-20 20:04 | XMS_ITS | Encounter Summary ---
Author Organization [facility] Healthcare Address [address] [place] [address] Care Team Providers Care Superintendent Menagerie Name Role Phone Vinicio Greco MD Primary Care Provider [phone] Encounter Details Date Type Department Care Team (Late st Contact Info) Description 10/12/2022 Telephone [facility] [address] [place] [address] Zaira Guerrero, RT Social History Tobacco Use [...] on file Legal Sex Female 12:18 PM [employer] Gender Identity Not on file Sexual Orientation Not on file documented as of this encounter Plan of Treatment Not on file documented as of this encounter Visit Diagnoses Not on filedocumented in this encounter Additional Health Concerns Infection Onset Date Last Indicated Resolved Time COVID: Suspected 07/19/2024 07/19/2024 07/19/2024 4:19 PM [employer] documented as of this encounter Care Teams Superintendent Menagerie Relationship Specialty Start Date End Date [place] [id number] PCP - General 09/16/11 documented as of this encounter
[2024-07-20] MEDS: PIPERACILLN/TAZ 3.375GM/NS50ML 3.375 GM/50 ML BAG IVPB (22:25)
[2024-07-20] MEDS: ONDANSETRON INJ 4 MG/2 ML VIAL IV PUSH (22:27)
[2024-07-20] MEDS: HYDROmorphone HCL INJ (*CRX) 2 MG/ML VIAL 0.5 MG IV PUSH (22:27)
[2024-07-20 22:31] VITALS: BP 113/71; PULSE 81; RESP 17; O2SAT 99
--- NOTE | 2024-07-20 22:55 | PC.NURSE ---
blood culture collection delayed due to inadequate staffing to meet patient order demands.
[2024-07-20 23:11] VITALS: BMI 29.6
--- NOTE | 2024-07-20 23:14 | ADMGEN ---
This patient, Yeni Chavez, was admitted to 2 Medical Room 261-01. Patient/family oriented to hospital policies and general routines including ID bracelet, bed and alarms, visiting hours, pain management, procedures, bathroom and other care routines, personal items, smoking policy, room service/diet, and visiting hours. Information on how to activate the Rapid Response Team has been discussed. Patient/Family are encouraged to report perceived risks to care and to ask questions if they do not understand what they are told or what they should do. Report received from ANA CRISTINA Cunha in ED.
[2024-07-21] MEDS: LACTATED RINGERS 1,000 ML 999 ML IV CONT (00:07)
[2024-07-21 00:22] VITALS: BP 113/58; PULSE 88; RESP 16; TEMP 36.5; O2SAT 98
[2024-07-21] MEDS: SODIUM CHLORIDE 0.9% IV 1,000 ML 125 ML IV CONT ×2 (02:03→10:43)
[2024-07-21] MEDS: HYDROmorphone HCL INJ (*CRX) 2 MG/ML VIAL 0.5 MG IV PUSH ×2 (02:03→22:25)
[2024-07-21] MEDS: ONDANSETRON INJ 4 MG/2 ML VIAL IV PUSH ×4 (02:04→16:31)
[2024-07-21] MEDS: HYDROmorphone HCL INJ (*CRX) 1 MG/ML SYR IV PUSH (03:18)
[2024-07-21 05:03] VITALS: BP 100/54; PULSE 86; RESP 16; TEMP 37.1; O2SAT 96
[2024-07-21] MEDS: PIPERACILLN/TAZ 3.375GM/NS50ML 3.375 GM/50 ML BAG IVPB ×4 (05:06→23:23)
[2024-07-21] MEDS: HYDROmorphone HCL INJ (*CRX) 2 MG/ML VIAL 1 MG IV PUSH ×4 (07:52→19:30)
--- NOTE | 2024-07-21 13:03 | P.HP_ITS ---
H&P: HPI History of Present Illness Date/Time: 07/21/24 13:03 Chief Complaint: Lower quadrant pain Narrative: This is a 49-year-old woman who presented to the emergency department overnight with left lower quadrant pain that started 3 days ago. She states that about 4 days ago she began experiencing fevers, chills, and body aches and thought she was getting influenza. She went to an urgent care and flu swab was negative. She then began experiencing left lower quadrant abdominal pain that was also extending slightly to the suprapubic region. This was gradually becoming worse over the next couple days and she also started experiencing some blood in her stool. She has a prior history of diverticulitis about 7 years ago and was treated without requiring emergent surgery. She did have a colonoscopy sometime after that. 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 She does not recall eating anything recently that would have caused these new symptoms. In the emergency department she was noted to have an elevated white blood count and CT showed evidence of diverticulitis with mural abscess. She has been admitted to my service for further treatment and was placed on IV Zosyn. She s till continues to have fairly significant pain. The IV pain medications are helping but wear off after a couple hours. She also is experiencing a headache and would like to try Tylenol for this. Review of Systems Review of Systems: All systems reviewed & are unremarkable except as noted in HPI and below Constitutional: Constitutional: Reports as per HPI Eyes: Eyes: Denies change in vision ENT: Denies hearing loss, Denies neck pain and Denies sore throat Cardiovascular: Cardiovascular: Denies chest pain and Denies dyspnea Respiratory: Respiratory: Denies cough, Denies dyspnea and Denies wheezing Gastrointestinal: Gastrointestinal: Reports as per HPI Genitourinary: Genitourinary: Denies hematuria and Denies dysuria Musculoskeletal: Musculoskeletal: Denies arthralgias, Denies joint swelling and Denies neck pain Allergic/Immunologic: Allergic/Immunologic: Denies wheezing PMFSH Past Medical History Medical History (Updated 07/21/24 @ 13:13 by Jayy Sims DO) Chronic back pain Irritable bowel syndrome Surgical History Surgical History (Updated 07/21/24 @ 13:09 by Jayy Sims DO) Hx of cervical spine surgery Hx of tubal ligation Hx of ventral hernia repair Hx laparoscopic cholecystectomy Family History Family History Grandparent Colon cancer Breast cancer Grandparent Esophageal cancer Grandparent Non Hodgkin's lymphoma Grandparent Cerebrovascular accident Father Malignant neoplasm of prostate Social History Social History (System 10/25/21 @ 15:47 by Mandy Murray) Smoking packs per day: 1 Smoking cigarettes per day: 20.0 Years smoked: 29 Smoking pack-years: 29.00 Smoking status: Current every day smoker Tobacco type: cigarettes Additional smoking assessment comments: on and off smoking throughout years Alcohol intake: never Substance use: never Do You Feel Safe in your Home?: Yes Lack of Transportation: No Lack of Food: Never True Current Housing: I Have Housing Concerned About Future Housing: No Difficulty Paying Gas/Electric Bills: No Difficulty Paying for Meds: No Currently Unemployed: No Education: Associate Degree Difficulty w/ Childcare or Family Care: No Spiritual care concerns: No Meds Home Medications and Allergies Home Medications ?Medication ?Instructions ?Recorded ?Confirmed ?Type docusate sodium 100 mg capsule 200 mg PO HS 07/20/24 07/20/24 History Allergies Allergy/AdvReac Type Severity Reaction Status Date / Time sulfamethoxazole (From Allergy Intermediate Swelling Verified 07/20/24 15:06 Bactrim) of Lip/Tongue/Throat thimerosal Allergy Intermediate Rash Verified 07/20/24 15:06 trimethoprim (From Bactrim) Allergy Intermediate Swelling Verified 07/20/24 15:06 of Lip/Tongue/Throat Vital Signs Vital Signs - 24 hr 07/20/24 15:11 07/20/24 18:30 07/20/24 19:00 Temperature 98.8 F Pulse Rate 110 H 114 H 107 H Respiratory Rate 20 16 16 Blood Pressure 114/74 121/74 Pulse Oximetry 98 97 93 Oxygen Delivery Room Air 07/20/24 19:12 07/20/24 20:00 07/20/24 22:31 Temperature 98.8 F Pulse Rate 101 H 81 Respiratory Rate 21 H 17 Blood Pressure 113/71 Pulse Oximetry 95 99 Oxygen Delivery 07/21/24 00:22 07/21/24 00:33 07/21/24 05:03 Temperature 97.7 F 98.8 F Pulse Rate 88 86 Respiratory Rate 16 16 Blood Pressure 113/58 L 100/54 L Pulse Oximetry 98 96 Oxygen Delivery Room Air 07/21/24 08:00 Temperature Pulse Rate Respiratory Rate Blood Pressure Pulse Oximetry Oxygen Delivery Room Air Exam Const: General: alert; No acute distress Orientation/consciousness: patient oriented x3 Limitations: no limitations HENMT: Head: normocephalic and atraumatic Ears: hearing grossly normal bilaterally Face/Nose/Sinus: Normal external nose present and Normal nares present Mouth: Yes Normal oral and palatal mucosa present and Yes moist mucous membranes Eyes: General: appearance normal, both eyes and all related structures Conj unctivae: conjunctivae normal Sclera: sclerae normal Pupils: Equal, round and reactive pupils present EOM: EOMs intact bilaterally Neck: Neck: normal visual inspection, full ROM, no lymphadenopathy, supple and no JVD Lymphatic: no lymphadenopathy noted Chest: Chest palpation & inspection: normal inspection of the chest Resp: Effort & Inspection: normal respiratory effort and able to speak in complete sentences Auscultation: clear to auscultation bilaterally Percussion: percussion normal Cardio: Jugular venous distension: no JVD Rate: regular rate Rhythm: regular rhythm Heart sounds: S1 normal heart sound present and S2 normal heart sound present Peripheral pulses: Peripheral pulses 2+ throughout GI: Inspection: normal to inspection GI Palp: Yes Soft to palpation, Yes Tenderness to palpation present (GI) (LLQ), No Guarding due to palpation present (GI), No Hernia present and No Rebound tenderness present Percussion: Yes normal to percussion Auscultation: normal bowel sounds Rectal Exam: deferred : General: Yes no CVA tenderness Back/Spine/Pelvis: Back: no CVA tenderness Skin: General skin exam: normal color and dry skin Neuro: General: patient oriented x3, gait normal, moves all extremities, no focal motor deficits and CN's II-XI intact bilaterally Cranial nerves: Yes Equal, round and reactive pupils present Speech: normal speech Extrem: General: normal to inspection and capillary refill normal H&P: Results Labs Labs: Short CBC 07/20/24 Range/Units 18:57 WBC 13.2 H (4.5-10.0) K/mm3 Hgb 12.4 (12.0-15.0) g/dL Hct 36.3 L (37.0-47.0) % Plt Count 335 (150-375) k/mm3 [facility] 07/20/24 18:57 Sodium 138 Potassium 3.6 Chloride 100 Carbon Dioxide 26 BUN 9 Creatinine 0.64 L Glucose 105 Calcium 9.4 Liver Function 07/20/24 Range/Units 18:57 Total Bilirubin 0.5 (0.2-1.3) mg/dL AST 31 (14-36) U/L ALT 21 (6-35) U/L Alkaline Phosphatase 110 (38-126) U/L Albumin 4.1 (3.5-5.1) g/dL Urine 07/20/24 Range/Units 19:40 Urine Color Dark yellow (Yellow) Urine Appearance Clear (Clear) Urine pH 6.0 (5.0-9.0) Ur Specific [place] 1.017 (1.001-1.035) Urine Protein Negative (Negative) mg/dL Urine Glucose (UA) Negative (Negative) mg/dL Imaging CT scan - abdomen: Radiologist's impression: ITS Impressions Abdomen/Pelvis CT 07/20/24 20:38 IMPRESSION: Mild antral gastritis. Distal sigmoid diverticulitis complicated by a 3.6 cm intramural abscess. Fluid-filled colon as can be seen with diarrheal illness. Assessment and Plan Assessment and plan (1) Abscess of sigmoid colon due to diverticulitis: Code(s): K57.20 - Diverticulitis of large intestine with perforation and abscess without bleeding Status: Acute Assessment and Plan: * I have reviewed the CT and discussed the findings with the patient. She has evidence of perforated diverticulitis with an intramural abscess in the colon wall. She has been started on IV Zosyn. Will continue bowel rest and IV antibiotics with IV fluids. I discussed monitoring for any severe signs that would require emergent surgery. Also discussed possibility of abscess increasing in size which would possibly necessitate percutaneous drain placement. Hopefully with current bowel rest and antibiotics patient will gradually improve and will be able to introduce diet back slowly. (2) Chronic back pain: Qualifiers: Back pain location: low back pain Back pain laterality: unspecified Sciatica presence: unspecified whether sciatica present Qualified Code(s): M54.50 - Low back pain, unspecified; G89.29 - Other chronic pain Code(s): M54.9 - Dorsalgia, unspecified; G89.29 - Other chronic pain Status: Acute
[2024-07-21] MEDS: ACETAMINOPHEN 500 MG TABLET 1000 MG PO (13:42)
[2024-07-21] MEDS: KCL 20 MEQ/D5/0.45% SOD CHL 1,000 ML 100 ML IV CONT ×2 (13:43→23:23)
[2024-07-21 14:00] VITALS: BP 103/62; PULSE 86; RESP 16; TEMP 37; O2SAT 95
[2024-07-21 21:39] VITALS: BP 104/63; PULSE 85; RESP 20; TEMP 36.6; O2SAT 99
[2024-07-22] MEDS: HYDROmorphone HCL INJ (*CRX) 2 MG/ML VIAL 1 MG IV PUSH ×4 (02:04→17:34)
[2024-07-22] MEDS: PIPERACILLN/TAZ 3.375GM/NS50ML 3.375 GM/50 ML BAG IVPB ×4 (05:04→23:24)
[2024-07-22] MEDS: ACETAMINOPHEN 500 MG TABLET 1000 MG PO ×3 (05:14→21:22)
[2024-07-22 05:41] VITALS: BP 101/57; PULSE 82; RESP 20; TEMP 37.1; O2SAT 93
[2024-07-22 05:59] LABS: Hematocrit 31.3 % (37.0-47.0); Hemoglobin 10.4 g/dL (12.0-15.0); Mean Corpuscular HGB Conc 33.2 g/dl (32-36); Mean Corpuscular Hemoglobin 29.9 pg (26-34); Mean Corpuscular Volume 89.9 fl (80-100); Mean Platelet Volume 9.9 fl (7.4-10.4); Platelet Count Result 300 k/mm3 (150-375); Red Blood Count 3.48 M/mm3 (4.2-5.4); Red Cell Distribution Width 12.7 % (11.5-14.5); White Blood Count 8.5 K/mm3 (4.5-10.0)
[2024-07-22 06:32] LABS: Anion Gap 6 mmol/L (4-12); Blood Urea Nitrogen 4 mg/dL (7-17); Calcium 8.2 mg/dL (8.4-10.2); Carbon Dioxide 26 mmol/L (22-30); Chloride 105 mmol/L (98-107); Estimated CRCL calculation 104 ml/min; Estimated Glomerular Filt Rate > 60; Glucose 97 mg/dL (65-110); Potassium 3.9 mmol/L (3.4-5.0); Sodium 137 mmol/L (137-145)
[2024-07-22 06:42] LABS: CRP 11.6 mg/dL (<1.0)
[2024-07-22 08:16] VITALS: BP 111/69; PULSE 76; TEMP 36.6; O2SAT 99
[2024-07-22] MEDS: ONDANSETRON INJ 4 MG/2 ML VIAL IV PUSH ×4 (08:22→21:23)
[2024-07-22 08:32] LABS: Glucose Point of Care 104 mg/dl (65-105)
[2024-07-22] MEDS: KCL 20 MEQ/D5/0.45% SOD CHL 1,000 ML 100 ML IV CONT ×2 (10:28→21:28)
[2024-07-22 14:05] VITALS: BP 109/67; PULSE 67; RESP 16; TEMP 36.5; O2SAT 100
[2024-07-22] MEDS: HYDROmorphone HCL INJ (*CRX) 2 MG/ML VIAL 0.5 MG IV PUSH ×2 (14:11→20:09)
--- NOTE | 2024-07-22 14:30 | P.PNGS_ITS ---
Progress Note: A&P Assessment and Plan (1) Abscess of sigmoid colon due to diverticulitis: Code(s): K57.20 - Diverticulitis of large intestine with perforation and abscess without bleeding Status: Acute Assessment and Plan: * Abdominal pain improving, WBC normalized. Patient having more abdominal distention and nausea today. * Will order KUB and consider starting clear liquids this afternoon if okay. * Continue IV antibiotics * Repeat labs tomorrow (2) Chronic back pain: Qualifiers: Back pain location: low back pain Back pain laterality: unspecified Sciatica presence: unspecified whether sciatica present Qualified Code(s): M54.50 - Low back pain, unspecified; G89.29 - Other chronic pain Code(s): M54.9 - Dorsalgia, unspecified; G89.29 - Other chronic pain Status: Acute Plan I have discussed the patient's case and plan of care with Dr. Sims. Subjective Subjective Date/Time Seen: 07/22/24 14:30 Interval history: Patient's abdominal pain is better today. She overall feels poorly and is having more bloating and pressure in her abdomen. She feels slightly distended in the upper abdomen. She is also feeling more nauseous today. No vomiting. Feels na usea could be related to lack of oral intake. She also had an episode this morning per nursing where she stated she just doesn't feel right. She felt flushed and slightly light-headed. She reports it was similar to hot flashes she had with menopause. Vital signs and blood sugar checked and stable. Exam Const: General: comfortable and no acute distress GI: Inspection: distended GI Palp: Yes Soft to palpation, Yes Tenderness to palpation present (GI) (across the lower abdomen), No Guarding due to palpation present (GI) and No Rebound tenderness present Auscultation: normal bowel sounds Objective Data Vital Signs Vital Signs: Vital Signs - 24 hr 07/21/24 20:14 07/21/24 21:39 07/22/24 05:41 Temperature 97.9 F 98.8 F Pulse Rate 85 82 Respiratory Rate 20 20 Blood Pressure 104/63 101/57 L Pulse Oximetry 99 93 Oxygen Delivery Room Air 07/22/24 08:16 07/22/24 08:25 07/22/24 14:05 Temperature 97.8 F 97.7 F Pulse Rate 76 67 Respiratory Rate 16 Blood Pressure 111/69 109/67 Pulse Oximetry 99 100 Oxygen Delivery Room Air Intake/Output Intake/Output: Intake & Output 07/19/24 07/20/24 07/21/24 07/22/24 23:59 23:59 23:59 23:59 Intake Total 2049 3166.7 1100 Balance 2049 3166.7 1100 Meds/Results Medications: Active Medications Generic Name Dose Route Start Last Admin Trade Name Freq PRN Reason Stop Dose Admin Acetaminophen 1,000 mg 07/21/24 13:01 07/22/24 10:29 Acetaminophen 500 Mg Tablet PO 1,000 mg Q6H PRN Administration Headache Hydromorphone HCl 0.5 mg 07/21/24 13:02 07/22/24 14:11 Hydromorphone Hcl Inj (*Crx) 2 Mg/Ml Vial IV PUSH 0.5 mg Q2H PRN Administration Pain Rated 4-6 Hydromorphone HCl 1 mg 07/21/24 13:03 07/22/24 08:22 Hydromorphone Hcl Inj (*Crx) 2 Mg/Ml Vial IV PUSH 1 mg Q2H PRN Administration Pain Rated 7-10 Piperacillin/Tazobactam/Dextrose 3.375 gm in 50 mls @ 100 mls/hr 07/20/24 21:20 07/22/24 12:27 Zosyn 3.375 Gm/Ns 50 Ml IVPB Infused Q6HR DAREN Infusion Potassium Chloride/Dextrose/Sod Cl 1,000 mls @ 100 mls/hr 07/21/24 13:05 07/22/24 10:28 Kcl 20 Meq/D5/0.45% Sod Chl IV CONT 100 mls/hr .Q10H DAREN Administration Ondansetron HCl 4 mg 07/20/24 21:24 07/22/24 11:57 Ondansetron Inj 4 Mg/2 Ml Vial IV PUSH 4 mg Q4H PRN Administration Nausea Radiology Results: ITS Impressions Abdomen/Pelvis CT 07/20/24 20:38 IMPRESSION: Mild antral gastritis. Distal sigmoid diverticulitis complicated by a 3.6 cm intramural abscess. Fluid-filled colon as can be seen with diarrheal illness. Labs Labs: Laboratory Results - last 24 hr 07/22/24 07/22/24 05:36 08:14 WBC 8.5 RBC 3.48 L Hgb 10.4 L Hct 31.3 L MCV 89.9 MCH 29.9 MCHC 33.2 RDW 12.7 Plt Count 300 MPV 9.9 Sodium 137 Potassium 3.9 Chloride 105 Carbon Dioxide 26 Anion Gap 6 BUN 4 L D Creatinine 0.58 L Estim Creat Clear Calc 104 Estimated GFR > 60 Glucose 97 POC Capillary Glucose 104 Calcium 8.2 L C-Reactive Protein 11.6 H
[2024-07-22 21:06] VITALS: BP 124/68; PULSE 70; RESP 20; TEMP 36.8; O2SAT 96
[2024-07-23] MEDS: ONDANSETRON INJ 4 MG/2 ML VIAL IV PUSH ×5 (01:21→20:21)
[2024-07-23] MEDS: HYDROmorphone HCL INJ (*CRX) 2 MG/ML VIAL 1 MG IV PUSH ×3 (01:22→16:25)
[2024-07-23 04:52] VITALS: BP 115/71; PULSE 65; RESP 18; TEMP 36.5; O2SAT 96
[2024-07-23 05:18] LABS: Hematocrit 31.7 % (37.0-47.0); Hemoglobin 10.3 g/dL (12.0-15.0); Mean Corpuscular HGB Conc 32.5 g/dl (32-36); Mean Corpuscular Volume 89.3 fl (80-100); Mean Platelet Volume 9.8 fl (7.4-10.4); Platelet Count Result 314 k/mm3 (150-375); Red Blood Count 3.55 M/mm3 (4.2-5.4); Red Cell Distribution Width 12.5 % (11.5-14.5); White Blood Count 7.6 K/mm3 (4.5-10.0)
[2024-07-23 05:33] LABS: Anion Gap 6 mmol/L (4-12); Blood Urea Nitrogen 3 mg/dL (7-17); Calcium 8.8 mg/dL (8.4-10.2); Carbon Dioxide 27 mmol/L (22-30); Chloride 105 mmol/L (98-107); Estimated CRCL calculation 98 ml/min; Estimated Glomerular Filt Rate > 60; Glucose 111 mg/dL (65-110); Potassium 4.4 mmol/L (3.4-5.0); Sodium 138 mmol/L (137-145)
[2024-07-23] MEDS: PIPERACILLN/TAZ 3.375GM/NS50ML 3.375 GM/50 ML BAG IVPB ×4 (05:58→23:41)
[2024-07-23] MEDS: HYDROmorphone HCL INJ (*CRX) 2 MG/ML VIAL 0.5 MG IV PUSH (06:01)
[2024-07-23 14:00] VITALS: BP 131/88; PULSE 77; RESP 18; TEMP 36.6; O2SAT 99
--- NOTE | 2024-07-23 14:01 | P.PNGS_ITS ---
Progress Note: A&P Assessment and Plan (1) Abscess of sigmoid colon due to diverticulitis: Code(s): K57.20 - Diverticulitis of large intestine with perforation and abscess without bleeding Status: Acute Assessment and Plan: * Advance diet as tolerated * Continue Zosyn * Possibly home tomorrow if doing well * Sports Teacher consulted for low fiber/high fiber education (2) Chronic back pain: Qualifiers: Back pain location: low back pain Back pain laterality: unspecified Sciatica presence: unspecified whether sciatica present Qualified Code(s): M54.50 - Low back pain, unspecified; G89.29 - Other chronic pain Code(s): M54.9 - Dorsalgia, unspecified; G89.29 - Other chronic pain Status: Acute Subjective Subjective Date/Time Seen: 07/23/24 14:01 Interval history: Pain improving. Bowels moving. No nausea or vomiting. Exam GI: Inspection: non-distended GI Palp: Yes Soft to palpation, Yes Tenderness to palpation present (GI) (mild LLQ), No Guarding due to palpation present (GI) and No Rebound tenderness present Percussion: Yes normal to percussion Auscultation: normal bowel sounds Objective Data Vital Signs Vital Signs: Vital Signs - 24 hr 07/22/24 14:05 07/22/24 20:00 07/22/24 21:06 Temperature 97.7 F 98.2 F Pulse Rate 67 70 Respiratory Rate 16 20 Blood Pressure 109/67 124/68 Pulse Oximetry 100 96 Oxygen Delivery Room Air 07/23/24 04:52 07/23/24 08:00 Temperature 97.7 F Pulse Rate 65 Respiratory Rate 18 Blood Pressure 115/71 Pulse Oximetry 96 Oxygen Delivery Room Air Intake/Output Intake/Output: Intake & Output 07/20/24 07/21/24 07/22/24 07/23/24 23:59 23:59 23:59 23:59 Intake Total 2049 3166.7 2200 440 Balance 2049 3166.7 2200 440 Meds/Results Medications: Active Medications Generic Name Dose Route Start Last Admin Trade Name Freq PRN Reason Stop Dose Admin Acetaminophen 1,000 mg 07/21/24 13:01 07/22/24 21:22 Acetaminophen 500 Mg Tablet PO 1,000 mg Q6H PRN Administration Headache Hydrocodone Bitart/Acetaminophen 1 tab 07/23/24 08:57 Hydrocodone/Acetaminophen (*Crx) 5-325 Mg Tablet PO Q4H PRN Pain Rated 4-6 Hydrocodone Bitart/Acetaminophen 1 tab 07/23/24 08:57 Hydrocodone/Acetaminophen (*Crx) 10-325 Mg Tablet PO Q4H PRN Pain Rated 7-10 Hydromorphone HCl 0.5 mg 07/21/24 13:02 07/23/24 06:01 Hydromorphone Hcl Inj (*Crx) 2 Mg/Ml Vial IV PUSH 0.5 mg Q2H PRN Administration Breakthrough Pain 4-6 Hydromorphone HCl 1 mg 07/21/24 13:03 07/23/24 11:03 Hydromorphone Hcl Inj (*Crx) 2 Mg/Ml Vial IV PUSH 1 mg Q2H PRN Administration Breakthrough Pain 7-10 Piperacillin/Tazobactam/Dextrose 3.375 gm in 50 mls @ 100 mls/hr 07/20/24 21:20 07/23/24 13:13 Zosyn 3.375 Gm/Ns 50 Ml IVPB Infused Q6HR DAREN Infusion Ondansetron HCl 4 mg 07/20/24 21:24 07/23/24 11:03 Ondansetron Inj 4 Mg/2 Ml Vial IV PUSH 4 mg Q4H PRN Administration Nausea Radiology Results: ITS Impressions Abdomen/Pelvis CT 07/20/24 20:38 IMPRESSION: Mild antral gastritis. Distal sigmoid diverticulitis complicated by a 3.6 cm intramural abscess. Fluid-filled colon as can be seen with diarrheal illness. Abdomen X-Ray 07/22/24 15:14 IMPRESSION: NO ACUTE ABDOMINAL FINDINGS. Labs Labs: Laboratory Results - last 24 hr 07/23/24 05:06 WBC 7.6 RBC 3.55 L Hgb 10.3 L Hct 31.7 L MCV 89.3 MCH 29.0 MCHC 32.5 RDW 12.5 Plt Count 314 MPV 9.8 Sodium 138 Potassium 4.4 Chloride 105 Carbon Dioxide 27 Anion Gap 6 BUN 3 L Creatinine 0.62 L Estim Creat Clear Calc 98 Estimated GFR > 60 Glucose 111 H Calcium 8.8
[2024-07-23] MEDS: HYDROcodone/acetaminophen (*CRX) 10-325 MG TABLET 1 TAB PO (20:21)
[2024-07-23 20:56] VITALS: BP 116/72; PULSE 68; RESP 18; TEMP 36.5; O2SAT 100
[2024-07-24] MEDS: ONDANSETRON INJ 4 MG/2 ML VIAL IV PUSH ×2 (00:31→17:16)
[2024-07-24] MEDS: HYDROcodone/acetaminophen (*CRX) 5-325 MG TABLET 1 TAB PO (00:31)
[2024-07-24 03:46] VITALS: BP 103/51; PULSE 65; RESP 18; TEMP 36.5; O2SAT 98
[2024-07-24 05:40] LABS: Hemoglobin 10.9 g/dL (12.0-15.0); Mean Corpuscular Hemoglobin 29.8 pg (26-34); Mean Corpuscular Volume 90.2 fl (80-100); Mean Platelet Volume 10.1 fl (7.4-10.4); Platelet Count Result 362 k/mm3 (150-375); Red Blood Count 3.66 M/mm3 (4.2-5.4); Red Cell Distribution Width 12.6 % (11.5-14.5); White Blood Count 6.6 K/mm3 (4.5-10.0)
[2024-07-24] MEDS: PIPERACILLN/TAZ 3.375GM/NS50ML 3.375 GM/50 ML BAG IVPB ×3 (05:58→17:17)
[2024-07-24 06:01] LABS: Anion Gap 5 mmol/L (4-12); Blood Urea Nitrogen 3 mg/dL (7-17); CRP 4.2 mg/dL (<1.0); Calcium 8.9 mg/dL (8.4-10.2); Carbon Dioxide 28 mmol/L (22-30); Chloride 106 mmol/L (98-107); Estimated CRCL calculation 92 ml/min; Estimated Glomerular Filt Rate > 60; Glucose 91 mg/dL (65-110); Potassium 4.2 mmol/L (3.4-5.0); Sodium 139 mmol/L (137-145)
[2024-07-24 08:02] VITALS: O2SAT 99
[2024-07-24] MEDS: HYDROcodone/acetaminophen (*CRX) 10-325 MG TABLET 1 TAB PO ×3 (10:26→21:37)
[2024-07-24 14:00] VITALS: BP 109/64; PULSE 63; RESP 18; TEMP 36.4; O2SAT 100
--- NOTE | 2024-07-24 16:47 | P.PNGS_ITS ---
Progress Note: A&P Assessment and Plan (1) Abscess of sigmoid colon due to diverticulitis: Code(s): K57.20 - Diverticulitis of large intestine with perforation and abscess without bleeding Status: Acute Assessment and Plan: Patient having persistent left lower quadrant pain to the extent that she is concerned about going home and still taking narcotic pain medication. Her white blood cell count has been in the normal range the last 3 days. Her CRP has decreased from 11.6-4.2. She is hydrogenation still operator in the left lower quadrant. I will go ahead and repeat a CT scan of the abdomen pelvis with IV contrast to better evaluate. It is possible her abscess has increased in size. (2) Diarrhea: Code(s): R19.7 - Diarrhea, unspecified Status: Acute Assessment and Plan: Will start Imodium (3) Dark stools: Code(s): R19.5 - Other fecal abnormalities Status: Acute Assessment and Plan: Describes her stools as coffee-ground. CT scan did show some antral gastritis of a mild nature on initial imaging. I will start her on Protonix and get a stool for guaiac. She is anemic but her H&H has been stable to slightly increasing the last 3 days. (4) Anemia: Code(s): D64.9 - Anemia, unspecified Status: Acute Assessment and Plan: H&H about 10 and 30 but has been increasing slightly for the last 3 days. Recheck labs again in a.m.. Subjective Subjective Date/Time Seen: 07/24/24 16:47 Patient reports: still having pain (Left lower quadrant, admits it gets a little better each day), tolerating liquids well (Tolerating low-fiber diet), diarrhea (Multiple coffee-ground stools), blood in stool (Described as coffee ground) and afebrile Review of Systems Review of Systems: All systems reviewed & are unremarkable except as noted in HPI and below (HPI) Exam Const: General: comfortable, no acute distress, alert, awake and Physically active Orientation/consciousness: patient oriented x3 GI: Inspection: normal to inspection, non-distended and scar (Lap valentin trocar sites) GI Palp: Yes abdominal tenderness (Left lower quadrant, no guarding), Yes Soft to palpation, No Guarding due to palpation present (GI), No Hernia present and No Palpable mass present Auscultation: normal bowel sounds Objective Data Vital Signs Vital Signs: Vital Signs - 24 hr 07/23/24 20:00 07/23/24 20:56 07/24/24 03:46 Temperature 36.5 C 36.5 C Pulse Rate 68 65 Respiratory Rate 18 18 Blood Pressure 116/72 103/51 L Pulse Oximetry 100 98 Oxygen Delivery Room Air 07/24/24 08:02 07/24/24 08:38 07/24/24 14:00 Temperature 36.4 C L Pulse Rate 63 Respiratory Rate 18 Blood Pressure 109/64 Pulse Oximetry 99 100 Oxygen Delivery Room Air Room Air Intake/Output Intake/Output: Intake & Output 07/21/24 07/22/24 07/23/24 07/24/24 23:59 23:59 23:59 23:59 Intake Total 3166.7 2200 1130 780 Balance 3166.7 2200 1130 780 Meds/Results Medications: Active Medications Generic Name Dose Route Start Last Admin Trade Name Freq PRN Reason Stop Dose Admin Acetaminophen 1,000 mg 07/21/24 13:01 07/22/24 21:22 Acetaminophen 500 Mg Tablet PO 1,000 mg Q6H PRN Administration Headache Hydrocodone Bitart/Acetaminophen 1 tab 07/23/24 08:57 07/24/24 00:31 Hydrocodone/Acetaminophen (*Crx) 5-325 Mg Tablet PO 1 tab Q4H PRN Administration Pain Rated 4-6 Hydrocodone Bitart/Acetaminophen 1 tab 07/23/24 08:57 07/24/24 10:26 Hydrocodone/Acetaminophen (*Crx) 10-325 Mg Tablet PO 1 tab Q4H PRN Administration Pain Rated 7-10 Hydromorphone HCl 0.5 mg 07/21/24 13:02 07/23/24 06:01 Hydromorphone Hcl Inj (*Crx) 2 Mg/Ml Vial IV PUSH 0.5 mg Q2H PRN Administration Breakthrough Pain 4-6 Hydromorphone HCl 1 mg 07/21/24 13:03 07/23/24 16:25 Hydromorphone Hcl Inj (*Crx) 2 Mg/Ml Vial IV PUSH 1 mg Q2H PRN Administration Breakthrough Pain 7-10 Piperacillin/Tazobactam/Dextrose 3.375 gm in 50 mls @ 100 mls/hr 07/20/24 21:20 07/24/24 13:28 Zosyn 3.375 Gm/Ns 50 Ml IVPB Infused Q6HR [facility] Infusion Loperamide HCl 2 mg 07/24/24 16:26 Loperamide Hcl 2 Mg Capsule PO PRN PRN Diarrhea Ondansetron HCl 4 mg 07/20/24 21:24 07/24/24 00:31 Ondansetron Inj 4 Mg/2 Ml Vial IV PUSH 4 mg Q4H PRN Administration Nausea Pantoprazole Sodium 40 mg 07/25/24 09:00 Pantoprazole 40 Mg Tablet PO QAM [facility] Radiology Results: ITS Impressions Abdomen/Pelvis CT 07/20/24 20:38 IMPRESSION: Mild antral gastritis. Distal sigmoid diverticulitis complicated by a 3.6 cm intramural abscess. Fluid-filled colon as can be seen with diarrheal illness. Abdomen X-Ray 07/22/24 15:14 IMPRESSION: NO ACUTE ABDOMINAL FINDINGS. Labs Labs: Laboratory Results - last 24 hr 07/24/24 05:04 WBC 6.6 RBC 3.66 L Hgb 10.9 L Hct 33.0 L MCV 90.2 MCH 29.8 MCHC 33.0 RDW 12.6 Plt Count 362 MPV 10.1 Sodium 139 Potassium 4.2 Chloride 106 Carbon Dioxide 28 Anion Gap 5 BUN 3 L Creatinine 0.67 L Estim Creat Clear Calc 92 Estimated GFR > 60 Glucose 91 Calcium 8.9 C-Reactive Protein 4.2 H
[2024-07-24] MEDS: PANTOPRAZOLE 40 MG TABLET PO (17:16)
[2024-07-24 17:45] LABS: IFOB Positive Control Positive; Immunochemical Fecal Occult Bl Positive (N)
[2024-07-24 20:00] VITALS: PULSE 65; RESP 20; O2SAT 96
[2024-07-24 21:32] VITALS: BP 108/55; PULSE 65; RESP 20; TEMP 37.1; O2SAT 96
[2024-07-25] MEDS: PIPERACILLN/TAZ 3.375GM/NS50ML 3.375 GM/50 ML BAG IVPB ×4 (00:50→17:28)
[2024-07-25 05:31] VITALS: BP 98/58; PULSE 66; RESP 20; TEMP 36.4; O2SAT 98
[2024-07-25 06:27] LABS: Hematocrit 33.9 % (37.0-47.0); Hemoglobin 11.4 g/dL (12.0-15.0); Mean Corpuscular HGB Conc 33.6 g/dl (32-36); Mean Corpuscular Volume 89.2 fl (80-100); Platelet Count Result 414 k/mm3 (150-375); Red Cell Distribution Width 12.7 % (11.5-14.5); White Blood Count 6.5 K/mm3 (4.5-10.0)
[2024-07-25 06:48] LABS: Anion Gap 10 mmol/L (4-12); Blood Urea Nitrogen 6 mg/dL (7-17); Calcium 8.9 mg/dL (8.4-10.2); Carbon Dioxide 23 mmol/L (22-30); Chloride 107 mmol/L (98-107); Estimated CRCL calculation 95 ml/min; Estimated Glomerular Filt Rate > 60; Glucose 83 mg/dL (65-110); Potassium 3.8 mmol/L (3.4-5.0); Sodium 140 mmol/L (137-145)
[2024-07-25] MEDS: PANTOPRAZOLE 40 MG TABLET PO (07:36)
[2024-07-25] MEDS: HYDROcodone/acetaminophen (*CRX) 5-325 MG TABLET 1 TAB PO ×2 (07:42→18:03)
[2024-07-25 08:00] VITALS: O2SAT 98
[2024-07-25] MEDS: HYDROcodone/acetaminophen (*CRX) 10-325 MG TABLET 1 TAB PO (10:31)
--- NOTE | 2024-07-25 11:53 | P.PNGS_ITS ---
Progress Note: A&P Assessment and Plan (1) Abscess of sigmoid colon due to diverticulitis: Code(s): K57.20 - Diverticulitis of large intestine with perforation and abscess without bleeding Status: Acute Assessment and Plan: Continues to have left lower quadrant tenderness requiring oral narcotic analgesics. CT scan shows improvement in that the abscess is gone but still shows acute diverticulitis. Patient is not comfortable enough to go home without narcotic analgesics so will back off on her low-fiber diet and try small amounts clear liquids. Will add gentamicin to her Zosyn antibiotics. Spoke to pharmacist about this dosing. Hopefully pain will improve. Do not think that guaiac-positive stools are due to diverticulitis. (2) Guaiac positive stools: Code(s): R19.5 - Other fecal abnormalities Status: Acute Assessment and Plan: Coffee-ground in appearance. Patient very concerned about this. She did have some evidence of gastritis on her initial CT scan. I started her on Protonix yesterday and she does notice that the frequency of stools seems to be less. Will consult Gastroenterology for evaluation. Patient reports she had an EGD in March and thinks it did show some gastritis. We do not have those reports here in our EHR. (3) Diarrhea: Code(s): R19.7 - Diarrhea, unspecified Status: Acute Assessment and Plan: Coffee-ground as above. Could be having increased frequency of stools due to diverticulitis but doubt that the coffee-ground, guaiac positive stool are due to a distal colonic process. Subjective Subjective Date/Time Seen: 07/25/24 11:53 Patient reports: still having pain, tolerating a regular diet (Low-fiber), voiding w/o difficulty, diarrhea, blood in stool (Coffee-ground, guaiac-positive stool) and afebrile Interval history: Patient is still requiring oral narcotic medications for left lower quadrant abdominal pain. She remains very concerned about the coffee-ground stools and diarrhea. She does admit that they have slowed down slightly since starting her on Protonix yesterday. Review of Systems Review of Systems: All systems reviewed & are unremarkable except as noted in HPI and below (HPI) Exam Const: General: cooperative, comfortable, no acute distress, alert and awake Orientation/consciousness: patient oriented x3 GI: Inspection: normal to inspection, non-distended and scaphoid GI Palp: Yes abdominal tenderness (Left lower quadrant to deep palpation, some right lower quadrant) and Yes Soft to palpation Auscultation: normal bowel sounds Objective Data Vital Signs Vital Signs: Vital Signs - 24 hr 07/24/24 14:00 07/24/24 20:00 07/24/24 21:32 Temperature 36.4 C L 37.1 C Pulse Rate 63 65 65 Respiratory Rate 18 20 20 Blood Pressure 109/64 108/55 L Pulse Oximetry 100 96 96 Oxygen Delivery Room Air 07/25/24 05:31 07/25/24 08:00 Temperature 36.4 C L Pulse Rate 66 Respiratory Rate 20 Blood Pressure 98/58 L Pulse Oximetry 98 98 Oxygen Delivery Room Air Intake/Output Intake/Output: Intake & Output 07/22/24 07/23/24 07/24/24 07/25/24 23:59 23:59 23:59 23:59 Intake Total 2200 1130 900 820 Balance 2200 1130 900 820 Meds/Results Medications: Active Medications Generic Name Dose Route Start Last Admin Trade Name Freq PRN Reason Stop Dose Admin Acetaminophen 1,000 mg 07/21/24 13:01 07/22/24 21:22 Acetaminophen 500 Mg Tablet PO 1,000 mg Q6H PRN Administration Headache Hydrocodone Bitart/Acetaminophen 1 tab 07/23/24 08:57 07/25/24 07:42 Hydrocodone/Acetaminophen (*Crx) 5-325 Mg Tablet PO 1 tab Q4H PRN Administration Pain Rated 4-6 Hydrocodone Bitart/Acetaminophen 1 tab 07/23/24 08:57 07/25/24 10:31 Hydrocodone/Acetaminophen (*Crx) 10-325 Mg Tablet PO 1 tab Q4H PRN Administration Pain Rated 7-10 Gentamicin Sulfate 1 each 07/25/24 11:52 Gentamicin Pharmacy To Dose IVPB PRN PRN Kinetics Consult Hydromorphone HCl 0.5 mg 07/21/24 13:02 07/23/24 06:01 Hydromorphone Hcl Inj (*Crx) 2 Mg/Ml Vial IV PUSH 0.5 mg Q2H PRN Administration Breakthrough Pain 4-6 Hydromorphone HCl 1 mg 07/21/24 13:03 07/23/24 16:25 Hydromorphone Hcl Inj (*Crx) 2 Mg/Ml Vial IV PUSH 1 mg Q2H PRN Administration Breakthrough Pain 7-10 Piperacillin/Tazobactam/Dextrose 3.375 gm in 50 mls @ 100 mls/hr 07/20/24 21:20 07/25/24 11:31 Zosyn 3.375 Gm/Ns 50 Ml IVPB 100 mls/hr Q6HR [facility] Administration Loperamide HCl 2 mg 07/24/24 16:26 Loperamide Hcl 2 Mg Capsule PO PRN PRN Diarrhea Ondansetron HCl 4 mg 07/20/24 21:24 07/24/24 17:16 Ondansetron Inj 4 Mg/2 Ml Vial IV PUSH 4 mg Q4H PRN Administration Nausea Pantoprazole Sodium 40 mg 07/25/24 09:00 07/25/24 07:36 Pantoprazole 40 Mg Tablet PO 40 mg QAM [facility] Administration Radiology Results: ITS Impressions Abdomen X-Ray 07/22/24 15:14 IMPRESSION: NO ACUTE ABDOMINAL FINDINGS. Abdomen/Pelvis CT 07/25/24 06:52 Impression: Acute sigmoid diverticulitis of the distal sigmoid colon. Previously noted intramural/pericolic abscess is essentially completely resolved. No abscess or free air seen in the current exam. Labs Labs: Laboratory Results - last 24 hr 07/24/24 07/25/24 16:54 05:33 WBC 6.5 RBC 3.80 L Hgb 11.4 L Hct 33.9 L MCV 89.2 MCH 30.0 MCHC 33.6 RDW 12.7 Plt Count 414 H MPV 10.0 Sodium 140 Potassium 3.8 Chloride 107 Carbon Dioxide 23 Anion Gap 10 BUN 6 L Creatinine 0.64 L Estim Creat Clear Calc 95 Estimated GFR > 60 Glucose 83 Calcium 8.9 Stl Occult Blood (IFOB) Positive H stools are guaiac positive. H&H slightly higher today Imaging Attestation: I personally reviewed and interpreted this imaging study as fo llows: (CT scan abdomen and pelvis done this morning) My impression: Diverticulitis, no abscess seen Radiologist's impression: Acute sigmoid diverticulitis of the distal sigmoid colon. Previously noted intramural/pericolic abscess is essentially completely resolved. No abscess or free air seen in the current exam.
[2024-07-25] MEDS: GENTAMICIN SULFATE INJ 330 MG in DEXTROSE 5% 100 ML 100 MG IVPB (13:18)
[2024-07-25] MEDS: ONDANSETRON INJ 4 MG/2 ML VIAL IV PUSH ×2 (13:21→16:56)
[2024-07-25 14:00] VITALS: BP 106/60; PULSE 63; RESP 14; TEMP 36.6; O2SAT 98
[2024-07-25] MEDS: HYDROmorphone HCL INJ (*CRX) 2 MG/ML VIAL 1 MG IV PUSH (19:02)
[2024-07-25 19:55] VITALS: PULSE 63; RESP 14; O2SAT 98
[2024-07-25 22:00] VITALS: BP 102/59; PULSE 61; RESP 20; TEMP 36.4; O2SAT 98
[2024-07-26] VITALS (9 sets, daily range): BP systolic 84–142; BP diastolic 47–80; PULSE 54–74; RESP 14–20; TEMP 36.4–36.8; O2SAT 96–100
[2024-07-26] MEDS: HYDROcodone/acetaminophen (*CRX) 10-325 MG TABLET 1 TAB PO ×4 (00:51→22:56)
[2024-07-26] MEDS: PIPERACILLN/TAZ 3.375GM/NS50ML 3.375 GM/50 ML BAG IVPB ×5 (00:52→22:56)
[2024-07-26] MEDS: ONDANSETRON INJ 4 MG/2 ML VIAL IV PUSH ×2 (00:54→19:57)
[2024-07-26 01:28] LABS: Estimated CRCL calculation 97 ml/min; Estimated Glomerular Filt Rate > 60
[2024-07-26 01:34] LABS: Gentamicin Random 1.5 ug/mL (5.0-12.0)
--- NOTE | 2024-07-26 09:19 | P.CONGI_ITS ---
Assessment and Plan Assessment and plan (1) Guaiac positive stools: Code(s): R19.5 - Other fecal abnormalities Status: Acute (2) Mixed irritable bowel syndrome: Code(s): K58.2 - Mixed irritable bowel syndrome Status: Acute (3) Abscess of sigmoid colon due to diverticulitis: Code(s): K57.20 - Diverticulitis of large intestine with perforation and abscess without bleeding Status: Acute (4) Epigastric pain: Code(s): R10.13 - Epigastric pain Status: Acute (5) Abdominal bloating: Code(s): R14.0 - Abdominal distension (gaseous) Status: Acute (6) Lower abdominal pain: Code(s): R10.30 - Lower abdominal pain, unspecified Status: Acute (7) ABLA (acute blood loss anemia): Code(s): D62 - Acute posthemorrhagic anemia Status: Acute Plan 1. Heme positive stools/dark stools/epigastric pain/ABLA: Per patient last EGD performed in [facility] March 2024 at which time she states she was diagnosed with gastric irritation. according to the patient she was on 2 medications for about a month and after questioning it sounds as if it may have been a PPI famotidine. She is currently on no PPI or antacids. Hx of ventral hernia repair 2-3 years ago. Patient complains of postprandial abdominal fullness and epigastric pain that she describes as a pressure or fullness but sharp at times. Prior to admission she admits to early satiety but denies any appetite loss, reflux, nausea or vomiting. Prior to her EGD in March she had been using NSAIDs regularly but has since discontinued. Per patient she was tested for SIBO and H pylori in the past and believes they were both negative. Since admission the patient states that she has been having dark brown coffee looking stools with clots in it denies any bright red blood per rectum. Labs today show HGB 11, HCT 34, MCV [address] on admission showed mild antral gastritis Patient denies any p.o. intake since midnight. She is not on any anticoagulants. * NPO * EGD today * continue Protonix 40 mg daily * care with NSAIDs, aspirin, or anticoagulants * Further recommendations to follow endoscopy 2. Diverticulitis with abscess: Per patient last colonoscopy performed around 2017, results unknown. Patient presented to the emergency room on the with complaints of abdominal pain and fever. 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 CT showed distal sigmoid diverticulitis complicated by a 3.6 cm intramural abscess. Surgery is on the patient's case and has been receiving antibiotics. Repeat CT done yesterday showed acute sigmoid diverticulitis of the distal sigmoid colon. Previously noted intramural/pericolic abscess is essentially completely resolved. No abscess or free air seen in the current exam. Surgery added gentamicin to treatment regimen. Patient states her lower abdominal pain has improved. * Continue antibiotics per surgical recommendation * Continue supportive care * patient to follow-up with her primary sql report developer after discharge to discuss possible repeat colonoscopy Thank you very much for allowing me to share in the care of this very nice patient. This report may have been done utilizing a voice recognition system. Attempts have been made to correct errors. However, there may be uncorrected grammatical, spelling, and recognition errors present. GI Consult Note Consult date/time: 07/26/24 09:19 Reason for consult: heme positive stool HPI: This is a 49-year-old female with history of bladder and uterine prolapse, diverticulitis, IBS, tubal ligation, cholecystectomy and ventral hernia repair. She presented to the emergency room 07/20/2024 with complaints of abdominal pain fever. GI has been consulted for coffee-ground appearing stools and heme- positive stools. Patient states that when she 1st presented to the emergency room she was having bilateral lower quadrant abdominal pain that she described as a cramping sensation. As she has been treated for diverticulitis her lower abdominal pain has improved but now she is having persistent epigastric pain that she describes as a pain or fullness that has become more frequent and problematic since admission. She complains of postprandial abdominal fullness and occasional nausea. She admits to early satiety during admission and prior to admission. Appetite has been okay and she denies any unexplained weight loss. Patient states that she has a history of IBS and that her bowel movements vary from pebble like to liquid she is unable to say which 1 occurs more frequently. The only GI medication she is on his dicyclomine as needed but she has not been taking this as it causes constipation. Patient states that since admission she has been having dark brown or coffee looking stools with blood clots. Denies any bright red blood per rectum. Denies vomiting no diarrhea she is aged, reflux or regurgitation. she denies any NSAID use since March when she had her last EGD and was told that she had gastric irritation. Family history of esophageal cancer. ENDOSCOPY HISTORY: EGD: Per patient she has an EGD done in March 2024 and was told that she had gastric irritation. COLONOSCOPY: Per patient last colonoscopy performed around 2017 in [facility], endoscopy reports not available during today's visit LABS AND STOOL STUDIES: LABS 07/25/2024: Sodium 140, potassium 3.8, BUN 6, creatinine 0.64, GFR > 60 WBC 7, HGB 11, HCT 34, MCV 89 complete 414 LABS 07/20/2024: Total bilirubin 0.5, AST 31, ALT 21, alkaline phosphatase 110, albumin 4.1, lipase 75, calcium 8.9 CRP 4.2 Heme-positive stool IMAGING: CT abd/pelvis w/contrast 07/25/2024 Impression: Acute sigmoid diverticulitis of the distal sigmoid colon. Previously noted intramural/pericolic abscess is essentially completely resolved. No abscess or free air seen in the current exam. Abdominal Xray 07/22/2024: IMPRESSION: NO ACUTE ABDOMINAL FINDINGS. CT abd/pelvis w/contrast 07/20/2024: IMPRESSION: Mild antral gastritis. Distal sigmoid diverticulitis complicated by a 3.6 cm intramural abscess. Fluid-filled colon as can be seen with diarrheal illness. Review of Systems 2 Constitutional: Constitutional: Reports as per HPI ENT: Reports as per HPI Cardiovascular: Cardiovascular: Reports as per HPI, Denies chest pain and Denies dyspnea Respiratory: Respiratory: Denies cough and Denies dyspnea Gastrointestinal: Gastrointestinal: Reports as per HPI, Denies vomiting and Denies hematemesis Genitourinary: Genitourinary: Denies hematuria Musculoskeletal: Musculoskeletal: Reports as per HPI Integumentary/Breasts: Skin/Breast: Reports as per HPI Psychiatric: Psychiatric: Reports as per HPI Endocrine: Endocrine: Reports no additional endocrine complaints Hematologic/Lymphatic: Hematologic/Lymphatic: Reports no additional hematologic/lymphatic complaints PMFSH Past Medical History Medical History (Updated 07/26/24 @ 09:34 by Gay Fitzpatrick APRN) Chronic back pain Irritable bowel syndrome Surgical History Surgical History (Updated 07/21/24 @ 13:09 by Jayy Sims DO) Hx of cervical spine surgery Hx of tubal ligation Hx of ventral hernia repair Hx laparoscopic cholecystectomy Family History Family History Grandparent Colon cancer Breast cancer Grandparent Esophageal cancer Grandparent Non Hodgkin's lymphoma Grandparent Cerebrovascular accident Father Malignant neoplasm of prostate Social History Social History (System 10/25/21 @ 15:47 by Mandy Murray) Smoking packs per day: 1 Smoking cigarettes per day: 20.0 Years smoked: 29 Smoking pack-years: 29.00 Smoking status: Current every day smoker Tobacco type: cigarettes Additional smoking assessment comments: on and off smoking throughout years Alcohol intake: never Substance use: never Do You Feel Safe in your Home?: Yes Lack of Transportation: No Lack of Food: Never True Current Housing: I Have Housing Concerned About Future Housing: No Difficulty Paying Gas/Electric Bills: No Difficulty Paying for Meds: No Currently Unemployed: No Education: Associate Degree Difficulty w/ Childcare or Family Care: No Spiritual care concerns: No Meds Home Medications and Allergies Home Medications ?Medication ?Instructions ?Recorded ?Confirmed ?Type docusate sodium 100 mg capsule 200 mg PO HS 07/20/24 07/20/24 History Allergies Allergy/AdvReac Type Severity Reaction Status Date / Time sulfamethoxazole (From Allergy Intermediate Swelling Verified 07/20/24 15:06 Bactrim) of Lip/Tongue/Throat thimerosal Allergy Intermediate Rash Verified 07/20/24 15:06 trimethoprim (From Bactrim) Allergy Intermediate Swelling Verified 07/20/24 15:06 of Lip/Tongue/Throat Vital Signs Vital Signs - 24 hr 07/25/24 14:00 07/25/24 19:55 07/25/24 22:00 Temperature 98 F 97.5 F L Pulse Rate 63 63 61 Respiratory Rate 14 14 20 Blood Pressure 106/60 102/59 L Pulse Oximetry 98 98 98 Oxygen Delivery Room Air 07/26/24 06:00 Temperature 98.2 F Pulse Rate 54 L Respiratory Rate 16 Blood Pressure 102/54 L Pulse Oximetry 96 Oxygen Delivery Exam 2 Const: General: cooperative, healthy appearing, comfortable, no acute distress and well developed Orientation/consciousness: oriented to person, oriented to place, oriented to time and patient oriented x3 HENMT: Head: normal to inspection, normocephalic and atraumatic Mouth: Yes Normal oral and palatal mucosa present and Yes moist mucous membranes Eyes: General: appearance normal, both eyes and all related structures C onjunctivae: conjunctivae normal Sclera: sclerae normal Pupils: Equal, round and reactive pupils present Neck: Neck: normal visual inspection Chest: Chest palpation & inspection: normal inspection of the chest Resp: Effort & Inspection: normal respiratory effort and able to speak in complete sentences Auscultation: clear to auscultation bilaterally Cardio: Jugular venous distension: no JVD Rate: regular rate Rhythm: r egular rhythm Heart sounds: S1 normal heart sound present and S2 normal heart sound present GI: Inspection: normal to inspection GI Palp: Yes Soft to palpation, No Firmness to palpation present (GI), No Tenderness to palpation present (GI), No Guarding due to palpation present (GI) and Yes No hepatosplenomegaly present Auscultation: normal bowel sounds Rectal Exam: deferred Skin: General skin exam: normal color and no rashes or lesions noted Neuro: General: oriented to person, oriented to place, oriented to time and patient oriented x3 Cranial nerves: Yes Equal, round and reactive pupils present Speech: normal speech Extrem: General: normal to inspection and no clubbing, cyanosis or edema Psych: Appearance: grossly normal and well kempt Affect: normal affect Results Labs 07/25/24 05:33 07/26/24 00:57 Labs: BMP 07/26/24 00:57 Creatinine 0.63 L
--- NOTE | 2024-07-26 10:33 | PC.NURSE ---
Report called to Kari DE LA PAZ in GI Lab.
--- NOTE | 2024-07-26 11:43 | P.PNGS_ITS ---
Progress Note: A&P Assessment and Plan (1) Abscess of sigmoid colon due to diverticulitis: Code(s): K57.20 - Diverticulitis of large intestine with perforation and abscess without bleeding Status: Acute Assessment and Plan: * LLQ pain improving, more epigastric abdominal pain now. Repeat CT over the weekend looks like her diverticulitis is improving. GI planning EGD. * Continue IV Zosyn and Gentamicin * She is NPO for EGD, okay to resume clear liquids after from our standpoint (2) Guaiac positive stools: Code(s): R19.5 - Other fecal abnormalities Status: Acute Assessment and Plan: * GI following and planning EGD. * Continue Protonix (3) Diarrhea: Code(s): R19.7 - Diarrhea, unspecified Status: Acute Assessment and Plan: * Coffee-ground diarrhea. Loose stools could be related to the diverticulitis. GI following and planning EGD. Plan I have discussed the patient's case and plan of care with Dr. Sims. Subjective Subjective Date/Time Seen: 07/26/24 11:43 Patient reports: no new complaints and afebrile Interval history: Patient still taking oral and IV analgesics as needed for pain over the past 24 hours. She reports having more epigastric abdominal pain, and her LLQ pain has improved over the weekend. She is now complaining of dark coffee-ground stools that are loose. GI is planning an EGD today. Exam Const: General: comfortable and no acute distress Orientation/consciousness: patient oriented x3 GI: Inspection: non-distended GI Palp: Yes Soft to palpation, Yes Tenderness to palpation present (GI) (mild LLQ tenderness, mostly tender in epigastric area), No Guarding due to palpation present (GI) and No Rebound tenderness present Auscultation: normal bowel sounds Objective Data Vital Signs Vital Signs: Vital Signs - 24 hr 07/25/24 14:00 07/25/24 19:55 07/25/24 22:00 Temperature 98 F 97.5 F L Pulse Rate 63 63 61 Respiratory Rate 14 14 20 Blood Pressure 106/60 102/59 L Pulse Oximetry 98 98 98 Oxygen Delivery Room Air 07/26/24 06:00 07/26/24 09:32 Temperature 98.2 F Pulse Rate 54 L Respiratory Rate 16 16 Blood Pressure 102/54 L Pulse Oximetry 96 96 Oxygen Delivery Room Air Intake/Output Intake/Output: Intake & Output 07/23/24 07/24/24 07/25/24 07/26/24 23:59 23:59 23:59 23:59 Intake Total 7959 249 5183 200 Balance 0597 023 5493 200 Meds/Results Medications: Active Medications Generic Name Dose Route Start Last Admin Trade Name Freq PRN Reason Stop Dose Admin Acetaminophen 1,000 mg 07/21/24 13:01 07/22/24 21:22 Acetaminophen 500 Mg Tablet PO 1,000 mg Q6H PRN Administration Headache Hydrocodone Bitart/Acetaminophen 1 tab 07/23/24 08:57 07/25/24 18:03 Hydrocodone/Acetaminophen (*Crx) 5-325 Mg Tablet PO 1 tab Q4H PRN Administration Pain Rated 4-6 Hydrocodone Bitart/Acetaminophen 1 tab 07/23/24 08:57 07/26/24 10:39 Hydrocodone/Acetaminophen (*Crx) 10-325 Mg Tablet PO 1 tab Q4H PRN Administration Pain Rated 7-10 Hydromorphone HCl 0.5 mg 07/21/24 13:02 07/23/24 06:01 Hydromorphone Hcl Inj (*Crx) 2 Mg/Ml Vial IV PUSH 0.5 mg Q2H PRN Administration Breakthrough Pain 4-6 Hydromorphone HCl 1 mg 07/21/24 13:03 07/25/24 19:02 Hydromorphone Hcl Inj (*Crx) 2 Mg/Ml Vial IV PUSH 1 mg Q2H PRN Administration Breakthrough Pain 7-10 Piperacillin/Tazobactam/Dextrose 3.375 gm in 50 mls @ 100 mls/hr 07/20/24 21:20 07/26/24 11:19 Zosyn 3.375 Gm/Ns 50 Ml IVPB 100 mls/hr Q6HR DAREN Administration Gentamicin Sulfate 330 mg/ 108.25 mls @ 100 mls/hr 07/26/24 13:00 Dextrose IVPB Q24H DAREN Loperamide HCl 2 mg 07/24/24 16:26 Loperamide Hcl 2 Mg Capsule PO PRN PRN Diarrhea Ondansetron HCl 4 mg 07/20/24 21:24 07/26/24 00:54 Ondansetron Inj 4 Mg/2 Ml Vial IV PUSH 4 mg Q4H PRN Administration Nausea Pantoprazole Sodium 40 mg 07/25/24 09:00 07/26/24 09:31 Pantoprazole 40 Mg Tablet PO [facility] [place] [facility] Results: ITS Impressions Abdomen X-Ray 07/22/24 15:14 IMPRESSION: NO ACUTE ABDOMINAL FINDINGS. Abdomen/Pelvis CT 07/25/24 06:52 Impression: Acute sigmoid diverticulitis of the distal sigmoid colon. Previously noted intramural/pericolic abscess is essentially completely resolved. No abscess or free air seen in the current exam. Labs Labs: Laboratory Results - last 24 hr 07/26/24 00:57 Creatinine 0.63 L Estim Creat Clear Calc 97 Estimated GFR > 60 Random Gentamicin 1.5 L
[2024-07-26] MEDS: GENTAMICIN SULFATE INJ 330 MG in DEXTROSE 5% 100 ML 100 MG IVPB (12:09)
[2024-07-26] MEDS: LACTATED RINGERS 1,000 ML 150 ML IV CONT (13:28)
--- NOTE | 2024-07-26 13:51 | WPDANESEPPF ---
Anes - Initial Pre Proc Eval Procedure: Operation Date: 07/26/24 16:30 Proposed Procedures p Esophagogastroduodenoscopy - Chandler Marion MD Date/Time: 07/26/24 13:51 Surgeon: Jayy Sims DO Pre Op Diagnosis: Complicated diverticulitis Patient Data Age: 49 Gender: F Height: 1.65 m Weight: 80.7 kg Last Vital Signs Temp 36.4 C L 07/26/24 13:10 Pulse 60 07/26/24 13:10 Resp 16 07/26/24 13:10 BP 130/80 07/26/24 13:10 Pulse Ox 99 07/26/24 13:10 O2 Del Method Room Air 07/26/24 13:10 Allergies Allergy/AdvReac Type Severity Reaction Status Date / Time sulfamethoxazole (From Allergy Intermediate Swelling Verified 07/26/24 13:19 Bactrim) of Lip/Tongue/Throat thimerosal Allergy Intermediate Rash Verified 07/26/24 13:19 trimethoprim (From Bactrim) Allergy Intermediate Swelling Verified 07/26/24 13:19 of Lip/Tongue/Throat Home Medications ?Medication ?Instructions ?Recorded ?Confirmed ?Type docusate sodium 100 mg capsule 200 mg PO HS 07/20/24 07/20/24 History Laboratory Tests 07/26/24 00:57 Creatinine 0.63 L mg/dL (0.7-1.0) Estim Creat Clear Calc 97 ml/min Estimated GFR > 60 (59 - ) Random Gentamicin 1.5 L ug/mL (5.0-12.0) Patient hx anesthesia problems: none Family hx anesthesia problems: none Results Review: All pre-operative results and documents have been reviewed as part of the pre-operative evaluation. [facility] Past Medical History Medical History Chronic back pain Irritable bowel syndrome Surgical History Surgical History Hx of cervical spine surgery Hx of tubal ligation Hx of ventral hernia repair Hx laparoscopic cholecystectomy Family History Family History Grandparent Colon cancer Breast cancer Grandparent Esophageal cancer Grandparent Non Hodgkin's lymphoma Grandparent Cerebrovascular accident Father Malignant neoplasm of prostate Social History Social History Smoking packs per day: 1 Smoking cigarettes per day: 20.0 Years smoked: 29 Smoking pack-years: 29.00 Smoking status: Current every day smoker Tobacco type: cigarettes Additional smoking assessment comments: on and off smoking throughout years Alcohol intake: never Substance use: never Do You Feel Safe in your Home?: Yes Lack of Transportation: No Lack of Food: Never True Current Housing: I Have Housing Concerned About Future Housing: No Difficulty Paying Gas/Electric Bills: No Difficulty Paying for Meds: No Currently Unemployed: No Education: Associate Degree Difficulty w/ Childcare or Family Care: No Spiritual care concerns: No Anes - Eval Final PreProcedure Day of Procedure 07/26/24 13:51 Patient weight: overweight Heart: regular rate and rhythm Lungs: clear to auscultation Airway: Mallampati scale class II Neurological: alert and oriented Last oral intake: >/= 8 hours ASA classification: II Emergent: no Anesthetic plan: proceed Anesthesia type and monitoring: general GIVS and standard monitoring Results Review: All pre-operative results and documents have been reviewed as part of the pre-operative evaluation. Informed Consent: The patient's anesthetic plan and its attendant risks and benefits were discussed with the patient/family/POA. Questions were solicited and answers provided to the satisfaction of the patient/family/POA.
--- NOTE | 2024-07-26 15:00 | PC.NURSE ---
Returned from GI Lab via stretcher. Voiding without difficulty.
[2024-07-26] MEDS: LOPERAMIDE HCL 2 MG CAPSULE PO (17:17)
[2024-07-27] MEDS: PIPERACILLN/TAZ 3.375GM/NS50ML 3.375 GM/50 ML BAG IVPB ×2 (05:56→11:41)
[2024-07-27 05:58] VITALS: BP 106/61; PULSE 60; RESP 16; TEMP 36.9; O2SAT 96
[2024-07-27 05:59] VITALS: BMI 31.6
--- NOTE | 2024-07-27 07:41 | WPDANESPN ---
Anes - Prog Note Post-Op Date/Time: 07/27/24 07:41 Cardiovascular status: normal Respiratory status: normal Airway patency: baseline Mental status: baseline Post-Op hydration status: normal Vital Signs: Last Vital Signs Temp 36.9 C 07/27/24 05:58 Pulse 60 07/27/24 05:58 Resp 16 07/27/24 05:58 BP 106/61 07/27/24 05:58 Pulse Ox 96 07/27/24 05:58 O2 Del Method Room Air 07/26/24 20:00 Pain Score (VAS): 0/10 I/O: Intake & Output 07/26/24 07/26/24 07/27/24 15:59 23:59 07:59 Intake Total 200 580 750 Balance 200 580 750 Laboratory Tests 07/25/24 05:33 07/26/24 00:57 Microbiology 07/20/24 22:23 Blood Blood Culture - Final 07/20/24 22:29 Blood Blood Culture - Final Post-procedural complaints: none Patient Feedback: Patient satisfied with anesthetic care.
[2024-07-27] MEDS: PANTOPRAZOLE 40 MG TABLET PO (08:01)
--- NOTE | 2024-07-27 12:31 | P.DS_ITS ---
DS: Admitting Diagnosis Discharge Date 07/27/2024 Admitting Diagnosis sigmoid diverticulitis with intramural abscess DS: Discharge Diagnosis Discharge Diagnosis (1) Abscess of sigmoid colon due to diverticulitis: Code(s): K57.20 - Diverticulitis of large intestine with perforation and abscess without bleeding Status: Acute (2) Anemia: Code(s): D64.9 - Anemia, unspecified Status: Acute (3) Guaiac positive stools: Code(s): R19.5 - Other fecal abnormalities Status: Acute (4) Gastritis: Code(s): K29.70 - Gastritis, unspecified, without bleeding Status: Acute DS: Summary Hospital Course Reason for hospitalization: This is a 49-year-old woman who presented to the emergency department with left lower quadrant pain that started 3 days prior. She had associated fevers, chills, and body aches and thought she was getting influenza. She went to an urgent care and flu swab was negative. She then began experiencing left lower quadrant abdominal pain that was also extending slightly to the suprapubic region. This was gradually becoming worse over the next couple days and she also started experiencing some blood in her stool. She has a prior history of diverticulitis about 7 years ago and was treated without requiring emergent surgery. She did have a colonoscopy sometime after that. She has followed a ditcher for IBS symptoms. In the emergency department she was noted to have an elevated white blood count and CT showed evidence of diverticulitis with intramural abscess. She was admitted for further treatment of the diverticulitis with abscess. Hospital Course: She was initially treated with broad-spectrum IV antibiotics, bowel rest, analgesics, and IV fluids. She was monitored with labs and serial abdominal exa ms. Initially her abdominal pain improved and her diet was slowly advanced. After a few days, she had increased abdominal pain and was reporting dark stools. IV gentamicin was added to her IV Zosyn. Repeat CT scan of the abdomen and pelvis was ordered and actually showed improvement of her diverticulitis with no significant abscess. Her labs showed her hemoglobin dropped initially from 12 down to 10 after admission, but remained stable over the following days. Her hemoglobin has remained between 10.3-11. She had a Hemoccult that showed guaiac-positive stools. She also had underwent an EGD in March with findings of gastritis. GI was consulted for concerns of upper GI bleeding. Her left lower quadrant abdominal pain had improved, but she began having more epigastric abdominal pain. She underwent EGD on 07/26/2024 with findings of chronic gastritis and a small hiatal hernia. She has been treated with IV Protonix, which has been transitioned to oral Protonix. Following the EGD, her diet was again advanced. Today, she is tolerating a low-fiber diet. Her bowel movements are becoming more formed and reports it appears less dark today. No nausea or vomiting. No fevers and her white blood cell count has been normal for days. She is not having any lower abdominal pain today other than mild pain with bowel movements. She still has epigastric pain, but reportedly mild and tolerable. She is not requiring any analgesics today. She is stable for discharge on oral antibiotics today with follow-up with both surgery and GI. Plan to have a colonoscopy in 6-8 weeks. Status at Discharge Functional status at discharge: independent ambulation Overall status at discharge: patient is progressing back to baseline Time Spent with Patient Time attestation: Total time spent providing and/or coordinating discharge services: Time spent: Greater than 30 minutes Exam Const: General: comfortable and no acute distress Orientation/consciousness: patient oriented x3 GI: Inspection: non-distended GI Palp: Yes Soft to palpation, Yes Tenderness to palpation present (GI) (no lower abdominal tenderness, mild epigastric TTP), No Guarding due to palpation present (GI) and No Rebound tenderness present Auscultation: normal bowel sounds DS: Data Procedures/Treatments: Procedures Operation Date: 07/26/24 16:30 Actual Procedure Side Surgeon p Esophagogastroduodenoscopy Chandler Marion MD Imaging Radiologist's impression: ITS Impressions Abdomen/Pelvis CT 07/20/24 20:38 IMPRESSION: Mild antral gastritis. Distal sigmoid diverticulitis complicated by a 3.6 cm intramural abscess. Fluid-filled colon as can be seen with diarrheal illness. Abdomen X-Ray 07/22/24 15:14 IMPRESSION: NO ACUTE ABDOMINAL FINDINGS. Abdomen/Pelvis CT 07/25/24 06:52 Impression: Acute sigmoid diverticulitis of the distal sigmoid colon. Previously noted intramural/pericolic abscess is essentially completely resolved. No abscess or free air seen in the current exam. Discharge Plan Discharge Attending physician on discharge: Jayy Sims Consulting providers: Ramiro Thomson Discharging Clinician: Argenis Cain Anticipated Discharge Date/Time: 07/27/24 12:10 Patient Disposition: Home, Self-Care Activity: as tolerated Diet: low fiber Discharge Instructions: * Follow a low-fiber diet for 2 weeks. Then switch to a high-fiber diet. 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 * You may take Tylenol 500-1000 mg every 6 hours as needed for pain. AVOID any NSAID medications (such as Ibuprofen, naproxen, etc.) * Follow-up with Dr. Sims in our office in 2 weeks. * Call GI office to schedule an appointment for follow-up after discharge. You should also be scheduled for a colonoscopy in 6-8 weeks. * If you develop abdominal pain, vomiting, or fevers, call the surgeon's office or return to the ED. * No strenuous activity for 1 week. * You were also prescribed pantoprazole for you gastritis, which was sent to the pharmacy electronically. You should take this medication as prescribed and this will be managed by GI to determine when you can stop taking this medication. Avoid NSAIDs and alcohol intake. Patient Instructions: Antibiotic Form, Low Fiber Diet (DC) Patient Language: Spanish Stand Alone Forms: General Discharge Information, Work/School Release IP Follow-up/Referrals: Chandler Marion MD [Physician] - Call for Appointment Jayy Sims DO [Physician] - 2 Weeks Discharge Medications: New pantoprazole 40 mg Tablet,Delayed Release (Dr/Ec) 40 mg PO QAM 30 Days Qty: 30 1RF amoxicillin-pot clavulanate 875-125 mg tablet 1 tablet PO Q8H 7 Days Qty: 21 0RF Continued docusate sodium 100 mg capsule 200 mg PO HS Date of admission: 07/22/24 13:39 Primary Care Provider: Fannie,Vinicio Dahl Admitting Provider: Jayy Sims Attending physician on admission: Jayy Sims Condition: Serious Quality If No VTE Prophylaxis Answer both mechanical and pharmacologic: Reason no mechanical VTE proph: low risk/not indicated Reason no pharmacologic proph: low risk/not indicated
[2024-07-27 13:57] VITALS: BP 107/80; PULSE 98; RESP 18; TEMP 36.5; O2SAT 98
== END 2024-07-27 14:05 | disposition home or self-care (01) | DRG 392 ==
LOC: ANHED 20:01 → ANH2MED 21:50
PROVIDERS: Internal Medicine Gastroenterology; Physician Assistant; Surgery; Admitting Provider Surgery; Emergency Provider Emergency Medicine; PCP Family Medicine; Visit Provider Nurse Practitioner Family
PROC: 0DJ08ZZ Inspection of Upper Intestinal Tract, Via Natural or Artificial Opening Endoscopic (ICD-10-PCS; principal; 2024-07-26 16:30)
DX: K57.20 Diverticulitis of large intestine with perforation and abscess without bleeding (principal); R19.5 Other fecal abnormalities; K29.70 Gastritis, unspecified, without bleeding; K44.9 Diaphragmatic hernia without obstruction or gangrene; K58.2 Mixed irritable bowel syndrome; D64.9 Anemia, unspecified; F17.210 Nicotine dependence, cigarettes, uncomplicated; G89.29 Other chronic pain; M54.9 Dorsalgia, unspecified; Z90.49 Acquired absence of other specified parts of digestive tract
CPT/HCPCS: 36415; 74018; 74177; 80048; 80053; 80170; 81001; 81025; 82274; 82565; 82948; 83690; 85025; 85027; 86140; 87040; 96361; 96374; 96375; 96376; 99285; A9270; G0378; J1171; J1580; J2405; J2543; J2704; J3480; J7030; J7120; Q9967

== ENCOUNTER 2024-10-13 11:48 | Outpatient (CLI) | payer OTHER, SELFPAY ==
--- OUTSIDE RECORDS SUMMARY | 2024-10-13 11:58 | XMS_ITS | Encounter Summary ---
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
--- OUTSIDE RECORDS SUMMARY | 2024-10-13 11:58 | XMS_ITS | Referral Summary ---
Author Organization [facility] [address] [place] [address] Address [address] [place] [address] Care Team Providers Care Mononitrotoluene Operator Name Role Phone Vinicio Greco MD Primary Care Provider [phone] Encounters Date Type Department Care Team Description 07/27/2024 Orders Only [facility] [address] [address] ProviderCrista MD 07/25/2024 Orders Only [facility] Information Management [address] [place] [address] Scanning, Provider 07/22/2024 Orders Only [facility] [address] [place] [address] Scanning, Provider 07/20/2024 Orders Only [facility] Information Management [address] [place] [address] Scanning, Provider 07/20/2024 Results Follow-Up [facility] at [address] [place] [id number] Kenisha Wilhelm NP Urine culture Urine, clean voided 07/19/2024 4:40 PM SENIOR DEVOPS ENGINEER - 07/19/2024 11:59 PM SENIOR DEVOPS ENGINEER Hospital Encounter [address] [address] Dysuria Discharge Disposition: Discharge to home or self care 07/19/2024 4:00 PM SENIOR DEVOPS ENGINEER Office Visit [facility] at [address] [place] [place] [id number] Morena Arias, AZAR Viral URI with cough (Primary Dx); Dysuria 07/19/2024 Nurse Triage [facility] [address] [place] [address] Vinicio Greco MD from Last 3 [...] healthier, we can set up appointment with cad cam programmer/assistant merchandise manager. Have an active lifestyle, strive for 30 [...] referral, we discussed contacting Dr. Bowden at [facility]. Atypical glandular cells on cervical Pap smear 0 01/17/2023 Assessment & Plan (01/17/2023 11:38 AM CDT): See discussion above. Reviewed imaging and office visit notes from stonework supervisor today with patient. Recommended patient have further discussion with stonework supervisor regarding her treatment options/next course of action. She continues to use condoms for contraception at this time. Encounter for preoperative e xamination for general surgical procedure 07/10/2021 Assessment & Plan (07/12/2021 12:12 PM SENIOR DEVOPS ENGINEER): Reviewed lab work, and EKG. Normal PE. Patient cleared for surgery. Cervicalgia 07/10/2021 Assessment & Plan (07/10/2021 9:48 AM SENIOR DEVOPS ENGINEER): Has been taking advil for pain. Will schedule procedure with Dr. Delcid. Lipid screening 07/10/2021 Assessment & Plan (02/05/2024 4:26 PM CDT): Will check lipid panel. Assessment & Plan (07/10/2021 9:55 AM SENIOR DEVOPS ENGINEER): Will check labs. Discussed diet and exercise recommendations. Routine health maintenance 04/05/2021 Assessment & Plan (04/05/2021 2:03 PM SENIOR DEVOPS ENGINEER): Discussed need to schedule WWE and pap. [...] 07/15/2019 Assessment & Plan (07/15/2019 11:43 AM SENIOR DEVOPS ENGINEER): Discussed and the patient refuses immunization today. Educated regarding the need to vaccinate for personal protection and to limit the viruses in the community to protect those most vulnerable. Encounter for screening for lipid disorder 07/15 Assessment & Plan (04/05/2021 2:03 PM SENIOR DEVOPS ENGINEER): Patient to get fasting labs. Reviewed heart healthy diet and importance of regular exercise. Assessment & Plan (07/15/2019 11:52 AM SENIOR DEVOPS ENGINEER): 07/17/18 SC=968 TG=62 HDL=44 LDL=72 TC/HDL=3 07/15/19 SU=945 JG=202 HDL=42 LDL=41.4 (CALC) TC/HDL=4.0 GLU=85 BMI 28.0-28.9,adult 07/15/2019 Assessment & Plan (07/10/2021 9:55 AM SENIOR DEVOPS ENGINEER): Discussed healthy diet and importance of regular physical activity. Assessment & Plan (04/05/2021 2:03 PM SENIOR DEVOPS ENGINEER): Discussed healthy diet and importance of regular [...] patient. Assessment & Plan (07/15/2019 11:43 AM SENIOR DEVOPS ENGINEER): Discussed healthy diet and importance of regular physical activity. BMI is acceptable for this patient. Menstrual abnormality 09/24/2018 Assessment & Plan (09/24/2018 2:12 PM CDT): Pt says her LMP was Friday and much tower watchman than normal. She usually has a very [...] weeks. Assessment & Plan (07/29/2018 2:13 PM SENIOR DEVOPS ENGINEER): Educated patient to start clear liquid diet and resume oral antibiotics. Discussed case with , preferably patient sees GI aura, optimize therapy and patient symptoms, and patient then to see in the office to discuss surgery risks and benefits. Patient agrees to this treatment plan. Assessment & Plan (07/16/2018 6:19 AM SENIOR DEVOPS ENGINEER): Of the sigmoid colon. Perforation is localized. Patient is currently on Zosyn. Her abdominal pain is controlled with pain medications. General surgery and Infectious Disease have been consulted will await their evaluation. NPO for surgery evaluation. Chronic midline low back pain without sciatica 1 06/28/2017 Assessment & Plan (04/05/2021 2:27 PM SENIOR DEVOPS ENGINEER): Continue current treatment with medication and therapy. Continue follow up with Dr. Delcid. No s/s of cauda equina or loss of bowel bladder function. Continues with PT. Reviewed red flags. Tobacco dependence due to cigarettes 03/19/2018 Assessment & Plan (02/05/2024 4:27 PM CDT): Precontemplative. Encouraged complete smoking cessation. Discussed different types of medications & xzde-dbx-ghbtuwr aides to help with cessation. Assessment & Plan (07/12/2021 12:13 PM SENIOR DEVOPS ENGINEER): Encouraged smoking cessation. Discussed decreased healing and negative health consequences associated with smoking. Assessment & Plan (03/12/2021 5:06 PM CDT): Again, encouraged smoking cessation. Assessment & Plan (02/12/2021 7:58 PM CDT): Precontemplative. Encouraged complete smoking cessation. Discussed different types of medications & dtjm-ffm-wcbeglt aides to help with cessation. Assessment & Plan (02/05/2021 10:43 AM CDT): Encouraged complete smoking cessation. Reviewed NRT options with patient. Assessment & Plan (10/08/2019 8:35 AM CDT): Precontemplative. Encouraged complete smoking cessation. Discussed different types of medications & dgqt-enm-vemybka aides to help with cessation. Will p/u otc patches to try before chantix or wellbutrin. Assessment & Plan (07/15/2019 11:44 AM SENIOR DEVOPS ENGINEER): Precontemplative. Encouraged complete smoking cessation. Discussed different types of medications & hzzu-ros-qrslyhm aides to help with cessation. Assessment & Plan (07/16/2018 6:18 AM SENIOR DEVOPS ENGINEER): Patient smokes about a pack a day [...] symptoms. Assessment & Plan (07/16/2018 6:18 AM SENIOR DEVOPS ENGINEER): Continue SSRI and Bentyl Breast neoplasm screening [...] 020 Assessment & Plan (07/15/2019 2:12 PM SENIOR DEVOPS ENGINEER): Rapid flu swab: NEGATIVE This looks viral [...] 10/08/2019 Assessment & Plan (07/16/2018 6:20 AM SENIOR DEVOPS ENGINEER): Of the upper lip and left eyelid. Appeared to have resolved with Benadryl. Suspected to be related to Bactrim which has been added as an allergy. Patient also developed a rash which has now resolved as well. Will continue to monitor. P.r.n. Benadryl. Epigastric pain 07/16/2018 10/08/2019 Assessment & Plan (07/16/2018 6:21 AM SENIOR DEVOPS ENGINEER): With left arm numbness. Started on Friday [...] on file Legal Sex Female 12:18 PM SENIOR DEVOPS ENGINEER Gender Identity Not on file Sexual Orientation Not on file Last Filed Vital Signs Vital Sign Reading Time Taken Comments Blood Pressure 116/72 07/19/2024 3:53 PM SENIOR DEVOPS ENGINEER Pulse 98 07/19/2024 3:53 PM SENIOR DEVOPS ENGINEER Temperature 36.6 C (97.9 F) 07/19/2024 3:53 PM SENIOR DEVOPS ENGINEER Respiratory Rate 18 07/19/2024 3:53 PM SENIOR DEVOPS ENGINEER Oxygen Saturation 98% 07/19/2024 3:53 PM SENIOR DEVOPS ENGINEER Inhaled Oxygen Concentration - - Weight 80.3 kg (177 lb) 07/19/2024 3:53 PM SENIOR DEVOPS ENGINEER Height 162.6 cm (5' 4 ) 07/19/2024 3:53 PM SENIOR DEVOPS ENGINEER Body Mass Index 30.38 07/19/2024 3:53 PM SENIOR DEVOPS ENGINEER Plan of Treatment Not on file Medical Devices Implanted Type Area Lighting Technician Device Identifier Shelf Expiration Date Model / Serial / Lot [employer] Ventralight St Sepra 4.5in Uncoated Monofilament Lightweight [id number] - [id number] Implanted:Qty: 1 on 04/07/2023 by Kirby Shea MD at [facility] N/A: Abdomen [employer] 10/20/2024 [id number] / / [id number] Procedures Procedure Name Priority Date/Time Associated Diagnosis Comments EGD Routine 07/26/2024 3:01 PM SENIOR DEVOPS ENGINEER SCAN - RADIOLOGY/IMAGING 07/25/2024 SCAN - RADIOLOGY/IMAGING 07/22/2024 SCAN - RADIOLOGY/IMAGING 07/20/2024 URINE CULTURE Routine 07/19/2024 4:40 PM SENIOR DEVOPS ENGINEER Dysuria POCT URINALYSIS DIPSTICK Routine 07/19/2024 4:19 PM SENIOR DEVOPS ENGINEER Dysuria POC INFLUENZA A/B, COVID-19 ANTIGEN Routine 07/19/2024 4:18 PM SENIOR DEVOPS ENGINEER Viral URI with cough DIAGNOSTIC MAMMOGRAM BILATERAL W MANSOOR Schedule Routine, Read Routine (OP Routine) 03/05/2024 1:44 PM CDT COLONOSCOPY 09/28/2018 10:54 AM CDT from Last 3 Months or Most Recently Relevant to Health Maintenance Results * EGD -[facility] (07/26/2024 3:01 PM SENIOR DEVOPS ENGINEER) Anatomical Region Laterality Modality Other us Historical Provider GI PROCEDURE ORDERABLES F inal Result * SCAN - RADIOLOGY/IMAGING (07/25/2024) Anatomical Region Laterality Modality Other us Provider Scanning Final Result * SCAN - RADIOLOGY/IMAGING (07/22/2024) Anatomical Region Laterality Modality Other us Provider Scanning Final Result * SCAN - RADIOLOGY/IMAGING (07/20/2024) Anatomical Region Laterality Modality Other Result [facility] Provider Scanning Final Result * Urine culture Urine, clean voided (07/19/2024 4:40 PM SENIOR DEVOPS ENGINEER) Report Final Report: No growth Comment:Testing performed by : [facility], [address] [place]., [address] Urine, clean voided 07/19/2024 4:40 PM SENIOR DEVOPS ENGINEER 07/20/2024 12:15 AM SENIOR DEVOPS ENGINEER Narrative LINDSEY Gordon 07/21/2024 7:17 AM SENIOR DEVOPS ENGINEER Testing performed by [facility] Microbiology Laboratory ([phone]) Result [facility] Morena Arias NP LAB MICROBIOLOGY - GENERAL ORD ERABLES Final Result LINDSEY [address] Department [place] [address] * (ABNORMAL) POCT urinalysis dipstick (07/19/2024 4:19 PM SENIOR DEVOPS ENGINEER) Color, Urine, POC Yellow Clarity, ur, POC Clear Clear Glucose, ur, POC Negative Negative MG/DL Bilirubin, ur, POC Negative Negative, Small, Moderate, Large Ketones, ur, POC Negative Negative Specific [place], POC 1.010 1.003 - 1.030 Blood, ur, POC Negative Negative pH, ur, POC 6.0 5.0 - 8.0 Protein, ur, POC Negative Negative Urobilinogen, urine, POC 0.2 0.2 - 1.0 mg/dL Nitrite, ur, POC Negative Negative Leukocytes, ur, POC Negative Negative Lot Number [id number] Urine 07/19/2024 4:19 PM SENIOR DEVOPS ENGINEER Result [facility] Morena Arias NP POINT OF CARE TEST ORDERABLES Final Result * POC Influenza A/B, COVID-19 antigen (07/19/2024 4:18 PM SENIOR DEVOPS ENGINEER) Influenza A Ag, POC Negative Negative [facility] Influenza B Ag, POC Negative Negative [facility] COVID-19 Ag POC Presumptive Negative Presumptive Negative, Invalid [facility] Nasal 07/19/2024 4:18 PM SENIOR DEVOPS ENGINEER Morena Arias DIRECTOR OF SAFETY POINT OF CARE TEST ORDERABLES Final Result [facility] [address] [place] [address], [facility] * Diagnostic Mammogram Bilateral W Mansoor (03/05/2024 1:44 PM CDT) Anatomical Region Laterality Modality Breast Bilateral Mammography 03/05/2024 1:44 PM CDT Historical Provider MD ROSARIO MAMMO PROCEDURES [facility] Result * COLONOSCOPY (09/28/2018 10:54 AM CDT) Anatomical Region Laterality Modality Other Narrative Procedure Note Jose E Busch MD - 09/28/2018 10:[address] [facility] Patient Name: Yeni Chavez Procedure Date: 09/28/2018 10:54 AM Date of : 1975 Admit Type: Outpatient Age: 43 Gender: Female Attending MD: Jose E Busch M.D. Room: [facility] ENDOSCOPY ROOM 1 Note Status: Finalized [...] passed under direct vision.The Pediatric Colonoscope [id number]-[id number] was introduced through the anus and advanced [...] 10:54 AM Procedure Code(s): --- Professional --- 29634, Colonoscopy, flexible; diagnostic, including collection of specimen(s) by brushing or washing, when performed (separateprocedure) Diagnosis Code(s): --- Professional --- K57.32, Diverticulitis of large intestine without perforation orabscess without bleeding K57.30, Diverticulosis of large intestine without perforation orabscess without bleeding CPT copyright 2017 [employer]. All rights reserved. The codes documented in this report are preliminary and upon rug measurer reviewmay be revised to meet current compliance requirements. Recognized by the [employer] for promoting quality in endoscopy Jose E Busch MD ENDOSCOPY PROCEDURES Final Result from Last 3 Months or Most Recently Relevant to Health Maintenance Insurance [employer] PPO [employer] Advance Directives For more information, please contact: [phone] * Full Code (Latest Code Status on [...] 9:32 PM 07/21/2018 4:19 PM Care Teams Mononitrotoluene Operator Relationship Specialty Start Date End Date Vinicio Greco MD [address] [place] [address] PCP - General 09/16/11
--- OUTSIDE RECORDS SUMMARY | 2024-10-13 11:58 | XMS_ITS | Encounter Summary ---
Author Organization [facility] Address [address] [place] [address] Phone Care Team Providers Care Psychology Technician Name Role Phone Vinicio Greco MD Primary Care Provider [phone] Encounter Details Date Type Department Care Team (Late st Contact Info) Description 07/10/2017 Orders Only [facility] Provider, MD Crista [address] [place] [id number] Social History Tobacco Use Types Packs/Day Years Used Date Smoking Tobacco: Former Smokeless Tobacco: Never Comments:Smoking History Pac ks/day: 1 Packs Alcohol Use Standard Drinks/Week Comments Yes 0 (1 standard drink = 0.6 oz pur e alcohol) Comments Unknown Sex and Gender Information Value Date Recorded Sex Assigned at Not on file Legal Sex Female 12:18 PM PEDIATRIC NEPHROLOGIST Gender Identity Not on file Sexual Orientation Not on file documented as of this encounter Plan of Treatment Not on file documented as of this encounter Procedures Procedure Name Priority Date/Time Associated Diagnosis Comments DISCHARGE LABORATORY CUMULATIVE REPORT 07/10/2017 12:00 AM PEDIATRIC NEPHROLOGIST documented in this encounter Results * DISCHARGE LABORATORY CUMULATIVE REPORT (07/10/2017 12:00 AM PEDIATRIC NEPHROLOGIST) Narrative 07/10/2017 12:00 AM PEDIATRIC NEPHROLOGIST Ordered by an unspecified provider. Historical Provider LAB BLOOD ORDERABLES [facility] Result documented in this encounter Visit Diagnoses Not on filedocumented in this encounter Additional Health Concerns Infection Onset Date Last Indicated Resolved Time COVID: Suspected 07/19/2024 07/19/202407/1907/19/2024 4:19 PM PEDIATRIC NEPHROLOGIST documented as of this encounter Care Teams Psychology Technician Relationship Specialty Start Date End Date Vinicio Greco MD [address] [place] [address] PCP - General 09/16/11 documented as of this encounter
--- OUTSIDE RECORDS SUMMARY | 2024-10-13 11:58 | XMS_ITS | Clinical Summary ---
Author Organization [id number] [place] Address [address] [place] [id number] Care Team Providers Care Supervisor Glycerin Name Role Phone Vinicio Greco MD Primary Care Provider [phone] Allergies Active Allergy Reactions Criticality Noted Date [...] healthier, we can set up appointment with stator plate washer/counseling department chair. Have an active lifestyle, strive for 30 [...] referral, we discussed [facility] Bow[facility]. Atypical glandular cells on cervical Pap smear 0 01/17/2023 Assessment & Plan (01/17/2023 11:38 AM CDT): See discussion above. Reviewed imaging and office visit notes from ob gyn today with patient. Recommended patient have further discussion with ob gyn regarding her treatment options/next course of action. She continues to use condoms for contraception at this time. Encounter for preoperative e xamination for general surgical procedure 07/10/2021 Assessment & Plan (07/12/2021 12:12 PM DIETARY WORKER): Reviewed lab work, and EKG. Normal PE. Patient cleared for surgery. Cervicalgia 07/10/2021 Assessment & Plan (07/10/2021 9:48 AM DIETARY WORKER): Has been taking advil for pain. Will schedule procedure with Dr. Delcid. Lipid screening 07/10/2021 Assessment & Plan (02/05/2024 4:26 PM CDT): Will check lipid panel. Assessment & Plan (07/10/2021 9:55 AM DIETARY WORKER): Will check labs. Discussed diet and exercise recommendations. Routine health maintenance 04/05/2021 Assessment & Plan (04/05/2021 2:03 PM DIETARY WORKER): Discussed need to schedule WWE and pap. [...] 07/15/2019 Assessment & Plan (07/15/2019 11:43 AM DIETARY WORKER): Discussed and the patient refuses immunization today. Educated regarding the need to vaccinate for personal protection and to limit the viruses in the community to protect those most vulnerable. Encounter for screening for lipid disorder 07/15 Assessment & Plan (04/05/2021 2:03 PM DIETARY WORKER): Patient to get fasting labs. Reviewed heart healthy diet and importance of regular exercise. Assessment & Plan (07/15/2019 11:52 AM DIETARY WORKER): 07/17/18 XT=007 TG=62 HDL=44 LDL=72 TC/HDL=3 07/15/19 IO=888 ZE=262 HDL=42 LDL=41.4 (CALC) TC/HDL=4.0 GLU=85 BMI 28.0-28.9,adult 07/15/2019 Assessment & Plan (07/10/2021 9:55 AM DIETARY WORKER): Discussed healthy diet and importance of regular physical activity. Assessment & Plan (04/05/2021 2:03 PM DIETARY WORKER): Discussed healthy diet and importance of regular [...] patient. Assessment & Plan (07/15/2019 11:43 AM DIETARY WORKER): Discussed healthy diet and importance of regular physical activity. BMI is acceptable for this patient. Menstrual abnormality 09/24/2018 Assessment & Plan (09/24/2018 2:12 PM CDT): Pt says her LMP was Friday and much docketing specialist than normal. She usually has a very [...] weeks. Assessment & Plan (07/29/2018 2:13 PM DIETARY WORKER): Educated patient to start clear liquid diet and resume oral antibiotics. Discussed case with , preferably patient sees GI aura, optimize therapy and patient symptoms, and patient then to see in the office to discuss surgery risks and benefits. Patient agrees to this treatment plan. Assessment & Plan (07/16/2018 6:19 AM DIETARY WORKER): Of the sigmoid colon. Perforation is localized. Patient is currently on Zosyn. Her abdominal pain is controlled with pain medications. General surgery and Infectious Disease have been consulted will await their evaluation. NPO for surgery evaluation. Chronic midline low back pain without sciatica 1 06/28/2017 Assessment & Plan (04/05/2021 2:27 PM DIETARY WORKER): Continue current treatment with medication and therapy. Continue follow up with Dr. Delcid. No s/s of cauda equina or loss of bowel bladder function. Continues with PT. Reviewed red flags. Tobacco dependence due to cigarettes 03/19/2018 Assessment & Plan (02/05/2024 4:27 PM CDT): Precontemplative. Encouraged complete smoking cessation. Discussed different types of medications & gkch-fhg-dzezjkc aides to help with cessation. Assessment & Plan (07/12/2021 12:13 PM DIETARY WORKER): Encouraged smoking cessation. Discussed decreased healing and negative health consequences associated with smoking. Assessment & Plan (03/12/2021 5:06 PM CDT): Again, encouraged smoking cessation. Assessment & Plan (02/12/2021 7:58 PM CDT): Precontemplative. Encouraged complete smoking cessation. Discussed different types of medications & nolu-kdf-jdgtrro aides to help with cessation. Assessment & Plan (02/05/2021 10:43 AM CDT): Encouraged complete smoking cessation. Reviewed NRT options with patient. Assessment & Plan (10/08/2019 8:35 AM CDT): Precontemplative. Encouraged complete smoking cessation. Discussed different types of medications & qlht-ads-xferblk aides to help with cessation. Will p/u otc patches to try before chantix or wellbutrin. Assessment & Plan (07/15/2019 11:44 AM DIETARY WORKER): Precontemplative. Encouraged complete smoking cessation. Discussed different types of medications & flwn-amk-xqaghwg aides to help with cessation. Assessment & Plan (07/16/2018 6:18 AM DIETARY WORKER): Patient smokes about a pack a day [...] symptoms. Assessment & Plan (07/16/2018 6:18 AM DIETARY WORKER): Continue SSRI and Bentyl Breast neoplasm screening [...] 020 Assessment & Plan (07/15/2019 2:12 PM DIETARY WORKER): Rapid flu swab: NEGATIVE This looks viral [...] 10/08/2019 Assessment & Plan (07/16/2018 6:20 AM DIETARY WORKER): Of the upper lip and left eyelid. Appeared to have resolved with Benadryl. Suspected to be related to Bactrim which has been added as an allergy. Patient also developed a rash which has now resolved as well. Will continue to monitor. P.r.n. Benadryl. Epigastric pain 07/16/2018 10/08/2019 Assessment & Plan (07/16/2018 6:21 AM DIETARY WORKER): With left arm numbness. Started on Friday evening after eating and improved with relaxation. Suspect may be related to anxiety. Currently resolved. Will continue to monitor. Low suspicion for cardiac etiology at this time. Difficult or painful urination 07/10/2017 02/12/2021 Encounters Date Type Department Care Team Description 07/27/2024 Orders Only [facility] [address] [phone] ProviderCrista MD 07/25/2024 Orders Only [facility] Health Information Management [address] [place] [address] Scanning, Provider 07/22/2024 Orders Only [facility] Health Information Management [address] [place] [id number] Scanning, Provider 07/20/2024 Orders Only [facility] Health Information Management [address] [place] [address] Scanning, Provider 07/20/2024 Results Follow-Up [facility] [address] [place] [phone] Kenisha Wilhelm NP Urine culture Urine, clean voided 07/19/2024 4:40 PM DIETARY WORKER - 07/19/2024 11:59 PM DIETARY WORKER Hospital Encounter [address] [address] Dysuria Discharge Disposition: Discharge to home or self care 07/19/2024 4:00 PM DIETARY WORKER Office Visit [facility] [address] [place] [phone] Morena Arias NP Viral URI with cough (Primary Dx); Dysuria 07/19/2024 Nurse Triage [facility] [address] [phone] Vinicio Greco MD from Last 3 Months [...] on file Legal Sex Female 12:18 PM DIETARY WORKER Gender Identity Not on file Sexual Orientation Not on file Obstetrics History Para Term AB IAB SAB Ectopic Multiple Livin g Live Births 5 3 3 Date Outcome GA Total Labor Labor//3rd Weight Sex Type Anes PTL Susana A1 A5 Name Clin Term Term Term Last Filed Vital Signs Vital Sign Reading Time Taken Comments Blood Pressure 116/72 07/19/2024 3:53 PM DIETARY WORKER Pulse 98 07/19/2024 3:53 PM DIETARY WORKER Temperature 36.6 C (97.9 F) 07/19/2024 3:53 PM DIETARY WORKER Respiratory Rate 18 07/19/2024 3:53 PM DIETARY WORKER Oxygen Saturation 98% 07/19/2024 3:53 PM DIETARY WORKER Inhaled Oxygen Concentration - - Weight 80.3 kg (177 lb) 07/19/2024 3:53 PM DIETARY WORKER Height 162.6 cm (5' 4 ) 07/19/2024 3:53 PM DIETARY WORKER Body Mass Index 30.38 07/19/2024 3:53 PM DIETARY WORKER Plan of Treatment Health Maintenance Due Date Last Done Comments Cervical Cancer Screening 1975 Hepatitis C Screening 1975 Hepatitis B Screening 1993 Pneumococcal vaccine <65 (1 of 2 - PCV) 1994 Covid-19 Vaccine (3 - 2023-2 5 season) 2024 02/12/2021, 01/21/2021 Influenza Vaccine (#1) 2024 , 03/10/2020, 04/06/2018, Additional history exists Depression Screening 02/04/2025 02/05/2024, 01/17/2023, 10/03/2022, Additional history exists Regular Well Visit/Exam 18-64 02/04/2025 02/05/2024 Breast Cancer Screening-Mammogram 03/05/2025 03/05/2024, 11/05/2022, 04/04/2021, Additional history exists DTaP/Tdap/Td Vaccine (3 - Td or Tdap) 10/19/2027 10/18/2017, 02/08/2015 Colon Cancer Screening-Colonoscopy 09/28/20282018 Medical Devices Implanted Type Area Drying Can Worker Device Identifier Shelf Expiration Date Model / Serial / Lot [employer] Ventralight St Sepra 4.5in Uncoated Monofilament Lightweight [id number] - [id number] Implanted:Qty: 1 on 04/07/2023 by Kirby Shea MD at [facility] N/A: Abdomen [employer] 10/20/2024 [id number] / / [id number] Procedures Procedure Name Priority Date/Time Associated Diagnosis Comments EGD Routine 07/26/2024 3:01 PM DIETARY WORKER SCAN - RADIOLOGY/IMAGING 07/25/2024 SCAN - RADIOLOGY/IMAGING 07/22/2024 SCAN - RADIOLOGY/IMAGING 07/20/2024 URINE CULTURE Routine 07/19/2024 4:40 PM DIETARY WORKER Dysuria POCT URINALYSIS DIPSTICK Routine 07/19/2024 4:19 PM DIETARY WORKER Dysuria POC INFLUENZA A/B, COVID-19 ANTIGEN Routine 07/19/2024 4:18 PM DIETARY WORKER Viral URI with cough DIAGNOSTIC MAMMOGRAM BILATERAL W [place] Schedule Routine, Read Routine (OP Routine) 03/05/2024 1:44 PM CDT COLONOSCOPY 09/28/2018 10:54 AM CDT from Last 3 Months or Most Recently Relevant to Health Maintenance Results * EGD [facility] (07/26/2024 3:01 PM DIETARY WORKER) Anatomical Region Laterality Modality Other us Historical Provider GI PROCEDURE ORDERABLES F inal Result * SCAN - RADIOLOGY/IMAGING (07/25/2024) Anatomical Region Laterality Modality Other us Provider Scanning Final Result * SCAN - RADIOLOGY/IMAGING (07/22/2024) Anatomical Region Laterality Modality Other us Provider Scanning Final Result * SCAN - RADIOLOGY/IMAGING (07/20/2024) Anatomical Region Laterality Modality Other us Provider Scanning Final Result * Urine culture Urine, clean voided (07/19/2024 4:40 PM DIETARY WORKER) Report Final Report: No growth Comment:Testing performed by : [facility], [address] [place]., [address] Urine, clean voided 07/19/2024 4:40 PM DIETARY WORKER 07/20/2024 12:15 AM DIETARY WORKER Narrative LINDSEY KOLB - 07/21/2024 7:17 AM DIETARY WORKER Testing performed by [facility] ([phone]) us Morena Arias [facility] MICROBIOLOGY - GENERAL ORD ERABLES Final Result LINDSEY [address] [address] Department [place] [address] * (ABNORMAL) POCT urinalysis dipstick (07/19/2024 4:19 PM DIETARY WORKER) Color, Urine, POC Yellow Clarity, ur, POC Clear Clear Glucose, ur, POC Negative Negative MG/DL Bilirubin, ur, POC Negative Negative, Small, Moderate, Large Ketones, ur, POC Negative Negative Specific [place], POC 1.010 1.003 - 1.030 Blood, ur, POC Negative Negative pH, ur, POC 6.0 5.0 - 8.0 Protein, ur, POC Negative Negative Urobilinogen, urine, POC 0.2 0.2 - 1.0 mg/dL Nitrite, ur, POC Negative Negative Leukocytes, ur, POC Negative Negative Lot Number [id number] Urine 07/19/2024 4:19 PM DIETARY WORKER Morena Arias [facility] POINT OF CARE TEST ORDERABLES Final Result * POC Influenza A/B, COVID-19 antigen (07/19/2024 4:18 PM DIETARY WORKER) Influenza A Ag, POC Negative Negative [facility] Influenza B Ag, POC Negative Negative [facility] COVID-19 Ag POC Presumptive Negative Presumptive Negative, Invalid [facility] Nasal 07/19/2024 4:18 PM DIETARY WORKER Morena Arias [employer] POINT OF CARE TEST ORDERABLES Final Result Performing Organization Address City/State/[facility] Co de Phone Number [facility] [address] [place] [address] * Diagnostic Mammogram Bilateral [place] (03/05/2024 1:44 PM CDT) Anatomical Region Laterality Modality Breast Bilateral Mammography 03/05/2024 1:44 PM CDT Historical Provider MD [facility] MAMMO PROCEDURES [place] [facility] Result * COLONOSCOPY (09/28/2018 10:54 AM CDT) Anatomical Region Laterality Modality Other Narrative Procedure Note Jose E Busch MD - 09/28/2018 10:54 AM CDT [facility] Patient Name: Yeni Chavez Procedure Date: 09/28/2018 10:54 AM Date of : 1975 Admit Type: Outpatient Age: 43 Gender: Female Attending MD: Jose E Busch M.D. Room: [facility] 1 Note Status: Finalized [...] passed under direct vision.The Pediatric Colonoscope [id number] was introduced through the anus and advanced [...] 10:54 AM Procedure Code(s): --- Professional --- 92391, Colonoscopy, flexible; diagnostic, including collection of specimen(s) by brushing or washing, when performed (separateprocedure) Diagnosis Code(s): --- Professional --- K57.32, Diverticulitis of large intestine without perforation orabscess without bleeding K57.30, Diverticulosis of large intestine without perforation orabscess without bleeding CPT copyright 2017 [employer]. All rights reserved. The codes documented in this report are preliminary and upon mac developer reviewmay be revised to meet current compliance requirements. Recognized by the [employer] for promoting quality in endoscopy Jose E Busch MD ENDOSCOPY PROCEDURES Final Result from Last 3 Months or Most Recently Relevant to Health Maintenance Insurance [employer] PPO [employer] Advance Directives For more information, please contact: [phone] * Full Code (Latest Code Status on [...] 9:32 PM 07/21/2018 4:19 PM Care Teams Supervisor Glycerin Relationship Specialty Start Date End Date Vinicio Greco MD [address] [place] [address] PCP - General 09/16/11
--- NOTE | 2024-10-13 12:41 | ECG_ITS ---
Test Date: 2024-10-13 12:47:28 Measurements Intervals [place] Rate: 73 P: 55 OR: 133 QRS: 5 QRSD: 85 T: 20 QT: 368 QTc: 407 Interpretive Statements SINUS RHYTHM NORMAL ECG No previous ECG available for comparison Electronically Signed On 10-13-2024 13:22:05 CDT by Jean Carbajal M.D.
[2024-10-13 13:00] LABS: Basophils Absolute Auto 0.1 K/mm3 (0.0-0.1); Basophils Percent Auto 0.7 % (0.2-1.2); Eosinophils Absolute Auto 0.1 K/mm3 (0-0.3); Eosinophils Percent Auto 1.3 % (0-4.4); Hematocrit 40.1 % (37.0-47.0); Hemoglobin 12.7 g/dL (12.0-15.0); Immature Granulocyte Absolute 0.02 K/mm3 (0.00-0.031); Immature Granulocyte Percent A 0.3 % (0-0.5); Lymphocytes Absolute Auto 2.04 K/mm3 (0.9-3.2); Lymphocytes Percent Auto 26.5 % (18.3-44.2); Mean Corpuscular HGB Conc 31.7 g/dl (32-36); Mean Corpuscular Hemoglobin 29.1 pg (26-34); Mean Corpuscular Volume 91.8 fl (80-100); Mean Platelet Volume 9.8 fl (7.4-10.4); Monocytes Absolute Auto 0.5 K/mm3 (0.1-0.6); Monocytes Percent Auto 6.2 % (2.6-8.5); Platelet Count Result 323 k/mm3 (150-375); Red Blood Count 4.37 M/mm3 (4.2-5.4); Red Cell Distribution Width 13.2 % (11.5-14.5); White Blood Count 7.7 K/mm3 (4.5-10.0)
[2024-10-13 13:35] LABS: Alanine Aminotransferase 18 U/L (6-35); Albumin Level 4.5 g/dL (3.5-5.1); Alkaline Phosphatase 93 U/L (38-126); Anion Gap 9 mmol/L (4-12); Aspartate Amino Transferase 29 U/L (14-36); Bilirubin,Total 0.3 mg/dL (0.2-1.3); Blood Urea Nitrogen 9 mg/dL (7-17); Calcium 9.1 mg/dL (8.4-10.2); Carbon Dioxide 27 mmol/L (22-30); Chloride 105 mmol/L (98-107); Estimated Glomerular Filt Rate > 60; Glucose 75 mg/dL (65-110); Potassium 4.1 mmol/L (3.4-5.0); Sodium 141 mmol/L (137-145)
[2024-10-13 13:39] LABS: Partial Thromboplastin Time 26.7 Seconds (22.3-36.8); Prothrombin Time 13.2 Seconds (11.1-14.7)
== END 2024-10-13 11:49 | disposition home or self-care (01) ==
PROVIDERS: PCP Family Medicine; Visit Provider Urology
DX: N81.4 Uterovaginal prolapse, unspecified (principal)
CPT/HCPCS: 36415; 80053; 85025; 85610; 85730; 86850; 86900; 86901; 93005

== ENCOUNTER 2024-10-25 01:33 | Day surgery (SDC) | payer OTHER, SELFPAY ==
[2024-10-13 12:16] VITALS: BP 120/83; PULSE 84; RESP 16; TEMP 36.3; O2SAT 95; BMI 29.7
--- NOTE | 2024-10-13 12:33 | PC.NURSE ---
Report to the Outpatient Waiting Room, entrance under the green pavilion located off [facility], at time ___0600am____ on date __10/25/24 . Planned Procedure Time: 0730am .? Time changes happen often and if your time is changed the preop area will call you the afternoon before. - You and your visitor will be asked to self-screen and do not enter if you have any COVID symptoms. Please call surgeon if you need to reschedule. - A mask is optional within the hospital at this time. Patients may have clear liquids (water, carbonated beverages, clear teas, apple juice) until 3 hours prior to surgery with a maximum of 20 ounces. - No food from midnight until time of surgery and no smoking, or chewing tobacco (or any form of nicotine). No chewing gum, candy or mints. (0430am) Take only the following medications with a SIP of water on the morning of surgery: ____Tylenol if needed DO NOT STOP ANY OF YOUR OTHER PRESCRIPTION MEDICATIONS PRIOR TO SURGERY EXCEPT THE FOLLOWING Hold all vitamins and supplements for 3 days per anesthesiologist. Medications to discontinue per physician No Aspirin, Motrin, Aleve for [address] Mckinney Date to take last dose____10/17/24 Please no make-up, nail welsh, hairspray, perfume, deodorant, or body powder the day of surgery.? No jewelry (including any body piercings) or valuables the day of surgery, leave them at home.? Please take a shower or bath the night before, or the morning of, surgery with an antibacterial soap.? Wear comfortable, loose fitting clothing.? Children are encouraged to wear pajamas. - Jewelry must be removed prior to entering the operating room.? Rings and piercings that are not removed may be cut off. - The hospital will not accept responsibility for valuables.? - Please leave all valuables, including medications, at home the day of surgery. If you are going home after surgery, a licensed concrete mixing truck driver must drive you home.? - NO public transportation without another adult if you receive anesthesia. - We recommend that an adult stay with you for 24 hours following discharge. - We also recommend that you do not drive, make important decision, drink alcoholic beverages, or take any drugs that were not prescribed by your health care provider for at least 24 hours after your discharge time. Follow any additional instructions given to you from your surgeon. Telephone instructions given to ___Patient and asked if any additional questions and then verbalized understanding. Patient advised to call surgeon office or pre surgery nurse liaison [phone] if any additional questions.
--- NOTE | 2024-10-22 08:56 | PM.IMHP ---
H&P: HPI History of Present Illness Date/Time: 10/22/24 08:56 Chief Complaint: POP/CHAVA Narrative: Symptomatic pelvic organ prolapse as well as stress incontinence Review of Systems Review of Systems: All systems reviewed & are unremarkable except as noted in HPI and below PMFSH Past Medical History Medical History Chronic back pain Irritable bowel syndrome Surgical History Surgical History Hx of cervical spine surgery Hx of tubal ligation Hx of ventral hernia repair Hx laparoscopic cholecystectomy Family History Family History Grandparent Colon cancer Breast cancer Grandparent Esophageal cancer Grandparent Non Hodgkin's lymphoma Grandparent Cerebrovascular accident Father Malignant neoplasm of prostate Social History Social History Smoking packs per day: 1 Smoking cigarettes per day: 20.0 Years smoked: 30 Smoking pack-years: 30.00 Smoking status: Current every day smoker Tobacco type: cigarettes and e-cigarettes/vaping Smoking end date: 06/26/24 Additional smoking assessment comments: on and off smoking throughout years Alcohol intake: current Alcohol use details: 1 per month Substance use: current Substance use type: other Other substance usage details: smokes daily vapes of nicotine Do You Feel Safe in your Home?: Yes Lack of Transportation: No Lack of Food: Never True Current Housing: I Have Housing Concerned About Future Housing: No Difficulty Paying Gas/Electric Bills: No Difficulty Paying for Meds: No Currently Unemployed: No Education: Associate Degree Difficulty w/ Childcare or Family Care: No Living arrangements: with family Spiritual care concerns: No Meds Home Medications and Allergies Home Medications ?Medication ?Instructions ?Recorded ?Confirmed ?Type docusate sodium 100 mg capsule 200 mg PO HS 07/20/24 10/13/24 History Allergies Allergy/AdvReac Type Severity Reaction Status Date / Time sulfamethoxazole (From Allergy Intermediate Swelling Verified 10/13/24 12:13 Bactrim) of Lip/Tongue/Throat thimerosal Allergy Intermediate Rash Verified 10/13/24 12:13 trimethoprim (From Bactrim) Allergy Intermediate Swelling Verified 10/13/24 12:13 of Lip/Tongue/Throat Exam Narrative: Urethral hypermobility Cystocele +4 Loss of apical support a +1 Assessment and Plan Assessment and plan (1) Uterine prolapse: Code(s): N81.4 - Uterovaginal prolapse, unspecified Status: Acute (2) CHAVA (stress urinary incontinence, female): Code(s): N39.3 - Stress incontinence (female) (male) Status: Acute Plan - We discussed the treatment options for pelvic organ prolapse, including observation, pelvic floor muscle exercises, physical therapy, pessary usage, and surgery, as well as each approach's specific risks and benefits. She opted for a sacral colpopexy. We specifically discussed the utilization of robotic sacral colpopexy. - She understood the risks of bleeding, infection, recurrence or prolapse, mesh exposure, damage to the bowel or urinary tract, open conversion, de amita urinary urgency, urinary retention, post-operative stress urinary incontinence, dyspareunia, back pain, diskitis, and risks of anesthesia. In addition, she was provided written information on the etiology and treatment of pelvic organ prolapse. - After an extensive discussion, she agreed to proceed with surgery. - In addition to the operation for pelvic organ prolapse, we discussed performing a concomitant mid-urethral sling procedure for the treatment of her existing or occult stress urinary incontinence. - We discussed the risks of bleeding, infection, failure to correct incontinence, damage to the urinary tract, vaginal mesh extrusion, urinary tract mesh erosion, obstructive voiding requiring a secondary procedure, de amita or worsening irritative voiding symptoms, post-operative hip, and leg pain, and the risks of anesthesia. She wished to proceed
--- NOTE | 2024-10-22 10:37 | PM.IMHP ---
H&P: HPI History of Present Illness Date/Time: 10/22/24 10:37 Chief Complaint: Uterine prolapse Narrative: 49-year-old female admitted for robotic supracervical hysterectomy bilateral salpingectomy secondary to uterine prolapse she should also undergo a sacral colpopexy and a sling with Dr. Banda risks and benefits reviewed in great details. She received the [employer] handout entitled hysterectomy as well as the de Katie handout. She had all questions answered. She asked to proceed. Review of Systems Review of Systems: All systems reviewed & are unremarkable except as noted in HPI and below PMFSH Past Medical History Medical History Chronic back pain Irritable bowel syndrome Surgical History Surgical History Hx of cervical spine surgery Hx of tubal ligation Hx of ventral hernia repair Hx laparoscopic cholecystectomy Family History Family History Grandparent Colon cancer Breast cancer Grandparent Esophageal cancer Grandparent Non Hodgkin's lymphoma Grandparent Cerebrovascular accident Father Malignant neoplasm of prostate Social History Social History Smoking packs per day: 1 Smoking cigarettes per day: 20.0 Years smoked: 30 Smoking pack-years: 30.00 Smoking status: Current every day smoker Tobacco type: cigarettes and e-cigarettes/vaping Smoking end date: 06/26/24 Additional smoking assessment comments: on and off smoking throughout years Alcohol intake: current Alcohol use details: 1 per month Substance use: current Substance use type: other Other substance usage details: smokes daily vapes of nicotine Do You Feel Safe in your Home?: Yes Lack of Transportation: No Lack of Food: Never True Current Housing: I Have Housing Concerned About Future Housing: No Difficulty Paying Gas/Electric Bills: No Difficulty Paying for Meds: No Currently Unemployed: No Education: Associate Degree Difficulty w/ Childcare or Family Care: No Living arrangements: with family Spiritual care concerns: No Meds Home Medications and Allergies Home Medications ?Medication ?Instructions ?Recorded ?Confirmed ?Type docusate sodium 100 mg capsule 200 mg PO HS 07/20/24 10/13/24 History Allergies Allergy/AdvReac Type Severity Reaction Status Date / Time sulfamethoxazole (From Allergy Intermediate Swelling Verified 10/13/24 12:13 Bactrim) of Lip/Tongue/Throat thimerosal Allergy Intermediate Rash Verified 10/13/24 12:13 trimethoprim (From Bactrim) Allergy Intermediate Swelling Verified 10/13/24 12:13 of Lip/Tongue/Throat Exam Const: General: cooperative, healthy appearing and comfortable Nutritional Appearance: average body habitus Orientation/consciousness: oriented to person, oriented to place and oriented to time HENMT: Head: normal to inspection Resp: Effort & Inspection: normal respiratory effort Cardio: Rate: regular rate Rhythm: regular rhythm Heart sounds: S1 normal heart sound present and S2 normal heart sound present GI: Inspection: normal to inspection : External Female Exam: normal external appearance Speculum Exam - Vagina: normal appearance of the vagina Speculum Exam - Cervix: normal appearance of the cervix (Second-degree prolapse) Bimanual exam- vagina & uterus: uterine size normal Bimanual Exam- Adnexa, other: adnexae mobile Assessment and Plan Assessment and plan (1) Uterine prolapse: Code(s): N81.4 - Uterovaginal prolapse, unspecified Status: Acute (2) CHAVA (stress urinary incontinence, female): Code(s): N39.3 - Stress incontinence (female) (male) Status: Acute Plan Proceed with robotic supracervical hysterectomy and bilateral salpingectomy
[2024-10-25] VITALS (16 sets, daily range): BP systolic 105–139; BP diastolic 69–90; PULSE 61–97; RESP 11–20; TEMP 36.2–36.5; O2SAT 93–100; BMI 29.5
--- NOTE | 2024-10-25 04:42 | WPDHPUPDATE1 ---
History and Physical Update Update Date/Time: 10/25/24 04:42 History and Physical has been reviewed, including an updated exam of the patient. There are NO changes in the patient's condition. Risks, benefits, and alternatives have been discussed and questions answered. Patient agrees to proceed with procedure.
--- NOTE | 2024-10-25 06:30 | WPDHPUPDATE1 ---
History and Physical Update Update Date/Time: 10/25/24 06:30 History and Physical has been reviewed, including an updated exam of the patient. There are NO changes in the patient's condition. Risks, benefits, and alternatives have been discussed and questions answered. Patient agrees to proceed with procedure.
--- NOTE | 2024-10-25 06:36 | WPDANESEPPF ---
Anes - Initial Pre Proc Eval Procedure: Operation Date: 10/25/24 07:30 Proposed Procedures p Robotic Sacrocolpopexy, Possible Urethral Sling, Possible Cystocele Repair - Javier Mckinney MD s Robotic Assisted Supracervical Hysterectomy with Bilateral Salpingectomy - Hany Mcghee MD Date/Time: 10/25/24 06:36 Surgeon: Javier Mckinney MD Pre Op Diagnosis: uterine prolapse, cystocele, stress incont Patient Data Age: 49 Gender: F Height: 1.65 m Weight: 80.9 kg Last Vital Signs Temp 36.3 C L 10/13/24 12:16 Pulse 84 10/13/24 12:16 Resp 16 10/13/24 12:16 BP 120/83 10/13/24 12:16 Pulse Ox 95 10/13/24 12:16 O2 Del Method Room Air 10/13/24 12:16 Allergies Allergy/AdvReac Type Severity Reaction Status Date / Time sulfamethoxazole (From Allergy Intermediate Swelling Verified 10/13/24 12:13 Bactrim) of Lip/Tongue/Throat thimerosal Allergy Intermediate Rash Verified 10/13/24 12:13 trimethoprim (From Bactrim) Allergy Intermediate Swelling Verified 10/13/24 12:13 of Lip/Tongue/Throat Home Medications ?Medication ?Instructions ?Recorded ?Confirmed ?Type docusate sodium 100 mg capsule 200 mg PO HS 07/20/24 10/13/24 History Patient hx anesthesia problems: none Family hx anesthesia problems: none Results Review: All pre-operative results and documents have been reviewed as part of the pre-operative evaluation. [facility] Past Medical History Medical History Chronic back pain Irritable bowel syndrome Surgical History Surgical History Hx of cervical spine surgery Hx of tubal ligation Hx of ventral hernia repair Hx laparoscopic cholecystectomy Family History Family History Grandparent Colon cancer Breast cancer Grandparent Esophageal cancer Grandparent Non Hodgkin's lymphoma Grandparent Cerebrovascular accident Father Malignant neoplasm of prostate Social History Social History Smoking packs per day: 1 Smoking cigarettes per day: 20.0 Years smoked: 29 Smoking pack-years: 29.00 Smoking status: Current every day smoker Tobacco type: cigarettes and e-cigarettes/vaping Additional smoking assessment comments: on and off smoking throughout years Alcohol intake: current Substance use: never Substance use type: other Other substance usage details: smokes daily vapes of nicotine Do You Feel Safe in your Home?: Yes Lack of Transportation: No Lack of Food: Never True Current Housing: I Have Housing Concerned About Future Housing: No Difficulty Paying Gas/Electric Bills: No Difficulty Paying for Meds: No Currently Unemployed: No Education: Associate Degree Difficulty w/ Childcare or Family Care: No Spiritual care concerns: No Anes - Eval Final PreProcedure Day of Procedure 10/25/24 06:36 Patient weight: obese Heart: regular rate and rhythm Lungs: clear to auscultation Airway: Mallampati scale class II Neurological: alert and oriented Last oral intake: >/= 8 hours ASA classification: II Emergent: no Anesthetic plan: proceed Anesthesia type and monitoring: general ETT and standard monitoring Results Review: All pre-operative results and documents have been reviewed as part of the pre-operative evaluation. Informed Consent: The patient's anesthetic plan and its attendant risks and benefits were discussed with the patient/family/POA. Questions were solicited and answers provided to the satisfaction of the patient/family/POA.
[2024-10-25] MEDS: SCOPOLAMINE 1 MG PATCH 1 PATCH TRANSDERM (07:06)
[2024-10-25] MEDS: ACETAMINOPHEN 500 MG TABLET 1000 MG PO (07:06)
[2024-10-25 07:08] LABS: BEDSIDEPREGUCG Negative (Negative)
[2024-10-25] MEDS: LACTATED RINGERS 1,000 ML 30 ML IV CONT ×2 (07:08→10:13)
[2024-10-25] MEDS: metroNIDAZOLE 500 MG/ISO 100ML 500 MG/100 ML BAG 100 MG IVPB (07:27)
[2024-10-25] MEDS: ceFAZolin 2 GM/D5W 50 ML 2 GM/50 ML BAG IVPB (07:27)
[2024-10-25] MEDS: BUPIVACAINE/EPINEPHRINE 0.5% 50 ML VIAL 40 ML INFILTRATE (08:15)
--- NOTE | 2024-10-25 08:27 | P.OP_ITS ---
Procedure Note - Detailed Date of Procedure 10/25/24 Pre-op Diagnosis uterine prolapse, cystocele, stress incont Post-op Diagnosis Same Procedure Performed Robotic supracervical hysterectomy bilateral salpingectomy Surgeon Hany Mcghee MD Anesthesia General Indications 29-year-old female with uterine Findings Uterine prolapse cystocele. Tubes status post tubal ligation normal-appearing ovaries Description of Procedure Patient was prepped draped in placed in dorsal position. Under excellent general endotracheal anesthesia weighted speculum placed posterior fornix vagina. Anterior lip of the cervix grasped with a single-tooth tenaculum Aguayo's cannula inserted the cervix and attached to single-tooth to be usually uterine later for uterine manipulation. A 16 Citizen [place] catheter was placed in the bladder drained of clear urine. The weighted speculum was removed and the gloves were changed. Dr. Thompson proceeded to dock the robot. Please see his operative report for full details. Attention was turned to the pet adoption counselor. The left round ligament was grasped, burned, cut. Anterior bladder flap form was formed by sharply dissecting the peritoneum and reflecting the bladder caudally away from the cervix uterus the opposite round ligament which was clamped, burned, cut. Next the a Filshie clamp was noted on the left fallopian tube the tube was sharply dissected away and 1 piece and left attached to the uterus at its origin. In similar fashion the right fallopian tube was sharply dissected away from the ovarian complex and left attached to its uterine origin a munoz. The utero- ovarian ligament on the left was skeletonized to conserve the left ovary clamped, burned, cut and brought to the level of previous cut ligament. In similar fashion on the right the utero-ovarian ligament was clamped, burned, cut conserving the right ovary. The cardinal broad ligaments on the left were serially skeletonized clamping burning cutting and bringing this down lateral edge of the uterus until the large tortuous uterine vessels could be seen on the left these were individually clamped, burned, cut. In similar fashion on the right the cardinal broad ligaments were skeletonized clamping burning cutting until the large uterine vessels could be seen on the right these were individually clamped, burned, cut. The uterus was then bivalved after blanching was noted supracervical incision made and the tube patent portions were placed in an Endo-Catch blood loss was 5cc that point Dr. Mckinney proceed from there there were no immediate complications up to this Estimated Blood Loss 5 Drains No Packing No Pathology Yes Complications No immediate complications Condition Stable Disposition No change
--- NOTE | 2024-10-25 09:43 | S_PTH ---
PATIENT: Yeni Chavez LOC: [facility] U#:[id number] AGE/SX: 49/F ROOM: RE10/25/[address]: Javier Mckinney MD : 1975 BED: DIS: 10/25/2024 SPEC #: [id number] RECD: 10/25/24 13:15 STATUS: ELIECER RE #: [id number] SANJUANITA: 10/25/24 09:[address]: Hany Hernandez DEPT: [facility] Surgical RECD BY: Dione Quinn ENTERED: 10/25/24 13:16 SP TYPE: Surgical OTHR DR: MD Vinicio Acuña, M.DKartik Tissues: A - Uterus Procedures: Hematoxylin and Eosin Stain Gross and Microscopic Level 5
--- NOTE | 2024-10-25 10:17 | W.PM.PROC2 ---
Procedure Note - Detailed Date of Procedure 10/25/24 Pre-op Diagnosis uterine prolapse, cystocele, stress incont Post-op Diagnosis Same Procedure Performed Robotic assisted laparoscopic sacral colpopexy Urethral sling Cystoscopy Surgeon Javier Mckinney MD Anesthesia General Indications A woman with uterine prolapse as well as stress incontinence. She desires surgical correction. She is here for the above. She understands risks of bleeding, infection, diskitis, damage to surrounding organs, bowel injury, bowel obstruction, mesh related complications including exposure and extrusion, postoperative voiding dysfunction including incontinence and retention, need for ancillary procedures, dyspareunia, recurrence of prolapse, and other perioperative intraoperative postoperative complications. She agrees to proceed. Findings See below Description of Procedure She was correctly identified. Informed consent obtained. She from the operating room. She was given general anesthesia. She was given appropriate perioperative antibiotics. She was placed a low lithotomy position. Pressure points were padded. A time-out performed. I marked out the skin 3 fingerbreadths cephalad to the umbilicus. I anesthetized the skin. I incised the skin. I dissected down to the fascia. I grasped the fascia with Lico clamps. I entered the fascia sharply in a Diaz type technique. I placed sutures for later fascial closure. I placed a midline trocar. I examined the abdomen. There is no sign of any injury. Under direct vision I placed 2 additional trocars in the right upper quadrant and 2 additional trocars the left upper quadrant. She was placed in steep Trendelenburg. The robot was docked. Her insurance administrative assistant completed their portion of the procedure. Please see that operative report for details. I then sat at the console. The Sizer in the vagina created plane on the anterior and posterior vaginal wall. I took great care not to injure the vagina, bladder, or rectum. Colinic adhesion in the deep pelvis were taken down bluntly without the use of cautery. I introduced the mesh into the abdomen. I sewed the anterior leaflet of mesh on the anterior vaginal wall. I sewed the posterior leaflet of mesh on the posterior vaginal wall. This was done with several sutures of 2 0 Tarzana-Will. I reflected the colon laterally. I opened the posterior peritoneum over the sacral promontory. I carried this into the cul-de-sac. I freed up the edges for later retroperitonealization. I located the anterior longitudinal ligament the sacrum. I cleaned off all fatty tissues. I then tensioned my mesh appropriately. I did a vaginal exam the bedside. I assured prolapse reduction without undue tension. I then sewed the proximal leaflet of mesh onto the anterior longitudinal ligament of the sacrum with 3 sutures of 2 0 Tarzana-Will. I then used a 2 0 Monocryl to completely and meticulously retroperitonealized all mesh. I allowed the colon to go back to its normal anatomic location. There is no sign of any impingement. The specimen was then removed. All ports removed. Fascia was tied down. An additional suture was use to close the fascia. Skin was closed with Monocryl and surgical glue. She was repositioned and prepped for urethral sling. I marked out the inner thigh incisions. I anesthetized the skin and made the incisions. I then anesthetized the anterior vaginal wall at the mid urethra. I made a 1 cm incision. I dissected out laterally taking great care not to injure the refilled vaginal wall. I passed the helical trocars. I did this 1st on the left and then on the right. This was done from the thigh incision towards the vaginal incision. Sling was connected to the trocars and brought out the thigh incision. I tensioned the sling appropriately. I cut and the plastic sheaths. I closed the incision with 2 0 Vicryl. I then performed cystoscopy. There was no tumors or surgical artifact. Both ureters were seen to excrete clear yellow urine. There is no surgical artifact in the bladder or urethra. I cut the excess sling material. Close incision with glue. She was awakened and transferred to PACU in stable condition. Implants Sacral colpopexy mesh Urethral sling Estimated Blood Loss 30 Packing No Pathology None sent Complications No immediate complications Condition Stable Disposition PACU
[2024-10-25] MEDS: fentaNYL CITRATE INJ (*CRX) 100 MCG/2 ML VIAL 25 MCG IV PUSH ×8 (10:31→12:05)
[2024-10-25] MEDS: HYDROmorphone HCL INJ (*CRX) 1 MG/ML SYR 0.5 MG IV PUSH ×2 (12:13→12:25)
[2024-10-25] MEDS: oxyCODONE HCL (*CRX) 5 MG TAB IR PO (13:05)
== END 2024-10-25 14:20 | disposition home or self-care (01) ==
PROVIDERS: Obstetrics & Gynecology; PCP Family Medicine; Visit Provider Urology
PROC: (CPT 57425; principal; 2024-10-25 07:30)
PROC: 0UT94ZZ Resection of Uterus, Percutaneous Endoscopic Approach (ICD-10-PCS; CPT 57425; 2024-10-25 07:30)
DX: N81.4 Uterovaginal prolapse, unspecified (principal); N39.3 Stress incontinence (female) (male); F17.290 Nicotine dependence, other tobacco product, uncomplicated; E66.9 Obesity, unspecified; Z68.29 Body mass index [BMI] 29.0-29.9, adult
CPT/HCPCS: 57425; 58542; S2900 ×2; 88307; A9270; C1771; C1781; J0690; J1100; J1171; J1836; J2003; J2250; J2405; J2704; J3010; J7030; J7120

== ENCOUNTER 2025-02-01 00:46 | Day surgery (SDC) | payer OTHER, SELFPAY ==
[2025-01-19 14:30] VITALS: BMI 28.3
--- OUTSIDE RECORDS SUMMARY | 2025-02-01 00:48 | XMS_ITS | Encounter Summary ---
Author Organization [facility] Address [address] [place] [address] Phone Care Team Providers Care Money Position Officer Name Role Phone Vinicio Greco MD Primary Care Provider [phone] Encounter Details Date Type Department Care Team (Late st Contact Info) Description 07/10/2017 Orders Only 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 Historical Provider LAB BLOOD ORDERABLES Magn[place] l Result documented in this encounter Visit Diagnoses Not on filedocumented in this encounter Additional Health Concerns Infection Onset Date Last Indicated Resolved Time COVID: Suspected 07/19/2024 07/19/202407/1907/19/2024 4:19 PM RETORT UNLOADER documented as of this encounter Care Teams Money Position Officer Relationship Specialty Start Date End Date Vinicio Greco MD [address] [place] [address] PCP - General 09/16/11 documented as of this encounter
--- OUTSIDE RECORDS SUMMARY | 2025-02-01 00:48 | XMS_ITS | Encounter Summary ---
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 Gender Identity Not on file Sexual Orientation Not on file documented as of this encounter Plan of Treatment Not on file documented as of this encounter Procedures Procedure Name Priority Date/Time Associated Diagnosis Comments SCAN - LABS 09/24/2024 documented in this encounter Results * SCAN - LABS (09/24/2024) us Provider Scanning Final Result documented in this encounter Visit Diagnoses Not on filedocumented in this encounter Care Teams Coating Inspector Relationship Specialty Start Date End Date Vinicio Greco MD [address] [place] [address] PCP - General 09/16/11 documented as of this encounter
--- OUTSIDE RECORDS SUMMARY | 2025-02-01 00:48 | XMS_ITS | Encounter Summary ---
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
--- OUTSIDE RECORDS SUMMARY | 2025-02-01 00:48 | XMS_ITS | Clinical Summary ---
Author Organization [id number] [place] Address [address] [place] [id number] Care Team Providers Care Behavioral Intervention Specialist Name Role Phone Vinicio Greco MD Primary Care Provider [phone] Allergies Active Allergy Reactions Criticality Noted Date [...] healthier, we can set up appointment with project manager process development/oracle ebs architect. Have an active lifestyle, strive for 30 [...] referral, we discussed contacting Dr. Bowden at [facility]. Atypical glandular cells on cervical Pap smear 0 01/17/2023 Assessment & Plan (01/17/2023 11:38 AM CDT): See discussion above. Reviewed imaging and office visit notes from repair electric motor assembler today with patient. Recommended patient have further discussion with repair electric motor assembler regarding her treatment options/next course of action. She continues to use condoms for contraception at this time. Encounter for preoperative e xamination for general surgical procedure 07/10/2021 Assessment & Plan (07/12/2021 12:12 PM FITTING ROOM SUPERVISOR): Reviewed lab work, and EKG. Normal PE. Patient cleared for surgery. Cervicalgia 07/10/2021 Assessment & Plan (07/10/2021 9:48 AM FITTING ROOM SUPERVISOR): Has been taking advil for pain. Will schedule procedure with Dr. Delcid. Lipid screening 07/10/2021 Assessment & Plan (02/05/2024 4:26 PM CDT): Will check lipid panel. Assessment & Plan (07/10/2021 9:55 AM FITTING ROOM SUPERVISOR): Will check labs. Discussed diet and exercise recommendations. Routine health maintenance 04/05/2021 Assessment & Plan (04/05/2021 2:03 PM FITTING ROOM SUPERVISOR): Discussed need to schedule WWE and pap. [...] 07/15/2019 Assessment & Plan (07/15/2019 11:43 AM FITTING ROOM SUPERVISOR): Discussed and the patient refuses immunization today. Educated regarding the need to vaccinate for personal protection and to limit the viruses in the community to protect those most vulnerable. Encounter for screening for lipid disorder 07/15 Assessment & Plan (04/05/2021 2:03 PM FITTING ROOM SUPERVISOR): Patient to get fasting labs. Reviewed heart healthy diet and importance of regular exercise. Assessment & Plan (07/15/2019 11:52 AM FITTING ROOM SUPERVISOR): 07/17/18 AF=506 TG=62 HDL=44 LDL=72 TC/HDL=3 07/15/19 HB=843 XR=355 HDL=42 LDL=41.4 (CALC) TC/HDL=4.0 GLU=85 BMI 28.0-28.9,adult 07/15/2019 Assessment & Plan (07/10/2021 9:55 AM FITTING ROOM SUPERVISOR): Discussed healthy diet and importance of regular physical activity. Assessment & Plan (04/05/2021 2:03 PM FITTING ROOM SUPERVISOR): Discussed healthy diet and importance of regular [...] patient. Assessment & Plan (07/15/2019 11:43 AM FITTING ROOM SUPERVISOR): Discussed healthy diet and importance of regular physical activity. BMI is acceptable for this patient. 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 She usually has a very [...] weeks. Assessment & Plan (07/29/2018 2:13 PM FITTING ROOM SUPERVISOR): Educated patient to start clear liquid diet and resume oral antibiotics. Discussed case with , preferably patient sees GI aura, optimize therapy and patient symptoms, and patient then to see in the office to discuss surgery risks and benefits. Patient agrees to this treatment plan. Assessment & Plan (07/16/2018 6:19 AM FITTING ROOM SUPERVISOR): Of the sigmoid colon. Perforation is localized. Patient is currently on Zosyn. Her abdominal pain is controlled with pain medications. General surgery and Infectious Disease have been consulted will await their evaluation. NPO for surgery evaluation. Chronic midline low back pain without sciatica 1 06/28/2017 Assessment & Plan (04/05/2021 2:27 PM FITTING ROOM SUPERVISOR): Continue current treatment with medication and therapy. Continue follow up with Dr. Delcid. No s/s of cauda equina or loss of bowel bladder function. Continues with PT. Reviewed red flags. Tobacco dependence due to cigarettes 03/19/2018 Assessment & Plan (02/05/2024 4:27 PM CDT): Precontemplative. Encouraged complete smoking cessation. Discussed different types of medications & dlix-twe-tzxgdpk aides to help with cessation. Assessment & Plan (07/12/2021 12:13 PM FITTING ROOM SUPERVISOR): Encouraged smoking cessation. Discussed decreased healing and negative health consequences associated with smoking. Assessment & Plan (03/12/2021 5:06 PM CDT): Again, encouraged smoking cessation. Assessment & Plan (02/12/2021 7:58 PM CDT): Precontemplative. Encouraged complete smoking cessation. Discussed different types of medications & bcqv-sht-ldbthuq aides to help with cessation. Assessment & Plan (02/05/2021 10:43 AM CDT): Encouraged complete smoking cessation. Reviewed NRT options with patient. Assessment & Plan (10/08/2019 8:35 AM CDT): Precontemplative. Encouraged complete smoking cessation. Discussed different types of medications & wmkm-ddi-pfwyaqd aides to help with cessation. Will p/u otc patches to try before chantix or wellbutrin. Assessment & Plan (07/15/2019 11:44 AM FITTING ROOM SUPERVISOR): Precontemplative. Encouraged complete smoking cessation. Discussed different types of medications & ydwv-fov-umvpebl aides to help with cessation. Assessment & Plan (07/16/2018 6:18 AM FITTING ROOM SUPERVISOR): Patient smokes about a pack a day [...] symptoms. Assessment & Plan (07/16/2018 6:18 AM FITTING ROOM SUPERVISOR): Continue SSRI and Bentyl Breast neoplasm screening [...] 020 Assessment & Plan (07/15/2019 2:12 PM FITTING ROOM SUPERVISOR): Rapid flu swab: NEGATIVE This looks viral [...] 10/08/2019 Assessment & Plan (07/16/2018 6:20 AM FITTING ROOM SUPERVISOR): Of the upper lip and left eyelid. Appeared to have resolved with Benadryl. Suspected to be related to Bactrim which has been added as an allergy. Patient also developed a rash which has now resolved as well. Will continue to monitor. P.r.n. Benadryl. Epigastric pain 07/16/2018 10/08/2019 Assessment & Plan (07/16/2018 6:21 AM FITTING ROOM SUPERVISOR): With left arm numbness. Started on Friday [...] on file Legal Sex Female 12:18 PM FITTING ROOM SUPERVISOR Gender Identity Not on file Sexual Orientation Not on file Obstetrics History Para Term AB IAB SAB Ectopic Multiple Livin g Live Births 5 3 3 Date Outcome GA Total Labor Labor/2nd/3rd Weight Sex Type Anes PTL Susana A1 A5 Name Clin Term Term Term Last Filed Vital Signs Vital Sign Reading Time Taken Comments Blood Pressure 116/72 07/19/2024 3:53 PM FITTING ROOM SUPERVISOR Pulse 98 07/19/2024 3:53 PM FITTING ROOM SUPERVISOR Temperature 36.6 C (97.9 F) 07/19/2024 3:53 PM FITTING ROOM SUPERVISOR Respiratory Rate 18 07/19/2024 3:53 PM FITTING ROOM SUPERVISOR Oxygen Saturation 98% 07/19/2024 3:53 PM FITTING ROOM SUPERVISOR Inhaled Oxygen Concentration - - Weight 80.3 kg (177 lb) 07/19/2024 3:53 PM FITTING ROOM SUPERVISOR Height 162.6 cm (5' 4) 07/19/2024 3:53 PM FITTING ROOM SUPERVISOR Body Mass Index 30.38 07/19/2024 3:53 PM FITTING ROOM SUPERVISOR Plan of Treatment Health Maintenance Due Date Last Done Comments Cervical Cancer Screening 1975 Hepatitis C Screening 1975 Hepatitis B Screening 1993 Pneumococcal vaccine <65 (1 of 2 - PCV) 1994 Covid-19 Vaccine (3 - 2024-2 6 season) 2025 02/12/2021, 01/21/2021 Influenza Vaccine (#1) 2025 , 03/10/2020, 04/06/2018, Additional history exists Depression Screening 02/04/2025 02/05/2024, 01/17/2023, 10/03/2022, Additional history exists Regular Well Visit/Exam 18-64 02/04/2025 02/05/2024 Breast Cancer Screening-Mammogram 03/05/2025 03/05/2024, 11/05/2022, 04/04/2021, Additional history exists DTaP/Tdap/Td Vaccine (3 - Td or Tdap) 10/19/2027 10/18/2017, 02/08/2015 Colon Cancer Screening-Colonoscopy 09/28/20282018 Medical Devices Implanted Type Area Field Producer Device Identifier Shelf Expiration Date Model / Serial / Lot [employer] R [employer] Ventralight St Sepra 4.5in Uncoated Monofilament Lightweight [id number] - [id number] Implanted:Qty: 1 on 04/07/2023 by Kirby Shea MD at [facility] N/A: Abdomen [employer] 10/20/2024 [id number] / / [id number] Procedures Procedure Name Priority Date/Time Associated Diagnosis Comments DIAGNOSTIC MAMMOGRAM BILATERAL W NEDA Schedule Routine, Read Routine (OP Routine) 03/05/2024 1:44 PM CDT COLONOSCOPY 09/28/2018 10:54 AM CDT from Last 3 Months or Most Recently Relevant to Health Maintenance Results * Diagnostic Mammogram Bilateral W Neda (03/05/2024 1:44 PM CDT) Anatomical Region Laterality Modality Breast Bilateral Mammography 03/05/2024 1:44 PM CDT us Historical Provider MD ROSARIO MAMMO PROCEDURES [place] [facility] Result * COLONOSCOPY (09/28/2018 10:54 AM CDT) Anatomical Region Laterality Modality Other Narrative Procedure Note Jose E Busch MD - 09/28/2018 10:54 AM CDT [facility] Patient Name: Yeni Chavez Procedure Date: 09/28/2018 10:54 AM Date of : 1975 Admit Type: Outpatient Age: 43 Gender: Female Attending MD: Jose E Busch M.D. Room: [facility] ENDOSCOPY ROOM 1 Note Status: Finalized Patient [...] passed under direct vision.The Pediatric Colonoscope [id number]-[id number] was introduced through the anus and advanced [...] 10:54 AM Procedure Code(s): --- Professional --- 36147, Colonoscopy, flexible; diagnostic, including collection of specimen(s) by brushing or washing, when performed (separateprocedure) Diagnosis Code(s): --- Professional --- K57.32, Diverticulitis of large intestine without perforation orabscess without bleeding K57.30, Diverticulosis of large intestine without perforation orabscess without bleeding CPT copyright 2017 [employer]. All rights reserved. The codes documented in this report are preliminary and upon filament maker reviewmay be revised to meet current compliance requirements. Recognized by the [employer] for promoting quality in endoscopy Jose E Busch MD ENDOSCOPY PROCEDURES Final Result from Last 3 Months or Most Recently Relevant to Health Maintenance [facility] [employer] Advance Directives For more information, please contact: [phone] * Full Code (Latest Code Status on [...] 9:32 PM 07/21/2018 4:19 PM Care Teams Behavioral Intervention Specialist Relationship Specialty Start Date End Date Vinicio Greco MD [address] [place] [address] PCP - General 09/16/11
[2025-02-01 10:21] VITALS: BP 123/71; PULSE 88; RESP 18; TEMP 36.4; O2SAT 100
--- NOTE | 2025-02-01 10:27 | WPDANESEPPF ---
Anes - Initial Pre Proc Eval Procedure: Operation Date: 02/01/25 11:30 Proposed Procedures p Colonoscopy - Chandler Marion MD Date/Time: 02/01/25 10:27 Surgeon: Chandler Marion MD Pre Op Diagnosis: Chronic superficial gastritis without bleeding Patient Data Age: 49 Gender: F Height: 1.65 m Weight: 78.7 kg Last Vital Signs Temp 36.4 C L 02/01/25 10:21 Pulse 88 02/01/25 10:21 Resp 18 02/01/25 10:21 BP 123/71 02/01/25 10:21 Pulse Ox 100 02/01/25 10:21 O2 Del Method Room Air 02/01/25 10:21 Allergies Allergy/AdvReac Type Severity Reaction Status Date / Time sulfamethoxazole (From Allergy Intermediate Swelling Verified 02/01/25 10:20 Bactrim) of Lip/Tongue/Throat thimerosal Allergy Intermediate Rash Verified 02/01/25 10:20 trimethoprim (From Bactrim) Allergy Intermediate Swelling Verified 02/01/25 10:20 of Lip/Tongue/Throat NSAIDS (Non-Steroidal AdvReac Gastrointestinal Verified 02/01/25 10:20 Anti-Inflamma Upset Home Medications ?Medication ?Instructions ?Recorded ?Confirmed ?Type docusate sodium 100 mg capsule 200 mg PO HS 07/20/24 02/01/25 History hydrocodone 5 mg-acetaminophen 325 1 tablet PO Q6H PRN pain #20 tabs 10/25/24 01/19/25 Rx mg tablet acetaminophen 325 mg tablet 1,000 mg PO ONCE PRN pain 01/19/25 01/19/25 History (Aminofen) Patient hx anesthesia problems: none Family hx anesthesia problems: none Results Review: All pre-operative results and documents have been reviewed as part of the pre-operative evaluation. [facility] Past Medical History Medical History Chronic back pain Irritable bowel syndrome Surgical History Surgical History Hx of cervical spine surgery Hx of tubal ligation Hx of ventral hernia repair Hx laparoscopic cholecystectomy Family History Family History Grandparent Colon cancer Breast cancer Grandparent Esophageal cancer Grandparent Non Hodgkin's lymphoma Grandparent Cerebrovascular accident Father Malignant neoplasm of prostate Social History Social History Smoking packs per day: 1 Smoking cigarettes per day: 20.0 Years smoked: 29 Smoking pack-years: 29.00 Smoking status: Current every day smoker Tobacco type: cigarettes and e-cigarettes/vaping Smoking end date: 06/26/24 Additional smoking assessment comments: on and off smoking throughout years Alcohol intake: current Alcohol use details: 1 per month Substance use: never Substance use type: does not use Other substance usage details: smokes daily vapes of nicotine Do You Feel Safe in your Home?: Yes Lack of Transportation: No Lack of Food: Never True Current Housing: I Have Housing Concerned About Future Housing: No Difficulty Paying Gas/Electric Bills: No Difficulty Paying for Meds: No Currently Unemployed: No Education: Associate Degree Difficulty w/ Childcare or Family Care: No Living arrangements: with family Spiritual care concerns: No Anes - Eval Final PreProcedure Day of Procedure 02/01/25 10:27 Patient weight: overweight Heart: regular rate and rhythm Lungs: clear to auscultation Airway: Mallampati scale class II Neurological: alert and oriented Last oral intake: >/= 8 hours ASA classification: II Emergent: no Anesthetic plan: proceed Anesthesia type and monitoring: general GIVS and standard monitoring Results Review: All pre-operative results and documents have been reviewed as part of the pre-operative evaluation. Informed Consent: The patient's anesthetic plan and its attendant risks and benefits were discussed with the patient/family/POA. Questions were solicited and answers provided to the satisfaction of the patient/family/POA.
[2025-02-01] MEDS: LACTATED RINGERS 1,000 ML 150 ML IV CONT (10:30)
--- NOTE | 2025-02-01 11:03 | P.HP_ITS ---
H&P: HPI History of Present Illness Date/Time: 02/01/25 11:03 Chief Complaint: History of recent complicated diverticulitis Narrative: in July this year, the patient was hospitalized for complicated diverticulitis with a pericolonic abscess. She is now asymptomatic and is referred for follow- up colonoscopy. Review of Systems Review of Systems: All systems reviewed & are unremarkable except as noted in HPI and below PMFSH Past Medical History Medical History Chronic back pain Irritable bowel syndrome Surgical History Surgical History Hx of cervical spine surgery Hx of tubal ligation Hx of ventral hernia repair Hx laparoscopic cholecystectomy Family History Family History Grandparent Colon cancer Breast cancer Grandparent Esophageal cancer Grandparent Non Hodgkin's lymphoma Grandparent Cerebrovascular accident Father Malignant neoplasm of prostate Social History Social History Smoking packs per day: 1 Smoking cigarettes per day: 20.0 Years smoked: 29 Smoking pack-years: 29.00 Smoking status: Current every day smoker Tobacco type: cigarettes and e-cigarettes/vaping Smoking end date: 06/26/24 Additional smoking assessment comments: on and off smoking throughout years Alcohol intake: current Alcohol use details: 1 per month Substance use: never Substance use type: does not use Other substance usage details: smokes daily vapes of nicotine Do You Feel Safe in your Home?: Yes Lack of Transportation: No Lack of Food: Never True Current Housing: I Have Housing Concerned About Future Housing: No Difficulty Paying Gas/Electric Bills: No Difficulty Paying for Meds: No Currently Unemployed: No Education: Associate Degree Difficulty w/ Childcare or Family Care: No Living arrangements: with family Spiritual care concerns: No Meds Home Medications and Allergies Home Medications ?Medication ?Instructions ?Recorded ?Confirmed ?Type docusate sodium 100 mg capsule 200 mg PO HS 07/20/24 0 02/01/25 History hydrocodone 5 mg-acetaminophen 325 1 tablet PO Q6H PRN pain #20 tabs 10/25/24 01/19/25 Rx mg tablet acetaminophen 325 mg tablet 1,000 mg PO ONCE PRN pain 01/19/25 01/19/25 History (Aminofen) Allergies Allergy/AdvReac Type Severity Reaction Status Date / Time sulfamethoxazole (From Allergy Intermediate Swelling Verified 02/01/25 10:20 Bactrim) of Lip/Tongue/Throat thimerosal Allergy Intermediate Rash Verified 02/01/25 10:20 trimethoprim (From Bactrim) Allergy Intermediate Swelling Verified 02/01/25 10:20 of Lip/Tongue/Throat NSAIDS (Non-Steroidal AdvReac Gastrointestinal Verified 02/01/25 10:20 Anti-Inflamma Upset Vital Signs Vital Signs - 24 hr 02/01/25 10:21 Temperature 97.5 F L Pulse Rate 88 Respiratory Rate 18 Blood Pressure 123/71 Pulse Oximetry 100 Oxygen Delivery Room Air Exam Const: General: cooperative and healthy appearing Resp: Effort & Inspection: normal respiratory effort and able to speak in complete sentences Auscultation: clear to auscultation bilaterally Cardio: Rate: regular rate Rhythm: regular rhythm GI: Inspection: normal to inspection GI Palp: No No hepatosplenomegaly present Auscultation: normal bowel sounds Rectal Exam: deferred Skin: General skin exam: normal color Psych: Appearance: grossly normal Mental Status: mental status grossly normal Assessment and Plan Assessment and plan (1) Abscess of sigmoid colon due to diverticulitis: Code(s): K57.20 - Diverticulitis of large intestine with perforation and abscess without bleeding Status: Acute Assessment and Plan: The patient is deemed a good candidate for the procedure. Consent signed. Will proceed.
[2025-02-01] MEDS: SIMETHICONE ORAL SUSPENSION 20 MG/0.3 ML 30 ML BOTTLE 0.6 ML IRRIGATION (11:23)
[2025-02-01 11:33] VITALS: BP 106/65; PULSE 80; RESP 19; O2SAT 100
[2025-02-01 11:43] VITALS: BP 116/79; PULSE 73; RESP 19; O2SAT 99
[2025-02-01 11:53] VITALS: BP 117/81; PULSE 71; RESP 21; O2SAT 98
== END 2025-02-01 12:16 | disposition home or self-care (01) ==
PROVIDERS: PCP Family Medicine; Referring Provider Internal Medicine Gastroenterology; Visit Provider Internal Medicine Gastroenterology
PROC: 0DJD8ZZ Inspection of Lower Intestinal Tract, Via Natural or Artificial Opening Endoscopic (ICD-10-PCS; CPT 45378; principal; 2025-02-01 11:30)
DX: K57.30 Diverticulosis of large intestine without perforation or abscess without bleeding (principal); K64.8 Other hemorrhoids; F17.290 Nicotine dependence, other tobacco product, uncomplicated
CPT/HCPCS: 45378; J2003; J2704; J7120